=== PATIENT | female | born 1940 | race Caucasian/White ===

== ENCOUNTER 2018-05-14 06:15 | Day surgery (SDC) | payer OTHER, SELFPAY ==
[2018-04-21 14:48] VITALS: BMI 27.1
[2018-05-14] VITALS (15 sets, daily range): BP systolic 91–130; BP diastolic 52–74; PULSE 68–84; RESP 7–18; TEMP 35.6–36.8; O2SAT 92–98; BMI 26.9
[2018-05-14] MEDS: LACTATED RINGERS 1,000 ML 42 ML IV (07:54)
--- NOTE | 2018-05-14 07:55 | PM.PREOP ---
Pre-operative Note Interval Note Pre-op Check: Yes History & Physical Reviewed by Physician Changes: No
[2018-05-14] MEDS: CEFAZOLIN 2 GM/100 ML FROZ.PIGGY IV (08:03)
--- NOTE | 2018-05-14 08:39 | SUR.OPER ---
Lithotomy on padded OR bed, head on pillow, arms secured on padded arm boards at <90 degrees abduction. Legs secured in padded yellow fins stirrups.
[2018-05-14] MEDS: fentaNYL 100 MCG/2 ML INJ 50 MCG IV ×2 (09:50→09:55)
--- NOTE | 2018-05-14 10:03 | PM.GYNOP.1 ---
Operative Date/Time/Diagnoses Date of procedure: 05/14/18 Time of procedure: 10:03 Pre-op diagnosis: Cystocele Rectocele Vaginal vault prolapse Post-op diagnosis: same Procedure: Procedures Operation Date: 05/14/18 07:45 Actual Procedures Side Surgeon p Anterior/Posterior Repair, Sacrospinous Fixation Rosana Negro MD Indications: Symptomatic cystocele and rectocele Vaginal vault prolapse Surgeon: Rosana Negro Senior Program Planner: Sanjuanita Scott Anesthesia Type: General Operative Notes Findings: Third-degree cyst Third-degree rectocele Third-degree vaginal vault prolapse Closure Type: primary Specimen(s): none Applied: catheter Estimated blood loss (mL): 100 Blood products transfused: none Procedure in detail: 2 Allis clamps were placed at the apex of the cystocele. 6 mL of half percent Marcaine with epinephrine were injected and an incision was made with a #10 blade between the 2 Allis clamps. Wide Allis clamps were placed on the midline of the cystocele approximately 7. The mucosa was undermined using the Metzenbaum scissors and the mucosa incised in the midline moving the wide Allis clamps to the edges of the mucosa. The mucosa was dissected off the underlying fascia using an open moistened Ray-Alissa and a #10 blade. The fascia was reapproximated with 0 Vicryl with a series of horizontal mattress sutures. The excess vaginal mucosa was excised. The mucosa was closed using simple interrupted sutures with 2-0 Vicryl including the underlying fascia to close the space. The weighted speculum was removed from the vagina. Allis clamps were placed at the mucocutaneous junction at the introitus. 6 mL of half percent Marcaine with epinephrine were injected. An incision was made with a #10 blade between the 2 Allis clamps, and a triangular piece of skin and underlying subcutaneous tissue was removed. Allis clamps were placed in the midline of the rectocele. 10 mL of half percent Marcaine with epinephrine were injected submucosally. The mucosa was undermined using the Metzenbaum scissors and the mucosa incised in the midline, moving the wide Allis clamps to the mucosal edges. The underlying fascia was dissected off of the mucosa using an open moistened Ray-Alissa and a #10 blade. Using the Capio needle 2cm from the spine laterally along the sacral spinous ligament, the Prolene suture was placed into the ligament. Using the Capio needle the suture was attached to the vaginal mucosa without going through and through. The upper edge of the vaginal mucosa was closed with 2 0 Vicryl in a running interlocking suture for approximately 2 cm. The fascia was reapproximated using 0 Vicryl with a series of horizontal mattress sutures. The excess vaginal mucosa was excised. The remainder of the mucosa was closed using a series of simple interrupted sutures with 2-0 Vicryl including the underlying fascia to close the space. On the perineum 0 Vicryl was used to reapproximate the levator muscle. The subcutaneous layer was closed with 2-0 Vicryl. The skin was closed with 3-0 chromic in a subcuticular fashion. Hemostasis was achieved. A Betadine moistened vaginal pack was placed into the vagina. A rectal exam was done and there were no sutures palpable in the rectum. The urine was clear. Sponge, lap, and instrument counts were correct ?-2. The patient tolerated the procedure well, was taken to PACU in stable condition. Complications: none Post-operative Condition: stable Disposition: PACU Plan for aftercare: To Acute Care after recovery
[2018-05-14] MEDS: LACTATED RINGERS 1,000 ML 100 ML IV ×2 (11:41→20:42)
--- NOTE | 2018-05-14 11:44 | PC.NURSE ---
Pt arrived at floor at 10:30 am after ant/post repair. IVF initiated. Spencer cath present with clear yellow. No PV loss. Denies pain apart from pressure at surgical site. Not ready for percocet yet. Now eating lunch.
[2018-05-14] MEDS: OXYCODONE/ACETAMINOPHEN 5/325 TABLET 1 TAB PO (12:22)
[2018-05-14] MEDS: ACETAMINOPHEN 325 MG TABLET 650 MG PO (17:28)
[2018-05-14] MEDS: DOCUSATE 250 MG CAPSULE PO (20:43)
[2018-05-15 04:11] VITALS: BP 115/57; PULSE 86; RESP 16; TEMP 36.5; O2SAT 95
--- NOTE | 2018-05-15 04:34 | PC.NURSE ---
Addendum entered by Adriana Hardin R.N. 05/15/18 07:06: Contacted at 0645 to determine if she was planning on removing packing or if she wanted staff to remove. Order received for RN to remove packing and then DC Echols and IVF. Is to be allowed 3h max to void. If voids we are to measure urine and do a post void residual bladder scan and call results to Dr Negro. If does not void in 3h we are to bladder scan and call results to bladder scan. Packing removed and echols d'cd. Instructed in sx/prevention of UTI. IVF stopped and informed of new orders and plan for today. Original Note: Addendum entered by Adriana Hardin R.N. 05/15/18 05:56: States having only 2/10 pain; cramping type pain in right abdomen and pulling sensation pain in vaginal area. Requested only 1 tab of Tylenol at this time; medicated as requested. Given yogurt along with medication per request. Had 1500cc UOP. Original Note: 0400 Patient asleep most of shift so far. Is alert and oriented. Breath sounds CTA with RA sat of 95%. HRR. Denies nausea. BT present and is passing flatus. Indwelling catheter is patent with clear yellow urine. Independent with bed mobility. Denies any current pain. Madeline-pad changed and had moderate amount sanguinous drainage on pad. States she does not use assistive device to walk at home but was walking on evening shift with walker and SBA. Denies feeling weak but states she has had recent problems with dizziness but no falls. Fall risk score currently high so bed alarm is activated for this shift.
[2018-05-15] MEDS: ACETAMINOPHEN 325 MG TABLET 650 MG PO (05:49)
[2018-05-15 07:01] LABS: Add Manual Diff / Slide Review NO; Basophils Percent Auto 0.1 % (0-2); Hematocrit 33.8 % (36-46); Hemoglobin 11.4 g/dL (12.0-16.0); Lymphocytes Percent Auto 6.9 % (25-40); Mean Corpuscular HGB Conc 33.8 % (30-36); Mean Corpuscular Hemoglobin 29.6 PG (26-34); Mean Corpuscular Volume 87.8 fL (80-100); Monocytes Percent Auto 4.6 % (3-14); Neutrophils Absolute Auto 11600 /uL (3000-5900); Neutrophils Percent Auto 88.4 % (50-75); Platelet Count 181 X10^3/uL (150-400); Red Blood Cell Count 3.85 X10^6/uL (4.0-5.2); White Blood Cell Count 13.1 X10^3/uL (4.5-11.0)
[2018-05-15 07:20] VITALS: BP 121/56; PULSE 73; RESP 15; TEMP 36.4; O2SAT 98
--- NOTE | 2018-05-15 09:18 | CM.DANOTE ---
Addendum entered by STUART Goldberg 05/15/18 13:09: ADD: Per MD, pt is medically stable to d/c home today with supportive family and no identified barriers to discharge. Plan: Patient to discharge home today via family POV. No SW needs at this time. BF Original Note: Patient is a 77 year old female who was admitted OutPt with Bed on 05/14/18 for Surgical Procedure by Dr. Negro. Pt has [facility] for insurance and her PCP is Dr. Carrizales. EMR was reviewed. Per MD, pt tolerated procedure well and likely can d/c home when medically stable. SW met bedside with pt and explained role and updated white board and pt confirmed that she lives at home wiht her in [place] and has local Dtr and family that can assist at d/c. Pt states she completed Living Will years ago and cannot remember who is her assigned DPOA. Pt plans to review her legal documents to update with their research attorney in the near future. Pt denies any hx of HH or SNF and is Independent at baseline with ADL's. Pt does not anticipate any SW needs at d/c and preference is to d/c home with and local Dtr and states her other Dtr who lives out of state plans to come tomorrow to stay with the pt to assist. Plan: SW to follow for likely pt d/c home with supportive family and Dtr to stay to assist when medically stable. STUART Goldberg Discharge Planning/Care Management CM Discharge Assessment Start: 05/15/18 09:15 Freq: Status: Active Protocol: Document 05/15/18 09:15 (Rec: 05/15/18 09:18 [id number]) Discharge Planning Assessment Assigned Carver Hand STUART Vang DPOA/Assigned Designee Name yes but unsure who Advance Directives? Yes History Provided By Patient Medical Record Has Patient been admitted in last 30 No days? Prior Living Arrangements House Household Members spouse Type of transporation used prior to Drives own vehicle admit Independent with ADL's Yes Is patient alert and oriented? Yes Caregiver for Another No Comment Likely home with supportive family Barriers to Discharge No Discharge Plan Home Transportation Arrangement Family to provide transport at d/c. Referrals Initiated None needed Whiteboard Updated in Patient Room with Yes name and ext. # of Carver Hand Review Status In Process Please Provide Date Initial DC 05/15/18 Assessment Was Performed Next Review Type Continued Stay Review
--- NOTE | 2018-05-15 09:32 | PC.NURSE ---
Day shift: Called Dr Negro to report void and post void bladder scan. 650ml out w/ 41ml residual. Also large BM. Brown and loose. Call light in reach.
[2018-05-15] MEDS: SODIUM CHLORIDE 0.9% FLUSH 10 ML IV (09:38)
[2018-05-15] MEDS: DOCUSATE 250 MG CAPSULE PO (09:38)
[2018-05-15 12:15] VITALS: BP 140/67; PULSE 75; RESP 17; TEMP 36.6; O2SAT 97
--- NOTE | 2018-05-15 13:45 | PC.NURSE ---
Pt ready for discharge home with Spouse. Reviewed d/c instructions with Pt. Pt's Spouse just returned from a walk and climbing the stairs and states he is feeling a bit dizzy. VS checked with result of 141/89, 16, 60, and O2 sat of 97% RA. Pt states this has happened before. Pt now resting and visiting with Spouse and agrees to call when they feel ready to go. Encouraged Pt to consider going to the ER to be checked but Pt's Spouse refused. Pt and Spouse live in [place]. Questioned Spouse about feeling safe to drive and he stated that he was feeling better. Gave Pt's Spouse a cup of juice and water and they agree to call when they are ready.
--- NOTE | 2018-05-15 14:27 | PC.NURSE ---
Day shift: Left unit at approx 1420. stated he is feeling better. Paperwork signed and questions answered. Pt went home with some extra peripads and all personal belongings.
--- NOTE | 2018-05-19 20:08 | PM.PNPO.1 ---
Subjective Date Patient Seen: 05/15/18 Time Patient Seen: 12:30 Interval history: Patient is a 77-year-old 6 para 6 postop day # 1 Status post anterior posterior repair and sacrospinous ligament fixation Patient voided without the catheter this morning. She voided 450-600 cc. Her postvoid residuals were less than 50 cc. She had clear yellow urine. Pain is well controlled. No significant vaginal bleeding. Her vaginal packing was removed earlier this morning. Exam Vital Signs (past 8 hours): Oxygen Delivery Method Room Air Oxygen Flow Rate 0 Narrative Exam Narrative: Generally: Patient is sitting up in bed, no acute distress Cardiovascular: Regular rate and rhythm Abdomen: Soft and flat. Good bowel sounds. External genitalia: Dry Extremities: Negative Homans, no edema Objective Labs Result Diagrams: 05/15/18 05:06 Assessment & Plan Post-op (1) Postop check: Current Visit: No Status: Acute Assessment and plan: Assessment: Postop day # 1 status post anterior and posterior repair with sacrospinous ligament fixation No urinary retention Plan: Discharged home Voiding schedule every 2-1/2 to 3 hr Patient to call with fever, chills, or bleeding vaginally more than spotting to light Follow-up in 2 weeks for postoperative check Postoperative Procedures Operation Date: 05/14/18 07:45 Actual Procedures Side Surgeon p Anterior/Posterior Repair, Sacrospinous Fixation Rosana Negro MD Quality VTE Deep Vein Thrombosis/Pulmonary Embolism Present on Admission: No
--- NOTE | 2018-05-19 20:12 | PM.DS.1 ---
History of Present Illness Date Patient Seen: 05/15/18 Time Patient Seen: 12:30 Chief complaint: *OPB* [id number] Narrative: Patient is a 77-year-old 6 para 6 who presented on 05/14/2018 for a scheduled anterior and posterior repair as well as a sacral spinous ligament fixation. She underwent these procedures without complication. Her postoperative course was unremarkable. She was discharged home on postop day # 1 with no evidence of urinary retention, good pain control, minimal vaginal bleeding. Discharge Providers Primary care physician: Sheldon Carrizales MD Discharge provider: Rosana Negro MD Summary Discharge Diagnosis: Cystocele Rectocele Vaginal vault prolapse Hospital Course: Patient underwent an anterior and posterior repair as well as sacral spinous ligament fixation on 05/14/2018 without complication. She had an unremarkable postoperative course. She was discharged home on postop day # 1 with no evidence of urinary retention, good pain control, and minimal vaginal bleeding. Status at Discharge Functional status at discharge: independent ambulation Overall status at discharge: patient is progressing back to baseline Time Spent with Patient Less than 30 minutes Exam Vital Signs (past 8 hours): Oxygen Delivery Method Room Air Oxygen Flow Rate 0 Narrative Exam Narrative: Generally: Patient is sitting up in bed, no acute distress Lungs: Clear to auscultation bilaterally Cardiovascular: Regular rate and rhythm Abdomen: Soft and flat. Good bowel sounds Perineum: Dry Extremities: Negative Homans Objective Labs Result Diagrams: 05/15/18 05:06 Discharge Plan Discharge Plan Patient Disposition: Home Discharge comment: Call with fever, chills or bleeding vaginally more than spotty to light. Empty bladder every 2 1/2-3 hours Discharge Med Rec/Prescriptions Prescriptions: No Action No Known Home Medications RF: 0 Follow up/Referrals: Rosana Negro MD [Physician] - Sheldon Carrizales MD [Primary Care Provider] - 2 Weeks (My office will call pt on Thursday to schedule) Discharge Orders: Discharge (Order); Ordered 05/15/18 Ordered By: Rosana Negro Provider Discharge Instructions Diet: Diet as Tolerated Activity: No heavy lifting, lunging or squatting Skin/Wound/Dressing Care Report to your healthcare provider any signs of infection, such as:: chills, fever, increased pain and unusual drainage Visit Report/Discharge Packet Instructions: DI for Vaginal Hysterectomy Stand Alone Forms: Surgery Discharge Discharge Data Primary Care Provider: Sheldon Carrizales Attending Provider: Rosana Negro Discharges patient from system. Discharge Date/Time: 05/15/18 14:28 Quality VTE Deep Vein Thrombosis/Pulmonary Embolism Present on Admission: No
== END 2018-05-15 14:28 | disposition home or self-care (01) ==
LOC: OR 06:18 → AC 10:54
PROVIDERS: Family Provider Family Medicine; PCP Family Medicine; Visit Provider Obstetrics & Gynecology
PROC: (CPT 57282; principal; 2018-05-14 07:45)
DX: N81.10 Cystocele, unspecified (principal); N81.6 Rectocele; N81.9 Female genital prolapse, unspecified
CPT/HCPCS: 57282; 57260; 36415; 85025; J0690; J1100; J1885; J2405; J2704; J3010

== ENCOUNTER → 2020-01-02 12:29 | Outpatient (CLI) | payer OTHER, SELFPAY ==
[2018-05-14 11:15] VITALS: BMI 26.9
--- NOTE | 2020-01-02 12:30 | DI.RAD.S_ITS ---
PROCEDURE: XR FOOT RT MIN 3V INDICATIONS: 1st metatarsal pain TECHNIQUE: 3 views of the foot were acquired. COMPARISON: None. FINDINGS: Bones: No fractures or dislocations. No suspicious bony lesions. Severe osteoarthritic degenerative changes noted in the first MTP joint. Soft tissues: No tibiotalar joint effusion. Achilles tendon appears normal. IMPRESSION: 1. No fracture. No acute osseous lesion. If symptoms and/or clinical suspicion for pathology persists, further assessment with repeat radiographs (7-10 days) or advanced imaging (e.g. CT, MRI or bone scan) may be helpful. 2. Severe first MTP joint osteoarthritis with severe joint space narrowing, subchondral sclerosis, subchondral cyst formation and marginal osteophytosis. Dictated by: Kayla Smith MD, PhD on 01/02/2020 at 14:07 Approved by: Kayla Smith MD, PhD on 01/02/2020 at 14:21
== END ==
PROVIDERS: Family Provider Family Medicine; PCP Family Medicine; Referring Provider Family Medicine; Visit Provider Family Medicine
DX: M79.671 Pain in right foot (principal); M19.071 Primary osteoarthritis, right ankle and foot
CPT/HCPCS: 73630

== ENCOUNTER → 2020-07-10 14:28 | Outpatient (CLI) | payer OTHER, SELFPAY ==
[2018-05-14 11:15] VITALS: BMI 26.9
--- NOTE | 2020-07-10 14:31 | DI.RAD.S_ITS ---
PROCEDURE: XR HIP W PEL IF DONE RT 2V INDICATIONS: rt hip pain TECHNIQUE: AP pelvis with lateral view(s) of the right hip(s). COMPARISON: None. FINDINGS: Bones: No fractures or dislocations. Pelvic ring appears intact. No suspicious bony lesions. Soft tissues: The visualized bowel gas pattern is normal. No suspicious soft tissue calcifications. IMPRESSION: Hdcr-qd-dppaoyyl hip joint osteoarthritis present bilaterally, slightly greater on the left than the right. No trauma found. Dictated by: Wesley Muhammad M.D. on 07/10/2020 at 16:02 Approved by: Wesley Muhammad M.D. on 07/10/2020 at 16:02
== END ==
PROVIDERS: Family Provider Family Medicine; PCP Family Medicine; Referring Provider Family Medicine; Visit Provider Family Medicine
DX: M16.0 Bilateral primary osteoarthritis of hip (principal); E03.9 Hypothyroidism, unspecified
CPT/HCPCS: 73502

== ENCOUNTER → 2020-10-01 10:26 | Outpatient (CLI) | payer OTHER, SELFPAY ==
[2018-05-14 11:15] VITALS: BMI 26.9
[2020-10-01 11:45] LABS: Add Manual Diff / Slide Review NO; Basophils Absolute Auto 0 /uL (0-100); Basophils Percent Auto 0.8 % (0-2); Eosinophils Absolute Auto 300 /uL (0-450); Eosinophils Percent Auto 5.2 % (2-4); Hemoglobin 13.6 g/dL (12.0-16.0); Lymphocytes Absolute Auto 1000 /uL (1100-4500); Mean Corpuscular HGB Conc 32.4 % (30-36); Mean Corpuscular Hemoglobin 28.6 PG (26-34); Mean Corpuscular Volume 88.1 fL (80-100); Monocytes Absolute Auto 600 /uL (0-900); Monocytes Percent Auto 10.2 % (3-14); Neutrophils Absolute Auto 3500 /uL (1500-7000); Neutrophils Percent Auto 64.8 % (50-75); Platelet Count 208 X10^3/uL (150-400); Red Blood Cell Count 4.77 X10^6/uL (4.0-5.2); Red Cell Distribution Width 13.4 % (11.6-14.8); White Blood Cell Count 5.4 X10^3/uL (4.5-11.0)
[2020-10-01 11:51] LABS: Alanine Aminotransferase 18 IU/L (<35); Albumin 4.1 g/dL (3.5-5.0); Albumin Globulin Ratio 1.3 (1.0-2.8); Alkaline Phosphatase 89 U/L (38-126); Aspartate Aminotransferase 26 IU/L (14-36); BUN Creatinine Ratio 10.8 (6-22); Bilirubin Total 0.4 mg/dL (0.2-1.3); Blood Urea Nitrogen 9 mg/dL (7-17); Calcium 9.3 mg/dL (8.4-10.2); Carbon Dioxide 31 mmol/L (22-32); Chloride 99 mmol/L (98-107); Estimated Glomerular Filt Rate > 60.0 mL/min (>60); Globulin 3.1 g/dL (1.7-4.1); Glucose 82 mg/dL (80-110); HEMOLYSIS < 15 (0-50); Potassium 3.9 mmol/L (3.4-5.1); Sodium 135 mmol/L (137-145); Total Protein 7.2 g/dL (6.3-8.2)
[2020-10-01 12:21] LABS: TSH w/ Reflex to FT4 8.96 uIU/mL (0.47-4.68)
[2020-10-01 12:57] LABS: Free T4, Direct Thyroxine 1.27 ng/dL (0.78-2.19)
== END ==
PROVIDERS: Family Provider Family Medicine; PCP Family Medicine; Referring Provider Family Medicine; Visit Provider Family Medicine
DX: E03.9 Hypothyroidism, unspecified (principal); M25.559 Pain in unspecified hip
CPT/HCPCS: 36415; 80053; 84439; 84443; 85025

== ENCOUNTER → 2020-10-02 15:36 | Outpatient (CLI) | payer OTHER, SELFPAY ==
[2018-05-14 11:15] VITALS: BMI 26.9
--- NOTE | 2020-10-02 15:37 | DI.RAD.S_ITS ---
PROCEDURE: XR CHEST 2V INDICATIONS: cough short of breath TECHNIQUE: 2 views of the chest were acquired. COMPARISON: [facility], , CHEST 2 VIEW, 06/07/2009, 15:20. FINDINGS: Surgical changes and devices: None. Lungs and pleura: Biapical and left basilar scars and atelectasis. No pleural effusions or pneumothorax. Mediastinum: Mediastinal contours are normal. Heart size is normal. Bones and chest wall: No suspicious bony abnormalities. Soft tissues appear unremarkable. IMPRESSION: No acute cardiopulmonary disease. Biapical and left basilar scars and atelectasis. Dictated by: Jeffrey Joe M.D. on 10/02/2020 at 16:44 Approved by: Jeffrey Joe M.D. on 10/02/2020 at 16:45
== END ==
PROVIDERS: Family Provider Family Medicine; PCP Family Medicine; Referring Provider Family Medicine; Visit Provider Family Medicine
DX: R05 Cough (principal); R06.02 Shortness of breath; J98.4 Other disorders of lung; J98.11 Atelectasis
CPT/HCPCS: 71046

== ENCOUNTER → 2021-02-07 10:10 | Outpatient (CLI) | payer OTHER, SELFPAY ==
[2018-05-14 11:15] VITALS: BMI 26.9
[2021-02-07 10:37] LABS: COVID19 -Nasal RAPID Negative (Negative)
== END ==
PROVIDERS: Family Provider Family Medicine; PCP Family Medicine; Visit Provider Family Medicine
DX: Z20.822 Contact with and (suspected) exposure to COVID-19 (principal)
CPT/HCPCS: 87635

== ENCOUNTER → 2021-05-28 09:47 | Outpatient (CLI) | payer OTHER, SELFPAY ==
[2018-05-14 11:15] VITALS: BMI 26.9
--- NOTE | 2021-05-28 09:48 | DI.US.S_ITS ---
PROCEDURE: US ABDOMEN LIMITED INDICATIONS: RIGHT UPPER QUADRNAT PAIN. POSSIBLE SOFT TISSUE MASS. TECHNIQUE: Real-time focused scanning was performed of the abdomen, with image documentation. COMPARISON: None. FINDINGS: The liver is normal in size and demonstrates no focal lesions. No findings of gallstones or sludge are seen. The gallbladder wall is not thickened, measuring 3 mm or less. No specific pericholecystic fluid is seen. The sonographic Feliz sign is negative. There is no biliary dilatation, the common bile duct measures 4 mm. No significant pancreatic abnormality is seen on these images. Dedicated scanning is performed at the area of clinical concern involving the right upper quadrant soft tissue abnormality. No abnormalities are seen, including no hernia, cyst, or lipoma. IMPRESSION: No ultrasound abnormality can be seen involving the right upper quadrant. The gallbladder demonstrates a normal sonographic appearance. No biliary dilatation is seen. Dictated by: Arnie Navarrete M.D. on 05/28/2021 at 9:37 Approved by: Arnie Navarrete M.D. on 05/28/2021 at 9:38
== END ==
PROVIDERS: Family Provider Family Medicine; PCP Family Medicine; Referring Provider Physician Assistant; Visit Provider Physician Assistant
DX: R10.11 Right upper quadrant pain (principal)
CPT/HCPCS: 76705

== ENCOUNTER → 2021-12-17 09:51 | Outpatient (CLI) | payer OTHER, SELFPAY ==
[2018-05-14 11:15] VITALS: BMI 26.9
--- NOTE | 2021-12-17 | DI.US.S_ITS ---
ULTRASOUND OF RIGHT BREAST: 12/17/2021 CLINICAL: Patient returns today to evaluate 2 focal asymmetries in the right breast. Comparison is made to exam dated: 12/17/2021 mammogram - [facility]. Ultrasound of the right breast was performed on the area of interest. Ca scale images of the real-time examination were reviewed. There is a cluster of complicated cysts in the right breast at 3 o'clock posterior depth. This cluster of complicated cysts displays posterior acoustic enhancement and correlates with mammography findings. IMPRESSION: PROBABLY BENIGN The cluster of complicated cysts in the right breast is probably benign. A follow-up ultrasound in 6 months is recommended to demonstrate stability. This exam was interpreted at Station ID: [id number]. Electronically Signed By: Sepideh bates/:12/17/2021 16:56:42 letter sent: Followup Recommended Ultrasound BI-RADS: 3 Probably benign
--- NOTE | 2021-12-17 12:44 | DI.MG.S_ITS ---
BILATERAL DIGITAL DIAGNOSTIC MAMMOGRAM 3D/2D: 12/17/2021 CLINICAL: Breast lump. Baseline. No prior exams were available for comparison. There are scattered fibroglandular elements in both breasts. There is a cluster of two focal asymmetries in the right breast at 2 o'clock middle depth. There is a 2.4 cm mass with a spiculated margin and grouped coarse calcifications in the left breast at 12 o'clock middle depth. This correlates as palpated. There is architectural distortion and nipple retraction associated with the mass. No other significant masses or calcifications are seen in either breast. IMPRESSION: INCOMPLETE: NEEDS ADDITIONAL IMAGING EVALUATION The cluster of focal asymmetries in the right breast at 2 o'clock middle depth is indeterminate. The 2.4 cm mass in the left breast at 12 o'clock middle depth is indeterminate. A targeted ultrasound of the bilateral breasts is recommended and will be performed immediately following this exam. This exam was interpreted at Station ID: [id number]. NOTE: For mammograms, a report in lay terms will be sent to the patient. Approximately 15% of breast malignancies will not be visualized mammographically. In the management of a palpable breast mass, a negative mammogram must not discourage biopsy of a clinically suspicious lesion. Electronically Signed By: Sepideh Brink M.D. lk/:12/17/2021 13:42:15 ACR BI-RADS Category 0: Incomplete [id number]
--- NOTE | 2021-12-17 12:45 | DI.US.S_ITS ---
ULTRASOUND OF LEFT BREAST: 12/17/2021 CLINICAL: Palpable left breast lump. Comparison is made to exam dated: 12/17/2021 mammogram - [facility]. Color flow and real-time ultrasound of the left breast were performed on the areas of interest. Ca scale images of the real-time examination were reviewed. There is a 2.1 cm x 1.8 cm x 1.9 cm irregular mass with an angular margin in the left breast at 12 o'clock middle depth. This irregular mass is hypoechoic with posterior acoustic shadowing. This correlates as palpated and with mammography findings. There also is a 1.4 cm x 1 cm x 1.2 cm irregular mass with an angular margin in the left breast deep to the nipple. This irregular mass is hypoechoic with posterior acoustic shadowing. There is associated nipple retraction. Additionally, there is a 0.5 cm x 0.6 cm x 0.6 cm mass with an angular margin in the left axillary tail. This mass is hypoechoic with posterior acoustic shadowing. Color flow imaging demonstrates that there is increased vascularity. IMPRESSION: HIGHLY SUGGESTIVE OF MALIGNANCY The 2.1 cm x 1.8 cm x 1.9 cm irregular mass in the left breast at 12 o'clock middle depth is highly suggestive of malignancy. An ultrasound guided biopsy is recommended. The 1.4 cm x 1 cm x 1.2 cm irregular mass in the left breast at 12 o'clock anterior depth is highly suggestive of malignancy and likely represents a satelite lesion to the palpable mass. Biopsy of this lesion should be at the discretion of the radiologist at the time of biopsy of the palpable mass. The 0.5 cm x 0.6 cm x 0.6 cm mass in the left axillary tail is consistent with an enlarged lymph node and is highly suggestive of malignancy. An ultrasound guided biopsy is recommended. These findings were discussed with the patient by the radiologist Dr. Joe at the time of the exam. This exam was interpreted at Station ID: [id number]. Electronically Signed By: Sepideh bates/:12/17/2021 16:52:58 letter sent: Biopsy Required Ultrasound BI-RADS: 5 Highly suggestive of malignancy
== END ==
PROVIDERS: Family Provider Family Medicine; PCP Family Medicine; Referring Provider Family Medicine; Visit Provider Family Medicine
DX: N63.25 Unspecified lump in the left breast, overlapping quadrants (principal); R92.8 Other abnormal and inconclusive findings on diagnostic imaging of breast; N60.01 Solitary cyst of right breast; N63.32 Unspecified lump in axillary tail of the left breast
CPT/HCPCS: 76642; 77066; G0279

== ENCOUNTER → 2022-01-14 09:09 | Outpatient (CLI) | payer OTHER, SELFPAY ==
[2018-05-14 11:15] VITALS: BMI 26.9
--- NOTE | 2022-01-14 | DI.MG.S_ITS ---
UNILATERAL LEFT DIGITAL DIAGNOSTIC MAMMOGRAM 3D/2D POST-NEEDLE BIOPSY: 01/14/2022 CLINICAL: Left breast post clip. Comparison is made to exams dated: 12/17/2021 ultrasound and 12/17/2021 mammogram - [facility]. There are scattered fibroglandular elements in left breast. There is a marker clip in the appropriate position in the left breast at 12 o'clock middle depth. This marker clip placement is at the biopsy site. IMPRESSION: POST PROCEDURE MAMMOGRAM FOR MARKER PLACEMENT There was a successful marker clip placement in the left breast middle depth. Future imaging is recommended as follows: 06/18/2022 follow-up right ultrasound. This exam was interpreted at Station ID: [id number]. NOTE: For mammograms, a report in lay terms will be sent to the patient. Approximately 15% of breast malignancies will not be visualized mammographically. In the management of a palpable breast mass, a negative mammogram must not discourage biopsy of a clinically suspicious lesion. Electronically Signed By: Mark morley/marquis:01/24/2022 08:31:32 ACR BI-RADS Category Post-procedure mammogram for marker placement
--- NOTE | 2022-01-14 | DI.US.S_ITS ---
ULTRASOUND GUIDED BIOPSY LEFT BREAST: 01/14/2022 CLINICAL: Left axillary node biopsy. PATIENT CONSENT: Risks (minor bleeding, infection, vasovagal reaction and repeat procedure), benefits and alternatives were explained to the patient and written informed consent was obtained. Correlation is made to exams dated: 12/17/2021 ultrasound and 12/17/2021 mammogram [facility]. An ultrasound guided biopsy using real-time ultrasound was performed for the lymph node located in the left axillary tail. This was described on the previous ultrasound report. The skin was prepped in the usual manner. The abnormality was approached from the lateral aspect. A biopsy needle was placed adjacent to the abnormality under ultrasound guidance. Once the needle was documented to be in the correct location, three passes were made using an Achieve automated firing device. The specimens were sent to the laboratory for pathological analysis. IMPRESSION: ULTRASOUND GUIDED BIOPSY MALIGNANT Ultrasound guided biopsy of the lymph node in the left axillary tail was successful with no apparent post procedure complications. Pathology indicates malignant invasive ductal carcinoma (ID). Pathology results are concordant with imaging findings. A surgical/oncologic consultation is recommended. Future imaging is recommended as follows: 06/18/2022 follow-up right ultrasound. This exam was interpreted at Station ID: [id number]. Mark morley jr/:01/27/2022 11:36:31
--- NOTE | 2022-01-14 | PATH_ITS ---
[facility] Accession Number: [id number] No. of containers..01 Tissue . 01 Material submitted: . breast - LT BREAST MASS 12:00 9CMFN . 01 Diagnosis: Left Breast Mass at 12 o'clock, 9 cm from Nipple: Invasive carcinoma. Please see Cancer Case Summary. . . CANCER CASE SUMMARY . Specimen Procedure: Needle biopsy. Specimen laterality: Left. Tumor Tumor site: Between upper outer and upper inner quadrants at 12 o'clock, 9 cm from nipple. 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 Histologic grade: High grade. Glandular differentiation: 3/3. Nuclear pleomorphism: 3/3. Mitotic rate: Favor 2/3. Overall grade: Grade 3 (score 8/9). Tumor size: At least 7 mm. Carcinoma in situ: Not identified. Lymphovascular invasion: Not identified. Microcalcifications: Not identified. Special studies: Please see microscopic description. V 01/17/2022 1609 Local . 01 Comment: As part of routine quality control chemist, this case was also reviewed by Dr. Tovar, who agrees with the interpretation. . Results discussed with Dr. Carrizales's nurse, Malini, on 01-17-22 at approximately 3:46 p.m. . 01 Electronically signed: . Rosita Magallon MD, Pathologist NPI- [id number] . 01 Gross description: . Received one formalin-filled container, labeled with the patient's name and designated LT breast mass 12 o'clock 9 cm fn. Samples received with a plastic filter in container, sample loose in container and consists of multiple yellow-dunlap portions of tissue which range in size from 0.1 x 0.1 x 0.1 cm to 1.1 x 0.3 x 0.3 cm. All fragments are totally submitted in two cassettes. Possible collection date and time per requisition: 01/14/2022 at 10:27. Total fixation time: Approximately 18 hours. (DC:[id number]) /HUGH 01/15/2022 0346 Local . 01 Microscopic: . Immunohistochemical stains are performed to further evaluate the cells of interest. The control stain showed appropriate reactivity. . RESULTS: E-cadherin: Positive, consistent with ductal differentiation. GATA3: Positive, consistent with breast origin. . . . . CAP BREAST BIOMARKER REPORTING TEMPLATE: . Estrogen Receptor (ER) Status: Positive, 80-90% of tumor nuclei. Average intensity of staining: Moderate to strong intensity. Primary antibody: SP1 Progesterone Receptor (PgR) Status: Positive, 70% tumor nuclei. Average intensity of staining: Moderate to strong intensity. Primary antibody: 1E2 HER2 (by immunohistochemistry): Negative at 1+. Primary antibody: 4B5 . Cold Ischemia and Fixation Times: Meets requirements in the latest version of the ASCO/CAP guidelines. Testing performed on Block Number: . TECHNICAL NOTE: The scoring criteria for breast biomarkers by immunohistochemistry is based on the current ASCO/CAP guidelines (Elizabeth et al, Arch Pathol Lab Med 2010: 134(6): 907-922 / Wil SILVA et al, Arch Pathol Lab Med 2014: 138(2):241-256). Deparaffinized sections of formalin fixed tissue (along with appropriate positive controls) are incubated with the above antibody(s). Using the automated [employer] stainer, tissue is incubated with the designated antibody* which is then localized by a non-biotin, dual polymer detection system. The external controls are reviewed for appropriate reactivity and found to be adequate. Results on the target cell population are indicated above. These tests have not been validated on decalcified tissue. * This test was developed and its performance characteristics determined by [employer]. It has not been cleared or approved by the U.S. Food and Drug Administration. The FDA has determined that such clearance or approval is not necessary. This test is used for clinical purposes. It should not be regarded as investigational or for research. . 01 Pathologist provided ICD-10: C50.912 . 01 CPT . 325010, 924515, 867836, 102279, K32620, X22350 Specimen Comment: A courtesy copy of this report has been sent to [phone] Performed at: 01 [facility] [address] [facility], [place], [place] [id number] MD Oscar Chatman MD Phone: [phone]
--- NOTE | 2022-01-14 | DI.US.S_ITS ---
ULTRASOUND GUIDED BIOPSY LEFT BREAST USING VACUUM DEVICE WITH MARKING DEVICE INSERTED AND POST DIGITAL MAMMOGRAPHIC IMAGIN01/14/2022 CLINICAL: Left breast mass. PATIENT CONSENT: Risks (minor bleeding, infection, vasovagal reaction and repeat procedure), benefits and alternatives were explained to the patient and written informed consent was obtained. Correlation is made to exams dated: 12/17/2021 ultrasound and 12/17/2021 mammogram - [facility]. An ultrasound guided biopsy using real-time ultrasound was performed for the irregular shaped solid mass located in the left breast at 12 o'clock posterior depth. This was described on the previous ultrasound report. The skin was prepped in the usual manner. Local anesthetic was administered to the access site. A small incision was made in the breast. The abnormality was approached from the lateral aspect. A 10 gauge biopsy needle was placed adjacent to the abnormality under ultrasound guidance. Once the needle was documented to be in the correct location, three specimens were obtained using the Mammotome biopsy system. The patient received additional local anesthetic during the procedure. A clip was inserted into the biopsy cavity. A skin adhesive was applied to the access site. Post procedure digital mammographic imaging demonstrates the location device at the targeted area. The specimens were sent to the laboratory for pathological analysis. IMPRESSION: ULTRASOUND GUIDED BIOPSY MALIGNANT Ultrasound guided biopsy of the solid mass in the left breast at 12 o'clock posterior depth was successful with no apparent post procedure complications. Pathology indicates malignant invasive ductal carcinoma (ID). Pathology results are concordant with imaging findings. A surgical/oncologic consultation is recommended. Future imaging is recommended as follows: 06/18/2022 follow-up right ultrasound. This exam was interpreted at Station ID: [id number]. Mark morley jr/marquis:01/27/2022 11:35:19
--- NOTE | 2022-01-14 | PATH_ITS ---
[facility] Accession Number: [id number] No. of containers..01 Tissue . 01 Material submitted: . breast - LEFT AXILLARY MASS . 01 Diagnosis: Left Axillary Mass: Invasive carcinoma. Please see Cancer Case Summary. . . CANCER CASE SUMMARY . Specimen Procedure: Needle core biopsy. Specimen laterality: Left. Tumor Tumor site: Axillary, not otherwise specified. 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 Histologic grade: Intermediate grade. Glandular differentiation: 3/3. Nuclear pleomorphism: 2/3. Mitotic rate: Favor 2/3; limited hpf for review. Overall grade: Grade 2 (score 7/9). Tumor size: At least 4 mm. Carcinoma in situ: Not identified. Lymphovascular invasion: Suspicious focus present. Microcalcifications: Not identified. Other: No lymph node tissue identified. . Special studies: Please see microscopic description. MRV 01/17/2022 1615 Local . 01 Comment: As part of routine supplier quality engineer, this case was also reviewed by Dr. Tovar, who agrees with the interpretation. . Results discussed with Dr. Carrizales's nurse, Malini, on 01-17-22 at approximately 3:46 p.m. . 01 Electronically signed: . Rosita Magallon MD, Pathologist NPI- [id number] . 01 Gross description: . Received in one formalin-filled container, labeled with the patient's name and LT ax, are multiple yellow-dunlap, cylindrical-shaped portions of tissue which range in size from 0.2 x 0.2 x 0.2 cm to 0.7 x 0.2 x 0.2 cm. All fragments are totally submitted in one cassette. Possible collection date and time per requisition: 01/14/2022 at 10:27. Total fixation time: Approximately 18 hours. (DC:[id number]) /FRR 01/15/2022 0344 Local . 01 Microscopic: . Immunohistochemical studies were performed to further evaluate the cells of interest. The control stains showed appropriate reactivity. . RESULTS: Block A1 E-cadherin: Positive, consistent with ductal differentiation. GATA3: Positive, consistent with breast origin. . . . CAP BREAST BIOMARKER REPORTING TEMPLATE: . Estrogen Receptor (ER) Status: Positive, greater than 90% of tumor nuclei. Average intensity of staining: Moderate to strong intensity. Primary antibody: SP1 Progesterone Receptor (PgR) Status: Positive, greater than 90% tumor nuclei Average intensity of staining: Moderate to strong intensity. Primary antibody: 1E2 HER2 (by immunohistochemistry): Negative (0+). Primary antibody: 4B5 . . Cold Ischemia and Fixation Times: Meets requirements in the latest version of the ASCO/CAP guidelines. Testing performed on Block Number: A1. . TECHNICAL NOTE: The scoring criteria for breast biomarkers by immunohistochemistry is based on the current ASCO/CAP guidelines (Elizabeth et al, Arch Pathol Lab Med 2010: 134(6): 907-922 / Wil Forbes al, Arch Pathol Lab Med 2014: 138(2):241-256). Deparaffinized sections of formalin fixed tissue (along with appropriate positive controls) are incubated with the above antibody(s). Using the automated [employer] stainer, tissue is incubated with the designated antibody* which is then localized by a non-biotin, dual polymer detection system. The external controls are reviewed for appropriate reactivity and found to be adequate. Results on the target cell population are indicated above. These tests have not been validated on decalcified tissue. * This test was developed and its performance characteristics determined by [employer]. It has not been cleared or approved by the U.S. Food and Drug Administration. The FDA has determined that such clearance or approval is not necessary. This test is used for clinical purposes. It should not be regarded as investigational or for research. . 01 Pathologist provided ICD-10: C50.912 . 01 CPT . 118602, 794095, 312334, 469641, E69600, H29605 Specimen Comment: A courtesy copy of this report has been sent to [phone] Performed at: 01 [facility] [address], [place], [place] [id number] MD Oscar Chatman MD Phone: [phone]
== END ==
PROVIDERS: Family Provider Family Medicine; PCP Family Medicine; Referring Provider Family Medicine; Visit Provider Family Medicine
DX: C50.812 Malignant neoplasm of overlapping sites of left female breast (principal); C77.3 Secondary and unspecified malignant neoplasm of axilla and upper limb lymph nodes; Z17.0 Estrogen receptor positive status [ER+]
CPT/HCPCS: 19083; 38505; 76942; 77065

== ENCOUNTER → 2022-01-23 14:28 | Outpatient (CLI) | payer OTHER, SELFPAY ==
[2018-05-14 11:15] VITALS: BMI 26.9
--- NOTE | 2022-01-23 14:33 | DI.CT.S_ITS ---
PROCEDURE: CT CHEST W CON INDICATIONS: new dx of left breast cancer TECHNIQUE: After the administration of intravenous contrast, 5 mm thick sections acquired from the pulmonary apices to the posterior costophrenic angles. 1 mm axial lung, 5 mm thick coronal and sagittal reformats and 7 mm axial MIP were acquired. For radiation dose reduction, the following was used: automated exposure control, adjustment of mA and/or kV according to patient size. COMPARISON: [facility], , DIAGNOSTIC MAMMO UNILAT LT2D, 01/14/2022, 10:38. [facility], US BX BREAST PERC W VAC DEVICE, 01/14/2022, 9:25. [facility], US BIOPSY LT AXILLA, 01/14/2022, 9:25. [facility], BREAST RT LIMITED, 12/17/2021, 14:53. [facility], BREAST LT LIMITED, 12/17/2021, 14:38. [facility], MM DIAGNOSTIC MAMMO BI, 12/17/2021, 13:22. FINDINGS: Image quality: Excellent. Lungs and pleura: No acute air space opacities. No pleural effusions or pneumothorax. Central and peripheral airways are patent and normal in caliber. Mediastinum: Heart size is normal. Mild pericardial effusion. No mediastinal or hilar adenopathy by size criteria. Thoracic aorta and central pulmonary arteries are normal in size. Esophagus is normal in caliber. No hiatal hernia. Bones and chest wall: No suspicious bony lesions. No vertebral body compression fractures. No axillary or supraclavicular adenopathy by size criteria. Thyroid gland is unremarkable . 2.0 x 2.7 cm left breast mass is noted. Abdomen: Visualized upper abdominal solid organs appear normal. Upper abdominal bowel loops are normal in caliber. IMPRESSION: Left breast mass consistent with given history of malignancy. Mild pericardial effusion. Lungs are clear. No adenopathy. Dictated by: Pau Stewart M.D. on 01/23/2022 at 16:44 Approved by: Pau Setwart M.D. on 01/23/2022 at 16:48
[2022-01-23 15:54] LABS: BUN Creatinine Ratio 24.4 (6-22); Blood Urea Nitrogen 21 mg/dL (7-17); Calcium 8.7 mg/dL (8.4-10.2); Carbon Dioxide 27 mmol/L (22-32); Chloride 99 mmol/L (98-107); Estimated Glomerular Filt Rate > 60 mL/min (>60); Glucose 98 mg/dL (80-110); HEMOLYSIS < 15 (0-50); Potassium 4.3 mmol/L (3.4-5.1); Sodium 132 mmol/L (137-145)
== END ==
PROVIDERS: Family Provider Family Medicine; PCP Family Medicine; Referring Provider Family Medicine; Visit Provider Family Medicine
DX: C50.912 Malignant neoplasm of unspecified site of left female breast (principal); Z01.818 Encounter for other preprocedural examination; I31.3 Pericardial effusion (noninflammatory)
CPT/HCPCS: 36415; 71260; 80048; Q9967

== ENCOUNTER → 2022-02-04 06:56 | Outpatient (CLI) | payer OTHER, SELFPAY ==
[2018-05-14 11:15] VITALS: BMI 26.9
--- NOTE | 2022-02-04 | DI.CT.S_ITS ---
PROCEDURE: CT ABDOMEN PELVIS W CON INDICATIONS: BREAST CANCER STAGING TECHNIQUE: After the administration of oral and IV contrast, axial sections were acquired from the lung bases to the pubic symphysis. Coronal and sagittal reformats were performed. For radiation dose reduction, the following was used: automated exposure control, adjustment of mA and/or kV according to patient size. COMPARISON: [facility], MR, MR BREAST BI WO/W CON, 02/04/2022, 8:25. [facility], CT, CT CHEST W CON, 01/23/2022, 15:59. [facility], US, US ABDOMEN LIMITED, 05/28/2021, 9:59. FINDINGS: Image quality: Excellent. Lung bases: Unremarkable. Heart: No significant findings. ABDOMEN: Liver: Hepatic steatosis with somewhat coarsened appearance is noted. Gallbladder: Unremarkable. Biliary ducts: Unremarkable. Pancreas: Unremarkable. Spleen: Unremarkable. Adrenal Glands: Unremarkable. Kidneys and Ureters: Unremarkable. Stomach and Bowel: Stomach, small bowel loops, and colon are nonobstructive. Prominent colonic diverticula are present without associated inflammatory change. Peritoneum: No abnormal intraperitoneal fluid. No free air. Ventral Wall: No hernia. Abdominal Nodes: No retroperitoneal or mesenteric adenopathy by size criteria. Vessels: Aorta and inferior vena cava are normal in size. PELVIS: Pelvic Organs: Unremarkable. Bladder: Unremarkable. Pelvic Nodes: No enlarged lymph nodes. Miscellaneous: No inguinal hernias are seen. Bones: Unremarkable. IMPRESSION: No evidence of metastatic disease. Diverticulosis. Hepatic steatosis. Dictated by: Pau Stewart M.D. on 02/04/2022 at 14:28 Approved by: Pau Stewart M.D. on 02/04/2022 at 14:30
--- NOTE | 2022-02-04 | DI.MRI.S_ITS ---
BREAST MRI OF BOTH BREASTS: 02/04/2022 CLINICAL: Breast Cancer staging. TECHNIQUE: The patient was placed prone in a dedicated breast imaging coil. Precontrast axial STIR and 3D FLASH without fat saturation sequences were obtained. Both before and after bolus injection of contrast, sequential 1-minute axial 3D FLASH with fat saturation sequences for 3 time points, with subtraction images and maximum intensity projections (MIP's) generated. Delayed sagittal FLASH images with fat saturation were also obtained. Computer-aided detection, including computer algorithm analysis of MRI image data for lesion detection and characterization, pharmacokinetic analysis, with further physician review for interpretation, was performed. COMPARISON: [facility], US, US BREAST RT LIMITED, 12/17/2021, 14:53. [facility], MG, MM DIAGNOSTIC MAMMO BI, 12/17/2021, 13:22. [facility], MG, MM DIAGNOSTIC MAMMO UNILAT LT2D, 01/14/2022, 10:38. [facility], US, US BREAST LT LIMITED, 12/17/2021, 14:38. [facility], CT, CT CHEST W CON, 01/23/2022, 15:59. [facility], CT, CT ABDOMEN PELVIS W CON, 02/04/2022, 8:10. Image quality: Excellent. There is mild background parenchymal enhancement. There are scattered fibroglandular breast tissue in the bilateral breast. Right breast: Multiple scattered variably sized cysts are present in the central and medial aspect of the right breast compatible with cluster of microcysts seen on comparison ultrasound. There is a mildly irregular enhancing mass in the lower, outer quadrant of the right breast middle depth near the 7-8 o'clock position approximately 6.1 cm from the nipple. This measures 0.9 x 1.0 cm in axial cross-sectional dimension (image 46/series 11) and approximately 0.9 cm in craniocaudal dimension seen on image 39/series 14. This mass demonstrates mixed delayed phase enhancement kinetics to include washout kinetics. Otherwise, no other areas of suspicious mass, non-mass enhancement, or architectural distortion. No skin or nipple abnormalities. No axillary or internal mammary chain adenopathy. Left breast: At the 12 o'clock position middle depth, there is a large, irregular heterogeneously enhancing mass with associated architectural distortion and resultant mild nipple retraction correlating with mammographic findings. This mass correlates with biopsy-proven malignancy. This mass measures approximately 3.1 cm in AP dimension and 2.1 cm in transverse dimension (image 75/series 6) and approximately 2.8 cm in craniocaudal dimension (image 61/series 15). This large mass likely represents the conglomeration of the 2 adjacent irregular masses seen on comparison ultrasound which individually measured smaller (2.1 x 1.8 x 1.9 cm and 1.4 x 1.0 x 1.2 cm, respectively ). On ultrasound, the 2 components/masses are less than 1 cm apart from each other. This mass demonstrates delayed phase washout enhancement kinetics. No other suspicious mass lesions are seen in the left breast. No suspicious non mass enhancement. There is mild left axillary adenopathy compatible with biopsy-proven metastatic lymph node. A few smaller, prominent left axillary lymph nodes are also visualized. Miscellaneous: Visualized portions of the chest and upper abdomen appear unremarkable. IMPRESSION: INCOMPLETE: NEEDS ADDITIONAL IMAGING EVALUATION 1. Large, irregular heterogeneously enhancing mass at the 12 o'clock position middle depth of the left breast measuring 3.1 x 2.1 x 2.8 cm which correlates with biopsy-proven malignancy. This measures larger than sonographic measurements but likely represents conglomeration of 2 separate masses seen sonographically. There is associated nipple retraction. No evidence for chest wall involvement. Associated biopsy-proven left axillary metastatic adenopathy. 2. Suspicious 1.0 cm irregular mass in the lower, outer quadrant the right breast near the 7-8 o'clock position middle depth. Although this may represent a prominent focus of background parenchymal enhancement, it demonstrates similar enhancement kinetics as the biopsy-proven malignancy in the contralateral breast. Recommend second-look ultrasound further evaluation. If no correlate is seen, further evaluation with MRI guided biopsy is recommended. 3. No evidence for right-sided axillary or internal mammary chain adenopathy. COMMENT: The imaging literature indicates that a negative contrast breast MRI examination has a high sensitivity and a moderate specificity for detecting and excluding invasive carcinomas to a detection threshold of 3-5 mm; nonetheless, appropriate clinical and mammographic follow-up are recommended. MRI is not sensitive for detecting DCIS (ductal carcinoma in situ) and may not detect large invasive neoplasms that show only minimal enhancement such as mucinous carcinoma. If there are suspicious calcifications or clinically worrisome palpable masses, then biopsy should still be considered. Invasive neoplasms can be hidden by co-existent and benign enhancement caused by mastitis, hormone therapy effects, radiation therapy, , and recent biopsy or surgery. False positive examinations can occur in a number of circumstances, including breasts that have recently been subject to invasive procedures and those that contain atypical ductal hyperplasia, hormonally stimulated glandular tissue, fat necrosis, or radial scars. This exam was interpreted at Station ID: [id number]. Electronically Signed By: Dimitri Mckenzie M.D. aty/:02/04/2022 13:19:02 ACR BI-RADS Category 0: Incomplete [id number]
[2022-02-04 07:21] LABS: Add Manual Diff / Slide Review NO; Basophils Absolute Auto 0 /uL (0-100); Basophils Percent Auto 1.1 % (0-2); Eosinophils Absolute Auto 200 /uL (0-450); Eosinophils Percent Auto 3.7 % (2-4); Hematocrit 39.5 % (36-46); Hemoglobin 13.5 g/dL (12.0-16.0); Lymphocytes Absolute Auto 1000 /uL (1100-4500); Lymphocytes Percent Auto 22.1 % (25-40); Mean Corpuscular HGB Conc 34.3 % (30-36); Mean Corpuscular Hemoglobin 29.3 PG (26-34); Mean Corpuscular Volume 85.5 fL (80-100); Monocytes Absolute Auto 500 /uL (0-900); Neutrophils Absolute Auto 3000 /uL (1500-7000); Neutrophils Percent Auto 63.1 % (50-75); Platelet Count 194 X10^3/uL (150-400); Red Blood Cell Count 4.62 X10^6/uL (4.0-5.2); Red Cell Distribution Width 13.3 % (11.6-14.8); White Blood Cell Count 4.7 X10^3/uL (4.5-11.0)
[2022-02-04 07:32] LABS: Alanine Aminotransferase 17 IU/L (<35); Albumin 4.2 g/dL (3.5-5.0); Albumin Globulin Ratio 1.4 (1.0-2.8); Alkaline Phosphatase 73 U/L (38-126); Aspartate Aminotransferase 30 IU/L (14-36); BUN Creatinine Ratio 17.5 (6-22); Bilirubin Total 0.4 mg/dL (0.2-1.3); Blood Urea Nitrogen 14 mg/dL (7-17); Calcium 8.9 mg/dL (8.4-10.2); Carbon Dioxide 29 mmol/L (22-32); Chloride 99 mmol/L (98-107); Estimated Glomerular Filt Rate > 60 mL/min (>60); Globulin 3.1 g/dL (1.7-4.1); Glucose 98 mg/dL (80-110); HEMOLYSIS < 15 (0-50); Potassium 4.5 mmol/L (3.4-5.1); Sodium 132 mmol/L (137-145); Total Protein 7.3 g/dL (6.3-8.2)
[2022-02-04 23:29] LABS: CA 15-3 18.2 U/mL (0.0-25.0)
[2022-02-05 08:51] LABS: Cancer Antigen 27.29 20.9 U/mL (0.0-38.6)
== END ==
PROVIDERS: Family Provider Family Medicine; PCP Family Medicine; Referring Provider Internal Medicine Medical Oncology; Visit Provider Internal Medicine Medical Oncology
DX: C50.912 Malignant neoplasm of unspecified site of left female breast (principal); K76.0 Fatty (change of) liver, not elsewhere classified; K57.90 Diverticulosis of intestine, part unspecified, without perforation or abscess without bleeding
CPT/HCPCS: 36415; 74177; 77049; 80053; 85025; 86300; A9579; Q9967

== ENCOUNTER → 2022-02-06 10:40 | Outpatient (CLI) | payer OTHER, SELFPAY ==
[2018-05-14 11:15] VITALS: BMI 26.9
--- NOTE | 2022-02-06 10:41 | DI.NM.S_ITS ---
PROCEDURE: NM BONE SCAN WHOLE BODY RADIOPHARMACEUTICAL: 19.8 mCi Tc-99m MDP IV. INDICATIONS: staging breast cancer TECHNIQUE: Delayed whole-body scintigrams were obtained approximately 3-4 hours after intravenous injection of radiotracer. Anterior and posterior views were acquired from vertex to feet. Additional left and right oblique views of the thoracic cage and lumbar spine were obtained. COMPARISON: [facility], CT, CT to suggest osseous metastasis. CHEST W CON, 01/23/2022, 15:59. No definitive scintigraphic findings [facility], CT, CT ABDOMEN PELVIS W CON, 02/04/2022, 8:10. FINDINGS: No lesions are identified in skull, sternum, clavicles, scapulae, ribs, bony pelvis, and visualized shafts of the long bones. There is low level increased uptake in cervical, thoracic and lumbar spine with distribution indistinguishable from degenerative disc and facet disease; early metastasis to spine could be obscured by degenerative changes. There are foci of increased periarticular activity, compatible with degenerative/arthritic changes. IMPRESSION: No definitive scintigraphic findings to suggest osseous metastasis. Dictated by: Jeffrey Joe M.D. on 02/06/2022 at 16:39 Approved by: Jeffrey Joe M.D. on 02/06/2022 at 16:42
== END ==
PROVIDERS: Family Provider Family Medicine; PCP Family Medicine; Referring Provider Internal Medicine Medical Oncology; Visit Provider Internal Medicine Medical Oncology
DX: C50.912 Malignant neoplasm of unspecified site of left female breast (principal)
CPT/HCPCS: 78306; A9503

== ENCOUNTER → 2022-02-28 09:19 | Outpatient (CLI) | payer OTHER, SELFPAY ==
[2018-05-14 11:15] VITALS: BMI 26.9
--- NOTE | 2022-02-28 09:22 | DI.US.S_ITS ---
LIMITED ULTRASOUND OF RIGHT BREAST: 02/28/2022 Comparison is made to exams dated: 02/04/2022 breast MRI, 12/17/2021 ultrasound, and 12/17/2021 mammogram - [facility]. Color flow and real-time ultrasound of the right breast 7-8 o'clock region were performed on the areas of interest. Ca scale images of the real-time examination were reviewed. There is a 0.5 cm x 0.6 cm x 0.5 cm oval mass in the right breast at 8 o'clock posterior depth. Color flow imaging demonstrates that there is no increase in vascularity. This oval mass is isoechoic. This may or may not correlate with breast MRI findings. IMPRESSION: SUSPICIOUS OF MALIGNANCY The 0.5 cm x 0.6 cm x 0.5 cm oval mass in the right breast may not may not correlate with the abnormal MRI findings in the right breast. It is at a low suspicion for malignancy. Recommend MRI guided biopsy. The results were reviewed with the patient. The patient has biopsy proven invasive ductal carcinoma of the left breast. SHe stated that she has decided to have double mastectomy. Surgery is already scheduled. For the reason, she questions the usefulness of the right breast biopsy. I encourage the patient to discuss her concern with her doctor. This exam was interpreted at Station ID: [id number]. Electronically Signed By: Jeffrey Joe M.D. fx/:02/28/2022 11:30:03 letter sent: Biopsy Required Ultrasound BI-RADS: 4a Low suspicion for malignancy
== END ==
PROVIDERS: Family Provider Family Medicine; PCP Family Medicine; Referring Provider Internal Medicine Medical Oncology; Visit Provider Internal Medicine Medical Oncology
DX: C50.912 Malignant neoplasm of unspecified site of left female breast (principal); R92.8 Other abnormal and inconclusive findings on diagnostic imaging of breast; N63.10 Unspecified lump in the right breast, unspecified quadrant
CPT/HCPCS: 76642

== ENCOUNTER → 2022-03-11 07:11 | Outpatient (CLI) | payer OTHER, SELFPAY ==
[2018-05-14 11:15] VITALS: BMI 26.9
[2022-03-11 11:38] LABS: COVID19 -Nasal RAPID Negative (Negative)
== END ==
PROVIDERS: Family Provider Family Medicine; PCP Family Medicine; Visit Provider Surgery
DX: Z01.812 Encounter for preprocedural laboratory examination (principal); Z20.822 Contact with and (suspected) exposure to COVID-19
CPT/HCPCS: 87635; C9803

== ENCOUNTER → 2022-03-12 08:58 | Outpatient (CLI) | payer OTHER, SELFPAY ==
[2018-05-14 11:15] VITALS: BMI 26.9
--- NOTE | 2022-03-12 09:01 | DI.NM.S_ITS ---
PROCEDURE: UT SENTINEL NODE INJECT ONLY RADIOPHARMACEUTICAL: 0.5-1.0 mCi Millipore filtered Tc-99m sulfur colloid. INDICATIONS: Malignant neoplasm of bilateral breasts COMPARISON: [facility], US, US BREAST RT LIMITED, 02/28/2022, 9:33. [facility], [place], NM BONE SCAN WHOLE BODY, 02/06/2022, 13:56. [facility], MR, MR BREAST BI WO/W CON, 02/04/2022, 8:25. PROCEDURE: The area around the nipple was prepped and draped in a sterile fashion. Tc-99m sulfur colloid was injected intra-dermally around the outer edge of the areola in the left and right breast. No image was obtained. IMPRESSION: Administration of radiotracer into the left and right breast periareolar region for intra-operative sentinel lymph node localization. Dictated by: Jeffrey Joe M.D. on 03/12/2022 at 11:18 Approved by: Jeffrey Joe M.D. on 03/12/2022 at 11:19
== END ==
PROVIDERS: Family Provider Family Medicine; PCP Family Medicine; Referring Provider Surgery; Visit Provider Surgery
DX: C50.912 Malignant neoplasm of unspecified site of left female breast (principal); C50.919 Malignant neoplasm of unspecified site of unspecified female breast
CPT/HCPCS: 38792; A9541

== ENCOUNTER 2022-03-13 14:35 | Observation (INO) | payer OTHER, SELFPAY ==
[2018-05-14 11:15] VITALS: BMI 26.9
[2022-03-03 08:15] VITALS: BMI 26.2
[2022-03-12] VITALS (15 sets, daily range): BP systolic 104–134; BP diastolic 56–80; PULSE 76–85; RESP 12–18; TEMP 36.1–36.8; O2SAT 96–100; BMI 26.2
--- NOTE | 2022-03-12 | PATH_ITS ---
[facility] Accession Number: [id number] . 01 Material submitted: . PART A: breast - LEFT BREAST PART B: lymph node - LEFT AXILLARY NODES AND TISSUE PART C: breast - RIGHT BREAST PART D: lymph node - RIGHT SENTINEL LYMPH NODE . 01 Clinical history: . A/C: SHORT SUTURE SUPERIOR, LONG SUTURE LATERAL . 01 Diagnosis: A. Left Breast, Mastectomy: Invasive (ductal) carcinoma, grade 3 of 3 ([place] combined histologic grade, total score 8/9), with micropapillary features and the following characteristics: 1. Tumor size (invasive component): 3 cm, by gross measurement. 2. Nuclear pleomorphism: High (3/3). 3. Mitotic rate: Intermediate (2/3). 4. Tubular differentiation: Little or none (3/3). 5. Ductal carcinoma in situ: Present, with the following features: - Moderate nuclear grade. - Necrosis: Not identified. - Extent: Present on more than one slide (three slides with DCIS) corresponding to tissue slices 5, 6, and 7, spanning approximately 30 mm. 6. Calcifications: Present in association with invasive carcinoma, ductal carcinoma in situ, and media of vessels. 7. Lymphatic invasion: Suspicious (see part B). 8. Resection margins: - Invasive carcinoma is 2.0 mm from the deep margin (A4) , and more than 2 mm from the remaining margins. - DCIS is more than 2 mm from all margins. 9. Prognostic markers, performed on prior biopsy specimen ([facility] case #[id number], 01/14/2022), with the following reported findings: - Estrogen receptor: Positive. - Progesterone receptor: Positive. - HER2: Negative for protein overexpression by immunohistochemistry. 10. Regional lymph node status (see part B): - No lymph nodes identified within the mastectomy specimen. - Metastatic carcinoma is present in 4 out of 5 lymph nodes (4/5). - Size of largest metastatic deposition: 10 mm. - Extranodal extension: Extensively present. 11. Additional findings: - Nipple areolar complex with cystic change and evidence of rupture. - Biopsy clip identified. - Background breast with fibrocystic change, including microcysts, apocrine metaplasia, columnar cell change/columnar cell hyperplasia, and small incidental papilloma. - Focal atypical lobular hyperplasia is present. - Skeletal muscle and/or chest wall are not present. 12. Pathologic stage: pT2 pN2a . B. Left Axillary Lymph Nodes and Tissue, Dissection: - Metastatic carcinoma is present in 4 out of 5 lymph nodes (4/5). - Size of largest metastatic deposition: 10 mm. - Extranodal extension: Extensively present. . C. Right Breast, Mastectomy: Breast tissue with fibrocystic change including cystic duct dilatation, microcysts, adenosis, columnar cell change/columnar cell hyperplasia, usual ductal hyperplasia, apocrine metaplasia. A rare focus of atypical ductal hyperplasia. Skin within normal limits. Nipple areolar complex with features consistent with incidental neuroma (less than 1 cm). Microcalcifications are present within benign breast tissue. Negative for carcinoma in situ and malignancy. . D. Right [place] Lymph Node, Excision: One lymph node, negative for malignancy (0/1). MRV 03/20/2022 0748 Local . 01 Electronically signed: . Ginette Burgos MD, Pathologist NPI- [id number] . 01 Gross description: . Received in four parts. . A. Received in formalin in a specimen container, labeled with the patient's name and medical record number, left breast, short suture superior, long suture lateral, is a 246.0 gram, left breast specimen previously oriented with short suture in superior resection margin and long suture in lateral resection margin. The specimen measures 11.5 cm from lateral to medial, 10 cm from superior to inferior, and 4.3 cm from anterior to posterior. There is an attached pink wrinkled skin triangle within anterior aspect of the specimen that measures 9.0 x 6.0 cm. The nipple measures 1.0 cm in diameter and 0.5 cm in height. It is slightly retracted. The areola measures 2.0 cm in diameter. The superior resection margin is inked in blue and inferior resection margin is inked green. The deep resection margin is inked in black. The specimen is serially sectioned to reveal 3.0 cm from superior to inferior by 1.5 cm from anterior posterior (deep) by 3.0 cm from lateral to medial solid stellate shaped dunlap, slightly pink mass within the upper inner and upper outer quadrants. A metallic clip is identified in one of the cut surfaces within the mass. The mass is 2.0 cm away from the superior resection margin, 1.0 cm away from the inferior resection margin, and grossly focally abuts the posterior (deep) resection margin. The mass is 4.0 cm away from the medial resection margin and 4.0 cm away from the lateral resection margin. The mass is 3.5 cm away from the nipple. No other distinct lesions are grossly identified. The remainder of cut surface is grossly consistent with solid yellow-pink fibroadipose tissue. Dr. Burgos reviewed the specimen. There is one main mass, and no apparent second mass. The main mass is present in slices 4-7 (cut from medial side) with each slice measuring about 1 cm in thickness, corresponding to slides A3-A5; A10 represents medial aspect of mass and is sampled from slice 3. . Outside Sales Inspector sections are submitted as follows: . A1: Nipple. A2: Subareolar tissue, cross-section. A3: Section of nearest inked margin (deep). A4-A5: Mass, cross-section, biggest dimension. A6: Medial resection margin. A7: Lateral resection margin. A8: Closest superior resection margin. A9: Closest to mass inferior resection margin. A10: Upper inner quadrant. A11: Upper outer quadrant. A12: Lower inner quadrant. A13: Outer lower quadrant. . B. Received in formalin in a specimen container, labeled with the patient's name and medical record number, left axillary nodes and tissue, is an aggregate of multiple fibroadipose tissue fragments that measure 7.0 x 4.0 x 1.5 cm. The specimen is serially sectioned, and four possible lymph nodes are identified, ranging from 0.5 to 1.5 cm. The possible lymph nodes are entirely submitted as follows: . B1: Two possible lymph nodes (one possible lymph node inked blue and bisected and another lymph node is intact, entirely submitted). B2: One possible lymph node, bisected. B3: One possible lymph node, bisected. . C. Received in formalin in a specimen container, labeled with the patient's name and medical record number, right breast, short suture superior, long suture lateral, is a 213.0-gram right breast specimen previously oriented with short suture as superior resection margin and long suture as lateral resection margin. The specimen measures 18.0 cm from lateral to medial, 12.5 cm from superior to inferior, and 4.0 cm anterior to posterior (deep). On the anterior surface there is a pink wrinkled skin ellipse with nipple. The skin is previously partially inked with blue dye. The skin measures 8.5 x 4.3 cm. Retracted nipple measures 1.0 cm in diameter and 0.2 cm in height. Areola measures 3.0 cm in diameter. The superior resection margin is inked blue, inferior resection margin is inked green, and deep resection margin is inked in black. The specimen is serially sectioned to reveal poorly circumscribed multicystic, slightly fibrotic lesion within the lower outer and inner quadrants that measures 3.7 cm from medial to lateral, 3.0 cm from superior to inferior, and 2.0 cm from anterior to posterior. The lesion grossly focally abuts the posterior and inferior resection margin. The lesion is 9.0 cm away from superior resection margin, 2.0 cm away from anterior resection margin, 7.0 cm away from lateral resection margin, and 6.5 cm away from the medial resection margin. The remainder of cut surfaces are solid fibroadipose yellow pink. No other distinct lesions are grossly identified. The maintenance representative sections are submitted as follows: . C1: Nipple. C2: Subareolar tissue, cross-section. C3: Section with nearest inked margin (deep). C4-C8: Lesion, maintenance representative. C9: Medial resection margin. C10: Lateral resection margin. C11: Upper inner quadrant. C12: Upper outer quadrant. C13: Lower outer quadrant. C14: Lower inner quadrant. . D. Received in formalin in a specimen container, labeled with the patient's name and medical record number, right sentinel lymph node, is a dunlap-yellow fibroadipose tissue fragment with irregular shape that measures 4.0 x 2.5 x 1.0 cm. The specimen is serially sectioned and one possible lymph node is identified that measures 2.0 x 0.8 x 0.6 cm. The possible lymph node is bisected and entirely submitted in cassette D1. . The specimen processed on 03/13/2022 at 4:02 p.m. ([id number]) /MRV 03/20/2022 0711 Local . 01 Microscopic: . Block A3: E-cadherin and beta-catenin are obtained on the tumor in order to evaluate the lobular features. The tumor demonstrates the following profile: . E-cadherin: Strong membranous staining (arguing against lobular phenotype). Beta-catenin: Strong membranous staining (arguing against lobular phenotype). . Part B: Metastatic deposits are large in 3 out of 4 positive 'lymph nodes', with the largest measuring 10 mm, fully effacing the lymph node architecture. Although they may resemble soft tissue deposits/cancer nodules, a small rim of residual lymph node tissue may be seen, favoring an interpretation of fully effaced lymph nodes. . * This test was developed and its performance characteristics determined by [facility]. It has not been cleared or approved by the U.S. Food and Drug Administration. The FDA has determined that such clearance or approval is not necessary. This test is used for clinical purposes. It should not be regarded as investigational or for research. . 01 Pathologist provided ICD-10: C50.912 . 01 CPT . 217240, 797864, 960366, 670179, M24440, P62064 Specimen Comment: A courtesy copy of this report has been sent to [phone] Performed at: 01 [facility] [address] [place] [address], [place], [place] [id number] MD Oscar Chatman MD Phone: [phone]
--- NOTE | 2022-03-12 10:04 | SUR.PREOP ---
Addendum entered by Aylin Crews R.N. 03/12/22 10:32: 03/12/20-1008-off unit to xray dept. Returned at 1028am. given magazine and call light. Original Note: 03/12/2249-70308-fzezskl admission for surgery completed. Awaiting Xray Dept for steel pickler.
[2022-03-12] MEDS: LACTATED RINGERS 1,000 ML 100 ML IV ×2 (10:33→14:50)
--- NOTE | 2022-03-12 10:53 | SUR.PREOP ---
03/12/22-1050-Dr Vann at bedside talking w/patient.
--- NOTE | 2022-03-12 13:17 | PM.HP.1 ---
History of Present Illness History of Present Illness Date Patient Seen: 03/12/22 Time Patient Seen: 13:18 Chief complaint: OPB Narrative: Mellissa Xavier is a 81 year old woman with biopsy proven left breast cancer with a postivie lymph node and presumed right breast cancer. LEFT Breast: 2.1 cm mass, 12:00 o'clock position, middle depth 1.4 cm mass, deep to the nipple 0.6 cm mass in the axillary tail suggestive of an enlarged lymph node ? Pathology (core needle biopsy) Breast- Invasive carcinoma, ER Positive, IA Positive, HER2 Negative, Grade 3, DCIS? not present, Lymphovascular invasion not present Axilliary-Invasive carcinoma A follow up breast MRI demonstrates expected left breast findings and additionally a 1 cm mass 7 o clock position highly suspicious for malignancy no axilla involvement. A right breast biopsy was recommended but patient declined and instead wants bilateral mastectomy. Patient History Medical History (Updated 03/12/22 @ 13:22 by Enio Vann MD) Breast cancer Difficulty swallowing Fuchs' corneal dystrophy of both eyes Hypothyroid Pelvic relaxation Postmenopausal RLS (restless legs syndrome) Vaginal vault prolapse Surgical History History of gynecologic surgery (05/14/18) History of tonsillectomy Hx of eye surgery (~2011) S/P excision of lipoma Status post bunionectomy Status post hysterectomy Family & Social History Social History: household members spouse,children Prior Living Arrangements House Safety & Behavioral: Feels Safe in Current Yes Environment Been Physically Hurt or No Threatened By a Person Suicidal Ideation Description None Suicide Plan Description No Plan Tobacco & Substance use: Smoking Status Never smoker alcohol intake never Substance Use Type does not use Meds Home Medications and Allergies Home Medications Medication Instructions Recorded Confirmed Type Vitamin D (with calcium) 1 tab PO DAILY 01/29/22 03/12/22 History blue-green algae (bulk) (Spirulina 1 ea miscellaneous DAILY 01/29/22 03/12/22 History powder) multivitamin 1 tab DAILY 01/29/22 03/12/22 History nettle leaf (bulk) 2 % powder 1 ea miscellaneous DAILY PRN 01/29/22 03/12/22 History Allergies Oue[place] Supplement 1 tab PO DAILY 02/11/22 03/12/22 History Allergies Allergy/AdvReac Type Severity Reaction Status Date / Time cephalexin Allergy Intermediate Upset Verified 03/12/22 09:47 stomach Exam Vital Signs (past 8 hours): - 03/12/22 09:00 Temperature 98.3 F Pulse Rate 77 Respiratory Rate 12 Blood Pressure 132/62 Pulse Oximetry 98 Oxygen Delivery Method Room Air Oxygen Delivery Method Room Air Narrative Exam Narrative: Gen-Adult woman alert and oriented no distress Chest-non labored resp Abdomen-Soft non tender Assessment & Plan Assessment and plan (1) Bilateral breast cancer: Status: Acute Assessment & Plan narrative: 81-year-old woman with biopsy-proven left breast cancer with positive axillary node and radiographic evidence of invasive right sided breast cancer without abraham involvement. I recommended that we perform a right breast biopsy for confirmation of the radiographic findings however the patient declines and her preference is to proceed directly to surgery. Following a discussion of the options we will proceed with a bilateral mastectomy with left axillary dissection and right sentinel node biopsy. Operative risks including bleeding, infection, recurrence of cancer, axillary nerve injury, lymphedema, of were discussed. Her questions have been answered and she is in agreement with this plan Time Spent With Patient Critical Care time: I spent a total of [] minutes of critical care time on this patient's care today; this time is exclusive of procedural time.
[2022-03-12] MEDS: APREPITANT 40 MG CAPSULE PO (13:27)
[2022-03-12] MEDS: METHYLENE BLUE 50 MG/10 ML VIAL INJ (14:00)
[2022-03-12] MEDS: CEFAZOLIN 2 GM/20 ML SYRINGE IV (14:00)
--- NOTE | 2022-03-12 14:16 | SUR.OPER ---
Supine on padded OR bed, head on pillow, arms secured on padded arm boards at <90 degrees abduction, legs uncrossed, safety belt at thigh, tape over blanket over lower legs. Gel pad under bilateral heels.
[2022-03-12] MEDS: EPINEPHrine 1 MG/ML 0.3 MG INJ (14:31)
[2022-03-12] MEDS: BUPIVACAINE 0.5% (PF) VIAL 60 ML INJ (14:32)
--- NOTE | 2022-03-12 16:30 | P.OP_ITS ---
Operative Date/Time/Diagnoses Date of procedure: 03/12/22 Time of procedure: 16:30 Pre-op diagnosis: Bilateral breast cancer Post-op diagnosis: same Procedure & Clinicians Procedure: Bilateral mastectomy Left axillary lymph node dissection Right sentinel lymph node biopsy Same procedure as scheduled: Yes Indications: 81-year-old woman with biopsy-proven left breast cancer with a positive axillary node subsequent preoperative breast MRI demonstrates a suspicious right breast mass. Patient declines a breast biopsy of the right breast lesion and wishes to proceed with bilateral mastectomy. Surgeon: Enio Vann Click Yes if Unassisted: Yes Operative Notes Findings: Large palpable left breast mass. Multiple firm left axillary lymph nodes. Right sentinel lymph nodes 10 second count 2769 blue in appearance. Specimen(s): other (Left breast, right breast, left axillary tissue, right sentinel lymph nodes) Estimated Blood Loss (mL): 100 Procedure in detail: Patient was brought to the operating room placed supine on the table. Bilateral lower extremity compression devices were applied. She received 2 g of Ancef p rior to skin incision. She was intubated with an endotracheal tube. She was then prepped and draped in sterile fashion. Time-out was performed. I injected 1 mL of methylene blue diluted with 4 ml saline into the periareolar tissue and massaged it into the right breast for 5 minutes. Beginning with the right side, an elliptical incision around the nipple areola complex was made with the knife. The subcutaneous tissue was divided with electrocautery. Skin flaps were raised to separate the breast tissue from the skin along the subdermal plexus. The dissection was extended superior to the clavicle, medial to the sternum, inferior the the inframamary fold and lateral to the anterior border of the latisimus dorsi. Next the breast tissue was from the underlying pectoralis fascia. The breast was passed off the field marked short stitch superior long stitch lateral. The axillary tissue was carefully dissected towards the area of maximal radioactivity. Two sentinel lymph node were identified. The ten second count was 2769. The lymphatics were clipped with heomolips and transected sharply. I returned the gamma probe to the field there were no pathologically enlarged nod es or significant background activity. A 19 Norwegian Tarik drain was placed into the cavity and secured. The wound was copiously irrigated and homeostasis was ensured. The mastectomy was closed with 3 0 Vicryl for the subcutaneous tissue and the skin was closed with 4 0 Monocryl followed by the application of Dermabond. Attention was then turned to the left side. an elliptical incision around the nipple areola complex was made with the knife. The subcutaneous tissue was divided with electrocautery. Skin flaps were raised to separate the breast tissue from the skin along the subdermal plexus. The dissection was extended superior to the clavicle, medial to the sternum, inferior the the inframamary fold and lateral to the anterior border of the latisimus dorsi. Next the breast tissue was from the underlying pectoralis fascia. The breast was passed off the field marked short stitch superior long stitch lateral. The left axilla dissection was then begun. The axillary tissue was carefully skeletonized using blunt dissection. The lateral border of the pectoralis was identified, the latissimus dorsi and the sub scapularis as well as the axillary vein. The neurovascular structures running along the chest wall were preserved. The axillary fat was palpated and there were multiple firm nodes within it. The axillary fat pad was then skeletonized the lymphatics and vessels were ligated with clips and then the axillary lymph node tissue was excised. A 19 Norwegian Tarik drain was placed into the cavity and secured. The wound was copiously irrigated and homeostasis was ensured. The mastectomy was closed with 3 0 Vicryl for the subcutaneous tissue and the skin was closed with 4 0 Monocryl followed by the application of Dermabond. Patient tolerated procedure well she emerged from anesthesia was extubated and transferred to recovery room in stable condition. Complications: none Post-operative Condition: stable Disposition: observation
[2022-03-12] MEDS: KETOROLAC 30 MG/ML VIAL 15 MG IV ×2 (16:38→22:27)
[2022-03-12] MEDS: fentaNYL 100 MCG/2 ML INJ IV (16:40)
[2022-03-12] MEDS: HYDROMORPHONE 2 MG INJ IV (16:42)
[2022-03-12] MEDS: HYDROCODONE/ACET 5/325 TABLET 1 TAB PO (17:19)
--- NOTE | 2022-03-12 17:25 | SUR.PHASEI ---
report called to Gill Toth . Pt being transferred to room 216. Pt updated and is agreeable.
[2022-03-12] MEDS: LACTATED RINGERS 1,000 ML 50 ML IV (18:03)
[2022-03-12] MEDS: TRIMETH/SULFA 160/800 (DS) TABLET 1 TAB PO (21:27)
[2022-03-13] VITALS (12 sets, daily range): BP systolic 110–131; BP diastolic 61–77; PULSE 69–80; RESP 14–16; TEMP 36.1–36.7; O2SAT 95–98
[2022-03-13] MEDS: ACETAMINOPHEN 325 MG TABLET 650 MG PO ×2 (00:02→05:59)
[2022-03-13] MEDS: KETOROLAC 30 MG/ML VIAL 15 MG IV ×2 (04:23→21:28)
--- NOTE | 2022-03-13 09:30 | CM.DANOTE ---
Initial DCP Assessment Note Pt is an 81 yo female, resident of [place], now POD#1 status post Procedure: Bilateral mastectomy Left axillary lymph node dissection Right sentinel lymph node biopsy PCP: Sheldon Carrizales Payer: Hetal Hernandez Contacts: Arabella (daughter) [phone] Trino Mojica, spouse [phone] Reviewed chart, DC expected over the next 24 hrs depending on patient's recovery from procedure, home w/family expected and close outpatient f/u No needs expected from DC planning team although will remain available in case this changes today. Mishel Stout, Discharge Planning/Care Management CM Discharge Assessment Start: 03/13/22 09:23 Freq: Status: Active Protocol: Document 03/13/22 09:23 MANDO (Rec: 03/13/22 09:30 MANDO [id number]) Discharge Planning Assessment Assigned Manager Chemistry STUART Rangel DPOA/Assigned Designee Name Trino Mojica, spouse Contact Information [phone] Advance Directives? Yes Advance Directives on File No History Provided By Patient,Medical Record Prior Living Arrangements House Household Members spouse,children Type of transporation used prior to Drives own vehicle admit Independent with ADL's Yes Is patient alert and oriented? Yes Barriers to Discharge No Comment Home w/family expected, close outpatient follow up Discharge Plan Home Transportation Arrangement Family to provide transport at d/c. Referrals Initiated None needed
[2022-03-13] MEDS: ENOXAPARIN 40 MG/0.4 ML SYRINGE SUBCUT (09:51)
[2022-03-13] MEDS: TRIMETH/SULFA 160/800 (DS) TABLET 1 TAB PO ×2 (09:52→21:28)
--- NOTE | 2022-03-13 14:40 | P.PN_ITS ---
Subjective Subjective Date Patient Seen: 03/13/22 Time Patient Seen: 14:40 Interval history: No acute overnight events Legs feel weak having difficulty ambulating She is concerned about going home today given the lack of support at home and requests to stay 1 more night. Exam Vital Signs (past 8 hours): - 03/13/22 08:05 03/13/22 09:00 03/13/22 12:00 Temperature 97.3 F L Pulse Rate 71 Respiratory Rate 16 Blood Pressure 115/61 Pulse Oximetry 96 97 97 Oxygen Delivery Method Room Air Oxygen Flow Rate 0 1 03/13/22 13:00 Temperature Pulse Rate Respiratory Rate Blood Pressure Pulse Oximetry 98 Oxygen Delivery Method Room Air Oxygen Flow Rate Oxygen Delivery Method Room Air Oxygen Flow Rate 1 Narrative Exam Narrative: General adult woman alert oriented without distress Drains serosanguineous. Dressings to mastectomies bilaterally clean dry intact. [facility] Medical History (Updated 03/12/22 @ 13:22 by Enio Vann MD) Breast cancer Difficulty swallowing Fuchs' corneal dystrophy of both eyes Hypothyroid Pelvic relaxation Postmenopausal RLS (restless legs syndrome) Vaginal vault prolapse Surgical History History of gynecologic surgery (05/14/18) History of tonsillectomy Hx of eye surgery (~2011) S/P excision of lipoma Status post bunionectomy Status post hysterectomy Social History marital status: household members: spouse and children Smoking Status: Never smoker alcohol intake: never substance use type: does not use Assessment & Plan Post-op Postoperative Procedures: Procedures Operation Date: 03/12/22 13:00 Actual Procedure Side Surgeon p Bilateral Mastectomy and Lymph Node removal from Left Axilla & Right sentinal node Biopsy Bilateral Enio Vann MD Postoperative plan narrative: 81-year-old woman postop day 1 status post bilateral mastectomy with left axillary dissection and a right sentinel node biopsy. She is recovering appropriately so far. Given her perceived leg weakness and concerns about being discharged home without adequate support, requesting physical therapy evaluation and recommendations. Continue drain teaching and prophylactic antibiotics. Prophylactic Lovenox. SCDs. Ambulate as tolerated. No activity restriction
--- NOTE | 2022-03-13 16:06 | PC.NURSE ---
Pt resting at intervals T/O day. Binder in place, FINN drains intact/patent. Ambulated hallway w/staff. Med w/tramadol x 1 Stable post op course. Call light w/in reach, bed alarm on for pt safety. Continue w/plan of care.
[2022-03-13] MEDS: TRAMADOL 50 MG TABLET PO (17:21)
[2022-03-14] MEDS: KETOROLAC 30 MG/ML VIAL 15 MG IV ×2 (05:48→10:23)
[2022-03-14 05:49] VITALS: BP 134/70; PULSE 71; RESP 16; O2SAT 96
[2022-03-14 06:34] VITALS: O2SAT 97
[2022-03-14 07:45] VITALS: BP 126/75; PULSE 72; RESP 16; TEMP 36.1; O2SAT 97
[2022-03-14] MEDS: TRIMETH/SULFA 160/800 (DS) TABLET 1 TAB PO (10:23)
[2022-03-14] MEDS: ENOXAPARIN 40 MG/0.4 ML SYRINGE SUBCUT (10:23)
--- NOTE | 2022-03-14 11:35 | PT.IIE ---
Current Diagnoses Malignant neoplasm of unspecified site of right female breast (03/13/22) Malignant neoplasm of unspecified site of left female breast (03/13/22) Unspecified lump in the right breast, unspecified quadrant (03/13/22) Surgery Performed Operation Date: 03/12/22 13:00 Actual Procedures p Bilateral Mastectomy and Lymph Node removal from Left Axilla & Right sentinal node Biopsy(Bilateral) - Enio Vann MD Surgical History (Last Reviewed 03/12/22 @ 10:06 by Aylin Crews RN) History of gynecologic surgery (05/14/18) History of tonsillectomy Hx of eye surgery (~2011) S/P excision of lipoma Status post bunionectomy Status post hysterectomy Medical History (Last Reviewed 03/12/22 @ 10:06 by Aylin Crews, MARIMAR) Breast cancer Difficulty swallowing Fuchs' corneal dystrophy of both eyes Hypothyroid Pelvic relaxation Postmenopausal RLS (restless legs syndrome) Vaginal vault prolapse Physical Therapy Inpatient Evaluation/Re-Eval M1 PT/OT-IP Prior Functional Status Start: 03/14/22 13:30 Freq: NEEDED Status: Active Protocol: Document 03/14/22 11:35 AB (Rec: 03/14/22 13:43 AB [id number]) Medical Review Prior Functional Status Medical History Reviewed Yes Communication able to make needs known Mobility and Gait pt stated that she is independent with all mobilities and ambulation without AD Social History Household Members spouse Living Arrangements House Number of Floors (Floors) Two Floors Number of Stairs To Enter/Railing? pt stays on main level of the house no steps to enter the house but has 3 steps with R rail ascending to get to main level of the house Home Environment High Toilet,Tub/Shower,Bidet Home Equipment Front Wheel Walker,Shower Seat without Backrest,Hand Held Shower,Grab Bars In Shower Additional Social History Comment son with recent heart surgery and limited with assisting pt but has her children that will rotate to stay with them to assist pt plans to sleep on her couch M2 PT-IP Current Condition Start: 03/14/22 13:30 Freq: NEEDED Status: Active Protocol: Document 03/14/22 11:35 AB (Rec: 03/14/22 13:43 AB [email or web address]) Physical Therapy Current Condition Current Condition Evaluation Date 03/14/22 Treatment Diagnosis s/p bilateral mastectomy; difficulty in walking Onset Date 03/13/22 M3 PT-IP Subjective Start: 03/14/22 13:30 Freq: NEEDED Status: Active Protocol: Document 03/14/22 11:35 AB (Rec: 03/14/22 13:43 AB [id number]) Subjective Physical Therapy Visit Type Type Initial Evaluation Visit Start Time 11:35 Visit Stop Time 12:08 Total Visit Minutes 33 Number of WATER TREATMENT OPERATOR Visits 0 Physical Therapy Visit Comments Patient Comments agreeable to do PT Therapy Pain Assessment Pain When Pain Assessed At Rest Pain Present Pain Present Pain Reported Location Anterior Chest Intensity 2 Scale Used Numeric (0 - 10) Pain Management Techniques Distraction,Modification of Treatment,Re-positioning, Timing of Activity with Medications M4 PT-IP Mobility and Gait Start: 03/14/22 13:30 Freq: NEEDED Status: Active Protocol: Document 03/14/22 11:35 AB (Rec: 03/14/22 13:43 AB [id number]) PT-Bed Mobility Assessment Supine to Sit Supine to Sit Standby Assistance,Bedrails Sit to Supine Sit to Supine Standby Assistance,Bedrails PT-Transfer Assessment Sit to and From Stand Sit to and from Stand Contact Guard Assistance,1 Person Assistance,Use of Upper Extremities Equipment Transfer Assistive Device None,Gait Belt,Front Wheeled Walker Orthotic/Prosthetic Devices or Brace: No Comments Mobility Comments saw pt in the hallway holding on to her daughter and walking in the hallway. agreed to do PT and ambulated back to her room. informed pt regarding surgery precautions and understood. completed sit<>supine SBA using bed rail. pt stated that she will sleep on her couch for now. daughter stated that they will assist pt. completed sit to stand CGA with initial LOB posteriorly CGA. ambulated in room without AD CGA ~ 20 ft. presents with very guarded gait with decrease step length and LE elevation. pt stated that she will hold on to her daughter to assist. educated pt regarding safety and use of FWW instead of a person for support and pt understood. ambulated using FWW SBA ~ 125 ft towards the stairs. completed up/down 3 steps holding on to R rail with B hands SBA. ambulated back to her room using FWW SBA. pt went back to bed. sit to supine SBA. call light and table placed wtihin reach. Left pt with daughter in room. Gait Assessment Gait Gait Assistance Required: Standby Assistance,Contact Guard Assist Distance (Feet) 125 Able to Maintain Weight Bearing Status Yes During Gait Assistive Devices Assistive Device None,Gait Belt,Front Wheeled Walker Orthotic/Prosthetic Devices or Brace: No Factors Limiting Gait Function Factors Limiting Gait Function Decreased Activity Tolerance, Decreased Strength,Limited Range of Motion,Poor Balance Stair Climbing Assessment Evaluation Level of Assist On Stairs Standby Assistance Devices Stair Climbing Assistive Devices Right Railing Technique/Endurance Stair Climbing Direction Ascend and Descend Stair Climbing Technique Step to Step Number of Steps Climbed 3 Query Text: Stair Climbing Set # Repetitions (reps) 1 PT-Balance Assessment Sitting Balance and Reactions Static Sitting Balance Ability Normal Dynamic Sitting Balance Ability Normal Standing Balance and Reactions Static Standing Balance Ability Fair Dynamic Standing Balance Ability Fair Device Used without AD M5 PT-IP Objective Assessments Start: 03/14/22 13:30 Freq: NEEDED Status: Active Protocol: Document 03/14/22 11:35 AB (Rec: 03/14/22 13:43 AB [id number]) Orientation Orientation/Cognition Level of Alertness Alert Orientation Name,Place,Situation Language Function Ability Hard of Hearing Safety Awareness Decreased Safety Awareness Memory Description No Deficits Noted Gross Range of Motion Lower Extremity ROM Assessment Within Functional Limits Strength Lower Extremity Strength Assessment Within Functional Limits Coordination Assessment Gross Coordination Gross Coordination WNL Sensation Assessment Sensation Gross Sensation WNL Muscle Tone Muscle Tone WNL Yes M6 PT-IP Treatment Start: 03/14/22 13:30 Freq: NEEDED Status: Active Protocol: Document 03/14/22 11:35 AB (Rec: 03/14/22 13:43 AB [id number]) Physical Therapy Treatment Education Education Provided Precautions,Post-Op Packet, Safety M7 PT-IP Assessment and Plan Start: 03/14/22 13:30 Freq: NEEDED Status: Active Protocol: Document 03/14/22 11:35 AB (Rec: 03/14/22 13:43 AB [id number]) PT Summary Assessment and Plan Potential Rehabilitation Potential Good Status of Condition at Evaluation Evolving Summary Impairments Pain,ROM,Strength,Balance, Coordination,Sensation,Tone, Cognition,Bed Mobility, Transfers,Gait,Activity Tolerance Assessment Summary pt requiring SBA to CGA with mobility using FWW and will have her family to assist her at home. pt may go home when medically stable. will benefit from outpt PT. Goals Bed Mobility Goal Independent Transfer Goal Independent,Front Wheeled Walker Gait Goal Independent,Front Wheel Walker Gait Distance 200 Other Goals improve ambulation without AD mod I ~ 250 ft up/down 3 steps R rail ascending mod I Days to Meet Goals 10 Frequency of Treatment Frequency Of Treatment Once a Day Treatment Plan Physical Therapy Treatment Plan Bed Mobility Training,Transfer Training,Gait Training, Therapeutic Exercise,Balance Retraining,Post Op Education, Discharge Planning,Hot or Cold Pack,Neuromuscular Re-ed, Coordination Retraining,Manual Therapy Recommendations To Nursing Amount of Assist Needed 1 Person Assist Discharge Recommendations PT Discharge Recommendations Home with Assistance, Outpatient PT Transportation Needs at Discharge Private Vehicle
--- NOTE | 2022-03-14 12:16 | PC.NURSE ---
Patient given toradol for some discomfort and helpful. Her incisions to bilateral breast removal are wnl, halter top in place for support. Patient has 2 guerrero/mathew drains that are putting out bloody drainage. Patient worked with physical therapy and she will be discharged home after she eats lunch, discharge paperwork will be gone over with patient and her daughter. She is sitting at the side of the bed now.
--- NOTE | 2022-03-14 12:56 | PM.DS.1 ---
History of Present Illness History of Present Illness Date Patient Seen: 03/14/22 Time Patient Seen: 12:56 Chief complaint: OPB Narrative: Mellissa Xavier is a 81 year old woman with biopsy proven left breast cancer with a postivie lymph node and presumed right breast cancer. LEFT Breast: 2.1 cm mass, 12:00 o'clock position, middle depth 1.4 cm mass, deep to the nipple 0.6 cm mass in the axillary tail suggestive of an enlarged lymph node ? Pathology (core needle biopsy) Breast- Invasive carcinoma, ER Positive, SC Positive, HER2 Negative, Grade 3, DCIS? not present, Lymphovascular invasion not present Axilliary-Invasive carcinoma A follow up breast MRI demonstrates expected left breast findings and additionally a 1 cm mass 7 o clock position highly suspicious for malignancy no axilla involvement. A right breast biopsy was recommended but patient declined and instead wants bilateral mastectomy. Discharge Providers Provider Date of admission: 03/13/22 14:35 Discharge Date: 03/14/22 Primary care physician: Sheldon Carrizales MD Consults: 03/13/22 14:40 Consult to Physical Therapy Evaluate & Treat Comment: Physician Instructions: Evaluate and Treat 03/14/22 12:36 Consult to Home Health Routine Comment: Reason For Exam: Home health upon DC Discharge provider: Enio Vann MD Summary Hospital Course Discharge Diagnosis: Bilateral breast cancer Hospital Course: Patient underwent a bilateral mastectomy with left axillary node dissection and a right sentinel node biopsy March 12, 2022. Operation was unremarkable. She remained hospitalized for pain control and drain teaching. At discharge she is doing well. Pain is well controlled with oral medication. She has received drain care instruction and is appropriate for discharge home Exam Vital Signs (past 8 hours): - 03/14/22 06:34 03/14/22 05:49 03/14/22 07:45 Temperature 97.0 F L Pulse Rate 71 72 Respiratory Rate 16 16 Blood Pressure 134/70 126/75 Pulse Oximetry 97 96 97 Oxygen Delivery Method Room Air Oxygen Flow Rate 0 03/14/22 11:50 Temperature Pulse Rate Respiratory Rate Blood Pressure Pulse Oximetry Oxygen Delivery Method Room Air Oxygen Flow Rate Oxygen Delivery Method Room Air Oxygen Flow Rate 0 Narrative Exam Narrative: General adult woman alert oriented no acute distress Chest nonlabored respiration Mastectomy drains serosanguineous in output. [facility] Medical History (Updated 03/12/22 @ 13:22 by Enio Vann MD) Breast cancer Difficulty swallowing Fuchs' corneal dystrophy of both eyes Hypothyroid Pelvic relaxation Postmenopausal RLS (restless legs syndrome) Vaginal vault prolapse Surgical History History of gynecologic surgery (05/14/18) History of tonsillectomy Hx of eye surgery (~2011) S/P excision of lipoma Status post bunionectomy Status post hysterectomy Social History marital status: household members: spouse and children Smoking Status: Never smoker alcohol intake: never substance use type: does not use Discharge Plan Discharge Plan Patient Disposition: Home Provider Discharge Comment: No driving while taking narcotics Continue to empty drains as instructed Drains are ready for removal in surgical clinic when output is 50 mL or less in 24 hours Please call surgical clinic to arrange for follow-up Okay to sponge bath with drains in place but do not submerge the wounds in water Activity as tolerated Discharge orders & Medications Prescriptions: New ibuprofen 200 mg tablet 400 mg PO Q6H Qty: 60 0RF docusate sodium [Colace] 100 mg capsule 100 mg PO BID Qty: 30 0RF acetaminophen [Tylenol] 325 mg capsule 650 mg PO QID PRN (Reason: pain) Qty: 60 0RF tramadol 50 mg tablet 50 mg PO Q8H PRN (Reason: pain) Qty: 30 0RF sulfamethoxazole-trimethoprim [Bactrim DS] 800-160 mg tablet 1 tab PO BID Qty: 10 0RF Continued multivitamin Tablet 1 tab DAILY nettle leaf (bulk) 2 % Powder 1 ea MISCELLANEOUS DAILY PRN (Reason: Allergies) Spirulina Powder 1 ea MISCELLANEOUS DAILY Vitamin D (with calcium) 1 tab PO DAILY [place] Supplement 1 tab PO DAILY Follow up/Referrals: Enio Vann MD [Physician] - Diet/Activity/Treatments Diet: Diet as Tolerated Skin/Wound/Dressing Care Report to your healthcare provider any signs of infection, such as:: chills, fever, increased pain, unusual drainage and unusual redness Visit Report/Discharge Packet Instructions: DI for Mastectomy, DI for Dhaval-Romero Drains Stand Alone Forms: Surgery Discharge Discharge Data Primary Care Provider: Sheldon Carrizales Attending Provider: nEio Vann
--- NOTE | 2022-03-14 13:34 | CM.DPNOTE ---
Faxed referral to [facility] per Monica Florentino, [facility].
--- NOTE | 2022-03-14 16:07 | CM.DPNOTE ---
DC Note According to Dr Vann, patient discharging home this afternoon w/dtr to assist. PT eval today; patient cleared for home w/outpatient PT Spoke w/patient at bedside, reviewed DCP; one adult dtr will be caring for patient this weekend, she will head home Thursday and other dtr (who lives in [place] will take over patient's care for the week. Patient will discharge with drains in place and is scheduled to f/u w/ surgery, outpatient, next week for removal. Discussed HH, provided MCR choice list. Patient requests referral to [facility] for RN only ( PT [facility] wants outpatient PT for patient) Plan: Home w/family and [facility] for RN oversight JW
== END 2022-03-14 13:30 | disposition home or self-care (01) ==
LOC: OR 15:09 → AC 15:09
PROVIDERS: Admitting Provider Surgery; Family Provider Family Medicine; PCP Family Medicine; Referring Provider Surgery; Visit Provider Surgery
PROC: 0HTV0ZZ Resection of Bilateral Breast, Open Approach (ICD-10-PCS; CPT 19307; principal; 2022-03-12 13:00)
DX: C50.912 Malignant neoplasm of unspecified site of left female breast (principal); Z17.0 Estrogen receptor positive status [ER+]; C77.3 Secondary and unspecified malignant neoplasm of axilla and upper limb lymph nodes
CPT/HCPCS: 19307; 19303; 38500; 38792; 82962; 97162; A9541; G0378; J0171; J0690; J1170; J1650; J1885; J3010; J8501; Q9968

== ENCOUNTER 2022-04-12 15:17 | Emergency (ER) | payer OTHER, SELFPAY ==
[2022-04-04 12:10] VITALS: BMI 26.2
[2022-04-12] VITALS (12 sets, daily range): BP systolic 127–144; BP diastolic 59–72; PULSE 75–82; RESP 13–24; TEMP 36.6; O2SAT 94–99; BMI 22.4
--- NOTE | 2022-04-12 15:46 | ED_ITS ---
HPI - Nausea/Vomiting/Diarrhea General Chief complaint: Nausea/Vomiting/Diarrhea Stated complaint: 30 day post mastectomy. Nausea Vomiting Time Seen by Provider: 04/12/22 15:46 Source: patient Mode of arrival: Ambulatory History of Present Illness HPI Narrative: 81-year-old female nonsmoker with history of breast cancer and recent mastectomy presents with a chief complaint of upwards of 30 days of nausea, generalized abdominal discomfort and occasional vomiting. She states that a few hours after eating or drinking she becomes profoundly nauseated and states that she has vomited at least twice. She is feeling weak and generally very poor. She denies any chest pain or trouble breathing. She is not dizzy nor lightheaded. She is had no fever or chills. She is passing gas and having bowel movements without difficulty. Related Data Home Medications Medication Instructions Recorded Confirmed Vitamin D (with calcium) 1 tab PO DAILY 01/29/22 04/25/22 blue-green algae (bulk) (Spirulina 1 ea miscellaneous DAILY 01/29/22 04/25/22 powder) multivitamin 1 tab DAILY 01/29/22 04/25/22 nettle leaf (bulk) 2 % powder 1 ea miscellaneous DAILY PRN 01/29/22 04/25/22 Allergies Previous Rx's Medication Instructions Recorded pantoprazole 40 mg tablet,delayed 40 mg PO DAILY #30 tabs 04/24/22 release (Protonix) pregabalin 25 mg capsule (Lyrica) 25 mg PO DAILY #90 caps 04/25/22 Allergies Allergy/AdvReac Type Severity Reaction Status Date / Time cephalexin AdvReac Intermediate Upset Verified 04/25/22 10:34 stomach Review of Systems Review of Systems Narrative: GENERAL: Denies chills, fatigue, malaise, fever, sweats. HEENT: Denies sinus pain, ear pain, sore throat, difficulty swallowing, dizziness. RESPIRATORY: Denies dyspnea, cough, wheezing, hemoptysis, sputum. CARDIOVASCULAR: Denies chest pain, palpitations, orthopnea, edema, GASTROINTESTINAL: See HPI : Denies dysuria, frequency, incontinence, hematuria, urinary retention. MUSCULOSKELETAL: denies weakness, joint pain, or bony pain SKIN: Denies rash, skin lesions, or other NEUROLOGIC: Denies weakness, headache, numbness, change in speech, confusion, seizures, incoordination. PSYCHIATRIC: No concerning psychosocial issues. 12 point review of systems is negative except for those stated above Patient History Medical History Breast cancer Difficulty swallowing Fuchs' corneal dystrophy of both eyes Hypothyroid Pelvic relaxation Postmenopausal RLS (restless legs syndrome) Vaginal vault prolapse Surgical History History of gynecologic surgery (05/14/18) History of tonsillectomy Hx of eye surgery (~2011) S/P excision of lipoma Status post bunionectomy Status post hysterectomy Social History marital status: household members: spouse Smoking Status: Never smoker alcohol intake: never substance use type: does not use Smoking Status: Never smoker Substance Use Type: does not use Exam Narrative Exam Narrative: GENERAL: [81] year old patient appears stated age. Well-developed patient, in mild distress. HEAD: Atraumatic. Normocephalic. EYES: Pupils equal round and reactive. Extraocular motions intact. No scleral icterus. No injection or drainage. ENT: Dry mucous membranes Nose without bleeding, purulent drainage. Throat without erythema, tonsillar hypertrophy or exudate. Airway patent. NECK: Trachea midline. Non tender CARDIOVASCULAR: Regular rate and rhythm without murmurs, gallops, or rubs. RESPIRATORY: Clear to auscultation. Breath sounds equal bilaterally. No wheezes, rales, or rhonchi. GASTROINTESTINAL: Abdomen soft, generalized tenderness, bowel sounds present in all 4 quadrants, nondistended. EXTREMITIES: No edema or joint tenderness. BACK: Nontender without deformity or crepitance. No flank tenderness. NEURO: AOx3. SKIN: No rash or erythema of visible areas Initial Vital Signs Initial Vital Signs: Vital Signs Temperature 97.9 F 04/12/22 15:35 Pulse Rate 79 04/12/22 15:35 Respiratory Rate 20 04/12/22 15:35 Blood Pressure 136/72 04/12/22 15:35 Pulse Oximetry 98 04/12/22 15:35 Oxygen Delivery Method 04/12/22 15:35 Course Orders Ordered: Discontinued Medications Sodium Chloride (Normal Saline 0.9%) 1,000 mls @ 1,000 mls/hr IV BOLUS ONE Stop: 04/12/22 16:48 Last Infusion: 04/12/22 17:37 Dose: 0 mls/hr Documented By: Admin: 04/12/22 16:26 Dose: 1,000 mls/hr Documented By: NGA Ondansetron HCl (Ondansetron 4 Mg/2 Ml Inj) 4 mg IV NOW ONE Stop: 04/12/22 15:50 Last Admin: 04/12/22 16:24 Dose: 4 mg Documented By: NGA Ondansetron HCl (Ondansetron 4 Mg Odt Prepack) 1 bottle MISC SEEINSTR ONE Stop: 04/12/22 20:15 Last Admin: 04/12/22 20:17 Dose: 1 bottle Documented By: NGA Pantoprazole Sodium (Pantoprazole 40 Mg Vial) 40 mg IV NOW ONE Stop: 04/12/22 18:05 Last Admin: 04/12/22 18:16 Dose: 40 mg Documented By: NR Vital Signs Vital signs: Vital Signs - 8 hr 04/12/22 15:35 04/12/22 16:25 04/12/22 16:25 Temperature 97.9 F Pulse Rate 79 76 Respiratory Rate 20 Blood Pressure 136/72 144/65 H Pulse Oximetry 98 97 Oxygen Delivery Method Room Air 04/12/22 16:30 04/12/22 16:30 04/12/22 17:08 Temperature Pulse Rate 75 81 Respiratory Rate Blood Pressure 127/59 L Pulse Oximetry 96 98 Oxygen Delivery Method 04/12/22 17:09 04/12/22 17:09 04/12/22 17:30 Temperature Pulse Rate 79 Respiratory Rate Blood Pressure 143/64 H 140/65 Pulse Oximetry 98 Oxygen Delivery Method 04/12/22 17:30 04/12/22 18:00 04/12/22 18:00 Temperature Pulse Rate 82 79 Respiratory Rate 15 Blood Pressure 135/64 Pulse Oximetry 98 94 Oxygen Delivery Method 04/12/22 18:30 04/12/22 18:53 04/12/22 18:53 Temperature Pulse Rate 77 79 Respiratory Rate 15 24 Blood Pressure 139/65 Pulse Oximetry 99 98 Oxygen Delivery Method 04/12/22 19:00 04/12/22 19:30 04/12/22 19:46 Temperature Pulse Rate 78 79 77 Respiratory Rate 15 13 15 Blood Pressure Pulse Oximetry 94 97 98 Oxygen Delivery Method 04/12/22 19:46 Temperature Pulse Rate Respiratory Rate Blood Pressure 142/64 H Pulse Oximetry Oxygen Delivery Method MDM - Nausea/Vomiting/Diarrhea Lab Data Result diagrams: 04/12/22 15:52 04/12/22 15:52 Labs: Lab Results 04/12/22 04/12/22 04/12/22 Range/Units 15:52 15:52 16:07 WBC 7.8 (4.5-11.0) X10^3/uL RBC 3.39 L (4.0-5.2) X10^6/uL Hgb 9.8 L (12.0-16.0) g/dL Hct 28.8 L (36-46) % MCV 84.7 (80-100) fL MCH 28.7 (26-34) PG MCHC 33.9 (30-36) % RDW 14.8 (11.6-14.8) % Plt Count 344 (150-400) X10^3/uL Neut % (Auto) 77.7 H (50-75) % Lymph % (Auto) 11.2 L (25-40) % [place] % (Auto) 8.8 (3-14) % Eos % (Auto) 1.7 L (2-4) % Baso % (Auto) 0.6 (0-2) % Neut # (Auto) 6100 (6416-3430) /uL Lymph # (Auto) 900 L (4084-2147) /uL [place] # (Auto) 700 (0-900) /uL Eos # (Auto) 100 (0-450) /uL Baso # (Auto) 0 (0-100) /uL Sodium 133 L (137-145) mmol/L Potassium 4.0 (3.4-5.1) mmol/L Chloride 100 (98-107) mmol/L Carbon Dioxide 26 (22-32) mmol/L BUN 15 (7-17) mg/dL Creatinine 0.70 (0.52-1.04) mg/dL Estimated GFR > 60 (>60) mL/min BUN/Creatinine Ratio 21.4 (6-22) Glucose 103 (80-110) mg/dL Calcium 9.0 (8.4-10.2) mg/dL Total Bilirubin 0.3 (0.2-1.3) mg/dL AST 22 (14-36) IU/L ALT 22 (<35) IU/L Alkaline Phosphatase 89 (38-126) U/L Total Protein 6.6 (6.3-8.2) g/dL Albumin 3.6 (3.5-5.0) g/dL Globulin 3.0 (1.7-4.1) g/dL Albumin/Globulin Ratio 1.2 (1.0-2.8) Urine RBC None seen (0-5/HPF) Urine WBC 5-10/hpf H (0-5/HPF) Ur Squamous Epith Cells 1-5 /hpf (0-5/HPF) Urine Bacteria Few (2-10) H (None) Urine Mucus 1+ H (Negative) Ur Culture Indicated? Specimen cultured Urine Dip Bedside Urine Glucose Negative Bedside Urine Bilirubin - Negative Bedside Urine Ketone - Negative Urine Specific [place] 1.025 Bedside Urine Occult Blood - Negative Bedside Urine pH 6 Bedside Urine Protein +/- 15 Bedside Urine Urobilinogen - Negative Bedside Urine Nitrite - Negative Bedside Urine Leukocytes +/- 15 Esterase Imaging Data Abdominal x-ray: Radiologist's Impression: Mellissa Mojica??81??F??1940 ? Allergy/Adv: cephalexin Close Chest/Abdomen X-ray (Signed) Carlos Solis - 04/12/22 [place] Node (Signed) Jeffrey Joe - 03/12/22 Breast Ultrasound (Signed) Woo Joe - 02/28/22 Bone Scan Nuclear Medicine (Signed) Woo Joe - 02/06/22 Breast MRI (Signed) Dimitri Mckenzie - 02/04/22 Abdomen/Pelvis CT (Signed) Pau Stewart - 02/04/[address] (Signed) Pau Stewart - 01/23/22 Mammogram Diagnostic (Signed) Mark Meyers - 01/14/22 Breast Biopsy Ultrasound (Addendum) Mark Meyers - 01/14/22 Breast Axilla Core Biopsy US (Addendum) Mark Meyers - 01/14/22 Breast Ultrasound (Signed) Sepideh Brink - 12/17/21 Mammogram Diagnostic (Signed) Sepideh Brink - 12/17/21 Breast Ultrasound (Signed) Sepideh Brink - 12/17/21 Abdomen Ultrasound (Signed) Arnie Navarrete - 05/28/21 Chest X-Ray (Signed) Woo Joe - 10/02/20 Hip X-Ray (Signed) Wesley Muhammad - 07/10/20 Foot X-Ray (Signed) Kayla Smith - 01/02/20 Bladder Scan 05/14/18 Launch?[facility] [address] [address] XRay Report Signed Patient: Mellissa Mojica MR#: [id number] : 1940 Acct:[id number] Age/Sex: 81 / F Date of Service: 04/12/22 Loc: ED Accession Number: [id number] ?? Procedure: XR acute abdomen series Ordering Provider: Nadeem Coyle D.O. PROCEDURE:? XR ACUTE ABDOMEN SERIES ? INDICATIONS:? N/V/D ? TECHNIQUE:? One view chest and two views of the abdomen were acquired.? ? COMPARISON:? None. ? FINDINGS:? ? Surgical changes and devices:? Surgical clips noted in the left axilla ? Chest:? Lungs are clear.? Heart size is normal.? No pleural effusions.? No pneumoperitoneum.? ? Abdomen:? Bowel gas pattern is normal.? No suspicious calcifications.? Visualized solid organ contours appear normal.? ? Bones:? No suspicious bony lesions.? ? IMPRESSION:? ? No acute cardiopulmonary findings ? ? ? Approved by: Carlos Solis M.D. on 04/12/2022 at 17:26? US - abdomen: Radiologist's Impression: [address] [address] Ultrasound Report Signed Patient: Mellissa Mojica MR#: [id number] : 1940 Acct:[id number] Age/Sex: 81 / F Date of Service: 04/12/22 Loc: ED Accession Number: [id number] ?? Procedure: US abdomen limited Ordering Provider: Nadeem Coyle D.O. PROCEDURE: US ABDOMEN LIMITED ? INDICATIONS:? EPIGASTRIC PAIN WITH NAUSEA/VOMITING ? TECHNIQUE:? Real-time focused scanning was performed of the abdomen, with image documentation.? ? COMPARISON:? None. ? FINDINGS:? The liver measures 14 centimeters.? Normal echotexture. ? Gallbladder is within normal limits. ? Biliary tree measures up to 6 millimeters.? Pancreas is not well seen. ? No pathologic free fluid. ? IMPRESSION:? Normal gallbladder.? Prominent biliary duct, likely within normal limits for age.? Correlate with LFTs.? ? ? Dictated by: Chadd Guidry M.D. on 04/12/2022 at 19:07 ? ? Approved by: Chadd Guidry M.D. on 04/12/2022 at 19:08? MDM Narrative Medical decision making narrative: Multiple etiologies for patient's symptoms considered include, but not limited to: [Bowel obstruction versus kidney stone versus diverticulitis versus other Patient's symptoms improved over duration of stay with above-stated therapies. History, physical exam, labs, imaging, and response to therapies have been reassuring. Findings and discharge diagnosis discussed with patient/family followed by verbalization of understanding Return precautions discussed with patient/family whom verbalize understanding. Pain has been well controlled and patient is tolerating oral hydration. Discharge Plan Departure Patient Disposition: Home Clinical Impression: Nausea, Abdominal discomfort Instructions: DI for Nausea -- Adult Activity Restrictions/Additional Instructions: *You have been diagnosed with [nausea and mild abdominal pain] * As we discussed your history and physical exam as well as labs and imaging are very reassuring. There is no evidence of any severe diagnoses that would require a specific or immediate intervention. *What to do: *Please continue to take your regular medications as directed. [x ] New medication prescriptions sent to your pharmacy: [[facility] ] *Please follow up with your primary care provider in 2-3 days, call for an appointment. Let them know you were seen in the Emergency Department and that we ask that you be seen in follow up. We will electronically transmit a record of today's note if your PCP is in our system *Please consider a clear liquid diet for the next 24-48 hours and then slowly advance to regular as tolerated. Also, try to avoid alcohol, nicotine, caffeine, spicy, acidic or fatty foods as this may worsen your symptoms * as we discussed it would seem reasonable to follow up with Dr. Dobbins's office as well, please call on Thursday, let them know that you are in the e mergency department and we would like you to be seen in follow-up *Return to Emergency Department if you should have any new, worsening or concerning symptoms, such as [fever greater than 101 F, shaking chills, worsening pain, persistent vomiting or other bothersome symptoms] Prescriptions: No Action pantoprazole [Protonix] 40 mg tablet,delayed release (DR/EC) 40 mg PO DAILY Qty: 30 0RF pregabalin [Lyrica] 25 mg capsule 25 mg PO DAILY Qty: 90 0RF multivitamin Tablet 1 tab DAILY nettle leaf (bulk) 2 % Powder 1 ea MISCELLANEOUS DAILY PRN (Reason: Allergies) Spirulina Powder 1 ea MISCELLANEOUS DAILY Vitamin D (with calcium) 1 tab PO DAILY Referrals: Sheldon Carrizales MD [Primary Care Provider] - Enio Vann MD [Physician] - Visit Report Forms: Patient Portal/API
--- NOTE | 2022-04-12 15:49 | DI.RAD.S_ITS ---
PROCEDURE: XR ACUTE ABDOMEN SERIES INDICATIONS: N/V/D TECHNIQUE: One view chest and two views of the abdomen were acquired. COMPARISON: None. FINDINGS: Surgical changes and devices: Surgical clips noted in the left axilla Chest: Lungs are clear. Heart size is normal. No pleural effusions. No pneumoperitoneum. Abdomen: Bowel gas pattern is normal. No suspicious calcifications. Visualized solid organ contours appear normal. Bones: No suspicious bony lesions. IMPRESSION: No acute cardiopulmonary findings Approved by: Carlos Soils M.D. on 04/12/2022 at 17:26
[2022-04-12 16:00] LABS: Add Manual Diff / Slide Review NO; Basophils Absolute Auto 0 /uL (0-100); Basophils Percent Auto 0.6 % (0-2); Eosinophils Absolute Auto 100 /uL (0-450); Eosinophils Percent Auto 1.7 % (2-4); Hematocrit 28.8 % (36-46); Hemoglobin 9.8 g/dL (12.0-16.0); Lymphocytes Absolute Auto 900 /uL (1100-4500); Lymphocytes Percent Auto 11.2 % (25-40); Mean Corpuscular HGB Conc 33.9 % (30-36); Mean Corpuscular Hemoglobin 28.7 PG (26-34); Mean Corpuscular Volume 84.7 fL (80-100); Monocytes Absolute Auto 700 /uL (0-900); Monocytes Percent Auto 8.8 % (3-14); Neutrophils Absolute Auto 6100 /uL (1500-7000); Neutrophils Percent Auto 77.7 % (50-75); Platelet Count 344 X10^3/uL (150-400); Red Blood Cell Count 3.39 X10^6/uL (4.0-5.2); Red Cell Distribution Width 14.8 % (11.6-14.8); White Blood Cell Count 7.8 X10^3/uL (4.5-11.0)
[2022-04-12 16:11] LABS: Alanine Aminotransferase 22 IU/L (<35); Albumin 3.6 g/dL (3.5-5.0); Albumin Globulin Ratio 1.2 (1.0-2.8); Alkaline Phosphatase 89 U/L (38-126); Aspartate Aminotransferase 22 IU/L (14-36); BUN Creatinine Ratio 21.4 (6-22); Bilirubin Total 0.3 mg/dL (0.2-1.3); Blood Urea Nitrogen 15 mg/dL (7-17); Carbon Dioxide 26 mmol/L (22-32); Chloride 100 mmol/L (98-107); Estimated Glomerular Filt Rate > 60 mL/min (>60); Glucose 103 mg/dL (80-110); HEMOLYSIS < 15 (0-50); Sodium 133 mmol/L (137-145); Total Protein 6.6 g/dL (6.3-8.2)
[2022-04-12] MEDS: ONDANSETRON 4 MG/2 ML INJ IV (16:24)
[2022-04-12] MEDS: SODIUM CHLORIDE 0.9% 1,000 ML 1000 ML IV (16:26)
[2022-04-12 16:28] LABS: RBC Urine None Seen (0-5/HPF); Squamous Epithelial Cell Urine 1-5 /HPF (0-5/HPF); WBC Urine 5-10/HPF (0-5/HPF)
[2022-04-12 16:29] LABS: Bacteria Urine Few (2-10); Culture Indicated Urine Specimen Cultured; Mucus Urine 1+ (Negative)
--- NOTE | 2022-04-12 18:03 | DI.US.S_ITS ---
PROCEDURE: US ABDOMEN LIMITED INDICATIONS: EPIGASTRIC PAIN WITH NAUSEA/VOMITING TECHNIQUE: Real-time focused scanning was performed of the abdomen, with image documentation. COMPARISON: None. FINDINGS: The liver measures 14 centimeters. Normal echotexture. Gallbladder is within normal limits. Biliary tree measures up to 6 millimeters. Pancreas is not well seen. No pathologic free fluid. IMPRESSION: Normal gallbladder. Prominent biliary duct, likely within normal limits for age. Correlate with LFTs. Dictated by: Chadd Guidry M.D. on 04/12/2022 at 19:07 Approved by: Chadd Guidry M.D. on 04/12/2022 at 19:08
[2022-04-12] MEDS: PANTOPRAZOLE 40 MG VIAL IV (18:16)
[2022-04-12] MEDS: ONDANSETRON 4 MG ODT PREPACK 1 BOTTLE MISC (20:17)
== END 2022-04-12 19:53 | disposition home or self-care (01) ==
PROVIDERS: Emergency Provider Emergency Medicine; Family Provider Family Medicine; PCP Family Medicine
DX: R10.84 Generalized abdominal pain (principal); R11.0 Nausea; Z90.12 Acquired absence of left breast and nipple
CPT/HCPCS: 36415; 74022; 76705; 80053; 81003; 81015; 85025; 87086; 96361; 96374; 96375; 99284; C9113; J2405

== ENCOUNTER → 2022-09-24 14:32 | Outpatient (CLI) | payer OTHER, SELFPAY ==
[2022-04-04 12:10] VITALS: BMI 26.2
--- NOTE | 2022-09-24 14:33 | DI.RAD.S_ITS ---
PROCEDURE: XR DEXA AXIAL SKELETON INDICATIONS: postmenopausal osteoporosis COMPARISON: None. FINDINGS: This blank DEXA report has been sent in error by the PACS system. The correct and complete report will be forthcoming in 1-2 days. Thank you for your patience and understanding. Dictated by: Sheldon Bose M.D. on 09/25/2022 at 8:39 Approved by: Sheldon Bose M.D. on 09/25/2022 at 8:39
== END ==
PROVIDERS: Family Provider Family Medicine; PCP Family Medicine; Referring Provider Internal Medicine Hematology & Oncology; Visit Provider Internal Medicine Hematology & Oncology
DX: Z13.820 Encounter for screening for osteoporosis; M85.88 Other specified disorders of bone density and structure, other site; Z78.0 Asymptomatic menopausal state; Z90.710 Acquired absence of both cervix and uterus
CPT/HCPCS: 77080

== ENCOUNTER → 2022-11-14 17:24 | Outpatient (CLI) | payer OTHER, SELFPAY ==
[2022-04-04 12:10] VITALS: BMI 26.2
[2022-11-14 18:18] LABS: Influenza A - CEPHEID Flu A NEGATIVE (NEGATIVE); Influenza B - CEPHEID Flu B NEGATIVE (NEGATIVE); Respiratory Syncytial Virus Negative (Negative)
[2022-11-14 18:24] LABS: COVID-19 CEPHEID 4-PLEX PCR Negative (Negative)
== END ==
PROVIDERS: Family Provider Family Medicine; PCP Family Medicine; Visit Provider Registered Nurse
DX: J06.9 Acute upper respiratory infection, unspecified (principal); Z20.822 Contact with and (suspected) exposure to COVID-19
CPT/HCPCS: 0241U

== ENCOUNTER → 2022-11-20 11:28 | Outpatient (CLI) | payer OTHER, SELFPAY ==
[2022-04-04 12:10] VITALS: BMI 26.2
[2022-11-20 14:27] LABS: TSH w/ Reflex to FT4 5.33 uIU/mL (0.47-4.68)
[2022-11-20 14:55] LABS: Free T4, Direct Thyroxine 1.13 ng/dL (0.78-2.19)
== END ==
PROVIDERS: Family Provider Family Medicine; PCP Family Medicine; Referring Provider Physician Assistant; Visit Provider Physician Assistant
DX: E03.9 Hypothyroidism, unspecified (principal); Z13.220 Encounter for screening for lipoid disorders; Z13.6 Encounter for screening for cardiovascular disorders
CPT/HCPCS: 36415; 84439; 84443

== ENCOUNTER → 2022-12-02 15:44 | Outpatient (CLI) | payer OTHER, SELFPAY ==
[2022-04-04 12:10] VITALS: BMI 26.2
[2022-12-03 10:32] LABS: Fecal Immunochemical Test Negative (Negative)
== END ==
PROVIDERS: Family Provider Family Medicine; PCP Family Medicine; Referring Provider Physician Assistant; Visit Provider Physician Assistant
DX: C50.912 Malignant neoplasm of unspecified site of left female breast (principal); Z12.11 Encounter for screening for malignant neoplasm of colon
CPT/HCPCS: 82274

== ENCOUNTER → 2022-12-10 12:09 | Outpatient (CLI) | payer OTHER, SELFPAY ==
[2022-04-04 12:10] VITALS: BMI 26.2
--- NOTE | 2022-12-10 12:10 | DI.RAD.S_ITS ---
PROCEDURE: XR CHEST 2V INDICATIONS: cough X2 months TECHNIQUE: 2 views of the chest were acquired. COMPARISON: [facility], [place], XR CHEST 2V, 10/02/2020, 15:39. [facility], , CHEST 2 VIEW, 06/07/2009, 15:20. FINDINGS: Surgical changes and devices: None. Lungs and pleura: Lungs are clear. No pleural effusions or pneumothorax. Biapical scarring. Mediastinum: Mediastinal contours are normal. Heart size is normal. Bones and chest wall: No suspicious bony abnormalities. Soft tissues appear unremarkable. IMPRESSION: No acute cardiopulmonary process. Dictated by: Delon Crane M.D. on 12/10/2022 at 13:08 Approved by: Delon Crane M.D. on 12/10/2022 at 13:09
== END ==
PROVIDERS: Family Provider Family Medicine; PCP Family Medicine; Referring Provider Family Medicine; Visit Provider Family Medicine
DX: R05.9 Cough, unspecified (principal)
CPT/HCPCS: 71046

== ENCOUNTER → 2023-01-26 11:08 | Outpatient (CLI) | payer OTHER, SELFPAY ==
[2022-04-04 12:10] VITALS: BMI 26.2
--- NOTE | 2023-01-26 11:09 | DI.US.S_ITS ---
PROCEDURE: US SOFT TISSUE HEAD AND NECK INDICATIONS: LEFT CERVICAL LYMPHADENOPATHY, HX OF BREAST CANCER TECHNIQUE: Real-time scanning was performed of the neck region of interest, with image documentation. COMPARISON: None. FINDINGS AND IMPRESSION: No sonographic mass is identified correlating with palpable abnormality. Location of palpable finding corresponds to the ICA. Clinical followup is recommended. If there is new or worsening clinical concern, reimaging could be obtained. Dictated by: Chadd Guidry M.D. on 01/26/2023 at 13:52 Approved by: Chadd Guidry M.D. on 01/26/2023 at 13:53
== END ==
PROVIDERS: Family Provider Family Medicine; PCP Family Medicine; Referring Provider Internal Medicine Hematology & Oncology; Visit Provider Internal Medicine Hematology & Oncology
DX: C50.912 Malignant neoplasm of unspecified site of left female breast (principal); R59.0 Localized enlarged lymph nodes
CPT/HCPCS: 76536

== ENCOUNTER 2023-03-03 10:30 | Outpatient (RCR) | payer OTHER, SELFPAY ==
[2022-03-12 17:50] VITALS: BMI 26.2
[2022-04-04 12:10] VITALS: BMI 26.2
--- NOTE | 2022-05-20 16:33 | PT.OIE ---
Current Diagnoses Malignant neoplasm of unspecified site of left female breast (05/20/22) Past Medical History (Last Reviewed 04/28/22 @ 07:56 by Enio Vann MD) Breast cancer Difficulty swallowing Fuchs' corneal dystrophy of both eyes Hypothyroid Pelvic relaxation Postmenopausal RLS (restless legs syndrome) Vaginal vault prolapse Past Surgical History (Last Reviewed 04/28/22 @ 07:56 by Enio Vann MD) History of gynecologic surgery (05/14/18) History of tonsillectomy Hx of eye surgery (~2011) S/P excision of lipoma Status post bunionectomy Status post hysterectomy Visit Care Team Role Provider Type Sheldon Carrizales MD Family Provider Physician Primary Care Provider Specialty: Family Practice Address: [address] [place] [address], [id number] Email: [email or web address] Broderick Lopez MD Attending Provider Physician Referring Provider Specialty: Oncology Address: [address] [place] [address], [id number] Email: Physical Therapy Initial Evaluation PT-OP-A Visit Information Start: 05/15/22 16:36 Freq: Status: Active Protocol: Document 05/20/22 09:49 [facility] (Rec: 05/20/22 11:15 [facility] [id number]) Out-Patient Physical Therapy Visit Information Visit Information Visit Type Initial Evaluation Visit Start Time 09:50 Visit Stop Time 11:15 Total Visit Minutes 85 Visit Number 1 Evaluation Information Evaluation Date 05/20/22 Precautions Precautions bilateral mastectomy, having further testing left side for potential metastasis PT-OP-B Current Condition Start: 05/15/22 16:36 Freq: Status: Active Protocol: Document 05/20/22 09:49 [facility] (Rec: 05/20/22 11:15 [facility] [id number]) Current Condition History of Current Condition Onset Date 03/12/22 Current Complaints funny bone pain, numb forearm, limited motion History of Current Condition bilateral mastectomy with left axillary node dissection left (4/5 positive), sentinal node biopsy right negative. Going to have more tests 06/05/22 to check for any other spread of cancer prior to starting radiation. No chemo planned. Reports since surgery her funny bone has been painfull with movement and if bump elbow. Didn't know precautions for lymphedema, went on plane trip last week, but didn't notice a change Hasn't obtained compression sleeve; ordered one from [email or web address] that was a one size fits all, and it did not fit. States healing of mastectomy has gone well but the burning pain in her left UE is most limiting. Prior Treatments and Tests as above bilateral mastectomy, further testing to come Treatment Goals Patient/Caregiver Goals Decrease pain, improve flexibility and strength. Prior Functional Status Baseline Function- ADL's Independent Baseline Function- Mobility Independent Baseline Function- Recreation/Hobbies no pain Current Functional Impairments (Reported) Functional Limitations- Recreation/ painful when moving elbow, Hobbies reaching overhead PT-OP-C Subjective Start: 05/15/22 16:36 Freq: Status: Active Protocol: Document 05/20/22 09:49 [facility] (Rec: 05/21/22 16:33 [facility] [id number]) OP-PT Pain Assessment Pain Assessment Grid Paper Pain Assessment Grid Completed Yes Location Anterior Chest Pain Location Details anterior chest, left elbow Scale Used Numeric (0 - 10) Description Aching,Sharp,Stabbing,Tender Frequency Frequent Pain Aggravating Factors Activity Other Pain Aggravating Factors bumping or touching Pain Alleviating Factors None Home Pain Medication Use Pain Medications Used No Pain Behaviors Pain Behaviors Facial Grimacing,Guarding, Wincing PT-OP-H Neuro Start: 05/15/22 16:36 Freq: Status: Active Protocol: Document 05/20/22 09:49 [facility] (Rec: 05/21/22 16:33 [facility] [id number]) Sensation Evaluation Gross Sensation Gross Sensation Left UE Impaired Sensation Description Numbness,Tingling,Pain PT-OP-J Posture/Palpation/Skin Start: 05/15/22 16:36 Freq: Status: Active Protocol: Document 05/20/22 09:49 [facility] (Rec: 05/21/22 16:33 [facility] [id number]) Palpation Assessment Location axilla Palpation Findings Soft Tissue Tightness Palpation Details no palpable axillary cording incisions Palpation Location decreased soft tissue mobility Skin Assessment Edema Assessment left elbow Edema Type Non-Pitting Edema Appearance Puffy Subjective Edema Description Pain Incisional Assessment Incision Appearance/Comments well healed bilateral mastectomy scars Other Assessments Skin Assessment Comments see lymphedema section for circumferential measurements PT-OP-K Range of Motion Start: 05/15/22 16:36 Freq: Status: Active Protocol: Document 05/20/22 09:49 [facility] (Rec: 05/21/22 16:33 [facility] [id number]) Cervical Spine Range of Motion Cervical Spine Active Testing Position Sitting Comments WNL Shoulder Goniometric Range of Motion Shoulder Left Shoulder ROM WFL No Flexion 155 Extension 15 Abduction 147 Horizontal Abduction 75 Horizontal Adduction 30 External Rotation at 45 degrees 55 Abduction Internal Rotation Behind Back (text) T10 Right Shoulder ROM WFL Yes Shoulder ROM Limitations Shoulder ROM Limitations Soft Tissue Tightness,Pain PT-OP-N Lymphedema Start: 05/15/22 16:36 Freq: Status: Active Protocol: Document 05/20/22 09:49 [facility] (Rec: 05/21/22 16:33 [facility] [id number]) Lymphedema Measurements Upper Extremity Circumference Measurements Left Affected MCP 18.3 cm Dorsum of Hand 18.7 cm Wrist 16 cm 5 cm From Wrist Crease 15.5 cm 10 cm From Wrist Crease 18.4 cm 15 cm From Wrist Crease 22.2 cm 20 cm From Wrist Crease 23 cm 25 cm From Wrist Crease 24.8 cm 30 cm From Wrist Crease 27.7 cm 35 cm From Wrist Crease 29.9 cm 40 cm From Wrist Crease 30.3 cm Elbow Joint 23.7 cm Axilla 30.1 cm Right MCP 18.3 cm Dorsum of Hand 18.9 cm Wrist 15.7 cm 5 cm From Wrist Crease 15.5 cm 10 cm From Wrist Crease 19 cm 15 cm From Wrist Crease 22.1 cm 20 cm From Wrist Crease 22.9 cm 25 cm From Wrist Crease 24.1 cm 30 cm From Wrist Crease 27 cm 35 cm From Wrist Crease 29.5 cm 40 cm From Wrist Crease 31.3 cm Elbow Joint 23 cm Axilla 31.7 cm Comments Lymphedema Comments Not greater than 1 cm difference but symptoms of lymphedema; possibly subclinical phase, needs close monitoring. PT-OP-Q Treatments Start: 05/15/22 16:36 Freq: Status: Active Protocol: Document 05/20/22 09:49 [facility] (Rec: 05/21/22 16:33 [facility] [id number]) Self-Care/Home Management Treatment Education Patient Education Home Exercise Program Lymphedema Treatment Patient Education Lymphedema Pathology discussed using baggage porter head Lymphedema Prevention issued written handout and discussed Lymphedema Precautions issued written handout and discussed Compression Garments issued loaner Juzo size II soft 20-30mm off the shelf; good fit Self Manual Lymphatic Drainage initial instruction Sequential Lymphedema Exercises instructed and issued handout PT-OP-T Assessment and Plan Start: 05/15/22 16:36 Freq: Status: Active Protocol: Document 05/20/22 09:49 [facility] (Rec: 05/21/22 16:33 [facility] [id number]) Physical Therapy Assessment Rehab Potential Rehabilitation Potential Good Evaluation Complexity Number of Personal Factors/Comorbidities 1-2 Number of Body Systems Impaired 3 Clinical Presentation at Evaluation Evolving Impairments Impairments Edema,Pain,ROM,Soft Tissue Mobility Goals Three Impairment impaired range of motion left UE, decreased scar mobility Impairment difficulty reaching overhead, behind her back and out to side for purposes of ADL's Short Term Goal (STG) Patient to be independent with HEP as instructed for purposes of ROM and flexibility STG Duration 06/19/22 Detention Goal (LTG) Patient to demonstrate ROM WNL left UE and normal scar mobility to allow her to reach overhead, behind her back, and out to side without difficulty for daily activities. LTG Duration 07/20/22 Two Impairment swelling left UE Short Term Goal (STG) decrease swelling left UE to no greater than 0.5 cm different than right as compared via cirfumferential measurement STG Duration 06/19/22 Psych Social Worker Goal (LTG) Patient to demonstrate good understanding of edema management including wearing compression garment, self- massage, gentle ex LTG Duration 07/20/22 One Impairment pain left UE worst at elbow Impairment pain as high as 8/10 Short Term Goal (STG) decrease pain to no greater than 4/10 with all usual activities STG Duration 06/19/22 Psych Social Worker Goal (LTG) Patient to report ability to do all usual activities with pain no greater than 2/10 LTG Duration 07/20/22 Assessment Summary Assessment Patient presents to PT with function-limiting pain in her left elbow and visible swelling confirmed by circumferential measurements. Additionally has limited shoulder ROM. All signs and symptoms have occurred s/p bilateral mastectomy 03/12/22. Circumferential measurements don't confirm diagnosis of lymphedema but symptoms could be subclinical and will need careful monitoring. No axillary cording. Patient will benefit from PT to decrease her pain and swelling , improve her shoulder range of motion and scar tissue mobility to allow her to return to full active use of her left UE. Additionally patient education regarding lymphedema will be a part of her treatment since she is at high risk and evaluation not conclusive regarding that diagnosis today. We discussed POC and she is in agreement. Physical Therapy Plan Frequency and Duration Frequency of Treatment 2x/Week Duration of treatment (weeks) 8 Plan of Care Start Date 05/20/22 Plan of Care End Date 07/20/22 Therapeutic Interventions Therapeutic Interventions Home Exercise Program, Lymphedema Management,Manual Therapy,Patient/Caregiver Education,Self-Care/Home Management,Soft Tissue Mobilization,Taping, Therapeutic Activities, Therapeutic Exercises Next Visit Focus/Plan Next Note Type Treatment Note Next Visit Plan Review HEP, assess response to wearing compression sleeve and problem solve further issues, complete lymphedema education, perform MLD to address pain and swelling. Consider kinesiotape.
--- NOTE | 2022-05-20 16:34 | PT.OPPOC ---
Physical, Occupational & Speech Therapy At [facility] Current Diagnoses Malignant neoplasm of unspecified site of left female breast (05/20/22) Visit Care Team Role Provider Type Sheldon Carrizales MD Family Provider Physician Primary Care Provider Specialty: Family Practice Address: [address] [place] [address], [id number] Email: [email or web address] Broderick Lopez MD Attending Provider Physician Referring Provider Specialty: Oncology Address: [address] [place] [address], [id number] Email: Plan Of Care PT-OP-T Assessment and Plan Start: 05/15/22 16:36 Freq: Status: Active Protocol: Document 05/20/22 09:49 [facility] (Rec: 05/21/22 16:33 [facility] [id number]) Physical Therapy Assessment Rehab Potential Rehabilitation Potential Good Evaluation Complexity Number of Personal Factors/Comorbidities 1-2 Number of Body Systems Impaired 3 Clinical Presentation at Evaluation Evolving Impairments Impairments Edema,Pain,ROM,Soft Tissue Mobility Goals Three Impairment impaired range of motion left UE, decreased scar mobility Impairment difficulty reaching overhead, behind her back and out to side for purposes of ADL's Short Term Goal (STG) Patient to be independent with HEP as instructed for purposes of ROM and flexibility STG Duration 06/19/22 Ticket Taker [place]erry[place] Goal (LTG) Patient to demonstrate ROM WNL left UE and normal scar mobility to allow her to reach overhead, behind her back, and out to side without difficulty for daily activities. LTG Duration 07/20/22 Two Impairment swelling left UE Short Term Goal (STG) decrease swelling left UE to no greater than 0.5 cm different than right as compared via cirfumferential measurement STG Duration 06/19/22 Residential Goal (LTG) Patient to demonstrate good understanding of edema management including wearing compression garment, self- massage, gentle ex LTG Duration 07/20/22 One Impairment pain left UE worst at elbow Impairment pain as high as 8/10 Short Term Goal (STG) decrease pain to no greater than 4/10 with all usual activities STG Duration 06/19/22 Ticket Taker [place] Goal (LTG) Patient to report ability to do all usual activities with pain no greater than 2/10 LTG Duration 07/20/22 Assessment Summary Assessment Patient presents to PT with function-limiting pain in her left elbow and visible swelling confirmed by circumferential measurements. Additionally has limited shoulder ROM. All signs and symptoms have occurred s/p bilateral mastectomy 03/12/22. Circumferential measurements don't confirm diagnosis of lymphedema but symptoms could be subclinical and will need careful monitoring. No axillary cording. Patient will benefit from PT to decrease her pain and swelling , improve her shoulder range of motion and scar tissue mobility to allow her to return to full active use of her left UE. Additionally patient education regarding lymphedema will be a part of her treatment since she is at high risk and evaluation not conclusive regarding that diagnosis today. We discussed POC and she is in agreement. Physical Therapy Plan Frequency and Duration Frequency of Treatment 2x/Week Duration of treatment (weeks) 8 Plan of Care Start Date 05/20/22 Plan of Care End Date 07/20/22 Therapeutic Interventions Therapeutic Interventions Home Exercise Program, Lymphedema Management,Manual Therapy,Patient/Caregiver Education,Self-Care/Home Management,Soft Tissue Mobilization,Taping, Therapeutic Activities, Therapeutic Exercises Next Visit Focus/Plan Next Note Type Treatment Note Next Visit Plan Review HEP, assess response to wearing compression sleeve and problem solve further issues, complete lymphedema education, perform MLD to address pain and swelling. Consider kinesiotape. Plan of Care Dates Plan of Care Start Date 05/20/22 Plan of Care End Date 07/20/22 Electronically Signed by: Roula Bullard, PT 05/21/22 3208 If you are in agreement with this Plan of Care, please return a signed and dated copy. I have reviewed this Plan of Care and certify that the skilled therapy services above are required to meet the patient?s needs. Physician Signature Date Printed Name and Credentials Clinical Instructor Signature Printed Name and Credentials
--- NOTE | 2022-05-22 16:38 | PT.OTN ---
Current Diagnoses Malignant neoplasm of unspecified site of left female breast (05/22/22) Physical Therapy Treatment Note PT-OP-A Visit Information Start: 05/15/22 16:36 Freq: Status: Active Protocol: Document 05/22/22 09:48 [facility] (Rec: 05/22/22 11:16 [facility] [id number]) Out-Patient Physical Therapy Visit Information Visit Information Visit Type Initial Evaluation Visit Start Time 09:45 Visit Stop Time 11:15 Total Visit Minutes 85 Visit Number 2 Evaluation Information Evaluation Date 05/20/22 Precautions Precautions bilateral mastectomy, having further testing left side for potential metastasis PT-OP-B Current Condition Start: 05/15/22 16:36 Freq: Status: Active Protocol: Document 05/20/22 09:49 [facility] (Rec: 05/20/22 11:15 [facility] [id number]) Current Condition History of Current Condition Onset Date 03/12/22 Current Complaints funny bone pain, numb forearm, limited motion History of Current Condition bilateral mastectomy with left axillary node dissection left (4/5 positive), sentinal node biopsy right negative. Going to have more tests 06/05/22 to check for any other spread of cancer prior to starting radiation. No chemo planned. Reports since surgery her funny bone has been painfull with movement and if bump elbow. Didn't know precautions for lymphedema, went on plane trip last week, but didn't notice a change Hasn't obtained compression sleeve; ordered one from [employer] that was a one size fits all, and it did not fit. States healing of mastectomy has gone well but the burning pain in her left UE is most limiting. Prior Treatments and Tests as above bilateral mastectomy, further testing to come Treatment Goals Patient/Caregiver Goals Decrease pain, improve flexibility and strength. Prior Functional Status Baseline Function- ADL's Independent Baseline Function- Mobility Independent Baseline Function- Recreation/Hobbies no pain Current Functional Impairments (Reported) Functional Limitations- Recreation/ painful when moving elbow, Hobbies reaching overhead PT-OP-C Subjective Start: 05/15/22 16:36 Freq: Status: Active Protocol: Document 05/22/22 09:48 [facility] (Rec: 05/22/22 11:16 [facility] [id number]) OP-PT Subjective Patient Comments Patient Comments Wore sleeve all day yesterday and donned today. Feels like it helped in terms of pain and swelling. Confused when searched online so needs further guidance. Watched a couple educational videos on [employer] YouTube channel as advised. PT-OP-H Neuro Start: 05/15/22 16:36 Freq: Status: Active Protocol: Document 05/20/22 09:49 [facility] (Rec: 05/21/22 16:33 [facility] [id number]) Sensation Evaluation Gross Sensation Gross Sensation Left UE Impaired Sensation Description Numbness,Tingling,Pain PT-OP-J Posture/Palpation/Skin Start: 05/15/22 16:36 Freq: Status: Active Protocol: Document 05/20/22 09:49 [facility] (Rec: 05/21/22 16:33 [facility] [id number]) Palpation Assessment Location axilla Palpation Findings Soft Tissue Tightness Palpation Details no palpable axillary cording incisions Palpation Location decreased soft tissue mobility Skin Assessment Edema Assessment left elbow Edema Type Non-Pitting Edema Appearance Puffy Subjective Edema Description Pain Incisional Assessment Incision Appearance/Comments well healed bilateral mastectomy scars Other Assessments Skin Assessment Comments see lymphedema section for circumferential measurements PT-OP-K Range of Motion Start: 05/15/22 16:36 Freq: Status: Active Protocol: Document 05/20/22 09:49 [facility] (Rec: 05/21/22 16:33 [facility] [id number]) Cervical Spine Range of Motion Cervical Spine Active Testing Position Sitting Comments WNL Shoulder Goniometric Range of Motion Shoulder Left Shoulder ROM WFL No Flexion 155 Extension 15 Abduction 147 Horizontal Abduction 75 Horizontal Adduction 30 External Rotation at 45 degrees 55 Abduction Internal Rotation Behind Back (text) T10 Right Shoulder ROM WFL Yes Shoulder ROM Limitations Shoulder ROM Limitations Soft Tissue Tightness,Pain PT-OP-N Lymphedema Start: 05/15/22 16:36 Freq: Status: Active Protocol: Document 05/22/22 09:48 [facility] (Rec: 05/22/22 11:16 [facility] [id number]) Lymphedema Measurements Upper Extremity Circumference Measurements Left Affected MCP 18.1 cm Dorsum of Hand 18.7 cm Wrist 15.5 cm 5 cm From Wrist Crease 15.2 cm 10 cm From Wrist Crease 18.2 cm 15 cm From Wrist Crease 21.8 cm 20 cm From Wrist Crease 23 cm 25 cm From Wrist Crease 23.7 cm 30 cm From Wrist Crease 27 cm 35 cm From Wrist Crease 28 cm 40 cm From Wrist Crease 30.3 cm Elbow Joint 22.9 cm Axilla 30.2 cm PT-OP-Q Treatments Start: 05/15/22 16:36 Freq: Status: Active Protocol: Document 05/22/22 09:48 [facility] (Rec: 05/22/22 11:16 [facility] [id number]) Therapeutic Exercises Sitting Exercises pulleys Sitting Exercise Name flexion Reps/Minutes 10x Manual Therapy Treatment Soft Tissue Mobilization scar massage Body Location mastectomy scars Mobilization Type Instrument Assisted Intensity/Depth gentle Body Position Hooklying Comments small suction tool, gentle kristen scars Lymphedema Treatment Manual Lymphatic Drainage Location left UE Duration 20 Comments focus on AAA and AAI pathways Lymphedema Wrapping Body Location left UE Materials assisted pt apply loaner compression sleeve Juzo soft size II; good fit and benefit achieved; patient to order own . Sequential Lymphedema Exercises Location Left UE Comments shoulder rolls, scapular squeeze, shoulder flex wand supine, pec T stretch, relax on the beach stretch, upper trunk rotation; verbal and tactile cues Compression Garment Assessment Compression Garment Assessment Details pt to order . Patient Education Compression Garments patient will continue to use loaner until obtains own Self Manual Lymphatic Drainage reviewd; patient has watched [employer] channel Sequential Lymphedema Exercises patient compliant with HEP PT-OP-T Assessment and Plan Start: 05/15/22 16:36 Freq: Status: Active Protocol: Document 05/22/22 09:48 [facility] (Rec: 05/22/22 11:16 [facility] [id number]) Physical Therapy Assessment Evaluation Complexity Number of Personal Factors/Comorbidities 1-2 Number of Body Systems Impaired 3 Clinical Presentation at Evaluation Evolving Impairments Impairments Edema,Pain,ROM,Soft Tissue Mobility Goals Three Impairment impaired range of motion left UE, decreased scar mobility Impairment difficulty reaching overhead, behind her back and out to side for purposes of ADL's Short Term Goal (STG) Patient to be independent with HEP as instructed for purposes of ROM and flexibility STG Duration 06/19/22 Section Chief Goal (LTG) Patient to demonstrate ROM WNL left UE and normal scar mobility to allow her to reach overhead, behind her back, and out to side without difficulty for daily activities. LTG Duration 07/20/22 Two Impairment swelling left UE Short Term Goal (STG) decrease swelling left UE to no greater than 0.5 cm different than right as compared via cirfumferential measurement STG Duration 06/19/22 Section Chief Goal (LTG) Patient to demonstrate good understanding of edema management including wearing compression garment, self- massage, gentle ex LTG Duration 07/20/22 One Impairment pain left UE worst at elbow Impairment pain as high as 8/10 Short Term Goal (STG) decrease pain to no greater than 4/10 with all usual activities STG Duration 06/19/22 Section Chief Goal (LTG) Patient to report ability to do all usual activities with pain no greater than 2/10 LTG Duration 07/20/22 Assessment Summary Assessment good progress with decreased circumferential measurements, good compliance to HEP with some corrections and modifications made today with patient demonstrating good understanding. We discussed and look online together today to assist with patient obtaining compression sleeve. MLD performed for left UE with good tolerance. Left elbow remains painful. Will consider kinesiotape next session Physical Therapy Plan Frequency and Duration Frequency of Treatment 2x/Week Duration of treatment (weeks) 8 Plan of Care Start Date 05/20/22 Plan of Care End Date 07/20/22 Therapeutic Interventions Therapeutic Interventions Home Exercise Program, Lymphedema Management,Manual Therapy,Patient/Caregiver Education,Self-Care/Home Management,Soft Tissue Mobilization,Taping, Therapeutic Activities, Therapeutic Exercises Next Visit Focus/Plan Next Note Type Treatment Note Next Visit Plan Continue flexibility ex, lymphedema management techniques, scar mobilization.
--- NOTE | 2022-05-27 12:21 | PT.OTN ---
Current Diagnoses Malignant neoplasm of unspecified site of left female breast (05/27/22) Physical Therapy Treatment Note PT-OP-A Visit Information Start: 05/15/22 16:36 Freq: Status: Active Protocol: Document 05/27/22 09:45 SAK (Rec: 05/27/22 10:20 [facility] [id number]) Out-Patient Physical Therapy Visit Information Visit Information Visit Type Treatment Note Visit Start Time 09:45 Visit Stop Time 11:15 Total Visit Minutes 85 Visit Number 3 Evaluation Information Evaluation Date 05/20/22 Precautions Precautions bilateral mastectomy, having further testing left side for potential metastasis PT-OP-B Current Condition Start: 05/15/22 16:36 Freq: Status: Active Protocol: Document 05/20/22 09:49 SAK (Rec: 05/20/22 11:15 SAK [id number]) Current Condition History of Current Condition Onset Date 03/12/22 Current Complaints funny bone pain, numb forearm, limited motion History of Current Condition bilateral mastectomy with left axillary node dissection left (4/5 positive), sentinal node biopsy right negative. Going to have more tests 06/05/22 to check for any other spread of cancer prior to starting radiation. No chemo planned. Reports since surgery her funny bone has been painfull with movement and if bump elbow. Didn't know precautions for lymphedema, went on plane trip last week, but didn't notice a change Hasn't obtained compression sleeve; ordered one from [employer] that was a one size fits all, and it did not fit. States healing of mastectomy has gone well but the burning pain in her left UE is most limiting. Prior Treatments and Tests as above bilateral mastectomy, further testing to come Treatment Goals Patient/Caregiver Goals Decrease pain, improve flexibility and strength. Prior Functional Status Baseline Function- ADL's Independent Baseline Function- Mobility Independent Baseline Function- Recreation/Hobbies no pain Current Functional Impairments (Reported) Functional Limitations- Recreation/ painful when moving elbow, Hobbies reaching overhead PT-OP-C Subjective Start: 05/15/22 16:36 Freq: Status: Active Protocol: Document 05/27/22 09:45 SAK (Rec: 05/27/22 10:20 [facility] [id number]) OP-PT Subjective Patient Comments Patient Comments Radiation not scheduled yet. Hasn't yet gotten a compression sleeve. Continues to wear loaner compression sleeve, though not this am because bringing back to PT. Compliant to self-massage though has a few questions, compliant to HEP. PT-OP-H Neuro Start: 05/15/22 16:36 Freq: Status: Active Protocol: Document 05/20/22 09:49 SAK (Rec: 05/21/22 16:33 SAK [id number]) Sensation Evaluation Gross Sensation Gross Sensation Left UE Impaired Sensation Description Numbness,Tingling,Pain PT-OP-J Posture/Palpation/Skin Start: 05/15/22 16:36 Freq: Status: Active Protocol: Document 05/20/22 09:49 SAK (Rec: 05/21/22 16:33 SAK [id number]) Palpation Assessment Location axilla Palpation Findings Soft Tissue Tightness Palpation Details no palpable axillary cording incisions Palpation Location decreased soft tissue mobility Skin Assessment Edema Assessment left elbow Edema Type Non-Pitting Edema Appearance Puffy Subjective Edema Description Pain Incisional Assessment Incision Appearance/Comments well healed bilateral mastectomy scars Other Assessments Skin Assessment Comments see lymphedema section for circumferential measurements PT-OP-K Range of Motion Start: 05/15/22 16:36 Freq: Status: Active Protocol: Document 05/20/22 09:49 [facility] (Rec: 05/21/22 16:33 [facility] [id number]) Cervical Spine Range of Motion Cervical Spine Active Testing Position Sitting Comments WNL Shoulder Goniometric Range of Motion Shoulder Left Shoulder ROM WFL No Flexion 155 Extension 15 Abduction 147 Horizontal Abduction 75 Horizontal Adduction 30 External Rotation at 45 degrees 55 Abduction Internal Rotation Behind Back (text) T10 Right Shoulder ROM WFL Yes Shoulder ROM Limitations Shoulder ROM Limitations Soft Tissue Tightness,Pain PT-OP-N Lymphedema Start: 05/15/22 16:36 Freq: Status: Active Protocol: Document 05/27/22 09:45 SAK (Rec: 05/27/22 10:20 [facility]AK [id number]) Lymphedema Measurements Upper Extremity Circumference Measurements Left Affected MCP 18 cm Dorsum of Hand 18.2 cm Wrist 15.9 cm 5 cm From Wrist Crease 15.8 cm 10 cm From Wrist Crease 18.8 cm 15 cm From Wrist Crease 22.6 cm 20 cm From Wrist Crease 23 cm 25 cm From Wrist Crease 24.8 cm 30 cm From Wrist Crease 27 cm 35 cm From Wrist Crease 28.8 cm 40 cm From Wrist Crease 30.5 cm Elbow Joint 23.2 cm Axilla 30.2 cm Comments Lymphedema Comments increase likely due to not wearing compression sleeve this am PT-OP-Q Treatments Start: 05/15/22 16:36 Freq: Status: Active Protocol: Document 05/27/22 09:45 [facility] (Rec: 05/27/22 10:20 [facility] [id number]) Therapeutic Exercises Supine Exercises PROM left shoulder Supine Exercise Name all planes Reps/Minutes 5 min Sitting Exercises shld hor abduction Equipment Used ball at mid thoracic Reps/Minutes 5x Comments with spinal ext back over ball pulleys Sitting Exercise Name flexion, scaption Reps/Minutes 10x Comments long stretches last couple reps each direction Standing Exercises wall slide Reps/Minutes 5x5 Manual Therapy Treatment Soft Tissue Mobilization scar massage Body Location mastectomy scars Mobilization Type Instrument Assisted,Rolling Intensity/Depth gentle Body Position Hooklying Comments small suction tool, gentle kristen scars Lymphedema Treatment Manual Lymphatic Drainage Location left UE Duration 20 Comments focus on AAA and AAI pathways Lymphedema Wrapping Body Location left UE Materials assisted pt apply loaner compression sleeve Juzo soft size II; good fit and benefit achieved; patient to order own . Sequential Lymphedema Exercises Location Left UE Comments shoulder rolls, scapular squeeze, shoulder flex wand supine, pec T stretch, relax on the beach stretch, upper trunk rotation; verbal and tactile cues Compression Garment Assessment Compression Garment Assessment Details pt to order . Patient Education Compression Garments patient will continue to use loaner until obtains own Self Manual Lymphatic Drainage reviewd; patient has watched [employer] channel Sequential Lymphedema Exercises patient compliant with HEP PT-OP-T Assessment and Plan Start: 05/15/22 16:36 Freq: Status: Active Protocol: Document 05/27/22 09:45 [facility] (Rec: 05/27/22 10:20 [facility] [id number]) Physical Therapy Assessment Goals Three Impairment impaired range of motion left UE, decreased scar mobility Impairment difficulty reaching overhead, behind her back and out to side for purposes of ADL's Short Term Goal (STG) Patient to be independent with HEP as instructed for purposes of ROM and flexibility STG Duration 06/19/22 Custodial Goal (LTG) Patient to demonstrate ROM WNL left UE and normal scar mobility to allow her to reach overhead, behind her back, and out to side without difficulty for daily activities. LTG Duration 07/20/22 Two Impairment swelling left UE Short Term Goal (STG) decrease swelling left UE to no greater than 0.5 cm different than right as compared via cirfumferential measurement STG Duration 06/19/22 Road Manager Goal (LTG) Patient to demonstrate good understanding of edema management including wearing compression garment, self- massage, gentle ex LTG Duration 07/20/22 One Impairment pain left UE worst at elbow Impairment pain as high as 8/10 Short Term Goal (STG) decrease pain to no greater than 4/10 with all usual activities STG Duration 06/19/22 Custodial Goal (LTG) Patient to report ability to do all usual activities with pain no greater than 2/10 LTG Duration 07/20/22 Assessment Summary Assessment Radiation not scheduled yet. Hasn't yet gotten a compression sleeve. Continues to wear loaner compression sleeve. Compliant to self- massage and demonstrated improved understanding after discussion with PT, clarifiying instructions and pictures on handout. Some increased circumferential measurements today due likely to patient not wearing compression sleeve today due to plan to return to PT; she was advised to continue wearing until obtains own compression sleeve. Physical Therapy Plan Frequency and Duration Frequency of Treatment 2x/Week Duration of treatment (weeks) 8 Plan of Care Start Date 05/20/22 Plan of Care End Date 07/20/22 Therapeutic Interventions Therapeutic Interventions Home Exercise Program, Lymphedema Management,Manual Therapy,Patient/Caregiver Education,Self-Care/Home Management,Soft Tissue Mobilization,Taping, Therapeutic Activities, Therapeutic Exercises Next Visit Focus/Plan Next Note Type Treatment Note Next Visit Plan Continue flexibility ex, lymphedema management techniques, scar mobilization.
--- NOTE | 2022-05-29 11:09 | PT.OTN ---
Current Diagnoses Malignant neoplasm of unspecified site of left female breast (05/29/22) Physical Therapy Treatment Note PT-OP-A Visit Information Start: 05/15/22 16:36 Freq: Status: Active Protocol: Document 05/29/22 09:48 SAK (Rec: 05/29/22 11:09 [facility] [id number]) Out-Patient Physical Therapy Visit Information Visit Information Visit Type Treatment Note Visit Start Time 09:45 Visit Stop Time 11:03 Total Visit Minutes 78 Visit Number 4 Evaluation Information Evaluation Date 05/20/22 Precautions Precautions bilateral mastectomy, having further testing left side for potential metastasis PT-OP-B Current Condition Start: 05/15/22 16:36 Freq: Status: Active Protocol: Document 05/20/22 09:49 SAK (Rec: 05/20/22 11:15 [facility] [id number]) Current Condition History of Current Condition Onset Date 03/12/22 Current Complaints funny bone pain, numb forearm, limited motion History of Current Condition bilateral mastectomy with left axillary node dissection left (4/5 positive), sentinal node biopsy right negative. Going to have more tests 06/05/22 to check for any other spread of cancer prior to starting radiation. No chemo planned. Reports since surgery her funny bone has been painfull with movement and if bump elbow. Didn't know precautions for lymphedema, went on plane trip last week, but didn't notice a change Hasn't obtained compression sleeve; ordered one from [employer] that was a one size fits all, and it did not fit. States healing of mastectomy has gone well but the burning pain in her left UE is most limiting. Prior Treatments and Tests as above bilateral mastectomy, further testing to come Treatment Goals Patient/Caregiver Goals Decrease pain, improve flexibility and strength. Prior Functional Status Baseline Function- ADL's Independent Baseline Function- Mobility Independent Baseline Function- Recreation/Hobbies no pain Current Functional Impairments (Reported) Functional Limitations- Recreation/ painful when moving elbow, Hobbies reaching overhead PT-OP-C Subjective Start: 05/15/22 16:36 Freq: Status: Active Protocol: Document 05/29/22 09:48 SAK (Rec: 05/29/22 11:09 [facility] [id number]) OP-PT Subjective Patient Comments Patient Comments Busy yesterday and didn't get sleeve on until mid afternoon, put on right away this am, states feels it is helpful. Reports elbow pain decreased as well with more tingling than pain, though rough rice tender to touch. PT-OP-H Neuro Start: 05/15/22 16:36 Freq: Status: Active Protocol: Document 05/20/22 09:49 [facility] (Rec: 05/21/22 16:33 [facility] [id number]) Sensation Evaluation Gross Sensation Gross Sensation Left UE Impaired Sensation Description Numbness,Tingling,Pain PT-OP-J Posture/Palpation/Skin Start: 05/15/22 16:36 Freq: Status: Active Protocol: Document 05/20/22 09:49 [facility] (Rec: 05/21/22 16:33 [facility] [id number]) Palpation Assessment Location axilla Palpation Findings Soft Tissue Tightness Palpation Details no palpable axillary cording incisions Palpation Location decreased soft tissue mobility Skin Assessment Edema Assessment left elbow Edema Type Non-Pitting Edema Appearance Puffy Subjective Edema Description Pain Incisional Assessment Incision Appearance/Comments well healed bilateral mastectomy scars Other Assessments Skin Assessment Comments see lymphedema section for circumferential measurements PT-OP-K Range of Motion Start: 05/15/22 16:36 Freq: Status: Active Protocol: Document 05/20/22 09:49 [facility] (Rec: 05/21/22 16:33 [facility] [id number]) Cervical Spine Range of Motion Cervical Spine Active Testing Position Sitting Comments WNL Shoulder Goniometric Range of Motion Shoulder Left Shoulder ROM WFL No Flexion 155 Extension 15 Abduction 147 Horizontal Abduction 75 Horizontal Adduction 30 External Rotation at 45 degrees 55 Abduction Internal Rotation Behind Back (text) T10 Right Shoulder ROM WFL Yes Shoulder ROM Limitations Shoulder ROM Limitations Soft Tissue Tightness,Pain PT-OP-N Lymphedema Start: 05/15/22 16:36 Freq: Status: Active Protocol: Document 05/29/22 09:48 [facility] (Rec: 05/29/22 11:09 [facility] [id number]) Lymphedema Measurements Upper Extremity Circumference Measurements Left Affected MCP 18.1 cm Dorsum of Hand 18.2 cm Wrist 16 cm 5 cm From Wrist Crease 15 cm 10 cm From Wrist Crease 17.9 cm 15 cm From Wrist Crease 21.6 cm 20 cm From Wrist Crease 23.1 cm 25 cm From Wrist Crease 24.4 cm 30 cm From Wrist Crease 26.7 cm 35 cm From Wrist Crease 29.1 cm 40 cm From Wrist Crease 29.7 cm Elbow Joint 23.6 cm Axilla 29.6 cm Comments Lymphedema Comments Patient wearing compression sleeve PT-OP-Q Treatments Start: 05/15/22 16:36 Freq: Status: Active Protocol: Document 05/29/22 09:48 [facility] (Rec: 05/29/22 11:09 [facility] [id number]) Therapeutic Exercises Supine Exercises PROM left shoulder Supine Exercise Name all planes Reps/Minutes 5 min Sidelying Exercises shoulder abduction Comments next session open book Sidelying Exercise Name review HEP Reps/Minutes 5x Comments cues for turning head, rotation of upper trunk Sitting Exercises trunk rotation Reps/Minutes 2x30 Comments hand at opposite knee shld hor abduction Sitting Exercise Name pec stretch Equipment Used ball at mid thoracic Reps/Minutes 5x10 Comments with spinal ext back over ball pulleys Sitting Exercise Name flexion, scaption Reps/Minutes 10x10 Comments slow, allowing time for tissues to elongate Standing Exercises wall slide Reps/Minutes 5x5 Manual Therapy Treatment Soft Tissue Mobilization scar massage Body Location mastectomy scars Mobilization Type Instrument Assisted,Rolling Intensity/Depth gentle Body Position Hooklying Comments small suction tool, gentle kristen scars Lymphedema Treatment Manual Lymphatic Drainage Location left UE Duration 20 Comments focus on AAA and AAI pathways Lymphedema Wrapping Body Location left UE Materials assisted pt apply loaner compression sleeve Juzo soft size II; good fit and benefit achieved; patient has ordered own Sequential Lymphedema Exercises Location Left UE Comments HEP Compression Garment Assessment Compression Garment Assessment Details pt has ordered same sleeve as loaner Patient Education Compression Garments patient will continue to use loaner until obtains own Self Manual Lymphatic Drainage reviewd; patient has watched [employer] channel Sequential Lymphedema Exercises patient compliant with HEP PT-OP-T Assessment and Plan Start: 05/15/22 16:36 Freq: Status: Active Protocol: Document 05/29/22 09:48 [facility] (Rec: 05/29/22 11:09 [facility] [id number]) Physical Therapy Assessment Impairments Impairments Edema,Pain,ROM,Soft Tissue Mobility Goals Three Impairment impaired range of motion left UE, decreased scar mobility Impairment difficulty reaching overhead, behind her back and out to side for purposes of ADL's Short Term Goal (STG) Patient to be independent with HEP as instructed for purposes of ROM and flexibility STG Duration 06/19/22 Shelter Goal (LTG) Patient to demonstrate ROM WNL left UE and normal scar mobility to allow her to reach overhead, behind her back, and out to side without difficulty for daily activities. LTG Duration 07/20/22 Two Impairment swelling left UE Short Term Goal (STG) decrease swelling left UE to no greater than 0.5 cm different than right as compared via cirfumferential measurement STG Duration 06/19/22 Airplane Electrician Goal (LTG) Patient to demonstrate good understanding of edema management including wearing compression garment, self- massage, gentle ex LTG Duration 07/20/22 One Impairment pain left UE worst at elbow Impairment pain as high as 8/10 Short Term Goal (STG) decrease pain to no greater than 4/10 with all usual activities STG Duration 06/19/22 Airplane Electrician Goal (LTG) Patient to report ability to do all usual activities with pain no greater than 2/10 LTG Duration 07/20/22 Progress Towards Goals Progress Towards Goals Progressing Toward Goals Assessment Summary Assessment Improved shoulder ROM with passive shoulder flex after pulleys 170, abduction 165. Improved compliance to wearing compression sleeve with notable decrease in circumferential measurements. Physical Therapy Plan Frequency and Duration Frequency of Treatment 2x/Week Duration of treatment (weeks) 8 Plan of Care Start Date 05/20/22 Plan of Care End Date 07/20/22 Therapeutic Interventions Therapeutic Interventions Home Exercise Program, Lymphedema Management,Manual Therapy,Patient/Caregiver Education,Self-Care/Home Management,Soft Tissue Mobilization,Taping, Therapeutic Activities, Therapeutic Exercises Next Visit Focus/Plan Next Note Type Treatment Note Next Visit Plan Continue flexibility ex, lymphedema management techniques, scar mobilization.
--- NOTE | 2022-06-03 12:23 | PT.OTN ---
Current Diagnoses Malignant neoplasm of unspecified site of left female breast (06/03/22) Physical Therapy Treatment Note PT-OP-A Visit Information Start: 05/15/22 16:36 Freq: Status: Active Protocol: Document 06/03/22 09:50 SAK (Rec: 06/03/22 11:11 [facility] [id number]) Out-Patient Physical Therapy Visit Information Visit Information Visit Type Treatment Note Visit Start Time 09:50 Visit Stop Time 11:05 Total Visit Minutes 75 Visit Number 5 Evaluation Information Evaluation Date 05/20/22 Precautions Precautions bilateral mastectomy, having further testing left side for potential metastasis PT-OP-B Current Condition Start: 05/15/22 16:36 Freq: Status: Active Protocol: Document 05/20/22 09:49 SAK (Rec: 05/20/22 11:15 [facility] [id number]) Current Condition History of Current Condition Onset Date 03/12/22 Current Complaints funny bone pain, numb forearm, limited motion History of Current Condition bilateral mastectomy with left axillary node dissection left (4/5 positive), sentinal node biopsy right negative. Going to have more tests 06/05/22 to check for any other spread of cancer prior to starting radiation. No chemo planned. Reports since surgery her funny bone has been painfull with movement and if bump elbow. Didn't know precautions for lymphedema, went on plane trip last week, but didn't notice a change Hasn't obtained compression sleeve; ordered one from [employer] that was a one size fits all, and it did not fit. States healing of mastectomy has gone well but the burning pain in her left UE is most limiting. Prior Treatments and Tests as above bilateral mastectomy, further testing to come Treatment Goals Patient/Caregiver Goals Decrease pain, improve flexibility and strength. Prior Functional Status Baseline Function- ADL's Independent Baseline Function- Mobility Independent Baseline Function- Recreation/Hobbies no pain Current Functional Impairments (Reported) Functional Limitations- Recreation/ painful when moving elbow, Hobbies reaching overhead PT-OP-C Subjective Start: 05/15/22 16:36 Freq: Status: Active Protocol: Document 06/03/22 09:50 SAK (Rec: 06/03/22 11:11 [facility] [id number]) OP-PT Subjective Patient Comments Patient Comments Elbow pain persists, compression sleeve helps some. Ordered sleeve, ordered standard but was sent long, doesn't fit well. Asking about precautions regarding drinking hot liquids, taking fish oil and flax seed oil. Has changed oncologist, now going to see Dr. Lopez. Is going to talk with surgeon about continued elbow pain. PT-OP-H Neuro Start: 05/15/22 16:36 Freq: Status: Active Protocol: Document 05/20/22 09:49 SAK (Rec: 05/21/22 16:33 SAK [id number]) Sensation Evaluation Gross Sensation Gross Sensation Left UE Impaired Sensation Description Numbness,Tingling,Pain PT-OP-J Posture/Palpation/Skin Start: 05/15/22 16:36 Freq: Status: Active Protocol: Document 05/20/22 09:49 SAK (Rec: 05/21/22 16:33 SAK [id number]) Palpation Assessment Location axilla Palpation Findings Soft Tissue Tightness Palpation Details no palpable axillary cording incisions Palpation Location decreased soft tissue mobility Skin Assessment Edema Assessment left elbow Edema Type Non-Pitting Edema Appearance Puffy Subjective Edema Description Pain Incisional Assessment Incision Appearance/Comments well healed bilateral mastectomy scars Other Assessments Skin Assessment Comments see lymphedema section for circumferential measurements PT-OP-K Range of Motion Start: 05/15/22 16:36 Freq: Status: Active Protocol: Document 05/20/22 09:49 SAK (Rec: 05/21/22 16:33 SAK [id number]) Cervical Spine Range of Motion Cervical Spine Active Testing Position Sitting Comments WNL Shoulder Goniometric Range of Motion Shoulder Left Shoulder ROM WFL No Flexion 155 Extension 15 Abduction 147 Horizontal Abduction 75 Horizontal Adduction 30 External Rotation at 45 degrees 55 Abduction Internal Rotation Behind Back (text) T10 Right Shoulder ROM WFL Yes Shoulder ROM Limitations Shoulder ROM Limitations Soft Tissue Tightness,Pain PT-OP-N Lymphedema Start: 05/15/22 16:36 Freq: Status: Active Protocol: Document 06/03/22 09:50 SAK (Rec: 06/03/22 11:11 SAK [id number]) Lymphedema Measurements Upper Extremity Circumference Measurements Left Affected MCP 17.9 cm Dorsum of Hand 18.4 cm Wrist 15.7 cm 5 cm From Wrist Crease 15 cm 10 cm From Wrist Crease 17.8 cm 15 cm From Wrist Crease 21.4 cm 20 cm From Wrist Crease 23.1 cm 25 cm From Wrist Crease 24.5 cm 30 cm From Wrist Crease 27 cm 35 cm From Wrist Crease 28.8 cm 40 cm From Wrist Crease 29.5 cm Elbow Joint 22.9 cm Axilla 29.3 cm PT-OP-Q Treatments Start: 05/15/22 16:36 Freq: Status: Active Protocol: Document 06/03/22 09:50 [facility] (Rec: 06/03/22 12:23 [facility] [id number]) Therapeutic Exercises Supine Exercises PROM left shoulder Supine Exercise Name all planes Reps/Minutes 5 min Sidelying Exercises open book Sidelying Exercise Name review HEP Reps/Minutes 5x Comments cues for turning head, rotation of upper trunk Sitting Exercises trunk rotation Reps/Minutes 2x30 Comments hand at opposite knee shld hor abduction Sitting Exercise Name pec stretch Equipment Used ball at mid thoracic Reps/Minutes 5x10 Comments with spinal ext back over ball pulleys Comments not done due to elbow pain Standing Exercises wall slide Reps/Minutes 5x5 Manual Therapy Treatment Soft Tissue Mobilization scar massage Body Location mastectomy scars Mobilization Type Instrument Assisted,Rolling Intensity/Depth gentle Body Position Hooklying Comments small suction tool, gentle kristen scars Taping left elbow Treatment Focus edema and pain reduction Type of Tape kinesiotape Comments 2 fan strips Self-Care/Home Management Treatment Education Patient Education Home Exercise Program Other Education order standard length sleeve self scar massage. Contact surgeon regarding continued elbow pain modify exercises as needed for pain. Lymphedema Treatment Manual Lymphatic Drainage Location left UE Duration 25 Comments focus on AAA and AAI pathways Lymphedema Wrapping Body Location left UE Materials assisted pt apply loaner compression sleeve Juzo soft size II; good fit and benefit achieved; patient has ordered own Sequential Lymphedema Exercises Location Left UE Comments HEP Compression Garment Assessment Compression Garment Assessment Details pt has ordered same sleeve as loaner Patient Education Lymphedema Precautions patient asking about drinking hot liquids, taking fish oil and flax oil Compression Garments patient will continue to use loaner until obtains own Sequential Lymphedema Exercises patient compliant with HEP, revfiewed PT-OP-T Assessment and Plan Start: 05/15/22 16:36 Freq: Status: Active Protocol: Document 06/03/22 09:50 [facility] (Rec: 06/03/22 11:11 [facility] [id number]) Physical Therapy Assessment Impairments Impairments Edema,Pain,ROM,Soft Tissue Mobility Goals Three Impairment impaired range of motion left UE, decreased scar mobility Impairment difficulty reaching overhead, behind her back and out to side for purposes of ADL's Short Term Goal (STG) Patient to be independent with HEP as instructed for purposes of ROM and flexibility STG Duration 06/19/22 Detention Goal (LTG) Patient to demonstrate ROM WNL left UE and normal scar mobility to allow her to reach overhead, behind her back, and out to side without difficulty for daily activities. LTG Duration 07/20/22 Two Impairment swelling left UE Short Term Goal (STG) decrease swelling left UE to no greater than 0.5 cm different than right as compared via cirfumferential measurement STG Duration 06/19/22 Detention Goal (LTG) Patient to demonstrate good understanding of edema management including wearing compression garment, self- massage, gentle ex LTG Duration 07/20/22 One Impairment pain left UE worst at elbow Impairment pain as high as 8/10 Short Term Goal (STG) decrease pain to no greater than 4/10 with all usual activities STG Duration 06/19/22 Detention Goal (LTG) Patient to report ability to do all usual activities with pain no greater than 2/10 LTG Duration 07/20/22 Assessment Summary Assessment Patient to contact Dr. Vann regarding persistent elbow pain, PT to contact to request order for iontophoresis. Physical Therapy Plan Frequency and Duration Frequency of Treatment 2x/Week Duration of treatment (weeks) 8 Plan of Care Start Date 05/20/22 Plan of Care End Date 07/20/22 Therapeutic Interventions Therapeutic Interventions Home Exercise Program, Lymphedema Management,Manual Therapy,Patient/Caregiver Education,Self-Care/Home Management,Soft Tissue Mobilization,Taping, Therapeutic Activities, Therapeutic Exercises Next Visit Focus/Plan Next Note Type Treatment Note Next Visit Plan Continue flexibility ex, lymphedema management techniques, scar mobilization. Contact Dr. Vann regarding request for iontophoresis.
--- NOTE | 2022-06-05 12:17 | PT.OTN ---
Current Diagnoses Malignant neoplasm of unspecified site of left female breast (06/05/22) Physical Therapy Treatment Note PT-OP-A Visit Information Start: 05/15/22 16:36 Freq: Status: Active Protocol: Document 06/05/22 11:12 SAK (Rec: 06/05/22 11:17 [facility] [id number]) Out-Patient Physical Therapy Visit Information Visit Information Visit Type Treatment Note Visit Start Time 09:50 Visit Stop Time 11:05 Total Visit Minutes 75 Visit Number 5 Evaluation Information Evaluation Date 05/20/22 Precautions Precautions bilateral mastectomy, having further testing left side for potential metastasis PT-OP-B Current Condition Start: 05/15/22 16:36 Freq: Status: Active Protocol: Document 05/20/22 09:49 SAK (Rec: 05/20/22 11:15 [facility] [id number]) Current Condition History of Current Condition Onset Date 03/12/22 Current Complaints funny bone pain, numb forearm, limited motion History of Current Condition bilateral mastectomy with left axillary node dissection left (4/5 positive), sentinal node biopsy right negative. Going to have more tests 06/05/22 to check for any other spread of cancer prior to starting radiation. No chemo planned. Reports since surgery her funny bone has been painfull with movement and if bump elbow. Didn't know precautions for lymphedema, went on plane trip last week, but didn't notice a change Hasn't obtained compression sleeve; ordered one from [employer] that was a one size fits all, and it did not fit. States healing of mastectomy has gone well but the burning pain in her left UE is most limiting. Prior Treatments and Tests as above bilateral mastectomy, further testing to come Treatment Goals Patient/Caregiver Goals Decrease pain, improve flexibility and strength. Prior Functional Status Baseline Function- ADL's Independent Baseline Function- Mobility Independent Baseline Function- Recreation/Hobbies no pain Current Functional Impairments (Reported) Functional Limitations- Recreation/ painful when moving elbow, Hobbies reaching overhead PT-OP-C Subjective Start: 05/15/22 16:36 Freq: Status: Active Protocol: Document 06/05/22 11:12 SAK (Rec: 06/05/22 11:17 [facility] [id number]) OP-PT Subjective Patient Comments Patient Comments Elbow pain persists, kinesiotape not helpful. Asking about resuming use of ice despite precaution for lymphedema. Having bloodwork and CT scan today after PT. Feels manual work helpful on scars. Hasn't ordered new compression sleeve yet though sent ill fitting one back. Wanted to confirm size with PT today. PT-OP-H Neuro Start: 05/15/22 16:36 Freq: Status: Active Protocol: Document 05/20/22 09:49 SAK (Rec: 05/21/22 16:33 [facility] [id number]) Sensation Evaluation Gross Sensation Gross Sensation Left UE Impaired Sensation Description Numbness,Tingling,Pain PT-OP-J Posture/Palpation/Skin Start: 05/15/22 16:36 Freq: Status: Active Protocol: Document 05/20/22 09:49 SAK (Rec: 05/21/22 16:33 [facility] [id number]) Palpation Assessment Location axilla Palpation Findings Soft Tissue Tightness Palpation Details no palpable axillary cording incisions Palpation Location decreased soft tissue mobility Skin Assessment Edema Assessment left elbow Edema Type Non-Pitting Edema Appearance Puffy Subjective Edema Description Pain Incisional Assessment Incision Appearance/Comments well healed bilateral mastectomy scars Other Assessments Skin Assessment Comments see lymphedema section for circumferential measurements PT-OP-K Range of Motion Start: 05/15/22 16:36 Freq: Status: Active Protocol: Document 05/20/22 09:49 SAK (Rec: 05/21/22 16:33 [facility] [id number]) Cervical Spine Range of Motion Cervical Spine Active Testing Position Sitting Comments WNL Shoulder Goniometric Range of Motion Shoulder Left Shoulder ROM WFL No Flexion 155 Extension 15 Abduction 147 Horizontal Abduction 75 Horizontal Adduction 30 External Rotation at 45 degrees 55 Abduction Internal Rotation Behind Back (text) T10 Right Shoulder ROM WFL Yes Shoulder ROM Limitations Shoulder ROM Limitations Soft Tissue Tightness,Pain PT-OP-N Lymphedema Start: 05/15/22 16:36 Freq: Status: Active Protocol: Document 06/05/22 11:12 [facility] (Rec: 06/05/22 11:17 [facility] [id number]) Lymphedema Measurements Upper Extremity Circumference Measurements Left Affected - not measured today due to no significant change apparent, will measure next visit. PT-OP-Q Treatments Start: 05/15/22 16:36 Freq: Status: Active Protocol: Document 06/05/22 11:12 SAK (Rec: 06/05/22 11:17 [facility] [id number]) Therapeutic Exercises Supine Exercises PROM left shoulder Supine Exercise Name all planes Reps/Minutes 5 min Sidelying Exercises shoulder abduction Reps/Minutes 10x5 Sitting Exercises median nerve glide Reps/Minutes 3x5 Manual Therapy Treatment Soft Tissue Mobilization scar massage Body Location mastectomy scars Mobilization Type Instrument Assisted,Rolling Intensity/Depth gentle Body Position Hooklying Comments small suction tool, gentle kristen scars Self-Care/Home Management Treatment Education Patient Education Home Exercise Program Other Education order standard length sleeve self scar massage. Contact surgeon regarding continued elbow pain modify exercises as needed for pain. Lymphedema Treatment Manual Lymphatic Drainage Location left UE Duration 25 Comments focus on AAA and AAI pathways Lymphedema Wrapping Body Location left UE Materials assisted pt apply loaner compression sleeve Juzo soft size II; good fit and benefit achieved; patient to order standard length Sequential Lymphedema Exercises Comments HEP Compression Garment Assessment Compression Garment Assessment Details pt to order same sleeve as loaner PT-OP-T Assessment and Plan Start: 05/15/22 16:36 Freq: Status: Active Protocol: Document 06/05/22 11:12 [facility] (Rec: 06/05/22 11:17 [facility] [id number]) Physical Therapy Assessment Impairments Impairments Edema,Pain,ROM,Soft Tissue Mobility Goals Three Impairment impaired range of motion left UE, decreased scar mobility Impairment difficulty reaching overhead, behind her back and out to side for purposes of ADL's Short Term Goal (STG) Patient to be independent with HEP as instructed for purposes of ROM and flexibility STG Duration 06/19/22 Document Preparation Specialist Goal (LTG) Patient to demonstrate ROM WNL left UE and normal scar mobility to allow her to reach overhead, behind her back, and out to side without difficulty for daily activities. LTG Duration 07/20/22 Two Impairment swelling left UE Short Term Goal (STG) decrease swelling left UE to no greater than 0.5 cm different than right as compared via cirfumferential measurement STG Duration 06/19/22 [facility] Goal (LTG) Patient to demonstrate good understanding of edema management including wearing compression garment, self- massage, gentle ex LTG Duration 07/20/22 One Impairment pain left UE worst at elbow Impairment pain as high as 8/10 Short Term Goal (STG) decrease pain to no greater than 4/10 with all usual activities STG Duration 06/19/22 [facility] Goal (LTG) Patient to report ability to do all usual activities with pain no greater than 2/10 LTG Duration 07/20/22 Assessment Summary Assessment Reported decrease in pain after IFES with ice. Trial iontophoresis with dexamethasone. Patient to order new standard length compression sleeve after discussion today. Instructed nerve glide for left LE with patient feeling stretch,urged stretch but not pain with patient demonstrating good understanding, issued written HO. She is having CT and bloodwork today and plans to contact Dr. Vann regarding continued left elbow pain. Physical Therapy Plan Frequency and Duration Frequency of Treatment 2x/Week Duration of treatment (weeks) 8 Plan of Care Start Date 05/20/22 Plan of Care End Date 07/20/22 Therapeutic Interventions Therapeutic Interventions Home Exercise Program, Lymphedema Management,Manual Therapy,Patient/Caregiver Education,Self-Care/Home Management,Soft Tissue Mobilization,Taping, Therapeutic Activities, Therapeutic Exercises Next Visit Focus/Plan Next Note Type Treatment Note Next Visit Plan Continue flexibility ex, lymphedema management techniques, scar mobilization. assess response to iontophoresis, IFES and ice
--- NOTE | 2022-06-10 11:08 | PT.OTN ---
Current Diagnoses Malignant neoplasm of unspecified site of left female breast (06/10/22) Physical Therapy Treatment Note PT-OP-A Visit Information Start: 05/15/22 16:36 Freq: Status: Active Protocol: Document 06/10/22 09:47 [facility] (Rec: 06/10/22 11:08 [facility] [id number]) Out-Patient Physical Therapy Visit Information Visit Information Visit Type Treatment Note Visit Start Time 09:50 Visit Stop Time 10:55 Total Visit Minutes 65 Visit Number 6 Precautions Precautions bilateral mastectomy, having further testing left side for potential metastasis PT-OP-B Current Condition Start: 05/15/22 16:36 Freq: Status: Active Protocol: Document 05/20/22 09:49 [facility]AK (Rec: 05/20/22 11:15 [facility] [id number]) Current Condition History of Current Condition Onset Date 03/12/22 Current Complaints funny bone pain, numb forearm, limited motion History of Current Condition bilateral mastectomy with left axillary node dissection left (4/5 positive), sentinal node biopsy right negative. Going to have more tests 06/05/22 to check for any other spread of cancer prior to starting radiation. No chemo planned. Reports since surgery her funny bone has been painfull with movement and if bump elbow. Didn't know precautions for lymphedema, went on plane trip last week, but didn't notice a change Hasn't obtained compression sleeve; ordered one from [employer] that was a one size fits all, and it did not fit. States healing of mastectomy has gone well but the burning pain in her left UE is most limiting. Prior Treatments and Tests as above bilateral mastectomy, further testing to come Treatment Goals Patient/Caregiver Goals Decrease pain, improve flexibility and strength. Prior Functional Status Baseline Function- ADL's Independent Baseline Function- Mobility Independent Baseline Function- Recreation/Hobbies no pain Current Functional Impairments (Reported) Functional Limitations- Recreation/ painful when moving elbow, Hobbies reaching overhead PT-OP-C Subjective Start: 05/15/22 16:36 Freq: Status: Active Protocol: Document 06/10/22 09:47 [facility] (Rec: 06/10/22 11:08 [facility] [id number]) OP-PT Subjective Patient Comments Patient Comments Sleeve is supposed to get here today. CT was negative, patient asking about reason for radiation, referred back to her doctor to discuss; 5 days per week for 5 weeks recommended. Powell iontophoresis helpful but not able to leave on very long due to CTl. PT-OP-H Neuro Start: 05/15/22 16:36 Freq: Status: Active Protocol: Document 05/20/22 09:49 [facility] (Rec: 05/21/22 16:33 [facility] [id number]) Sensation Evaluation Gross Sensation Gross Sensation Left UE Impaired Sensation Description Numbness,Tingling,Pain PT-OP-J Posture/Palpation/Skin Start: 05/15/22 16:36 Freq: Status: Active Protocol: Document 05/20/22 09:49 [facility] (Rec: 05/21/22 16:33 [facility] [id number]) Palpation Assessment Location axilla Palpation Findings Soft Tissue Tightness Palpation Details no palpable axillary cording incisions Palpation Location decreased soft tissue mobility Skin Assessment Edema Assessment left elbow Edema Type Non-Pitting Edema Appearance Puffy Subjective Edema Description Pain Incisional Assessment Incision Appearance/Comments well healed bilateral mastectomy scars Other Assessments Skin Assessment Comments see lymphedema section for circumferential measurements PT-OP-K Range of Motion Start: 05/15/22 16:36 Freq: Status: Active Protocol: Document 05/20/22 09:49 [facility] (Rec: 05/21/22 16:33 [facility] [id number]) Cervical Spine Range of Motion Cervical Spine Active Testing Position Sitting Comments WNL Shoulder Goniometric Range of Motion Shoulder Left Shoulder ROM WFL No Flexion 155 Extension 15 Abduction 147 Horizontal Abduction 75 Horizontal Adduction 30 External Rotation at 45 degrees 55 Abduction Internal Rotation Behind Back (text) T10 Right Shoulder ROM WFL Yes Shoulder ROM Limitations Shoulder ROM Limitations Soft Tissue Tightness,Pain PT-OP-N Lymphedema Start: 05/15/22 16:36 Freq: Status: Active Protocol: Document 06/10/22 09:47 [facility] (Rec: 06/10/22 11:08 [facility] [id number]) Lymphedema Measurements Upper Extremity Circumference Measurements Left Affected MCP 17.6 cm Dorsum of Hand 18.4 cm Wrist 15.8 cm 5 cm From Wrist Crease 15.2 cm 10 cm From Wrist Crease 18 cm 15 cm From Wrist Crease 21.8 cm 20 cm From Wrist Crease 22.7 cm 25 cm From Wrist Crease 23.1 cm 30 cm From Wrist Crease 26.1 cm 35 cm From Wrist Crease 27.9 cm 40 cm From Wrist Crease 28.9 cm Elbow Joint 23 cm Axilla 29.2 cm PT-OP-Q Treatments Start: 05/15/22 16:36 Freq: Status: Active Protocol: Document 06/10/22 09:47 [facility] (Rec: 06/10/22 11:08 [facility] [id number]) Therapeutic Exercises Supine Exercises PROM left shoulder Supine Exercise Name HEP Sidelying Exercises shoulder abduction Sidelying Exercise Name HEP open book Sidelying Exercise Name HEP Sitting Exercises median nerve glide Comments review next session trunk rotation Sitting Exercise Name HEP shld hor abduction Sitting Exercise Name pec stretch Equipment Used ball at mid thoracic Reps/Minutes 5x10 Comments with spinal ext back over ball pulleys Comments not done due to elbow pain Manual Therapy Treatment Soft Tissue Mobilization scar massage Body Location mastectomy scars Mobilization Type Instrument Assisted,Rolling Intensity/Depth gentle Body Position Hooklying Comments small suction tool, gentle kristen scars Self-Care/Home Management Treatment Education Other Education self-MLD; inc emphasis on trunk and subaxillary region, consider compression shirt Lymphedema Treatment Manual Lymphatic Drainage Location left UE Duration 12 Comments focus on AAA and AAI pathways, trunk only today with patient ed Lymphedema Wrapping Body Location left UE Materials assisted pt apply loaner compression sleeve Juzo soft size II; good fit and benefit achieved; patient has re- ordered standard length Sequential Lymphedema Exercises Comments HEP Compression Garment Assessment Compression Garment Assessment Details supposed to be receiving new sleeve today PT-OP-T Assessment and Plan Start: 05/15/22 16:36 Freq: Status: Active Protocol: Document 06/10/22 09:47 [facility] (Rec: 06/10/22 11:08 [facility] [id number]) Physical Therapy Assessment Impairments Impairments Edema,Pain,ROM,Soft Tissue Mobility Goals Three Impairment impaired range of motion left UE, decreased scar mobility Impairment difficulty reaching overhead, behind her back and out to side for purposes of ADL's Short Term Goal (STG) Patient to be independent with HEP as instructed for purposes of ROM and flexibility STG Duration 06/19/22 Developmental Services Worker Goal (LTG) Patient to demonstrate ROM WNL left UE and normal scar mobility to allow her to reach overhead, behind her back, and out to side without difficulty for daily activities. LTG Duration 07/20/22 Two Impairment swelling left UE Short Term Goal (STG) decrease swelling left UE to no greater than 0.5 cm different than right as compared via cirfumferential measurement STG Duration 06/19/22 Half-Way Goal (LTG) Patient to demonstrate good understanding of edema management including wearing compression garment, self- massage, gentle ex LTG Duration 07/20/22 One Impairment pain left UE worst at elbow Impairment pain as high as 8/10 Short Term Goal (STG) decrease pain to no greater than 4/10 with all usual activities STG Duration 06/19/22 Half-Way Goal (LTG) Patient to report ability to do all usual activities with pain no greater than 2/10 LTG Duration 07/20/22 Assessment Summary Assessment Noting upper chest and subaxilla lymphedema, left UE stable. Patient educated on benefits of compression shirt, increased emphasis on subaxillary and trunk region with self-MLD. She demonstrated good understanding. Physical Therapy Plan Frequency and Duration Frequency of Treatment 2x/Week Duration of treatment (weeks) 8 Plan of Care Start Date 05/20/22 Plan of Care End Date 07/20/22 Therapeutic Interventions Therapeutic Interventions Home Exercise Program, Lymphedema Management,Manual Therapy,Patient/Caregiver Education,Self-Care/Home Management,Soft Tissue Mobilization,Taping, Therapeutic Activities, Therapeutic Exercises Next Visit Focus/Plan Next Note Type Treatment Note Next Visit Plan Continue flexibility ex, lymphedema management techniques, scar mobilization. assess response to iontophoresis, IFES and ice
--- NOTE | 2022-06-12 12:20 | PT.OTN ---
Current Diagnoses Malignant neoplasm of unspecified site of left female breast (06/12/22) Physical Therapy Treatment Note PT-OP-A Visit Information Start: 05/15/22 16:36 Freq: Status: Active Protocol: Document 06/12/22 09:46 [facility] (Rec: 06/12/22 10:07 [facility] [id number]) Out-Patient Physical Therapy Visit Information Visit Information Visit Type Treatment Note Visit Start Time 09:45 Visit Stop Time 10:55 Total Visit Minutes 70 Visit Number 7 Precautions Precautions bilateral mastectomy, having further testing left side for potential metastasis PT-OP-B Current Condition Start: 05/15/22 16:36 Freq: Status: Active Protocol: Document 05/20/22 09:49 [facility] (Rec: 05/20/22 11:15 [facility] [id number]) Current Condition History of Current Condition Onset Date 03/12/22 Current Complaints funny bone pain, numb forearm, limited motion History of Current Condition bilateral mastectomy with left axillary node dissection left (4/5 positive), sentinal node biopsy right negative. Going to have more tests 06/05/22 to check for any other spread of cancer prior to starting radiation. No chemo planned. Reports since surgery her funny bone has been painfull with movement and if bump elbow. Didn't know precautions for lymphedema, went on plane trip last week, but didn't notice a change Hasn't obtained compression sleeve; ordered one from [employer] that was a one size fits all, and it did not fit. States healing of mastectomy has gone well but the burning pain in her left UE is most limiting. Prior Treatments and Tests as above bilateral mastectomy, further testing to come Treatment Goals Patient/Caregiver Goals Decrease pain, improve flexibility and strength. Prior Functional Status Baseline Function- ADL's Independent Baseline Function- Mobility Independent Baseline Function- Recreation/Hobbies no pain Current Functional Impairments (Reported) Functional Limitations- Recreation/ painful when moving elbow, Hobbies reaching overhead PT-OP-C Subjective Start: 05/15/22 16:36 Freq: Status: Active Protocol: Document 06/12/22 09:46 [facility] (Rec: 06/12/22 10:07 [facility] [id number]) OP-PT Subjective Patient Comments Patient Comments Not sure if iontophoresis helpful for elbow pain. Going to see the surgeon tomorrow. PT-OP-H Neuro Start: 05/15/22 16:36 Freq: Status: Active Protocol: Document 05/20/22 09:49 [facility] (Rec: 05/21/22 16:33 [facility] [id number]) Sensation Evaluation Gross Sensation Gross Sensation Left UE Impaired Sensation Description Numbness,Tingling,Pain PT-OP-J Posture/Palpation/Skin Start: 05/15/22 16:36 Freq: Status: Active Protocol: Document 05/20/22 09:49 [facility] (Rec: 05/21/22 16:33 [facility] [id number]) Palpation Assessment Location axilla Palpation Findings Soft Tissue Tightness Palpation Details no palpable axillary cording incisions Palpation Location decreased soft tissue mobility Skin Assessment Edema Assessment left elbow Edema Type Non-Pitting Edema Appearance Puffy Subjective Edema Description Pain Incisional Assessment Incision Appearance/Comments well healed bilateral mastectomy scars Other Assessments Skin Assessment Comments see lymphedema section for circumferential measurements PT-OP-K Range of Motion Start: 05/15/22 16:36 Freq: Status: Active Protocol: Document 05/20/22 09:49 [facility] (Rec: 05/21/22 16:33 [facility] [id number]) Cervical Spine Range of Motion Cervical Spine Active Testing Position Sitting Comments WNL Shoulder Goniometric Range of Motion Shoulder Left Shoulder ROM WFL No Flexion 155 Extension 15 Abduction 147 Horizontal Abduction 75 Horizontal Adduction 30 External Rotation at 45 degrees 55 Abduction Internal Rotation Behind Back (text) T10 Right Shoulder ROM WFL Yes Shoulder ROM Limitations Shoulder ROM Limitations Soft Tissue Tightness,Pain PT-OP-N Lymphedema Start: 05/15/22 16:36 Freq: Status: Active Protocol: Document 06/10/22 09:47 [facility] (Rec: 06/10/22 11:08 [facility] [id number]) Lymphedema Measurements Upper Extremity Circumference Measurements Left Affected MCP 17.6 cm Dorsum of Hand 18.4 cm Wrist 15.8 cm 5 cm From Wrist Crease 15.2 cm 10 cm From Wrist Crease 18 cm 15 cm From Wrist Crease 21.8 cm 20 cm From Wrist Crease 22.7 cm 25 cm From Wrist Crease 23.1 cm 30 cm From Wrist Crease 26.1 cm 35 cm From Wrist Crease 27.9 cm 40 cm From Wrist Crease 28.9 cm Elbow Joint 23 cm Axilla 29.2 cm PT-OP-Q Treatments Start: 05/15/22 16:36 Freq: Status: Active Protocol: Document 06/12/22 09:46 [facility] (Rec: 06/12/22 10:07 [facility] [id number]) Therapeutic Exercises Supine Exercises PROM left shoulder Reps/Minutes 5 min Comments pin and stretch for elevation Sidelying Exercises shoulder abduction Sidelying Exercise Name review HEP Reps/Minutes 2x30 Comments verbal and tactile cues open book Sidelying Exercise Name review HEP Comments verbal and tactile cues Sitting Exercises ulnar nerve glide Reps/Minutes 2x Comments issued written HO shld hor abduction Sitting Exercise Name pec stretch Equipment Used ball at mid thoracic Reps/Minutes 5x10 Comments with spinal ext back over ball pulleys Comments not done due to elbow pain Standing Exercises wall slide Standing Exercise Name HEP Manual Therapy Treatment Soft Tissue Mobilization scar massage Body Location mastectomy scars Mobilization Type Instrument Assisted,Rolling Intensity/Depth gentle Body Position Hooklying Comments small suction tool, gentle kristen scars Nerve Glides ulnar nerve glide Reps/Duration 2x Manual Techniques pin and stretch Type left UE Body Position Hooklying Reps/Duration 5 min Comments subaxillary tissue palpably tight Lymphedema Treatment Manual Lymphatic Drainage Location left UE Duration 12 Comments focus on AAA and AAI pathways, trunk only today with patient ed Lymphedema Wrapping Body Location left UE Materials assisted pt apply loaner compression sleeve Juzo soft size II; good fit and benefit achieved; patient has re- ordered standard length Compression Garment Assessment Compression Garment Assessment Details again received long but better fit achieved today, patient to try, will send back if feels too long, stretching too much PT-OP-T Assessment and Plan Start: 05/15/22 16:36 Freq: Status: Active Protocol: Document 06/12/22 09:46 [facility] (Rec: 06/12/22 10:07 [facility] [id number]) Physical Therapy Assessment Impairments Impairments Edema,Pain,ROM,Soft Tissue Mobility Goals Three Impairment impaired range of motion left UE, decreased scar mobility Impairment difficulty reaching overhead, behind her back and out to side for purposes of ADL's Short Term Goal (STG) Patient to be independent with HEP as instructed for purposes of ROM and flexibility STG Duration 06/19/22 Mcc Goal (LTG) Patient to demonstrate ROM WNL left UE and normal scar mobility to allow her to reach overhead, behind her back, and out to side without difficulty for daily activities. LTG Duration 07/20/22 Two Impairment swelling left UE Short Term Goal (STG) decrease swelling left UE to no greater than 0.5 cm different than right as compared via cirfumferential measurement STG Duration 06/19/22 Associate Quality Engineer Goal (LTG) Patient to demonstrate good understanding of edema management including wearing compression garment, self- massage, gentle ex LTG Duration 07/20/22 One Impairment pain left UE worst at elbow Impairment pain as high as 8/10 Short Term Goal (STG) decrease pain to no greater than 4/10 with all usual activities STG Duration 06/19/22 Associate Quality Engineer Goal (LTG) Patient to report ability to do all usual activities with pain no greater than 2/10 LTG Duration 07/20/22 Physical Therapy Plan Frequency and Duration Frequency of Treatment 2x/Week Duration of treatment (weeks) 8 Plan of Care Start Date 05/20/22 Plan of Care End Date 07/15/22 Therapeutic Interventions Therapeutic Interventions Home Exercise Program, Lymphedema Management,Manual Therapy,Patient/Caregiver Education,Self-Care/Home Management,Soft Tissue Mobilization,Taping, Therapeutic Activities, Therapeutic Exercises
--- NOTE | 2022-06-17 11:06 | PT.OTN ---
Current Diagnoses Malignant neoplasm of unspecified site of left female breast (06/17/22) Physical Therapy Treatment Note PT-OP-A Visit Information Start: 05/15/22 16:36 Freq: Status: Active Protocol: Document 06/17/22 09:46 SAK (Rec: 06/17/22 10:14 [facility] [id number]) Out-Patient Physical Therapy Visit Information Visit Information Visit Type Treatment Note Visit Start Time 09:45 Visit Stop Time 10:48 Total Visit Minutes 63 Visit Number 8 Precautions Precautions bilateral mastectomy, having further testing left side for potential metastasis PT-OP-B Current Condition Start: 05/15/22 16:36 Freq: Status: Active Protocol: Document 05/20/22 09:49 SAK (Rec: 05/20/22 11:15 [facility] [id number]) Current Condition History of Current Condition Onset Date 03/12/22 Current Complaints funny bone pain, numb forearm, limited motion History of Current Condition bilateral mastectomy with left axillary node dissection left (4/5 positive), sentinal node biopsy right negative. Going to have more tests 06/05/22 to check for any other spread of cancer prior to starting radiation. No chemo planned. Reports since surgery her funny bone has been painfull with movement and if bump elbow. Didn't know precautions for lymphedema, went on plane trip last week, but didn't notice a change Hasn't obtained compression sleeve; ordered one from [employer] that was a one size fits all, and it did not fit. States healing of mastectomy has gone well but the burning pain in her left UE is most limiting. Prior Treatments and Tests as above bilateral mastectomy, further testing to come Treatment Goals Patient/Caregiver Goals Decrease pain, improve flexibility and strength. Prior Functional Status Baseline Function- ADL's Independent Baseline Function- Mobility Independent Baseline Function- Recreation/Hobbies no pain Current Functional Impairments (Reported) Functional Limitations- Recreation/ painful when moving elbow, Hobbies reaching overhead PT-OP-C Subjective Start: 05/15/22 16:36 Freq: Status: Active Protocol: Document 06/17/22 09:46 SAK (Rec: 06/17/22 10:14 [facility] [id number]) OP-PT Subjective Patient Comments Patient Comments Reports still feeling compression sleeve too long; hand was swollen mostly below her thumb. Saw Dr. Vann who stated he felt her elbow would just take awhile. States iontophoresis helpful. Starts radiation 06/23/22 PT-OP-H Neuro Start: 05/15/22 16:36 Freq: Status: Active Protocol: Document 05/20/22 09:49 [facility] (Rec: 05/21/22 16:33 [facility] [id number]) Sensation Evaluation Gross Sensation Gross Sensation Left UE Impaired Sensation Description Numbness,Tingling,Pain PT-OP-J Posture/Palpation/Skin Start: 05/15/22 16:36 Freq: Status: Active Protocol: Document 05/20/22 09:49 [facility] (Rec: 05/21/22 16:33 [facility] [id number]) Palpation Assessment Location axilla Palpation Findings Soft Tissue Tightness Palpation Details no palpable axillary cording incisions Palpation Location decreased soft tissue mobility Skin Assessment Edema Assessment left elbow Edema Type Non-Pitting Edema Appearance Puffy Subjective Edema Description Pain Incisional Assessment Incision Appearance/Comments well healed bilateral mastectomy scars Other Assessments Skin Assessment Comments see lymphedema section for circumferential measurements PT-OP-K Range of Motion Start: 05/15/22 16:36 Freq: Status: Active Protocol: Document 05/20/22 09:49 [facility] (Rec: 05/21/22 16:33 [facility] [id number]) Cervical Spine Range of Motion Cervical Spine Active Testing Position Sitting Comments WNL Shoulder Goniometric Range of Motion Shoulder Left Shoulder ROM WFL No Flexion 155 Extension 15 Abduction 147 Horizontal Abduction 75 Horizontal Adduction 30 External Rotation at 45 degrees 55 Abduction Internal Rotation Behind Back (text) T10 Right Shoulder ROM WFL Yes Shoulder ROM Limitations Shoulder ROM Limitations Soft Tissue Tightness,Pain PT-OP-N Lymphedema Start: 05/15/22 16:36 Freq: Status: Active Protocol: Document 06/17/22 09:46 [facility] (Rec: 06/17/22 10:14 [facility] [id number]) Lymphedema Measurements Upper Extremity Circumference Measurements Left Affected MCP 18 cm Dorsum of Hand 18.3 cm Wrist 15.7 cm 5 cm From Wrist Crease 15.5 cm 10 cm From Wrist Crease 18 cm 15 cm From Wrist Crease 22 cm 20 cm From Wrist Crease 22.7 cm 25 cm From Wrist Crease 23.8 cm 30 cm From Wrist Crease 26.5 cm 35 cm From Wrist Crease 28.5 cm 40 cm From Wrist Crease 29 cm Elbow Joint 23.2 cm Axilla 29.2 cm PT-OP-Q Treatments Start: 05/15/22 16:36 Freq: Status: Active Protocol: Document 06/17/22 09:46 [facility] (Rec: 06/17/22 10:14 [facility] [id number]) Therapeutic Exercises Supine Exercises PROM left shoulder Reps/Minutes 5 min Comments pin and stretch for elevation Sidelying Exercises shoulder abduction Sidelying Exercise Name review HEP Reps/Minutes 2x30 Comments verbal and tactile cues open book Sidelying Exercise Name review HEP Comments verbal and tactile cues Sitting Exercises ulnar nerve glide Reps/Minutes 2x Comments reviewed shld hor abduction Sitting Exercise Name pec stretch Equipment Used ball at mid thoracic Reps/Minutes 5x10 Comments with spinal ext back over ball Manual Therapy Treatment Soft Tissue Mobilization scar massage Body Location mastectomy scars Mobilization Type Instrument Assisted,Rolling Intensity/Depth gentle Body Position Hooklying Comments small suction tool, gentle kristen scars Manual Techniques pin and stretch Type left UE Body Position Hooklying Reps/Duration 5 min Comments subaxillary tissue palpably tight Lymphedema Treatment Manual Lymphatic Drainage Location left UE Duration 15 Comments focus on AAA and AAI pathways with extra time at medial elbow Lymphedema Wrapping Body Location left UE Materials assisted pt apply loaner compression sleeve Juzo soft size II; good fit and benefit achieved; patient has re- ordered standard length Compression Garment Assessment Compression Garment Assessment Details referred patient to [facility] to assist with obtaining correct fitting compression sleeve PT-OP-T Assessment and Plan Start: 05/15/22 16:36 Freq: Status: Active Protocol: Document 06/17/22 09:46 [facility] (Rec: 06/17/22 10:14 [facility] [id number]) Physical Therapy Assessment Impairments Impairments Edema,Pain,ROM,Soft Tissue Mobility Goals Three Impairment impaired range of motion left UE, decreased scar mobility Impairment difficulty reaching overhead, behind her back and out to side for purposes of ADL's Short Term Goal (STG) Patient to be independent with HEP as instructed for purposes of ROM and flexibility STG Duration 06/19/22 [facility] Goal (LTG) Patient to demonstrate ROM WNL left UE and normal scar mobility to allow her to reach overhead, behind her back, and out to side without difficulty for daily activities. LTG Duration 07/20/22 Two Impairment swelling left UE Short Term Goal (STG) decrease swelling left UE to no greater than 0.5 cm different than right as compared via cirfumferential measurement STG Duration 06/19/22 [facility] Goal (LTG) Patient to demonstrate good understanding of edema management including wearing compression garment, self- massage, gentle ex LTG Duration 07/20/22 One Impairment pain left UE worst at elbow Impairment pain as high as 8/10 Short Term Goal (STG) decrease pain to no greater than 4/10 with all usual activities STG Duration 06/19/22 [employer] Goal (LTG) Patient to report ability to do all usual activities with pain no greater than 2/10 LTG Duration 07/20/22 Assessment Summary Assessment ROM and scar mobility continues to improve, reviewed correct self-MLD route with encouragement to watch more [facility] videos. Physical Therapy Plan Frequency and Duration Frequency of Treatment 2x/Week Duration of treatment (weeks) 8 Plan of Care Start Date 05/20/22 Plan of Care End Date 07/15/22 Therapeutic Interventions Therapeutic Interventions Home Exercise Program, Lymphedema Management,Manual Therapy,Patient/Caregiver Education,Self-Care/Home Management,Soft Tissue Mobilization,Taping, Therapeutic Activities, Therapeutic Exercises Next Visit Focus/Plan Next Note Type Treatment Note Next Visit Plan Continue flexibility ex, lymphedema management techniques, scar mobilization. assess response to iontophoresis, IFES and ice
--- NOTE | 2022-06-19 11:11 | PT.OTN ---
Current Diagnoses Malignant neoplasm of unspecified site of left female breast (06/19/22) Physical Therapy Treatment Note PT-OP-A Visit Information Start: 05/15/22 16:36 Freq: Status: Active Protocol: Document 06/19/22 09:47 SAK (Rec: 06/19/22 11:11 [facility] [id number]) Out-Patient Physical Therapy Visit Information Visit Information Visit Type Treatment Note Visit Start Time 09:50 Visit Stop Time 10:59 Total Visit Minutes 69 Visit Number 9 Precautions Precautions bilateral mastectomy, having further testing left side for potential metastasis PT-OP-B Current Condition Start: 05/15/22 16:36 Freq: Status: Active Protocol: Document 05/20/22 09:49 SAK (Rec: 05/20/22 11:15 [facility] [id number]) Current Condition History of Current Condition Onset Date 03/12/22 Current Complaints funny bone pain, numb forearm, limited motion History of Current Condition bilateral mastectomy with left axillary node dissection left (4/5 positive), sentinal node biopsy right negative. Going to have more tests 06/05/22 to check for any other spread of cancer prior to starting radiation. No chemo planned. Reports since surgery her funny bone has been painfull with movement and if bump elbow. Didn't know precautions for lymphedema, went on plane trip last week, but didn't notice a change Hasn't obtained compression sleeve; ordered one from [employer] that was a one size fits all, and it did not fit. States healing of mastectomy has gone well but the burning pain in her left UE is most limiting. Prior Treatments and Tests as above bilateral mastectomy, further testing to come Treatment Goals Patient/Caregiver Goals Decrease pain, improve flexibility and strength. Prior Functional Status Baseline Function- ADL's Independent Baseline Function- Mobility Independent Baseline Function- Recreation/Hobbies no pain Current Functional Impairments (Reported) Functional Limitations- Recreation/ painful when moving elbow, Hobbies reaching overhead PT-OP-C Subjective Start: 05/15/22 16:36 Freq: Status: Active Protocol: Document 06/19/22 09:47 SAK (Rec: 06/19/22 11:11 [facility] [id number]) OP-PT Subjective Patient Comments Patient Comments Iontophoresis helpful through day and overnight, then pain returns. Has to modify pulleys to prevent elbow pain PT-OP-H Neuro Start: 05/15/22 16:36 Freq: Status: Active Protocol: Document 05/20/22 09:49 [facility] (Rec: 05/21/22 16:33 [facility] [id number]) Sensation Evaluation Gross Sensation Gross Sensation Left UE Impaired Sensation Description Numbness,Tingling,Pain PT-OP-J Posture/Palpation/Skin Start: 05/15/22 16:36 Freq: Status: Active Protocol: Document 05/20/22 09:49 [facility] (Rec: 05/21/22 16:33 [facility] [id number]) Palpation Assessment Location axilla Palpation Findings Soft Tissue Tightness Palpation Details no palpable axillary cording incisions Palpation Location decreased soft tissue mobility Skin Assessment Edema Assessment left elbow Edema Type Non-Pitting Edema Appearance Puffy Subjective Edema Description Pain Incisional Assessment Incision Appearance/Comments well healed bilateral mastectomy scars Other Assessments Skin Assessment Comments see lymphedema section for circumferential measurements PT-OP-K Range of Motion Start: 05/15/22 16:36 Freq: Status: Active Protocol: Document 05/20/22 09:49 [facility] (Rec: 05/21/22 16:33 [facility] [id number]) Cervical Spine Range of Motion Cervical Spine Active Testing Position Sitting Comments WNL Shoulder Goniometric Range of Motion Shoulder Left Shoulder ROM WFL No Flexion 155 Extension 15 Abduction 147 Horizontal Abduction 75 Horizontal Adduction 30 External Rotation at 45 degrees 55 Abduction Internal Rotation Behind Back (text) T10 Right Shoulder ROM WFL Yes Shoulder ROM Limitations Shoulder ROM Limitations Soft Tissue Tightness,Pain PT-OP-N Lymphedema Start: 05/15/22 16:36 Freq: Status: Active Protocol: Document 06/19/22 09:47 [facility] (Rec: 06/19/22 11:11 [facility] [id number]) Lymphedema Measurements Upper Extremity Circumference Measurements Left Affected - not measured today, stable, patient wearing compression sleeve PT-OP-Q Treatments Start: 05/15/22 16:36 Freq: Status: Active Protocol: Document 06/19/22 09:47 [facility] (Rec: 06/19/22 11:11 [facility] [id number]) Therapeutic Exercises Supine Exercises PROM left shoulder Reps/Minutes 7 min Comments pin and stretch subaxillary for elevation Sidelying Exercises shoulder abduction Sidelying Exercise Name HEP open book Sidelying Exercise Name HEP Sitting Exercises ulnar nerve glide Reps/Minutes 2x Comments reviewed shld hor abduction Sitting Exercise Name pec stretch Equipment Used ball at mid thoracic Reps/Minutes 5x10 Comments with spinal ext back over ball pulleys Sitting Exercise Name flexion and scaption Reps/Minutes 2 min Standing Exercises wall slide Standing Exercise Name HEP Manual Therapy Treatment Soft Tissue Mobilization scar massage Body Location mastectomy scars Mobilization Type Instrument Assisted,Rolling Intensity/Depth Moderate Body Position Hooklying Comments small suction tool, gentle kristen scars Lymphedema Treatment Manual Lymphatic Drainage Location left UE Duration 15 Comments focus on AAA and AAI pathways with extra time at medial elbow Lymphedema Wrapping Body Location left UE Materials assisted pt apply loaner compression sleeve Juzo soft size II; good fit and benefit achieved; patient has re- ordered standard length Compression Garment Assessment Compression Garment Assessment Details Patient to try ordering through different company PT-OP-T Assessment and Plan Start: 05/15/22 16:36 Freq: Status: Active Protocol: Document 06/19/22 09:47 [facility] (Rec: 06/19/22 11:11 [facility] [id number]) Physical Therapy Assessment Impairments Impairments Edema,Pain,ROM,Soft Tissue Mobility Goals Three Impairment impaired range of motion left UE, decreased scar mobility Impairment difficulty reaching overhead, behind her back and out to side for purposes of ADL's Short Term Goal (STG) Patient to be independent with HEP as instructed for purposes of ROM and flexibility 06/19/22: goal met STG Duration goal met Detention Goal (LTG) Patient to demonstrate ROM WNL left UE and normal scar mobility to allow her to reach overhead, behind her back, and out to side without difficulty for daily activities. 06/19/22: goal progress LTG Duration 07/20/22 Two Impairment swelling left UE Short Term Goal (STG) decrease swelling left UE to no greater than 0.5 cm different than right as compared via cirfumferential measurement 06/19/22: goal met STG Duration goal met Detention Goal (LTG) Patient to demonstrate good understanding of edema management including wearing compression garment, self- massage, gentle ex LTG Duration 07/20/22 One Impairment pain left UE worst at elbow Impairment pain as high as 8/10 Short Term Goal (STG) decrease pain to no greater than 4/10 with all usual activities 06/19/22: temporary pain relief with left elbow STG Duration 06/19/22 [place] Goal (LTG) Patient to report ability to do all usual activities with pain no greater than 2/10 LTG Duration 07/20/22 Assessment Summary Assessment Patient has made good progress except only temporary relief of elbow pain with iontophoresis. Patient to start radiation treatments next week, will hold PT until she completes this in July . Patient encouraged to call PT with any questions during this time She is going to order new sleeve to see if she can get standard length Physical Therapy Plan Frequency and Duration Frequency of Treatment 2x/Week Duration of treatment (weeks) 8 Plan of Care Start Date 05/20/22 Plan of Care End Date 07/15/22 Therapeutic Interventions Therapeutic Interventions Home Exercise Program, Lymphedema Management,Manual Therapy,Patient/Caregiver Education,Self-Care/Home Management,Soft Tissue Mobilization,Taping, Therapeutic Activities, Therapeutic Exercises Next Visit Focus/Plan Next Note Type Treatment Note Next Visit Plan Circumferential measurements and shoulder ROM measurements, lymphedema management as indicated, soft tissue mobilization and ther ex after radiation as indicated.
--- NOTE | 2022-08-21 15:56 | PT.OTRE ---
Current Diagnoses Malignant neoplasm of unspecified site of left female breast (08/21/22) Past Medical History (Last Reviewed 07/19/22 @ 11:23 by Enio Vann MD) Breast cancer Difficulty swallowing Fuchs' corneal dystrophy of both eyes Hypothyroid Pelvic relaxation Postmenopausal RLS (restless legs syndrome) Vaginal vault prolapse Surgical History (Last Reviewed 07/19/22 @ 11:23 by Enio Vann MD) History of gynecologic surgery (05/14/18) History of tonsillectomy Hx of eye surgery (~2011) S/P excision of lipoma Status post bunionectomy Status post hysterectomy Visit Care Team Role Provider Type Sheldon Carrizales MD Family Provider Physician Primary Care Provider Specialty: Family Practice Address: [facility] [place], [address] Email: [email or web address] Ella Sung MD Attending Provider Physician Referring Provider Specialty: Oncology Address: [address] [place] [address], [id number] Email: [email or web address] Physical Therapy Re-Evaluation PT-OP-A Visit Information Start: 05/15/22 16:36 Freq: Status: Active Protocol: Document 08/21/22 13:04 [facility] (Rec: 08/21/22 13:27 [facility] [id number]) Out-Patient Physical Therapy Visit Information Visit Information Visit Type Treatment Note Visit Start Time 13:04 Visit Stop Time 14:20 Total Visit Minutes 74 Visit Number 10 Precautions Precautions bilateral mastectomy, having further testing left side for potential metastasis PT-OP-B Current Condition Start: 05/15/22 16:36 Freq: Status: Active Protocol: Document 05/20/22 09:49 [facility] (Rec: 05/20/22 11:15 [facility] [id number]) Current Condition History of Current Condition Onset Date 03/12/22 Current Complaints funny bone pain, numb forearm, limited motion History of Current Condition bilateral mastectomy with left axillary node dissection left (4/5 positive), sentinal node biopsy right negative. Going to have more tests 06/05/22 to check for any other spread of cancer prior to starting radiation. No chemo planned. Reports since surgery her funny bone has been painfull with movement and if bump elbow. Didn't know precautions for lymphedema, went on plane trip last week, but didn't notice a change Hasn't obtained compression sleeve; ordered one from [employer] that was a one size fits all, and it did not fit. States healing of mastectomy has gone well but the burning pain in her left UE is most limiting. Prior Treatments and Tests as above bilateral mastectomy, further testing to come Treatment Goals Patient/Caregiver Goals Decrease pain, improve flexibility and strength. Prior Functional Status Baseline Function- ADL's Independent Baseline Function- Mobility Independent Baseline Function- Recreation/Hobbies no pain Current Functional Impairments (Reported) Functional Limitations- Recreation/ painful when moving elbow, Hobbies reaching overhead PT-OP-C Subjective Start: 05/15/22 16:36 Freq: Status: Active Protocol: Document 08/21/22 13:04 [facility] (Rec: 08/21/22 13:27 [facility] [id number]) OP-PT Subjective Patient Comments Patient Comments bad skin response to the radiation, had to cancel PT because of, doctor stated sometimes the nerves get damaged referring to elbow pain. C/o stiffness and pain left trunk.Has been doing exercises, using inversion table, and walking/using treadmill. Got a new compression sleeve with fair fit PT-OP-H Neuro Start: 05/15/22 16:36 Freq: Status: Active Protocol: Document 05/20/22 09:49 [facility] (Rec: 05/21/22 16:33 [facility] [id number]) Sensation Evaluation Gross Sensation Gross Sensation Left UE Impaired Sensation Description Numbness,Tingling,Pain PT-OP-J Posture/Palpation/Skin Start: 05/15/22 16:36 Freq: Status: Active Protocol: Document 05/20/22 09:49 [facility] (Rec: 05/21/22 16:33 [facility] [id number]) Palpation Assessment Location axilla Palpation Findings Soft Tissue Tightness Palpation Details no palpable axillary cording incisions Palpation Location decreased soft tissue mobility Skin Assessment Edema Assessment left elbow Edema Type Non-Pitting Edema Appearance Puffy Subjective Edema Description Pain Incisional Assessment Incision Appearance/Comments well healed bilateral mastectomy scars Other Assessments Skin Assessment Comments see lymphedema section for circumferential measurements PT-OP-K Range of Motion Start: 05/15/22 16:36 Freq: Status: Active Protocol: Document 05/20/22 09:49 [facility] (Rec: 05/21/22 16:33 [facility] [id number]) Cervical Spine Range of Motion Cervical Spine Active Testing Position Sitting Comments WNL Shoulder Goniometric Range of Motion Shoulder Measured in Degrees Left Shoulder ROM WFL No Flexion 155 Extension 15 Abduction 147 Horizontal Abduction 75 Horizontal Adduction 30 External Rotation at 45 degrees 55 Abduction Internal Rotation Behind Back (text) T10 Right Shoulder ROM WFL Yes Shoulder ROM Limitations Shoulder ROM Limitations Soft Tissue Tightness,Pain PT-OP-N Lymphedema Start: 05/15/22 16:36 Freq: Status: Active Protocol: Document 08/21/22 13:04 [facility] (Rec: 08/21/22 13:27 [facility] [id number]) Lymphedema Measurements Upper Extremity Circumference Measurements Left Affected MCP 18.2 cm Dorsum of Hand 18.7 cm Wrist 15.3 cm 5 cm From Wrist Crease 15.6 cm 10 cm From Wrist Crease 18.8 cm 15 cm From Wrist Crease 22.4 cm 20 cm From Wrist Crease 23.3 cm 25 cm From Wrist Crease 25.6 cm 30 cm From Wrist Crease 27.3 cm 35 cm From Wrist Crease 28.8 cm 40 cm From Wrist Crease 30.5 cm Elbow Joint 23.8 cm Axilla 30 cm PT-OP-Q Treatments Start: 05/15/22 16:36 Freq: Status: Active Protocol: Document 08/21/22 13:04 [facility] (Rec: 08/21/22 13:27 [facility] [id number]) Therapeutic Exercises Supine Exercises PROM left shoulder Reps/Minutes 7 min Comments pin and stretch subaxillary for elevation Sidelying Exercises shoulder abduction Sidelying Exercise Name HEP open book Sidelying Exercise Name HEP Manual Therapy Treatment Soft Tissue Mobilization scar massage Body Location mastectomy scars, lumpectomy scar left Mobilization Type Instrument Assisted,Myofascial Release,Rolling Intensity/Depth Moderate Body Position Hooklying Comments small suction tool Manual Techniques pin and stretch Type left UE Body Position Hooklying Reps/Duration 5 min Comments subaxillary tissue palpably tight Other Other Manual Treatments UE circumferential measurements Lymphedema Treatment Manual Lymphatic Drainage Location left UE Duration 20 Comments focus on AAA and AAI pathways with extra time at medial elbow Lymphedema Wrapping Body Location left UE Compression Garment Assessment Compression Garment Assessment Details ordered new garment [employer] , good fit, a little loose on forearm, fits well upper arm. Instructed patient in getting pulled up to axilla, assist from as able. PT-OP-T Assessment and Plan Start: 05/15/22 16:36 Freq: Status: Active Protocol: Document 08/21/22 13:04 [facility] (Rec: 08/21/22 13:27 [facility] [id number]) Physical Therapy Assessment Impairments Impairments Edema,Pain,ROM,Soft Tissue Mobility Goals Three Impairment impaired range of motion left UE, decreased scar mobility Impairment difficulty reaching overhead, behind her back and out to side for purposes of ADL's Short Term Goal (STG) Patient to be independent with HEP as instructed for purposes of ROM and flexibility 06/19/22: goal met STG Duration goal met Cooker Cleaner Goal (LTG) Patient to demonstrate ROM WNL left UE and normal scar mobility to allow her to reach overhead, behind her back, and out to side without difficulty for daily activities. 06/19/22: goal progress 08/20/23: decrease in ROM and scar mobility left s/p radiation LTG Duration 10/21/22 Two Impairment swelling left UE Short Term Goal (STG) decrease swelling left UE to no greater than 0.5 cm different than right as compared via cirfumferential measurement 06/19/22: goal met STG Duration goal met Intermediate Goal (LTG) Patient to demonstrate good understanding of edema management including wearing compression garment, self- massage, gentle ex 08/21/23: worsening of lymphedema following radiation treatment, needs further treatment. LTG Duration 10/21/22 One Impairment pain left UE worst at elbow Impairment pain as high as 8/10 Short Term Goal (STG) decrease pain to no greater than 4/10 with all usual activities 06/19/22: temporary pain relief with left elbow 08/21/22:Pain 5-6/10 STG Duration 09/20/22 Cooker Cleaner Goal (LTG) Patient to report ability to do all usual activities with pain no greater than 2/10 LTG Duration 10/21/22 Assessment Summary Assessment Patient presents to PT after not being seen for 2 months after radiation therapy. She has had some increased tightening of her soft tissue left axilla and chest, and small increased lymphedema measurements despite obtaining new compression sleeve; likely due to inflammatory response from radiation. Left elbow pain persists; improves for 1 day with use of iontophoresis. Provided manual lymphatic drainage, soft tissue mobilization to scars and subaxillary area, PROM left shoulder, iontophoresis to left elbow. Would benefit from further PT to address above goals; discussed POC and patient was in agreement. Physical Therapy Plan Frequency and Duration Frequency of Treatment 2x/Week Duration of treatment (weeks) 8 Plan of Care Start Date 08/21/22 Plan of Care End Date 10/21/22 Therapeutic Interventions Therapeutic Interventions Home Exercise Program, Lymphedema Management,Manual Therapy,Patient/Caregiver Education,Self-Care/Home Management,Soft Tissue Mobilization,Taping, Therapeutic Activities, Therapeutic Exercises Next Visit Focus/Plan Next Note Type Treatment Note Next Visit Plan Continue PT per POC to address lymphedema, soft tissue and ROM restrictions, and left elbow pain.
--- NOTE | 2022-08-21 15:56 | PT.OPPOC ---
Physical, Occupational & Speech Therapy At [facility] Current Diagnoses Malignant neoplasm of unspecified site of left female breast (08/21/22) Visit Care Team Role Provider Type Sheldon Carrizales MD Family Provider Physician Primary Care Provider Specialty: Family Practice Address: [facility] [place], [address] Email: [email or web address] Ella Sung MD Attending Provider Physician Referring Provider Specialty: Oncology Address: [address] [place] [address], [address] Email: [email or web address] Plan Of Care PT-OP-T Assessment and Plan Start: 05/15/22 16:36 Freq: Status: Active Protocol: Document 08/21/22 13:04 [facility] (Rec: 08/21/22 13:27 [facility] [id number]) Physical Therapy Assessment Impairments Impairments Edema,Pain,ROM,Soft Tissue Mobility Goals Three Impairment impaired range of motion left UE, decreased scar mobility Impairment difficulty reaching overhead, behind her back and out to side for purposes of ADL's Short Term Goal (STG) Patient to be independent with HEP as instructed for purposes of ROM and flexibility 06/19/22: goal met STG Duration goal met Nursing Home Goal (LTG) Patient to demonstrate ROM WNL left UE and normal scar mobility to allow her to reach overhead, behind her back, and out to side without difficulty for daily activities. 06/19/22: goal progress 08/20/23: decrease in ROM and scar mobility left s/p radiation LTG Duration 10/21/22 Two Impairment swelling left UE Short Term Goal (STG) decrease swelling left UE to no greater than 0.5 cm different than right as compared via cirfumferential measurement 06/19/22: goal met STG Duration goal met Backer Up Goal (LTG) Patient to demonstrate good understanding of edema management including wearing compression garment, self- massage, gentle ex 08/21/23: worsening of lymphedema following radiation treatment, needs further treatment. LTG Duration 10/21/22 One Impairment pain left UE worst at elbow Impairment pain as high as 8/10 Short Term Goal (STG) decrease pain to no greater than 4/10 with all usual activities 06/19/22: temporary pain relief with left elbow 08/21/22:Pain 5-6/10 STG Duration 09/20/22 Backer Up Goal (LTG) Patient to report ability to do all usual activities with pain no greater than 2/10 LTG Duration 10/21/22 Assessment Summary Assessment Patient presents to PT after not being seen for 2 months after radiation therapy. She has had some increased tightening of her soft tissue left axilla and chest, and small increased lymphedema measurements despite obtaining new compression sleeve; likely due to inflammatory response from radiation. Left elbow pain persists; improves for 1 day with use of iontophoresis. Provided manual lymphatic drainage, soft tissue mobilization to scars and subaxillary area, PROM left shoulder, iontophoresis to left elbow. Would benefit from further PT to address above goals; discussed POC and patient was in agreement. Physical Therapy Plan Frequency and Duration Frequency of Treatment 2x/Week Duration of treatment (weeks) 8 Plan of Care Start Date 08/21/22 Plan of Care End Date 10/21/22 Therapeutic Interventions Therapeutic Interventions Home Exercise Program, Lymphedema Management,Manual Therapy,Patient/Caregiver Education,Self-Care/Home Management,Soft Tissue Mobilization,Taping, Therapeutic Activities, Therapeutic Exercises Next Visit Focus/Plan Next Note Type Treatment Note Next Visit Plan Continue PT per POC to address lymphedema, soft tissue and ROM restrictions, and left elbow pain. Plan of Care Dates Plan of Care Start Date 08/21/22 Plan of Care End Date 10/21/22 Electronically Signed by: Roula Bullard, PT 08/21/22 2495 If you are in agreement with this Plan of Care, please return a signed and dated copy. I have reviewed this Plan of Care and certify that the skilled therapy services above are required to meet the patient?s needs. Physician Signature Date Printed Name and Credentials Clinical Instructor Signature Printed Name and Credentials
--- NOTE | 2022-09-01 14:29 | PT.OTN ---
Current Diagnoses Malignant neoplasm of unspecified site of left female breast (09/01/22) Physical Therapy Treatment Note PT-OP-A Visit Information Start: 05/15/22 16:36 Freq: Status: Active Protocol: Document 09/01/22 13:06 [facility] (Rec: 09/01/22 13:43 [facility] [id number]) Out-Patient Physical Therapy Visit Information Visit Information Visit Type Treatment Note Visit Start Time 13:00 Visit Stop Time 14:20 Total Visit Minutes 80 Visit Number 11 Precautions Precautions bilateral mastectomy, having further testing left side for potential metastasis PT-OP-B Current Condition Start: 05/15/22 16:36 Freq: Status: Active Protocol: Document 05/20/22 09:49 [facility] (Rec: 05/20/22 11:15 [facility] [id number]) Current Condition History of Current Condition Onset Date 03/12/22 Current Complaints funny bone pain, numb forearm, limited motion History of Current Condition bilateral mastectomy with left axillary node dissection left (4/5 positive), sentinal node biopsy right negative. Going to have more tests 06/05/22 to check for any other spread of cancer prior to starting radiation. No chemo planned. Reports since surgery her funny bone has been painfull with movement and if bump elbow. Didn't know precautions for lymphedema, went on plane trip last week, but didn't notice a change Hasn't obtained compression sleeve; ordered one from [employer] that was a one size fits all, and it did not fit. States healing of mastectomy has gone well but the burning pain in her left UE is most limiting. Prior Treatments and Tests as above bilateral mastectomy, further testing to come Treatment Goals Patient/Caregiver Goals Decrease pain, improve flexibility and strength. Prior Functional Status Baseline Function- ADL's Independent Baseline Function- Mobility Independent Baseline Function- Recreation/Hobbies no pain Current Functional Impairments (Reported) Functional Limitations- Recreation/ painful when moving elbow, Hobbies reaching overhead PT-OP-C Subjective Start: 05/15/22 16:36 Freq: Status: Active Protocol: Document 09/01/22 13:06 [facility] (Rec: 09/01/22 13:43 [facility] [id number]) OP-PT Subjective Patient Comments Patient Comments Reports left iontophoresis patch on too long (overnight), skin irritated. Compliant to HEP, thinks working in armpit helped the nerve pain in her arm a little, though still really there. PT-OP-H Neuro Start: 05/15/22 16:36 Freq: Status: Active Protocol: Document 05/20/22 09:49 [facility] (Rec: 05/21/22 16:33 [facility] [id number]) Sensation Evaluation Gross Sensation Gross Sensation Left UE Impaired Sensation Description Numbness,Tingling,Pain PT-OP-J Posture/Palpation/Skin Start: 05/15/22 16:36 Freq: Status: Active Protocol: Document 05/20/22 09:49 [facility] (Rec: 05/21/22 16:33 [facility] [id number]) Palpation Assessment Location axilla Palpation Findings Soft Tissue Tightness Palpation Details no palpable axillary cording incisions Palpation Location decreased soft tissue mobility Skin Assessment Edema Assessment left elbow Edema Type Non-Pitting Edema Appearance Puffy Subjective Edema Description Pain Incisional Assessment Incision Appearance/Comments well healed bilateral mastectomy scars Other Assessments Skin Assessment Comments see lymphedema section for circumferential measurements PT-OP-K Range of Motion Start: 05/15/22 16:36 Freq: Status: Active Protocol: Document 05/20/22 09:49 [facility] (Rec: 05/21/22 16:33 [facility] [id number]) Cervical Spine Range of Motion Cervical Spine Active Testing Position Sitting Comments WNL Shoulder Goniometric Range of Motion Shoulder Left Shoulder ROM WFL No Flexion 155 Extension 15 Abduction 147 Horizontal Abduction 75 Horizontal Adduction 30 External Rotation at 45 degrees 55 Abduction Internal Rotation Behind Back (text) T10 Right Shoulder ROM WFL Yes Shoulder ROM Limitations Shoulder ROM Limitations Soft Tissue Tightness,Pain PT-OP-N Lymphedema Start: 05/15/22 16:36 Freq: Status: Active Protocol: Document 09/01/22 13:06 [facility] (Rec: 09/01/22 13:43 [facility] [id number]) Lymphedema Measurements Upper Extremity Circumference Measurements Left Affected MCP 18.2 cm Dorsum of Hand 18.7 cm Wrist 15.3 cm 5 cm From Wrist Crease 15.2 cm 10 cm From Wrist Crease 18.1 cm 15 cm From Wrist Crease 22.4 cm 20 cm From Wrist Crease 23.3 cm 25 cm From Wrist Crease 22.9 cm 30 cm From Wrist Crease 26.8 cm 35 cm From Wrist Crease 28.3 cm 40 cm From Wrist Crease 30.4 cm Elbow Joint 22.8 cm Axilla 29.8 cm PT-OP-Q Treatments Start: 05/15/22 16:36 Freq: Status: Active Protocol: Document 09/01/22 13:06 [facility] (Rec: 09/01/22 13:43 [facility] [id number]) Therapeutic Exercises Supine Exercises I, T, Y Equipment Used wand for I Reps/Minutes 10x AROM followed by end-range stretch PROM left shoulder Reps/Minutes 7 min Comments pin and stretch subaxillary for elevation Sidelying Exercises [place]ton Sidelying Exercise Name AROM Reps/Minutes 5x shoulder abduction Sidelying Exercise Name with manual pin and stretch Manual Therapy Treatment Soft Tissue Mobilization scar massage Body Location mastectomy scars, lumpectomy scar left Mobilization Type Instrument Assisted,Myofascial Release,Rolling Intensity/Depth Moderate Body Position Hooklying Comments small suction tool Taping right mastectomy scar Treatment Focus scar mobility Manual Techniques pin and stretch Type left UE Body Position Hooklying Reps/Duration 5 min Comments subaxillary tissue palpably tight Other Other Manual Treatments UE circumferential measurements Self-Care/Home Management Treatment Education Other Education possible benefits of silicon patches for scar Lymphedema Treatment Manual Lymphatic Drainage Location left UE Duration 20 Comments focus on AAA and AAI pathways with extra time at medial elbow Lymphedema Wrapping Body Location left UE PT-OP-T Assessment and Plan Start: 05/15/22 16:36 Freq: Status: Active Protocol: Document 09/01/22 13:06 [facility] (Rec: 09/01/22 13:43 [facility] [id number]) Physical Therapy Assessment Impairments Impairments Edema,Pain,ROM,Soft Tissue Mobility Goals Three Impairment impaired range of motion left UE, decreased scar mobility Impairment difficulty reaching overhead, behind her back and out to side for purposes of ADL's Short Term Goal (STG) Patient to be independent with HEP as instructed for purposes of ROM and flexibility 06/19/22: goal met STG Duration goal met Half-Way Goal (LTG) Patient to demonstrate ROM WNL left UE and normal scar mobility to allow her to reach overhead, behind her back, and out to side without difficulty for daily activities. 06/19/22: goal progress 08/20/23: decrease in ROM and scar mobility left s/p radiation LTG Duration 10/21/22 Two Impairment swelling left UE Short Term Goal (STG) decrease swelling left UE to no greater than 0.5 cm different than right as compared via cirfumferential measurement 06/19/22: goal met STG Duration goal met Child Support Agent Goal (LTG) Patient to demonstrate good understanding of edema management including wearing compression garment, self- massage, gentle ex 08/21/23: worsening of lymphedema following radiation treatment, needs further treatment. LTG Duration 10/21/22 One Impairment pain left UE worst at elbow Impairment pain as high as 8/10 Short Term Goal (STG) decrease pain to no greater than 4/10 with all usual activities 06/19/22: temporary pain relief with left elbow 08/21/22:Pain 5-6/10 STG Duration 09/20/22 Child Support Agent Goal (LTG) Patient to report ability to do all usual activities with pain no greater than 2/10 LTG Duration 10/21/22 Assessment Summary Assessment Improved nerve pain elbow with subaxillary work and significant decrease in lymphedema left UE. Patient reported she has had some persistent sharp pains in head recently, agreeable to contact physician; no loss of vision or nausea. Trial kinesiotape for scar mobility Physical Therapy Plan Frequency and Duration Frequency of Treatment 2x/Week Duration of treatment (weeks) 8 Plan of Care Start Date 08/21/22 Plan of Care End Date 10/21/22 Therapeutic Interventions Therapeutic Interventions Home Exercise Program, Lymphedema Management,Manual Therapy,Patient/Caregiver Education,Self-Care/Home Management,Soft Tissue Mobilization,Taping, Therapeutic Activities, Therapeutic Exercises Next Visit Focus/Plan Next Note Type Treatment Note Next Visit Plan Continue PT per POC to address lymphedema, soft tissue and ROM restrictions, and left elbow pain.
--- NOTE | 2022-09-11 16:35 | PT.OTN ---
Current Diagnoses Malignant neoplasm of unspecified site of left female breast (09/11/22) Physical Therapy Treatment Note PT-OP-A Visit Information Start: 05/15/22 16:36 Freq: Status: Active Protocol: Document 09/11/22 14:31 SAK (Rec: 09/11/22 15:04 [facility] [id number]) Out-Patient Physical Therapy Visit Information Visit Information Visit Type Treatment Note Visit Start Time 14:32 Visit Stop Time 15:16 Total Visit Minutes 44 Visit Number 12 Precautions Precautions bilateral mastectomy, having further testing left side for potential metastasis PT-OP-B Current Condition Start: 05/15/22 16:36 Freq: Status: Active Protocol: Document 05/20/22 09:49 SAK (Rec: 05/20/22 11:15 [facility] [id number]) Current Condition History of Current Condition Onset Date 03/12/22 Current Complaints funny bone pain, numb forearm, limited motion History of Current Condition bilateral mastectomy with left axillary node dissection left (4/5 positive), sentinal node biopsy right negative. Going to have more tests 06/05/22 to check for any other spread of cancer prior to starting radiation. No chemo planned. Reports since surgery her funny bone has been painfull with movement and if bump elbow. Didn't know precautions for lymphedema, went on plane trip last week, but didn't notice a change Hasn't obtained compression sleeve; ordered one from [employer] that was a one size fits all, and it did not fit. States healing of mastectomy has gone well but the burning pain in her left UE is most limiting. Prior Treatments and Tests as above bilateral mastectomy, further testing to come Treatment Goals Patient/Caregiver Goals Decrease pain, improve flexibility and strength. Prior Functional Status Baseline Function- ADL's Independent Baseline Function- Mobility Independent Baseline Function- Recreation/Hobbies no pain Current Functional Impairments (Reported) Functional Limitations- Recreation/ painful when moving elbow, Hobbies reaching overhead PT-OP-C Subjective Start: 05/15/22 16:36 Freq: Status: Active Protocol: Document 09/11/22 14:31 SAK (Rec: 09/11/22 16:34 [facility] [id number]) OP-PT Subjective Patient Comments Patient Comments Reports had bad skin reaction after ionto patch last time. Overall feeling left elbow has improved some but pain still persists, better after manual techniques in PT. PT-OP-H Neuro Start: 05/15/22 16:36 Freq: Status: Active Protocol: Document 05/20/22 09:49 SAK (Rec: 05/21/22 16:33 [facility] [id number]) Sensation Evaluation Gross Sensation Gross Sensation Left UE Impaired Sensation Description Numbness,Tingling,Pain PT-OP-J Posture/Palpation/Skin Start: 05/15/22 16:36 Freq: Status: Active Protocol: Document 05/20/22 09:49 [facility] (Rec: 05/21/22 16:33 [facility] [id number]) Palpation Assessment Location axilla Palpation Findings Soft Tissue Tightness Palpation Details no palpable axillary cording incisions Palpation Location decreased soft tissue mobility Skin Assessment Edema Assessment left elbow Edema Type Non-Pitting Edema Appearance Puffy Subjective Edema Description Pain Incisional Assessment Incision Appearance/Comments well healed bilateral mastectomy scars Other Assessments Skin Assessment Comments see lymphedema section for circumferential measurements PT-OP-K Range of Motion Start: 05/15/22 16:36 Freq: Status: Active Protocol: Document 05/20/22 09:49 [facility] (Rec: 05/21/22 16:33 [facility] [id number]) Cervical Spine Range of Motion Cervical Spine Active Testing Position Sitting Comments WNL Shoulder Goniometric Range of Motion Shoulder Left Shoulder ROM WFL No Flexion 155 Extension 15 Abduction 147 Horizontal Abduction 75 Horizontal Adduction 30 External Rotation at 45 degrees 55 Abduction Internal Rotation Behind Back (text) T10 Right Shoulder ROM WFL Yes Shoulder ROM Limitations Shoulder ROM Limitations Soft Tissue Tightness,Pain PT-OP-N Lymphedema Start: 05/15/22 16:36 Freq: Status: Active Protocol: Document 09/11/22 14:31 [facility] (Rec: 09/11/22 15:04 [facility] [id number]) Lymphedema Measurements Upper Extremity Circumference Measurements Left Affected MCP 18 cm Dorsum of Hand 17.8 cm Wrist 16 cm 5 cm From Wrist Crease 15.3 cm 10 cm From Wrist Crease 18.7 cm 15 cm From Wrist Crease 21.9 cm 20 cm From Wrist Crease 23.5 cm 25 cm From Wrist Crease 24.3 cm 30 cm From Wrist Crease 27.1 cm 35 cm From Wrist Crease 28.1 cm 40 cm From Wrist Crease 29.7 cm Elbow Joint 23.1 cm Axilla 29.9 cm PT-OP-Q Treatments Start: 05/15/22 16:36 Freq: Status: Active Protocol: Document 09/11/22 14:31 [facility] (Rec: 09/11/22 16:34 [facility] [id number]) Therapeutic Exercises Supine Exercises PROM left shoulder Reps/Minutes 7 min Comments pin and stretch subaxillary for elevation, pt taught technique for self Sitting Exercises ulnar nerve glide Reps/Minutes 10x median nerve glide Reps/Minutes 10x Standing Exercises hor ab stretch Reps/Minutes 2x10 counter stretch Reps/Minutes 2x30 Comments some inc in elbow pain Manual Therapy Treatment Soft Tissue Mobilization scar massage Body Location mastectomy scars, lumpectomy scar left Mobilization Type Instrument Assisted,Myofascial Release,Rolling Intensity/Depth Moderate Body Position Hooklying Comments small suction tool Manual Techniques pin and stretch Type left UE Body Position Hooklying Reps/Duration 5 min Comments subaxillary tissue palpably tight PT-OP-T Assessment and Plan Start: 05/15/22 16:36 Freq: Status: Active Protocol: Document 09/11/22 14:31 [facility] (Rec: 09/11/22 16:34 [facility] [id number]) Physical Therapy Assessment Impairments Impairments Edema,Pain,ROM,Soft Tissue Mobility Goals Three Impairment impaired range of motion left UE, decreased scar mobility Impairment difficulty reaching overhead, behind her back and out to side for purposes of ADL's Short Term Goal (STG) Patient to be independent with HEP as instructed for purposes of ROM and flexibility 06/19/22: goal met STG Duration goal met Skilled Nursing Goal (LTG) Patient to demonstrate ROM WNL left UE and normal scar mobility to allow her to reach overhead, behind her back, and out to side without difficulty for daily activities. 06/19/22: goal progress 08/20/23: decrease in ROM and scar mobility left s/p radiation LTG Duration 10/21/22 Two Impairment swelling left UE Short Term Goal (STG) decrease swelling left UE to no greater than 0.5 cm different than right as compared via cirfumferential measurement 06/19/22: goal met STG Duration goal met Skilled Nursing Goal (LTG) Patient to demonstrate good understanding of edema management including wearing compression garment, self- massage, gentle ex 08/21/23: worsening of lymphedema following radiation treatment, needs further treatment. LTG Duration 10/21/22 One Impairment pain left UE worst at elbow Impairment pain as high as 8/10 Short Term Goal (STG) decrease pain to no greater than 4/10 with all usual activities 06/19/22: temporary pain relief with left elbow 08/21/22:Pain 5-6/10 STG Duration 09/20/22 Skilled Nursing Goal (LTG) Patient to report ability to do all usual activities with pain no greater than 2/10 LTG Duration 10/21/22 Assessment Summary Assessment circumferential measurements variable but overall stable. Patient compliant with HEP and wearing compression. Scar and subaxillary soft tissue mobility improving with manual technques Physical Therapy Plan Frequency and Duration Frequency of Treatment 2x/Week Duration of treatment (weeks) 8 Plan of Care Start Date 08/21/22 Plan of Care End Date 10/21/22 Therapeutic Interventions Therapeutic Interventions Home Exercise Program, Lymphedema Management,Manual Therapy,Patient/Caregiver Education,Self-Care/Home Management,Soft Tissue Mobilization,Taping, Therapeutic Activities, Therapeutic Exercises Next Visit Focus/Plan Next Note Type Treatment Note Next Visit Plan Continue PT per POC to address lymphedema, soft tissue and ROM restrictions, and left elbow pain.
--- NOTE | 2022-09-17 16:39 | PT.OTN ---
Current Diagnoses Malignant neoplasm of unspecified site of left female breast (09/17/22) Physical Therapy Treatment Note PT-OP-A Visit Information Start: 05/15/22 16:36 Freq: Status: Active Protocol: Document 09/17/22 09:42 [facility]AK (Rec: 09/17/22 10:34 [facility] [id number]) Out-Patient Physical Therapy Visit Information Visit Information Visit Type Treatment Note Visit Start Time 09:45 Visit Stop Time 10:29 Total Visit Minutes 44 Visit Number 13 Precautions Precautions bilateral mastectomy, having further testing left side for potential metastasis PT-OP-B Current Condition Start: 05/15/22 16:36 Freq: Status: Active Protocol: Document 05/20/22 09:49 SAK (Rec: 05/20/22 11:15 [facility] [id number]) Current Condition History of Current Condition Onset Date 03/12/22 Current Complaints funny bone pain, numb forearm, limited motion History of Current Condition bilateral mastectomy with left axillary node dissection left (4/5 positive), sentinal node biopsy right negative. Going to have more tests 06/05/22 to check for any other spread of cancer prior to starting radiation. No chemo planned. Reports since surgery her funny bone has been painfull with movement and if bump elbow. Didn't know precautions for lymphedema, went on plane trip last week, but didn't notice a change Hasn't obtained compression sleeve; ordered one from [employer] that was a one size fits all, and it did not fit. States healing of mastectomy has gone well but the burning pain in her left UE is most limiting. Prior Treatments and Tests as above bilateral mastectomy, further testing to come Treatment Goals Patient/Caregiver Goals Decrease pain, improve flexibility and strength. Prior Functional Status Baseline Function- ADL's Independent Baseline Function- Mobility Independent Baseline Function- Recreation/Hobbies no pain Current Functional Impairments (Reported) Functional Limitations- Recreation/ painful when moving elbow, Hobbies reaching overhead PT-OP-C Subjective Start: 05/15/22 16:36 Freq: Status: Active Protocol: Document 09/17/22 09:42 SAK (Rec: 09/17/22 10:34 [facility] [id number]) OP-PT Subjective Patient Comments Patient Comments Decreasing nerve pain left axilla with manual PT techniques. After stretching new compression sleeve at top is able to wear with much more comfort. PT-OP-H Neuro Start: 05/15/22 16:36 Freq: Status: Active Protocol: Document 05/20/22 09:49 SAK (Rec: 05/21/22 16:33 [facility] [id number]) Sensation Evaluation Gross Sensation Gross Sensation Left UE Impaired Sensation Description Numbness,Tingling,Pain PT-OP-J Posture/Palpation/Skin Start: 05/15/22 16:36 Freq: Status: Active Protocol: Document 05/20/22 09:49 SAK (Rec: 05/21/22 16:33 [facility] [id number]) Palpation Assessment Location axilla Palpation Findings Soft Tissue Tightness Palpation Details no palpable axillary cording incisions Palpation Location decreased soft tissue mobility Skin Assessment Edema Assessment left elbow Edema Type Non-Pitting Edema Appearance Puffy Subjective Edema Description Pain Incisional Assessment Incision Appearance/Comments well healed bilateral mastectomy scars Other Assessments Skin Assessment Comments see lymphedema section for circumferential measurements PT-OP-K Range of Motion Start: 05/15/22 16:36 Freq: Status: Active Protocol: Document 05/20/22 09:49 [facility] (Rec: 05/21/22 16:33 [facility] [id number]) Cervical Spine Range of Motion Cervical Spine Active Testing Position Sitting Comments WNL Shoulder Goniometric Range of Motion Shoulder Left Shoulder ROM WFL No Flexion 155 Extension 15 Abduction 147 Horizontal Abduction 75 Horizontal Adduction 30 External Rotation at 45 degrees 55 Abduction Internal Rotation Behind Back (text) T10 Right Shoulder ROM WFL Yes Shoulder ROM Limitations Shoulder ROM Limitations Soft Tissue Tightness,Pain PT-OP-N Lymphedema Start: 05/15/22 16:36 Freq: Status: Active Protocol: Document 09/17/22 09:42 [facility] (Rec: 09/17/22 10:34 [facility] [id number]) Lymphedema Measurements Upper Extremity Circumference Measurements Left Affected MCP 18.1 cm Dorsum of Hand 18.6 cm Wrist 15.9 cm 5 cm From Wrist Crease 15.8 cm 10 cm From Wrist Crease 19.4 cm 15 cm From Wrist Crease 22.5 cm 20 cm From Wrist Crease 23.4 cm 25 cm From Wrist Crease 24.5 cm 30 cm From Wrist Crease 26.9 cm 35 cm From Wrist Crease 28.9 cm 40 cm From Wrist Crease 29.5 cm Axilla 30.8 cm PT-OP-Q Treatments Start: 05/15/22 16:36 Freq: Status: Active Protocol: Document 09/17/22 09:42 [facility] (Rec: 09/17/22 16:39 [facility] [id number]) Therapeutic Exercises Supine Exercises PROM left shoulder Reps/Minutes 7 min Comments pin and stretch subaxillary for elevation, pt taught technique for self Sidelying Exercises kashia Sidelying Exercise Name AROM Reps/Minutes 5x shoulder abduction Sidelying Exercise Name with manual pin and stretch Standing Exercises doorway stretch Reps/Minutes 3x30 counter stretch Reps/Minutes 2x30 Manual Therapy Treatment Soft Tissue Mobilization scar massage Body Location mastectomy scars, lumpectomy scar left Mobilization Type Instrument Assisted,Myofascial Release,Rolling Intensity/Depth Moderate Body Position Hooklying Comments small suction tool Manual Techniques pin and stretch Type left UE Body Position Hooklying Reps/Duration 8 min Comments subaxillary tissue palpably tight PT-OP-T Assessment and Plan Start: 05/15/22 16:36 Freq: Status: Active Protocol: Document 09/17/22 09:42 [facility] (Rec: 09/17/22 10:34 [facility] [id number]) Physical Therapy Assessment Impairments Impairments Edema,Pain,ROM,Soft Tissue Mobility Goals Three Impairment impaired range of motion left UE, decreased scar mobility Impairment difficulty reaching overhead, behind her back and out to side for purposes of ADL's Short Term Goal (STG) Patient to be independent with HEP as instructed for purposes of ROM and flexibility 06/19/22: goal met STG Duration goal met Neck Band Setter Goal (LTG) Patient to demonstrate ROM WNL left UE and normal scar mobility to allow her to reach overhead, behind her back, and out to side without difficulty for daily activities. 06/19/22: goal progress 08/20/23: decrease in ROM and scar mobility left s/p radiation 09/17/22: shoulder ROM close to full, scar and subaxillary soft tissue mobility improving , mild restrictions now LTG Duration 10/21/22 Two Impairment swelling left UE Short Term Goal (STG) decrease swelling left UE to no greater than 0.5 cm different than right as compared via cirfumferential measurement 06/19/22: goal met STG Duration goal met Neck Band Setter Goal (LTG) Patient to demonstrate good understanding of edema management including wearing compression garment, self- massage, gentle ex 08/21/23: worsening of lymphedema following radiation treatment, needs further treatment. 09/17/22: compliant to HEP, tightens easily s/p radiation requiring ex performance several times per day, pt highly compliant. LTG Duration 10/21/22 One Impairment pain left UE worst at elbow Impairment pain as high as 8/10 Short Term Goal (STG) decrease pain to no greater than 4/10 with all usual activities 06/19/22: temporary pain relief with left elbow 08/21/22:Pain 5-6/10 09/17/22: Pain dec to 4-5/10 STG Duration 09/20/22 Neck Band Setter Goal (LTG) Patient to report ability to do all usual activities with pain no greater than 2/10 LTG Duration 10/21/22 Assessment Summary Assessment Good fit of new compression sleeve, measurements stable, pain decreasing and scar and subaxillary soft tissue mobility improving with manual techniques, shoulder ROM close to full. Physical Therapy Plan Frequency and Duration Frequency of Treatment 2x/Week Duration of treatment (weeks) 8 Plan of Care Start Date 08/21/22 Plan of Care End Date 10/21/22 Therapeutic Interventions Therapeutic Interventions Home Exercise Program, Lymphedema Management,Manual Therapy,Patient/Caregiver Education,Self-Care/Home Management,Soft Tissue Mobilization,Taping, Therapeutic Activities, Therapeutic Exercises Next Visit Focus/Plan Next Note Type Treatment Note Next Visit Plan Continue PT per POC to address lymphedema, soft tissue and ROM restrictions, and left elbow pain.
--- NOTE | 2022-09-22 15:09 | PT.OTN ---
Current Diagnoses Malignant neoplasm of unspecified site of left female breast (09/22/22) Physical Therapy Treatment Note PT-OP-A Visit Information Start: 05/15/22 16:36 Freq: Status: Active Protocol: Document 09/22/22 11:16 [facility] (Rec: 09/22/22 12:08 [facility] [id number]) Out-Patient Physical Therapy Visit Information Visit Information Visit Type Treatment Note Visit Start Time 11:16 Visit Stop Time 12:01 Total Visit Minutes 45 Visit Number 14 Precautions Precautions bilateral mastectomy, having further testing left side for potential metastasis PT-OP-B Current Condition Start: 05/15/22 16:36 Freq: Status: Active Protocol: Document 05/20/22 09:49 [facility] (Rec: 05/20/22 11:15 [facility] [id number]) Current Condition History of Current Condition Onset Date 03/12/22 Current Complaints funny bone pain, numb forearm, limited motion History of Current Condition bilateral mastectomy with left axillary node dissection left (4/5 positive), sentinal node biopsy right negative. Going to have more tests 06/05/22 to check for any other spread of cancer prior to starting radiation. No chemo planned. Reports since surgery her funny bone has been painfull with movement and if bump elbow. Didn't know precautions for lymphedema, went on plane trip last week, but didn't notice a change Hasn't obtained compression sleeve; ordered one from [employer] that was a one size fits all, and it did not fit. States healing of mastectomy has gone well but the burning pain in her left UE is most limiting. Prior Treatments and Tests as above bilateral mastectomy, further testing to come Treatment Goals Patient/Caregiver Goals Decrease pain, improve flexibility and strength. Prior Functional Status Baseline Function- ADL's Independent Baseline Function- Mobility Independent Baseline Function- Recreation/Hobbies no pain Current Functional Impairments (Reported) Functional Limitations- Recreation/ painful when moving elbow, Hobbies reaching overhead PT-OP-C Subjective Start: 05/15/22 16:36 Freq: Status: Active Protocol: Document 09/22/22 11:16 [facility] (Rec: 09/22/22 12:08 [facility] [id number]) OP-PT Subjective Patient Comments Patient Comments Feels some of her feeling under her arm and in chest is coming back. Manual PT techniques helping mobility of shoulder though things tighten up quickly as day progresses. AGreed she needs to do doorway stretch several times throughout the day PT-OP-H Neuro Start: 05/15/22 16:36 Freq: Status: Active Protocol: Document 05/20/22 09:49 [facility] (Rec: 05/21/22 16:33 [facility] [id number]) Sensation Evaluation Gross Sensation Gross Sensation Left UE Impaired Sensation Description Numbness,Tingling,Pain PT-OP-J Posture/Palpation/Skin Start: 05/15/22 16:36 Freq: Status: Active Protocol: Document 05/20/22 09:49 [facility] (Rec: 05/21/22 16:33 [facility] [id number]) Palpation Assessment Location axilla Palpation Findings Soft Tissue Tightness Palpation Details no palpable axillary cording incisions Palpation Location decreased soft tissue mobility Skin Assessment Edema Assessment left elbow Edema Type Non-Pitting Edema Appearance Puffy Subjective Edema Description Pain Incisional Assessment Incision Appearance/Comments well healed bilateral mastectomy scars Other Assessments Skin Assessment Comments see lymphedema section for circumferential measurements PT-OP-K Range of Motion Start: 05/15/22 16:36 Freq: Status: Active Protocol: Document 05/20/22 09:49 [facility] (Rec: 05/21/22 16:33 [facility] [id number]) Cervical Spine Range of Motion Cervical Spine Active Testing Position Sitting Comments WNL Shoulder Goniometric Range of Motion Shoulder Left Shoulder ROM WFL No Flexion 155 Extension 15 Abduction 147 Horizontal Abduction 75 Horizontal Adduction 30 External Rotation at 45 degrees 55 Abduction Internal Rotation Behind Back (text) T10 Right Shoulder ROM WFL Yes Shoulder ROM Limitations Shoulder ROM Limitations Soft Tissue Tightness,Pain PT-OP-N Lymphedema Start: 05/15/22 16:36 Freq: Status: Active Protocol: Document 09/17/22 09:42 [facility] (Rec: 09/17/22 10:34 [facility] [id number]) Lymphedema Measurements Upper Extremity Circumference Measurements Left Affected MCP 18.1 cm Dorsum of Hand 18.6 cm Wrist 15.9 cm 5 cm From Wrist Crease 15.8 cm 10 cm From Wrist Crease 19.4 cm 15 cm From Wrist Crease 22.5 cm 20 cm From Wrist Crease 23.4 cm 25 cm From Wrist Crease 24.5 cm 30 cm From Wrist Crease 26.9 cm 35 cm From Wrist Crease 28.9 cm 40 cm From Wrist Crease 29.5 cm Axilla 30.8 cm PT-OP-Q Treatments Start: 05/15/22 16:36 Freq: Status: Active Protocol: Document 09/22/22 11:16 [facility] (Rec: 09/22/22 12:08 [facility] [id number]) Therapeutic Exercises Supine Exercises I, T, Y Equipment Used wand for I Reps/Minutes 10x AROM followed by end-range stretch PROM left shoulder Reps/Minutes 12 min Comments pin and stretch Manual Therapy Treatment Soft Tissue Mobilization scar massage Body Location mastectomy scars, lumpectomy scar left, subaxillary region Mobilization Type Instrument Assisted,Myofascial Release,Rolling Intensity/Depth Moderate Body Position Hooklying Comments small suction tool Manual Techniques pin and stretch Type left UE Body Position Hooklying Reps/Duration 8 min Comments subaxillary tissue palpably tight PT-OP-T Assessment and Plan Start: 05/15/22 16:36 Freq: Status: Active Protocol: Document 09/22/22 11:16 [facility] (Rec: 09/22/22 12:08 [facility] [id number]) Physical Therapy Assessment Impairments Impairments Edema,Pain,ROM,Soft Tissue Mobility Goals Three Impairment impaired range of motion left UE, decreased scar mobility Impairment difficulty reaching overhead, behind her back and out to side for purposes of ADL's Short Term Goal (STG) Patient to be independent with HEP as instructed for purposes of ROM and flexibility 06/19/22: goal met STG Duration goal met Skilled Nursing Goal (LTG) Patient to demonstrate ROM WNL left UE and normal scar mobility to allow her to reach overhead, behind her back, and out to side without difficulty for daily activities. 06/19/22: goal progress 08/20/23: decrease in ROM and scar mobility left s/p radiation 09/17/22: shoulder ROM close to full, scar and subaxillary soft tissue mobility improving , mild restrictions now LTG Duration 10/21/22 Two Impairment swelling left UE Short Term Goal (STG) decrease swelling left UE to no greater than 0.5 cm different than right as compared via cirfumferential measurement 06/19/22: goal met STG Duration goal met Skilled Nursing Goal (LTG) Patient to demonstrate good understanding of edema management including wearing compression garment, self- massage, gentle ex 08/21/23: worsening of lymphedema following radiation treatment, needs further treatment. 09/17/22: compliant to HEP, tightens easily s/p radiation requiring ex performance several times per day, pt highly compliant. LTG Duration 10/21/22 One Impairment pain left UE worst at elbow Impairment pain as high as 8/10 Short Term Goal (STG) decrease pain to no greater than 4/10 with all usual activities 06/19/22: temporary pain relief with left elbow 08/21/22:Pain 5-6/10 09/17/22: Pain dec to 4-5/10 STG Duration 09/20/22 Inside Account Executive Goal (LTG) Patient to report ability to do all usual activities with pain no greater than 2/10 LTG Duration 10/21/22 Progress Towards Goals Progress Towards Goals Progressing Toward Goals Assessment Summary Assessment Decreased subaxillary tissue adhesions after manual techniques noted, ROM of shoulder continues to improve. Patient highly compliant to HEP and self-management. Physical Therapy Plan Frequency and Duration Frequency of Treatment 2x/Week Duration of treatment (weeks) 8 Plan of Care Start Date 08/21/22 Plan of Care End Date 10/21/22 Therapeutic Interventions Therapeutic Interventions Home Exercise Program, Lymphedema Management,Manual Therapy,Patient/Caregiver Education,Self-Care/Home Management,Soft Tissue Mobilization,Taping, Therapeutic Activities, Therapeutic Exercises Next Visit Focus/Plan Next Note Type Treatment Note Next Visit Plan Continue PT per POC to address lymphedema, soft tissue and ROM restrictions, and left elbow pain.
--- NOTE | 2022-09-24 14:10 | PT.OTN ---
Current Diagnoses Malignant neoplasm of unspecified site of left female breast (09/24/22) Physical Therapy Treatment Note PT-OP-A Visit Information Start: 05/15/22 16:36 Freq: Status: Active Protocol: Document 09/24/22 13:03 [facility] (Rec: 09/24/22 13:38 [facility] [id number]) Out-Patient Physical Therapy Visit Information Visit Information Visit Type Treatment Note Visit Start Time 13:04 Visit Stop Time 14:07 Total Visit Minutes 63 Visit Number 15 Precautions Precautions bilateral mastectomy, having further testing left side for potential metastasis PT-OP-B Current Condition Start: 05/15/22 16:36 Freq: Status: Active Protocol: Document 05/20/22 09:49 [facility] (Rec: 05/20/22 11:15 [facility] [id number]) Current Condition History of Current Condition Onset Date 03/12/22 Current Complaints funny bone pain, numb forearm, limited motion History of Current Condition bilateral mastectomy with left axillary node dissection left (4/5 positive), sentinal node biopsy right negative. Going to have more tests 06/05/22 to check for any other spread of cancer prior to starting radiation. No chemo planned. Reports since surgery her funny bone has been painfull with movement and if bump elbow. Didn't know precautions for lymphedema, went on plane trip last week, but didn't notice a change Hasn't obtained compression sleeve; ordered one from [email or web address] that was a one size fits all, and it did not fit. States healing of mastectomy has gone well but the burning pain in her left UE is most limiting. Prior Treatments and Tests as above bilateral mastectomy, further testing to come Treatment Goals Patient/Caregiver Goals Decrease pain, improve flexibility and strength. Prior Functional Status Baseline Function- ADL's Independent Baseline Function- Mobility Independent Baseline Function- Recreation/Hobbies no pain Current Functional Impairments (Reported) Functional Limitations- Recreation/ painful when moving elbow, Hobbies reaching overhead PT-OP-C Subjective Start: 05/15/22 16:36 Freq: Status: Active Protocol: Document 09/24/22 13:03 [facility] (Rec: 09/24/22 13:38 [facility] [id number]) OP-PT Subjective Patient Comments Patient Comments Pain decreasing in elbow and under arm, feels manual treatment helping. Compliant to HEP. PT-OP-H Neuro Start: 05/15/22 16:36 Freq: Status: Active Protocol: Document 05/20/22 09:49 [facility] (Rec: 05/21/22 16:33 [facility] [id number]) Sensation Evaluation Gross Sensation Gross Sensation Left UE Impaired Sensation Description Numbness,Tingling,Pain PT-OP-J Posture/Palpation/Skin Start: 05/15/22 16:36 Freq: Status: Active Protocol: Document 05/20/22 09:49 [facility] (Rec: 05/21/22 16:33 [facility] [id number]) Palpation Assessment Location axilla Palpation Findings Soft Tissue Tightness Palpation Details no palpable axillary cording incisions Palpation Location decreased soft tissue mobility Skin Assessment Edema Assessment left elbow Edema Type Non-Pitting Edema Appearance Puffy Subjective Edema Description Pain Incisional Assessment Incision Appearance/Comments well healed bilateral mastectomy scars Other Assessments Skin Assessment Comments see lymphedema section for circumferential measurements PT-OP-K Range of Motion Start: 05/15/22 16:36 Freq: Status: Active Protocol: Document 05/20/22 09:49 [facility] (Rec: 05/21/22 16:33 [facility] [id number]) Cervical Spine Range of Motion Cervical Spine Active Testing Position Sitting Comments WNL Shoulder Goniometric Range of Motion Shoulder Left Shoulder ROM WFL No Flexion 155 Extension 15 Abduction 147 Horizontal Abduction 75 Horizontal Adduction 30 External Rotation at 45 degrees 55 Abduction Internal Rotation Behind Back (text) T10 Right Shoulder ROM WFL Yes Shoulder ROM Limitations Shoulder ROM Limitations Soft Tissue Tightness,Pain PT-OP-N Lymphedema Start: 05/15/22 16:36 Freq: Status: Active Protocol: Document 09/24/22 13:03 [facility] (Rec: 09/24/22 13:38 [facility] [id number]) Lymphedema Measurements Upper Extremity Circumference Measurements Left Affected MCP 18.2 cm Dorsum of Hand 18.1 cm Wrist 15.7 cm 5 cm From Wrist Crease 15.5 cm 10 cm From Wrist Crease 18.4 cm 15 cm From Wrist Crease 22.3 cm 20 cm From Wrist Crease 23 cm 25 cm From Wrist Crease 24.3 cm 30 cm From Wrist Crease 27 cm 35 cm From Wrist Crease 28.2 cm 40 cm From Wrist Crease 29.7 cm Axilla 30.6 cm PT-OP-Q Treatments Start: 05/15/22 16:36 Freq: Status: Active Protocol: Document 09/24/22 13:03 [facility] (Rec: 09/24/22 13:38 [facility] [id number]) Therapeutic Exercises Supine Exercises I, T, Y Equipment Used wand for I Reps/Minutes 10x AROM followed by end-range stretch PROM left shoulder Reps/Minutes 12 min Comments pin and stretch Sidelying Exercises upper sioux Sidelying Exercise Name AROM Reps/Minutes 5x shoulder abduction Sidelying Exercise Name with manual pin and stretch open book Sidelying Exercise Name HEP Manual Therapy Treatment Soft Tissue Mobilization scar massage Body Location mastectomy scars, lumpectomy scar left, subaxillary region Mobilization Type Instrument Assisted,Myofascial Release,Rolling Intensity/Depth Moderate Body Position Hooklying Comments small suction tool Manual Techniques pin and stretch Type left UE Body Position Hooklying Reps/Duration 14 min Comments subaxillary tissue palpably tight PT-OP-T Assessment and Plan Start: 05/15/22 16:36 Freq: Status: Active Protocol: Document 09/24/22 13:03 [facility] (Rec: 09/24/22 13:38 [facility] [id number]) Physical Therapy Assessment Impairments Impairments Edema,Pain,ROM,Soft Tissue Mobility Goals Three Impairment impaired range of motion left UE, decreased scar mobility Impairment difficulty reaching overhead, behind her back and out to side for purposes of ADL's Short Term Goal (STG) Patient to be independent with HEP as instructed for purposes of ROM and flexibility 06/19/22: goal met STG Duration goal met Real Estate Processor Goal (LTG) Patient to demonstrate ROM WNL left UE and normal scar mobility to allow her to reach overhead, behind her back, and out to side without difficulty for daily activities. 06/19/22: goal progress 08/20/23: decrease in ROM and scar mobility left s/p radiation 09/17/22: shoulder ROM close to full, scar and subaxillary soft tissue mobility improving , mild restrictions now LTG Duration 10/21/22 Two Impairment swelling left UE Short Term Goal (STG) decrease swelling left UE to no greater than 0.5 cm different than right as compared via cirfumferential measurement 06/19/22: goal met STG Duration goal met Senior Care Goal (LTG) Patient to demonstrate good understanding of edema management including wearing compression garment, self- massage, gentle ex 08/21/23: worsening of lymphedema following radiation treatment, needs further treatment. 09/17/22: compliant to HEP, tightens easily s/p radiation requiring ex performance several times per day, pt highly compliant. LTG Duration 10/21/22 One Impairment pain left UE worst at elbow Impairment pain as high as 8/10 Short Term Goal (STG) decrease pain to no greater than 4/10 with all usual activities 06/19/22: temporary pain relief with left elbow 08/21/22:Pain 5-6/10 09/17/22: Pain dec to 4-5/10 STG Duration 09/20/22 Real Estate Processor Goal (LTG) Patient to report ability to do all usual activities with pain no greater than 2/10 LTG Duration 10/21/22 Progress Towards Goals Progress Towards Goals Progressing Toward Goals Assessment Summary Assessment Decreased circumferential measurements, patient progressing well with decreased limb volume, improve soft tissue mobility and ROM. Physical Therapy Plan Frequency and Duration Frequency of Treatment 2x/Week Duration of treatment (weeks) 8 Plan of Care Start Date 08/21/22 Plan of Care End Date 10/21/22 Therapeutic Interventions Therapeutic Interventions Home Exercise Program, Lymphedema Management,Manual Therapy,Patient/Caregiver Education,Self-Care/Home Management,Soft Tissue Mobilization,Taping, Therapeutic Activities, Therapeutic Exercises Next Visit Focus/Plan Next Note Type Treatment Note Next Visit Plan Continue lymphedema management , soft tissue mobilization and ROM
--- NOTE | 2022-09-30 11:07 | PT.OTN ---
Current Diagnoses Malignant neoplasm of unspecified site of left female breast (09/30/22) Physical Therapy Treatment Note PT-OP-A Visit Information Start: 05/15/22 16:36 Freq: Status: Active Protocol: Document 09/30/22 09:48 [facility] (Rec: 09/30/22 11:07 [facility] [id number]) Out-Patient Physical Therapy Visit Information Visit Information Visit Type Treatment Note Visit Start Time 09:50 Visit Stop Time 11:05 Total Visit Minutes 75 Visit Number 16 Precautions Precautions bilateral mastectomy, having further testing left side for potential metastasis PT-OP-B Current Condition Start: 05/15/22 16:36 Freq: Status: Active Protocol: Document 05/20/22 09:49 [facility] (Rec: 05/20/22 11:15 [facility] [id number]) Current Condition History of Current Condition Onset Date 03/12/22 Current Complaints funny bone pain, numb forearm, limited motion History of Current Condition bilateral mastectomy with left axillary node dissection left (4/5 positive), sentinal node biopsy right negative. Going to have more tests 06/05/22 to check for any other spread of cancer prior to starting radiation. No chemo planned. Reports since surgery her funny bone has been painfull with movement and if bump elbow. Didn't know precautions for lymphedema, went on plane trip last week, but didn't notice a change Hasn't obtained compression sleeve; ordered one from [employer] that was a one size fits all, and it did not fit. States healing of mastectomy has gone well but the burning pain in her left UE is most limiting. Prior Treatments and Tests as above bilateral mastectomy, further testing to come Treatment Goals Patient/Caregiver Goals Decrease pain, improve flexibility and strength. Prior Functional Status Baseline Function- ADL's Independent Baseline Function- Mobility Independent Baseline Function- Recreation/Hobbies no pain Current Functional Impairments (Reported) Functional Limitations- Recreation/ painful when moving elbow, Hobbies reaching overhead PT-OP-C Subjective Start: 05/15/22 16:36 Freq: Status: Active Protocol: Document 09/30/22 09:48 [facility]AK (Rec: 09/30/22 11:07 [facility] [id number]) OP-PT Subjective Patient Comments Patient Comments States arm feels heavy like lead at the top when wakes up in the am. Stretches out but things tighten back up. PT-OP-H Neuro Start: 05/15/22 16:36 Freq: Status: Active Protocol: Document 05/20/22 09:49 [facility] (Rec: 05/21/22 16:33 [facility] [id number]) Sensation Evaluation Gross Sensation Gross Sensation Left UE Impaired Sensation Description Numbness,Tingling,Pain PT-OP-J Posture/Palpation/Skin Start: 05/15/22 16:36 Freq: Status: Active Protocol: Document 05/20/22 09:49 [facility] (Rec: 05/21/22 16:33 [facility] [id number]) Palpation Assessment Location axilla Palpation Findings Soft Tissue Tightness Palpation Details no palpable axillary cording incisions Palpation Location decreased soft tissue mobility Skin Assessment Edema Assessment left elbow Edema Type Non-Pitting Edema Appearance Puffy Subjective Edema Description Pain Incisional Assessment Incision Appearance/Comments well healed bilateral mastectomy scars Other Assessments Skin Assessment Comments see lymphedema section for circumferential measurements PT-OP-K Range of Motion Start: 05/15/22 16:36 Freq: Status: Active Protocol: Document 05/20/22 09:49 [facility] (Rec: 05/21/22 16:33 [facility] [id number]) Cervical Spine Range of Motion Cervical Spine Active Testing Position Sitting Comments WNL Shoulder Goniometric Range of Motion Shoulder Left Shoulder ROM WFL No Flexion 155 Extension 15 Abduction 147 Horizontal Abduction 75 Horizontal Adduction 30 External Rotation at 45 degrees 55 Abduction Internal Rotation Behind Back (text) T10 Right Shoulder ROM WFL Yes Shoulder ROM Limitations Shoulder ROM Limitations Soft Tissue Tightness,Pain PT-OP-N Lymphedema Start: 05/15/22 16:36 Freq: Status: Active Protocol: Document 09/24/22 13:03 [facility] (Rec: 09/24/22 13:38 [facility] [id number]) Lymphedema Measurements Upper Extremity Circumference Measurements Left Affected MCP 18.2 cm Dorsum of Hand 18.1 cm Wrist 15.7 cm 5 cm From Wrist Crease 15.5 cm 10 cm From Wrist Crease 18.4 cm 15 cm From Wrist Crease 22.3 cm 20 cm From Wrist Crease 23 cm 25 cm From Wrist Crease 24.3 cm 30 cm From Wrist Crease 27 cm 35 cm From Wrist Crease 28.2 cm 40 cm From Wrist Crease 29.7 cm Axilla 30.6 cm PT-OP-Q Treatments Start: 05/15/22 16:36 Freq: Status: Active Protocol: Document 09/30/22 09:48 [facility] (Rec: 09/30/22 11:07 [facility] [id number]) Therapeutic Exercises Supine Exercises I, T, Y Equipment Used wand for I Reps/Minutes 10x AROM followed by end-range stretch PROM left shoulder Reps/Minutes 12 min Comments pin and stretch Sidelying Exercises [place] Sidelying Exercise Name AROM Reps/Minutes 5x shoulder abduction Sidelying Exercise Name with manual pin and stretch open book Sidelying Exercise Name HEP Manual Therapy Treatment Soft Tissue Mobilization scar massage Body Location mastectomy scars, lumpectomy scar left, subaxillary region Mobilization Type Instrument Assisted,Myofascial Release,Rolling Intensity/Depth Moderate Body Position Hooklying Comments small suction tool Manual Techniques pin and stretch Type left UE Body Position Hooklying Reps/Duration 14 min Comments subaxillary tissue palpably tight PT-OP-T Assessment and Plan Start: 05/15/22 16:36 Freq: Status: Active Protocol: Document 09/30/22 09:48 [facility] (Rec: 09/30/22 11:07 [facility] [id number]) Physical Therapy Assessment Impairments Impairments Edema,Pain,ROM,Soft Tissue Mobility Goals Three Impairment impaired range of motion left UE, decreased scar mobility Impairment difficulty reaching overhead, behind her back and out to side for purposes of ADL's Short Term Goal (STG) Patient to be independent with HEP as instructed for purposes of ROM and flexibility 06/19/22: goal met STG Duration goal met Fdc Goal (LTG) Patient to demonstrate ROM WNL left UE and normal scar mobility to allow her to reach overhead, behind her back, and out to side without difficulty for daily activities. 06/19/22: goal progress 08/20/23: decrease in ROM and scar mobility left s/p radiation 09/17/22: shoulder ROM close to full, scar and subaxillary soft tissue mobility improving , mild restrictions now LTG Duration 10/21/22 Two Impairment swelling left UE Short Term Goal (STG) decrease swelling left UE to no greater than 0.5 cm different than right as compared via cirfumferential measurement 06/19/22: goal met STG Duration goal met Routing Machine Operator Goal (LTG) Patient to demonstrate good understanding of edema management including wearing compression garment, self- massage, gentle ex 08/21/23: worsening of lymphedema following radiation treatment, needs further treatment. 09/17/22: compliant to HEP, tightens easily s/p radiation requiring ex performance several times per day, pt highly compliant. LTG Duration 10/21/22 One Impairment pain left UE worst at elbow Impairment pain as high as 8/10 Short Term Goal (STG) decrease pain to no greater than 4/10 with all usual activities 06/19/22: temporary pain relief with left elbow 08/21/22:Pain 5-6/10 09/17/22: Pain dec to 4-5/10 STG Duration 09/20/22 Fdc Goal (LTG) Patient to report ability to do all usual activities with pain no greater than 2/10 LTG Duration 10/21/22 Progress Towards Goals Progress Towards Goals Progressing Toward Goals Assessment Summary Assessment Stressed longer holds in stretches and with MFR for improved tissue lengthening; patient demonstrated good understanding. Improved ROM. Good mobility right mastectomy scar, fair right. Some adherent tissue still present subaxillary region but improving. Physical Therapy Plan Frequency and Duration Frequency of Treatment 2x/Week Duration of treatment (weeks) 8 Plan of Care Start Date 08/21/22 Plan of Care End Date 10/21/22 Therapeutic Interventions Therapeutic Interventions Home Exercise Program, Lymphedema Management,Manual Therapy,Patient/Caregiver Education,Self-Care/Home Management,Soft Tissue Mobilization,Taping, Therapeutic Activities, Therapeutic Exercises Next Visit Focus/Plan Next Note Type Treatment Note Next Visit Plan Continue lymphedema management , soft tissue mobilization and ROM
--- NOTE | 2022-10-02 16:10 | PT.OTN ---
Current Diagnoses Malignant neoplasm of unspecified site of left female breast (10/02/22) Physical Therapy Treatment Note PT-OP-A Visit Information Start: 05/15/22 16:36 Freq: Status: Active Protocol: Document 10/02/22 09:05 [facility] (Rec: 10/02/22 09:13 [facility] [id number]) Out-Patient Physical Therapy Visit Information Visit Information Visit Type Treatment Note Visit Start Time 09:05 Visit Stop Time 10:15 Total Visit Minutes 70 Visit Number 17 Evaluation Information Evaluation Date 05/20/22 Precautions Precautions bilateral mastectomy, having further testing left side for potential metastasis PT-OP-B Current Condition Start: 05/15/22 16:36 Freq: Status: Active Protocol: Document 05/20/22 09:49 [facility] (Rec: 05/20/22 11:15 [facility] [id number]) Current Condition History of Current Condition Onset Date 03/12/22 Current Complaints funny bone pain, numb forearm, limited motion History of Current Condition bilateral mastectomy with left axillary node dissection left (4/5 positive), sentinal node biopsy right negative. Going to have more tests 06/05/22 to check for any other spread of cancer prior to starting radiation. No chemo planned. Reports since surgery her funny bone has been painfull with movement and if bump elbow. Didn't know precautions for lymphedema, went on plane trip last week, but didn't notice a change Hasn't obtained compression sleeve; ordered one from [employer] that was a one size fits all, and it did not fit. States healing of mastectomy has gone well but the burning pain in her left UE is most limiting. Prior Treatments and Tests as above bilateral mastectomy, further testing to come Treatment Goals Patient/Caregiver Goals Decrease pain, improve flexibility and strength. Prior Functional Status Baseline Function- ADL's Independent Baseline Function- Mobility Independent Baseline Function- Recreation/Hobbies no pain Current Functional Impairments (Reported) Functional Limitations- Recreation/ painful when moving elbow, Hobbies reaching overhead PT-OP-C Subjective Start: 05/15/22 16:36 Freq: Status: Active Protocol: Document 10/02/22 09:05 [facility] (Rec: 10/02/22 09:13 [facility] [id number]) OP-PT Subjective Patient Comments Patient Comments Has been doing longer holds for stretches as instructed, finds helpful. Concerned about gap in treatment due to lack of PT session availability PT-OP-H Neuro Start: 05/15/22 16:36 Freq: Status: Active Protocol: Document 05/20/22 09:49 [facility] (Rec: 05/21/22 16:33 [facility] [id number]) Sensation Evaluation Gross Sensation Gross Sensation Left UE Impaired Sensation Description Numbness,Tingling,Pain PT-OP-J Posture/Palpation/Skin Start: 05/15/22 16:36 Freq: Status: Active Protocol: Document 05/20/22 09:49 [facility] (Rec: 05/21/22 16:33 [facility] [id number]) Palpation Assessment Location axilla Palpation Findings Soft Tissue Tightness Palpation Details no palpable axillary cording incisions Palpation Location decreased soft tissue mobility Skin Assessment Edema Assessment left elbow Edema Type Non-Pitting Edema Appearance Puffy Subjective Edema Description Pain Incisional Assessment Incision Appearance/Comments well healed bilateral mastectomy scars Other Assessments Skin Assessment Comments see lymphedema section for circumferential measurements PT-OP-K Range of Motion Start: 05/15/22 16:36 Freq: Status: Active Protocol: Document 05/20/22 09:49 [facility] (Rec: 05/21/22 16:33 [facility] [id number]) Cervical Spine Range of Motion Cervical Spine Active Testing Position Sitting Comments WNL Shoulder Goniometric Range of Motion Shoulder Left Shoulder ROM WFL No Flexion 155 Extension 15 Abduction 147 Horizontal Abduction 75 Horizontal Adduction 30 External Rotation at 45 degrees 55 Abduction Internal Rotation Behind Back (text) T10 Right Shoulder ROM WFL Yes Shoulder ROM Limitations Shoulder ROM Limitations Soft Tissue Tightness,Pain PT-OP-N Lymphedema Start: 05/15/22 16:36 Freq: Status: Active Protocol: Document 09/24/22 13:03 [facility] (Rec: 09/24/22 13:38 [facility] [id number]) Lymphedema Measurements Upper Extremity Circumference Measurements Left Affected MCP 18.2 cm Dorsum of Hand 18.1 cm Wrist 15.7 cm 5 cm From Wrist Crease 15.5 cm 10 cm From Wrist Crease 18.4 cm 15 cm From Wrist Crease 22.3 cm 20 cm From Wrist Crease 23 cm 25 cm From Wrist Crease 24.3 cm 30 cm From Wrist Crease 27 cm 35 cm From Wrist Crease 28.2 cm 40 cm From Wrist Crease 29.7 cm Axilla 30.6 cm PT-OP-Q Treatments Start: 05/15/22 16:36 Freq: Status: Active Protocol: Document 10/02/22 09:05 [facility] (Rec: 10/02/22 09:13 [facility] [id number]) Therapeutic Exercises Supine Exercises I, T, Y Reps/Minutes 10x AROM followed by end-range stretch PROM left shoulder Reps/Minutes 12 min Comments pin and stretch Sidelying Exercises [place] Sidelying Exercise Name AROM Reps/Minutes 5x shoulder abduction Sidelying Exercise Name with manual pin and stretch open book Sidelying Exercise Name HEP Manual Therapy Treatment Soft Tissue Mobilization scar massage Body Location mastectomy scars, lumpectomy scar left, subaxillary region Mobilization Type Instrument Assisted,Myofascial Release,Rolling Intensity/Depth Moderate Body Position Hooklying Comments small, medium suction tool Manual Techniques pin and stretch Type left UE Body Position Hooklying Reps/Duration 14 min Comments subaxillary tissue palpably tight PT-OP-T Assessment and Plan Start: 05/15/22 16:36 Freq: Status: Active Protocol: Document 10/02/22 09:05 [facility] (Rec: 10/02/22 09:13 [facility] [id number]) Physical Therapy Assessment Impairments Impairments Edema,Pain,ROM,Soft Tissue Mobility Goals Three Impairment impaired range of motion left UE, decreased scar mobility Impairment difficulty reaching overhead, behind her back and out to side for purposes of ADL's Short Term Goal (STG) Patient to be independent with HEP as instructed for purposes of ROM and flexibility 06/19/22: goal met STG Duration goal met Guest Room Attendant Goal (LTG) Patient to demonstrate ROM WNL left UE and normal scar mobility to allow her to reach overhead, behind her back, and out to side without difficulty for daily activities. 06/19/22: goal progress 08/20/23: decrease in ROM and scar mobility left s/p radiation 09/17/22: shoulder ROM close to full, scar and subaxillary soft tissue mobility improving , mild restrictions now LTG Duration 10/21/22 Two Impairment swelling left UE Short Term Goal (STG) decrease swelling left UE to no greater than 0.5 cm different than right as compared via cirfumferential measurement 06/19/22: goal met STG Duration goal met Guest Room Attendant Goal (LTG) Patient to demonstrate good understanding of edema management including wearing compression garment, self- massage, gentle ex 08/21/23: worsening of lymphedema following radiation treatment, needs further treatment. 09/17/22: compliant to HEP, tightens easily s/p radiation requiring ex performance several times per day, pt highly compliant. LTG Duration 10/21/22 One Impairment pain left UE worst at elbow Impairment pain as high as 8/10 Short Term Goal (STG) decrease pain to no greater than 4/10 with all usual activities 06/19/22: temporary pain relief with left elbow 08/21/22:Pain 5-6/10 09/17/22: Pain dec to 4-5/10 STG Duration 09/20/22 Guest Room Attendant Goal (LTG) Patient to report ability to do all usual activities with pain no greater than 2/10 LTG Duration 10/21/22 Progress Towards Goals Progress Towards Goals Progressing Toward Goals Assessment Summary Assessment Good tolerance for longer soft tissue holds with stretching. Good compliance to HEP and wearing compression sleeve with good stabilization of circumferential measurementsat this time. Patient with good compliance to wearing compression sleeve generally though did not don this am so no measurements taken today. Will take at next session Physical Therapy Plan Frequency and Duration Frequency of Treatment 2x/Week Duration of treatment (weeks) 8 Plan of Care Start Date 08/21/22 Plan of Care End Date 10/21/22 Therapeutic Interventions Therapeutic Interventions Home Exercise Program, Lymphedema Management,Manual Therapy,Patient/Caregiver Education,Self-Care/Home Management,Soft Tissue Mobilization,Taping, Therapeutic Activities, Therapeutic Exercises Next Visit Focus/Plan Next Note Type Treatment Note Next Visit Plan Continue lymphedema management , soft tissue mobilization and ROM. Circumferential measurements to start next session. Measure ROM.
--- NOTE | 2022-10-14 09:46 | PT.OTN ---
Current Diagnoses Malignant neoplasm of unspecified site of left female breast (10/14/22) Physical Therapy Treatment Note PT-OP-A Visit Information Start: 05/15/22 16:36 Freq: Status: Active Protocol: Document 10/14/22 09:02 SAK (Rec: 10/14/22 09:45 [facility] [id number]) Out-Patient Physical Therapy Visit Information Visit Information Visit Type Treatment Note Visit Start Time 09:03 Visit Stop Time 09:45 Total Visit Minutes 42 Visit Number 18 Evaluation Information Evaluation Date 05/20/22 Precautions Precautions bilateral mastectomy, having further testing left side for potential metastasis PT-OP-B Current Condition Start: 05/15/22 16:36 Freq: Status: Active Protocol: Document 05/20/22 09:49 SAK (Rec: 05/20/22 11:15 [facility] [id number]) Current Condition History of Current Condition Onset Date 03/12/22 Current Complaints funny bone pain, numb forearm, limited motion History of Current Condition bilateral mastectomy with left axillary node dissection left (4/5 positive), sentinal node biopsy right negative. Going to have more tests 06/05/22 to check for any other spread of cancer prior to starting radiation. No chemo planned. Reports since surgery her funny bone has been painfull with movement and if bump elbow. Didn't know precautions for lymphedema, went on plane trip last week, but didn't notice a change Hasn't obtained compression sleeve; ordered one from [employer] that was a one size fits all, and it did not fit. States healing of mastectomy has gone well but the burning pain in her left UE is most limiting. Prior Treatments and Tests as above bilateral mastectomy, further testing to come Treatment Goals Patient/Caregiver Goals Decrease pain, improve flexibility and strength. Prior Functional Status Baseline Function- ADL's Independent Baseline Function- Mobility Independent Baseline Function- Recreation/Hobbies no pain Current Functional Impairments (Reported) Functional Limitations- Recreation/ painful when moving elbow, Hobbies reaching overhead PT-OP-C Subjective Start: 05/15/22 16:36 Freq: Status: Active Protocol: Document 10/14/22 09:02 SAK (Rec: 10/14/22 09:45 [facility] [id number]) OP-PT Subjective Patient Comments Patient Comments Feel like I'm getting there, still very tight across chest and in armpit. PT-OP-H Neuro Start: 05/15/22 16:36 Freq: Status: Active Protocol: Document 05/20/22 09:49 [facility] (Rec: 05/21/22 16:33 [facility] [id number]) Sensation Evaluation Gross Sensation Gross Sensation Left UE Impaired Sensation Description Numbness,Tingling,Pain PT-OP-J Posture/Palpation/Skin Start: 05/15/22 16:36 Freq: Status: Active Protocol: Document 05/20/22 09:49 [facility] (Rec: 05/21/22 16:33 [facility] [id number]) Palpation Assessment Location axilla Palpation Findings Soft Tissue Tightness Palpation Details no palpable axillary cording incisions Palpation Location decreased soft tissue mobility Skin Assessment Edema Assessment left elbow Edema Type Non-Pitting Edema Appearance Puffy Subjective Edema Description Pain Incisional Assessment Incision Appearance/Comments well healed bilateral mastectomy scars Other Assessments Skin Assessment Comments see lymphedema section for circumferential measurements PT-OP-K Range of Motion Start: 05/15/22 16:36 Freq: Status: Active Protocol: Document 05/20/22 09:49 [facility] (Rec: 05/21/22 16:33 [facility] [id number]) Cervical Spine Range of Motion Cervical Spine Active Testing Position Sitting Comments WNL Shoulder Goniometric Range of Motion Shoulder Left Shoulder ROM WFL No Flexion 155 Extension 15 Abduction 147 Horizontal Abduction 75 Horizontal Adduction 30 External Rotation at 45 degrees 55 Abduction Internal Rotation Behind Back (text) T10 Right Shoulder ROM WFL Yes Shoulder ROM Limitations Shoulder ROM Limitations Soft Tissue Tightness,Pain PT-OP-N Lymphedema Start: 05/15/22 16:36 Freq: Status: Active Protocol: Document 09/24/22 13:03 [facility] (Rec: 09/24/22 13:38 [facility] [id number]) Lymphedema Measurements Upper Extremity Circumference Measurements Left Affected MCP 18.2 cm Dorsum of Hand 18.1 cm Wrist 15.7 cm 5 cm From Wrist Crease 15.5 cm 10 cm From Wrist Crease 18.4 cm 15 cm From Wrist Crease 22.3 cm 20 cm From Wrist Crease 23 cm 25 cm From Wrist Crease 24.3 cm 30 cm From Wrist Crease 27 cm 35 cm From Wrist Crease 28.2 cm 40 cm From Wrist Crease 29.7 cm Axilla 30.6 cm PT-OP-Q Treatments Start: 05/15/22 16:36 Freq: Status: Active Protocol: Document 10/14/22 09:02 [facility] (Rec: 10/14/22 09:45 [facility] [id number]) Therapeutic Exercises Supine Exercises I, T, Y Reps/Minutes 10x AROM followed by end-range stretch PROM left shoulder Reps/Minutes 12 min Comments pin and stretch Sidelying Exercises [place] Sidelying Exercise Name AROM Reps/Minutes 5x shoulder abduction Sidelying Exercise Name with manual pin and stretch open book Sidelying Exercise Name HEP Manual Therapy Treatment Soft Tissue Mobilization scar massage Body Location mastectomy scars, lumpectomy scar left, subaxillary region Mobilization Type Instrument Assisted,Myofascial Release,Rolling Intensity/Depth Moderate Body Position Hooklying Comments small, medium suction tool Manual Techniques pin and stretch Type left UE Body Position Hooklying Reps/Duration 14 min Comments subaxillary tissue palpably tight PT-OP-T Assessment and Plan Start: 05/15/22 16:36 Freq: Status: Active Protocol: Document 10/14/22 09:02 [facility] (Rec: 10/14/22 09:45 [facility] [id number]) Physical Therapy Assessment Impairments Impairments Edema,Pain,ROM,Soft Tissue Mobility Goals Three Impairment impaired range of motion left UE, decreased scar mobility Impairment difficulty reaching overhead, behind her back and out to side for purposes of ADL's Short Term Goal (STG) Patient to be independent with HEP as instructed for purposes of ROM and flexibility 06/19/22: goal met STG Duration goal met Childbirth Educator Goal (LTG) Patient to demonstrate ROM WNL left UE and normal scar mobility to allow her to reach overhead, behind her back, and out to side without difficulty for daily activities. 06/19/22: goal progress 08/20/23: decrease in ROM and scar mobility left s/p radiation 09/17/22: shoulder ROM close to full, scar and subaxillary soft tissue mobility improving , mild restrictions now LTG Duration 10/21/22 Two Impairment swelling left UE Short Term Goal (STG) decrease swelling left UE to no greater than 0.5 cm different than right as compared via cirfumferential measurement 06/19/22: goal met STG Duration goal met Childbirth Educator Goal (LTG) Patient to demonstrate good understanding of edema management including wearing compression garment, self- massage, gentle ex 08/21/23: worsening of lymphedema following radiation treatment, needs further treatment. 09/17/22: compliant to HEP, tightens easily s/p radiation requiring ex performance several times per day, pt highly compliant. LTG Duration 10/21/22 One Impairment pain left UE worst at elbow Impairment pain as high as 8/10 Short Term Goal (STG) decrease pain to no greater than 4/10 with all usual activities 06/19/22: temporary pain relief with left elbow 08/21/22:Pain 5-6/10 09/17/22: Pain dec to 4-5/10 STG Duration 09/20/22 Fpc Goal (LTG) Patient to report ability to do all usual activities with pain no greater than 2/10 LTG Duration 10/21/22 Progress Towards Goals Progress Towards Goals Progressing Toward Goals Assessment Summary Assessment Patient given cues to decrease intensitiy of door stretch, increase deep breathing with ex. Circumferential measurements stable, patient wearing compression sleeve. Physical Therapy Plan Frequency and Duration Frequency of Treatment 2x/Week Duration of treatment (weeks) 8 Plan of Care Start Date 08/21/22 Plan of Care End Date 10/21/22 Therapeutic Interventions Therapeutic Interventions Home Exercise Program, Lymphedema Management,Manual Therapy,Patient/Caregiver Education,Self-Care/Home Management,Soft Tissue Mobilization,Taping, Therapeutic Activities, Therapeutic Exercises Next Visit Focus/Plan Next Note Type Treatment Note Next Visit Plan Continue lymphedema management , soft tissue mobilization and ROM. Circumferential measurements to start next session. Measure ROM.
--- NOTE | 2022-10-14 16:00 | PT.OPPOC ---
Physical, Occupational & Speech Therapy At [facility] Current Diagnoses Malignant neoplasm of unspecified site of left female breast (10/14/22) Visit Care Team Role Provider Type Sheldon Carrizales MD Family Provider Physician Primary Care Provider Specialty: Family Practice Address: [facility] [place], [address] Email: [email or web address] Ella Sung MD Attending Provider Physician Referring Provider Specialty: Oncology Address: [address] [place] [address], [address] Email: [email or web address] Plan Of Care PT-OP-T Assessment and Plan Start: 05/15/22 16:36 Freq: Status: Active Protocol: Document 10/14/22 09:02 [facility] (Rec: 10/14/22 09:45 [facility] [id number]) Physical Therapy Assessment Impairments Impairments Edema,Pain,ROM,Soft Tissue Mobility Goals Three Impairment impaired range of motion left UE, decreased scar mobility Impairment difficulty reaching overhead, behind her back and out to side for purposes of ADL's Short Term Goal (STG) Patient to be independent with HEP as instructed for purposes of ROM and flexibility 06/19/22: goal met STG Duration goal met Skilled Nursing Goal (LTG) Patient to demonstrate ROM WNL left UE and normal scar mobility to allow her to reach overhead, behind her back, and out to side without difficulty for daily activities. 06/19/22: goal progress 08/20/23: decrease in ROM and scar mobility left s/p radiation 10/14/22: goal progress 09/17/22: shoulder ROM close to full, scar and subaxillary soft tissue mobility improving , mild restrictions now LTG Duration 12/15/22 Two Impairment swelling left UE Short Term Goal (STG) decrease swelling left UE to no greater than 0.5 cm different than right as compared via cirfumferential measurement 06/19/22: goal met STG Duration goal met Skilled Nursing Goal (LTG) Patient to demonstrate good understanding of edema management including wearing compression garment, self- massage, gentle ex 08/21/23: worsening of lymphedema following radiation treatment, needs further treatment. 09/17/22: compliant to HEP, tightens easily s/p radiation requiring ex performance several times per day, pt highly compliant. 10/14/22: good goal progress LTG Duration 12/15/22 One Impairment pain left UE worst at elbow Impairment pain as high as 8/10 Short Term Goal (STG) decrease pain to no greater than 4/10 with all usual activities 06/19/22: temporary pain relief with left elbow 08/21/22:Pain 5-6/10 09/17/22: Pain dec to 4-5/10 10/14/22: goal met STG Duration goal met Director Goal (LTG) Patient to report ability to do all usual activities with pain no greater than 2/10 LTG Duration 12/15/22 Progress Towards Goals Progress Towards Goals Progressing Toward Goals Assessment Summary Assessment Patient given cues to decrease intensitiy of door stretch, increase deep breathing with ex. Circumferential measurements stable, patient wearing compression sleeve. Physical Therapy Plan Frequency and Duration Frequency of Treatment 2x/Week Duration of treatment (weeks) 8 Plan of Care Start Date 10/14/22 Plan of Care End Date 12/15/22 Therapeutic Interventions Therapeutic Interventions Home Exercise Program, Lymphedema Management,Manual Therapy,Patient/Caregiver Education,Self-Care/Home Management,Soft Tissue Mobilization,Taping, Therapeutic Activities, Therapeutic Exercises Next Visit Focus/Plan Next Note Type Treatment Note Next Visit Plan Continue lymphedema management , soft tissue mobilization and ROM. Circumferential measurements to start next session. Measure ROM. Plan of Care Dates Plan of Care Start Date 10/14/22 Plan of Care End Date 12/15/22 Electronically Signed by: Roula Bullard, PT 11/10/22 0805 If you are in agreement with this Plan of Care, please return a signed and dated copy. I have reviewed this Plan of Care and certify that the skilled therapy services above are required to meet the patient?s needs. Physician Signature Date Printed Name and Credentials Clinical Instructor Signature Printed Name and Credentials
--- NOTE | 2022-10-14 16:00 | PT.OTRE ---
Current Diagnoses Malignant neoplasm of unspecified site of left female breast (10/14/22) Past Medical History (Last Reviewed 07/19/22 @ 11:23 by Enio Vann MD) Breast cancer Difficulty swallowing Fuchs' corneal dystrophy of both eyes Hypothyroid Pelvic relaxation Postmenopausal RLS (restless legs syndrome) Vaginal vault prolapse Surgical History (Last Reviewed 07/19/22 @ 11:23 by Enio Vann MD) History of gynecologic surgery (05/14/18) History of tonsillectomy Hx of eye surgery (~2011) S/P excision of lipoma Status post bunionectomy Status post hysterectomy Visit Care Team Role Provider Type Sheldon Carrizales MD Family Provider Physician Primary Care Provider Specialty: Family Practice Address: [facility] [place], [address] Email: [email or web address] Ella Sung MD Attending Provider Physician Referring Provider Specialty: Oncology Address: [address] [place] [address], [address] Email: [email or web address] Physical Therapy Re-Evaluation PT-OP-A Visit Information Start: 05/15/22 16:36 Freq: Status: Active Protocol: Document 10/14/22 09:02 SAK (Rec: 10/14/22 09:45 [facility] [id number]) Out-Patient Physical Therapy Visit Information Visit Information Visit Type Treatment Note Visit Start Time 09:03 Visit Stop Time 09:45 Total Visit Minutes 42 Visit Number 18 Evaluation Information Evaluation Date 05/20/22 Precautions Precautions bilateral mastectomy, having further testing left side for potential metastasis PT-OP-B Current Condition Start: 05/15/22 16:36 Freq: Status: Active Protocol: Document 05/20/22 09:49 SAK (Rec: 05/20/22 11:15 [facility] [id number]) Current Condition History of Current Condition Onset Date 03/12/22 Current Complaints funny bone pain, numb forearm, limited motion History of Current Condition bilateral mastectomy with left axillary node dissection left (4/5 positive), sentinal node biopsy right negative. Going to have more tests 06/05/22 to check for any other spread of cancer prior to starting radiation. No chemo planned. Reports since surgery her funny bone has been painfull with movement and if bump elbow. Didn't know precautions for lymphedema, went on plane trip last week, but didn't notice a change Hasn't obtained compression sleeve; ordered one from [employer] that was a one size fits all, and it did not fit. States healing of mastectomy has gone well but the burning pain in her left UE is most limiting. Prior Treatments and Tests as above bilateral mastectomy, further testing to come Treatment Goals Patient/Caregiver Goals Decrease pain, improve flexibility and strength. Prior Functional Status Baseline Function- ADL's Independent Baseline Function- Mobility Independent Baseline Function- Recreation/Hobbies no pain Current Functional Impairments (Reported) Functional Limitations- Recreation/ painful when moving elbow, Hobbies reaching overhead PT-OP-C Subjective Start: 05/15/22 16:36 Freq: Status: Active Protocol: Document 10/14/22 09:02 [facility]AK (Rec: 10/14/22 09:45 [facility] [id number]) OP-PT Subjective Patient Comments Patient Comments Feel like I'm getting there, still very tight across chest and in armpit. PT-OP-H Neuro Start: 05/15/22 16:36 Freq: Status: Active Protocol: Document 05/20/22 09:49 [facility]AK (Rec: 05/21/22 16:33 [facility] [id number]) Sensation Evaluation Gross Sensation Gross Sensation Left UE Impaired Sensation Description Numbness,Tingling,Pain PT-OP-J Posture/Palpation/Skin Start: 05/15/22 16:36 Freq: Status: Active Protocol: Document 05/20/22 09:49 [facility] (Rec: 05/21/22 16:33 [facility] [id number]) Palpation Assessment Location axilla Palpation Findings Soft Tissue Tightness Palpation Details no palpable axillary cording incisions Palpation Location decreased soft tissue mobility Skin Assessment Edema Assessment left elbow Edema Type Non-Pitting Edema Appearance Puffy Subjective Edema Description Pain Incisional Assessment Incision Appearance/Comments well healed bilateral mastectomy scars Other Assessments Skin Assessment Comments see lymphedema section for circumferential measurements PT-OP-K Range of Motion Start: 05/15/22 16:36 Freq: Status: Active Protocol: Document 05/20/22 09:49 [facility] (Rec: 05/21/22 16:33 [facility] [id number]) Cervical Spine Range of Motion Cervical Spine Active Testing Position Sitting Comments WNL Shoulder Goniometric Range of Motion Shoulder Measured in Degrees Left Shoulder ROM WFL No Flexion 155 Extension 15 Abduction 147 Horizontal Abduction 75 Horizontal Adduction 30 External Rotation at 45 degrees 55 Abduction Internal Rotation Behind Back (text) T10 Right Shoulder ROM WFL Yes Shoulder ROM Limitations Shoulder ROM Limitations Soft Tissue Tightness,Pain PT-OP-N Lymphedema Start: 05/15/22 16:36 Freq: Status: Active Protocol: Document 09/24/22 13:03 [facility] (Rec: 09/24/22 13:38 [facility] [id number]) Lymphedema Measurements Upper Extremity Circumference Measurements Left Affected MCP 18.2 cm Dorsum of Hand 18.1 cm Wrist 15.7 cm 5 cm From Wrist Crease 15.5 cm 10 cm From Wrist Crease 18.4 cm 15 cm From Wrist Crease 22.3 cm 20 cm From Wrist Crease 23 cm 25 cm From Wrist Crease 24.3 cm 30 cm From Wrist Crease 27 cm 35 cm From Wrist Crease 28.2 cm 40 cm From Wrist Crease 29.7 cm Axilla 30.6 cm PT-OP-Q Treatments Start: 05/15/22 16:36 Freq: Status: Active Protocol: Document 10/14/22 09:02 [facility] (Rec: 10/14/22 09:45 [facility] [id number]) Therapeutic Exercises Supine Exercises I, T, Y Reps/Minutes 10x AROM followed by end-range stretch PROM left shoulder Reps/Minutes 12 min Comments pin and stretch Sidelying Exercises [place] Sidelying Exercise Name AROM Reps/Minutes 5x shoulder abduction Sidelying Exercise Name with manual pin and stretch open book Sidelying Exercise Name HEP Manual Therapy Treatment Soft Tissue Mobilization scar massage Body Location mastectomy scars, lumpectomy scar left, subaxillary region Mobilization Type Instrument Assisted,Myofascial Release,Rolling Intensity/Depth Moderate Body Position Hooklying Comments small, medium suction tool Manual Techniques pin and stretch Type left UE Body Position Hooklying Reps/Duration 14 min Comments subaxillary tissue palpably tight PT-OP-T Assessment and Plan Start: 05/15/22 16:36 Freq: Status: Active Protocol: Document 10/14/22 09:02 [facility] (Rec: 10/14/22 09:45 [facility] [id number]) Physical Therapy Assessment Impairments Impairments Edema,Pain,ROM,Soft Tissue Mobility Goals Three Impairment impaired range of motion left UE, decreased scar mobility Impairment difficulty reaching overhead, behind her back and out to side for purposes of ADL's Short Term Goal (STG) Patient to be independent with HEP as instructed for purposes of ROM and flexibility 06/19/22: goal met STG Duration goal met Assisted Goal (LTG) Patient to demonstrate ROM WNL left UE and normal scar mobility to allow her to reach overhead, behind her back, and out to side without difficulty for daily activities. 06/19/22: goal progress 08/20/23: decrease in ROM and scar mobility left s/p radiation 10/14/22: goal progress 09/17/22: shoulder ROM close to full, scar and subaxillary soft tissue mobility improving , mild restrictions now LTG Duration 12/15/22 Two Impairment swelling left UE Short Term Goal (STG) decrease swelling left UE to no greater than 0.5 cm different than right as compared via cirfumferential measurement 06/19/22: goal met STG Duration goal met Information Writer Goal (LTG) Patient to demonstrate good understanding of edema management including wearing compression garment, self- massage, gentle ex 08/21/23: worsening of lymphedema following radiation treatment, needs further treatment. 09/17/22: compliant to HEP, tightens easily s/p radiation requiring ex performance several times per day, pt highly compliant. 10/14/22: good goal progress LTG Duration 12/15/22 One Impairment pain left UE worst at elbow Impairment pain as high as 8/10 Short Term Goal (STG) decrease pain to no greater than 4/10 with all usual activities 06/19/22: temporary pain relief with left elbow 08/21/22:Pain 5-6/10 09/17/22: Pain dec to 4-5/10 10/14/22: goal met STG Duration goal met Assisted Goal (LTG) Patient to report ability to do all usual activities with pain no greater than 2/10 LTG Duration 12/15/22 Progress Towards Goals Progress Towards Goals Progressing Toward Goals Assessment Summary Assessment Patient given cues to decrease intensitiy of door stretch, increase deep breathing with ex. Circumferential measurements stable, patient wearing compression sleeve. Physical Therapy Plan Frequency and Duration Frequency of Treatment 2x/Week Duration of treatment (weeks) 8 Plan of Care Start Date 10/14/22 Plan of Care End Date 12/15/22 Therapeutic Interventions Therapeutic Interventions Home Exercise Program, Lymphedema Management,Manual Therapy,Patient/Caregiver Education,Self-Care/Home Management,Soft Tissue Mobilization,Taping, Therapeutic Activities, Therapeutic Exercises Next Visit Focus/Plan Next Note Type Treatment Note Next Visit Plan Continue lymphedema management , soft tissue mobilization and ROM. Circumferential measurements to start next session. Measure ROM.
--- NOTE | 2022-11-10 09:38 | PT.OTN ---
Current Diagnoses Malignant neoplasm of unspecified site of left female breast (11/10/22) Physical Therapy Treatment Note PT-OP-A Visit Information Start: 05/15/22 16:36 Freq: Status: Active Protocol: Document 11/10/22 08:20 SAK (Rec: 11/10/22 09:37 [facility] [id number]) Out-Patient Physical Therapy Visit Information Visit Information Visit Type Treatment Note Visit Start Time 08:15 Visit Number [id number] Evaluation Information Evaluation Date 05/20/22 Precautions Precautions bilateral mastectomy, having further testing left side for potential metastasis PT-OP-B Current Condition Start: 05/15/22 16:36 Freq: Status: Active Protocol: Document 05/20/22 09:49 SAK (Rec: 05/20/22 11:15 SAK [id number]) Current Condition History of Current Condition Onset Date 03/12/22 Current Complaints funny bone pain, numb forearm, limited motion History of Current Condition bilateral mastectomy with left axillary node dissection left (4/5 positive), sentinal node biopsy right negative. Going to have more tests 06/05/22 to check for any other spread of cancer prior to starting radiation. No chemo planned. Reports since surgery her funny bone has been painfull with movement and if bump elbow. Didn't know precautions for lymphedema, went on plane trip last week, but didn't notice a change Hasn't obtained compression sleeve; ordered one from [employer] that was a one size fits all, and it did not fit. States healing of mastectomy has gone well but the burning pain in her left UE is most limiting. Prior Treatments and Tests as above bilateral mastectomy, further testing to come Treatment Goals Patient/Caregiver Goals Decrease pain, improve flexibility and strength. Prior Functional Status Baseline Function- ADL's Independent Baseline Function- Mobility Independent Baseline Function- Recreation/Hobbies no pain Current Functional Impairments (Reported) Functional Limitations- Recreation/ painful when moving elbow, Hobbies reaching overhead PT-OP-C Subjective Start: 05/15/22 16:36 Freq: Status: Active Protocol: Document 11/10/22 08:20 SAK (Rec: 11/10/22 09:37 SAK [id number]) OP-PT Subjective Patient Comments Patient Comments Patient reports hasn't come due to having a cold. Gets stiff toward PM, but overall not too bad PT-OP-H Neuro Start: 05/15/22 16:36 Freq: Status: Active Protocol: Document 05/20/22 09:49 [facility] (Rec: 05/21/22 16:33 [facility] [id number]) Sensation Evaluation Gross Sensation Gross Sensation Left UE Impaired Sensation Description Numbness,Tingling,Pain PT-OP-J Posture/Palpation/Skin Start: 05/15/22 16:36 Freq: Status: Active Protocol: Document 05/20/22 09:49 SAK (Rec: 05/21/22 16:33 [facility] [id number]) Palpation Assessment Location axilla Palpation Findings Soft Tissue Tightness Palpation Details no palpable axillary cording incisions Palpation Location decreased soft tissue mobility Skin Assessment Edema Assessment left elbow Edema Type Non-Pitting Edema Appearance Puffy Subjective Edema Description Pain Incisional Assessment Incision Appearance/Comments well healed bilateral mastectomy scars Other Assessments Skin Assessment Comments see lymphedema section for circumferential measurements PT-OP-K Range of Motion Start: 05/15/22 16:36 Freq: Status: Active Protocol: Document 05/20/22 09:49 [facility] (Rec: 05/21/22 16:33 [facility] [id number]) Cervical Spine Range of Motion Cervical Spine Active Testing Position Sitting Comments WNL Shoulder Goniometric Range of Motion Shoulder Left Shoulder ROM WFL No Flexion 155 Extension 15 Abduction 147 Horizontal Abduction 75 Horizontal Adduction 30 External Rotation at 45 degrees 55 Abduction Internal Rotation Behind Back (text) T10 Right Shoulder ROM WFL Yes Shoulder ROM Limitations Shoulder ROM Limitations Soft Tissue Tightness,Pain PT-OP-N Lymphedema Start: 05/15/22 16:36 Freq: Status: Active Protocol: Document 11/10/22 08:20 [facility] (Rec: 11/10/22 09:37 [facility] [id number]) Lymphedema Measurements Upper Extremity Circumference Measurements Left Affected MCP 18 cm Dorsum of Hand 18.9 cm Wrist 15.9 cm 5 cm From Wrist Crease 15.3 cm 10 cm From Wrist Crease 18.5 cm 15 cm From Wrist Crease 22.7 cm 20 cm From Wrist Crease 23.4 cm 25 cm From Wrist Crease 23.7 cm 30 cm From Wrist Crease 24.7 cm 35 cm From Wrist Crease 27.7 cm 40 cm From Wrist Crease 28.8 cm 45 cm From Wrist Crease 29.8 cm Elbow Joint 23.7 cm PT-OP-Q Treatments Start: 05/15/22 16:36 Freq: Status: Active Protocol: Document 11/10/22 08:20 [facility] (Rec: 11/10/22 09:37 [facility] [id number]) Therapeutic Exercises Supine Exercises I, T, Y Reps/Minutes 10x AROM followed by end-range stretch PROM left shoulder Reps/Minutes 14 min Comments pin and stretch Sidelying Exercises [place] Sidelying Exercise Name AROM Reps/Minutes 5x Comments cues for pausing at tightest angle shoulder abduction Sidelying Exercise Name with manual pin and stretch open book Sidelying Exercise Name HEP review Comments cues for full upper quadrant involvement, deep breathing Manual Therapy Treatment Soft Tissue Mobilization scar massage Body Location mastectomy scars, lumpectomy scar left, subaxillary region Mobilization Type Instrument Assisted,Myofascial Release,Rolling Intensity/Depth Moderate Body Position Hooklying Comments small, medium suction tool Manual Techniques pin and stretch Type left UE Body Position Hooklying Reps/Duration 14 min Comments subaxillary tissue palpably tight Self-Care/Home Management Treatment Education Patient Education Home Exercise Program Lymphedema Treatment Manual Lymphatic Drainage Location left UE Duration 20 Comments focus on AAA and AAI pathways with extra time at medial elbow Lymphedema Wrapping Body Location left UE Materials patient self-donned compression sleeve. Is stretching top of new sleeve PT-OP-T Assessment and Plan Start: 05/15/22 16:36 Freq: Status: Active Protocol: Document 11/10/22 08:20 [facility] (Rec: 11/10/22 09:37 [facility] [id number]) Physical Therapy Assessment Impairments Impairments Edema,Pain,ROM,Soft Tissue Mobility Goals Three Impairment impaired range of motion left UE, decreased scar mobility Impairment difficulty reaching overhead, behind her back and out to side for purposes of ADL's Short Term Goal (STG) Patient to be independent with HEP as instructed for purposes of ROM and flexibility 06/19/22: goal met STG Duration goal met [employer] Operator Goal (LTG) Patient to demonstrate ROM WNL left UE and normal scar mobility to allow her to reach overhead, behind her back, and out to side without difficulty for daily activities. 06/19/22: goal progress 08/20/23: decrease in ROM and scar mobility left s/p radiation 10/14/22: goal progress 09/17/22: shoulder ROM close to full, scar and subaxillary soft tissue mobility improving , mild restrictions now LTG Duration 12/15/22 Two Impairment swelling left UE Short Term Goal (STG) decrease swelling left UE to no greater than 0.5 cm different than right as compared via cirfumferential measurement 06/19/22: goal met STG Duration goal met Intermediate Goal (LTG) Patient to demonstrate good understanding of edema management including wearing compression garment, self- massage, gentle ex 08/21/23: worsening of lymphedema following radiation treatment, needs further treatment. 09/17/22: compliant to HEP, tightens easily s/p radiation requiring ex performance several times per day, pt highly compliant. 10/14/22: good goal progress LTG Duration 12/15/22 One Impairment pain left UE worst at elbow Impairment pain as high as 8/10 Short Term Goal (STG) decrease pain to no greater than 4/10 with all usual activities 06/19/22: temporary pain relief with left elbow 08/21/22:Pain 5-6/10 09/17/22: Pain dec to 4-5/10 10/14/22: goal met STG Duration goal met Trolley Car Operator Goal (LTG) Patient to report ability to do all usual activities with pain no greater than 2/10 LTG Duration 12/15/22 Progress Towards Goals Progress Towards Goals Progressing Toward Goals Assessment Summary Assessment circumferential measurements mostly stable, some increase in soft tissue tightness initially noted but improved with manual techniques, continues to benefit from PT. Cues for improved performance of HEP especially open book and sidelying [place]. Physical Therapy Plan Frequency and Duration Frequency of Treatment 2x/Week Duration of treatment (weeks) 8 Plan of Care Start Date 10/14/22 Plan of Care End Date 12/15/22 Therapeutic Interventions Therapeutic Interventions Home Exercise Program, Lymphedema Management,Manual Therapy,Patient/Caregiver Education,Self-Care/Home Management,Soft Tissue Mobilization,Taping, Therapeutic Activities, Therapeutic Exercises Next Visit Focus/Plan Next Note Type Treatment Note Next Visit Plan Continue lymphedema management , soft tissue mobilization and ROM. Circumferential measurements to start next session. Measure ROM.
--- NOTE | 2022-11-20 14:24 | PT.OTN ---
Current Diagnoses Malignant neoplasm of unspecified site of left female breast (11/20/22) Physical Therapy Treatment Note PT-OP-A Visit Information Start: 05/15/22 16:36 Freq: Status: Active Protocol: Document 11/20/22 08:14 SAK (Rec: 11/20/22 09:17 [facility] [id number]) Out-Patient Physical Therapy Visit Information Visit Information Visit Type Treatment Note Visit Start Time 08:15 Visit Stop Time 09:33 Total Visit Minutes 85 Visit Number 20 Evaluation Information Evaluation Date 05/20/22 Precautions Precautions bilateral mastectomy, having further testing left side for potential metastasis PT-OP-B Current Condition Start: 05/15/22 16:36 Freq: Status: Active Protocol: Document 05/20/22 09:49 SAK (Rec: 05/20/22 11:15 [facility] [id number]) Current Condition History of Current Condition Onset Date 03/12/22 Current Complaints funny bone pain, numb forearm, limited motion History of Current Condition bilateral mastectomy with left axillary node dissection left (4/5 positive), sentinal node biopsy right negative. Going to have more tests 06/05/22 to check for any other spread of cancer prior to starting radiation. No chemo planned. Reports since surgery her funny bone has been painfull with movement and if bump elbow. Didn't know precautions for lymphedema, went on plane trip last week, but didn't notice a change Hasn't obtained compression sleeve; ordered one from [employer] that was a one size fits all, and it did not fit. States healing of mastectomy has gone well but the burning pain in her left UE is most limiting. Prior Treatments and Tests as above bilateral mastectomy, further testing to come Treatment Goals Patient/Caregiver Goals Decrease pain, improve flexibility and strength. Prior Functional Status Baseline Function- ADL's Independent Baseline Function- Mobility Independent Baseline Function- Recreation/Hobbies no pain Current Functional Impairments (Reported) Functional Limitations- Recreation/ painful when moving elbow, Hobbies reaching overhead PT-OP-C Subjective Start: 05/15/22 16:36 Freq: Status: Active Protocol: Document 11/20/22 08:14 SAK (Rec: 11/20/22 09:17 [facility]AK [id number]) OP-PT Subjective Patient Comments Patient Comments Biggest issue is tightness under left arm and along side. Had company so hasn't been to PT for 10 days. PT-OP-H Neuro Start: 05/15/22 16:36 Freq: Status: Active Protocol: Document 05/20/22 09:49 [facility]AK (Rec: 05/21/22 16:33 [facility] [id number]) Sensation Evaluation Gross Sensation Gross Sensation Left UE Impaired Sensation Description Numbness,Tingling,Pain PT-OP-J Posture/Palpation/Skin Start: 05/15/22 16:36 Freq: Status: Active Protocol: Document 05/20/22 09:49 [facility] (Rec: 05/21/22 16:33 [facility] [id number]) Palpation Assessment Location axilla Palpation Findings Soft Tissue Tightness Palpation Details no palpable axillary cording incisions Palpation Location decreased soft tissue mobility Skin Assessment Edema Assessment left elbow Edema Type Non-Pitting Edema Appearance Puffy Subjective Edema Description Pain Incisional Assessment Incision Appearance/Comments well healed bilateral mastectomy scars Other Assessments Skin Assessment Comments see lymphedema section for circumferential measurements PT-OP-K Range of Motion Start: 05/15/22 16:36 Freq: Status: Active Protocol: Document 05/20/22 09:49 [facility] (Rec: 05/21/22 16:33 [facility] [id number]) Cervical Spine Range of Motion Cervical Spine Active Testing Position Sitting Comments WNL Shoulder Goniometric Range of Motion Shoulder Left Shoulder ROM WFL No Flexion 155 Extension 15 Abduction 147 Horizontal Abduction 75 Horizontal Adduction 30 External Rotation at 45 degrees 55 Abduction Internal Rotation Behind Back (text) T10 Right Shoulder ROM WFL Yes Shoulder ROM Limitations Shoulder ROM Limitations Soft Tissue Tightness,Pain PT-OP-N Lymphedema Start: 05/15/22 16:36 Freq: Status: Active Protocol: Document 11/20/22 08:14 [facility] (Rec: 11/20/22 09:17 [facility] [id number]) Lymphedema Measurements Upper Extremity Circumference Measurements Left Affected MCP 18.4 cm Dorsum of Hand 18.4 cm Wrist 16.2 cm 5 cm From Wrist Crease 16.4 cm 10 cm From Wrist Crease 18.9 cm 15 cm From Wrist Crease 22.9 cm 20 cm From Wrist Crease 24.5 cm 25 cm From Wrist Crease 24.6 cm 30 cm From Wrist Crease 27.9 cm 35 cm From Wrist Crease 28.4 cm 40 cm From Wrist Crease 28.8 cm 45 cm From Wrist Crease 30 cm Elbow Joint 23.5 cm Right MCP 18.3 cm Dorsum of Hand 18.9 cm Wrist 15.3 cm 5 cm From Wrist Crease 15 cm 10 cm From Wrist Crease 18 cm 15 cm From Wrist Crease 21.5 cm 20 cm From Wrist Crease 22.6 cm 25 cm From Wrist Crease 23.7 cm 30 cm From Wrist Crease 26.8 cm 35 cm From Wrist Crease 30.5 cm 40 cm From Wrist Crease 32.5 cm Elbow Joint 22.5 cm Axilla 31.8 cm PT-OP-Q Treatments Start: 05/15/22 16:36 Freq: Status: Active Protocol: Document 11/20/22 08:14 [facility] (Rec: 11/20/22 09:17 [facility] [id number]) Therapeutic Exercises Supine Exercises I, T, Y Reps/Minutes 10x AROM followed by end-range stretch PROM left shoulder Reps/Minutes 14 min Comments pin and stretch Sidelying Exercises median n glide Reps/Minutes 10 [place] Sidelying Exercise Name HEP open book Sidelying Exercise Name HEP Standing Exercises lateral trunk stretch Equipment Used wall Reps/Minutes 2x30 doorway stretch Reps/Minutes 3x30 hor ab stretch Reps/Minutes 1x30 wall slide Comments 1x60 Manual Therapy Treatment Soft Tissue Mobilization scar massage Body Location kristen mastectomy scars, lumpectomy scar , subaxillary region, axillary cordin Mobilization Type Instrument Assisted,Myofascial Release,Rolling,Sustained Pressure Intensity/Depth Moderate Body Position Hooklying Comments small, medium suction tool Manual Techniques pin and stretch Type kristen subaxillary reg Body Position Hooklying Reps/Duration 14 min Comments subaxillary tissue palpably tight with axillary cording kristen noted Lymphedema Treatment Manual Lymphatic Drainage Location left UE Duration 30 Comments Sequential pneumatic pump x 30 min. Patient education and manual treatment during Lymphedema Wrapping Body Location left UE Materials patient self-donned compression sleeve. Recommended patient obtain sleeve for left as well Sequential Lymphedema Exercises Comments educated on ways to work exercises into her day as she tends to not take a break Other Other information given for Lacie Fabiano for free sequential pneumatic pumps for lymphedema PT-OP-R Modalities Start: 05/15/22 16:36 Freq: Status: Active Protocol: Document 11/20/22 08:14 [facility] (Rec: 11/20/22 14:24 [facility] [id number]) Compression Pump Treatment Treatment Location Left Arm Pressure Amount (mmHg) (mmHG) 30 Inflation Time (Seconds) 30 Deflation Time (Seconds) 10 Treatment Duration (minutes) 30 Treatment Tolerance Good PT-OP-T Assessment and Plan Start: 05/15/22 16:36 Freq: Status: Active Protocol: Document 11/20/22 08:14 [facility] (Rec: 11/20/22 09:17 [facility] [id number]) Physical Therapy Assessment Impairments Impairments Edema,Pain,ROM,Soft Tissue Mobility Goals Three Impairment impaired range of motion left UE, decreased scar mobility Impairment difficulty reaching overhead, behind her back and out to side for purposes of ADL's Short Term Goal (STG) Patient to be independent with HEP as instructed for purposes of ROM and flexibility 06/19/22: goal met STG Duration goal met [employer] Goal (LTG) Patient to demonstrate ROM WNL left UE and normal scar mobility to allow her to reach overhead, behind her back, and out to side without difficulty for daily activities. 06/19/22: goal progress 08/20/23: decrease in ROM and scar mobility left s/p radiation 10/14/22: goal progress 09/17/22: shoulder ROM close to full, scar and subaxillary soft tissue mobility improving , mild restrictions now 11/13/22: increased axillary cording noted with dec shld ROM/inc stiffness with overhead activities, due at least in part to missed appointments due to being ill then having company LTG Duration 12/15/22 Two Impairment swelling left UE Short Term Goal (STG) decrease swelling left UE to no greater than 0.5 cm different than right as compared via cirfumferential measurement 06/19/22: goal met STG Duration goal met [facility] Goal (LTG) Patient to demonstrate good understanding of edema management including wearing compression garment, self- massage, gentle ex 08/21/23: worsening of lymphedema following radiation treatment, needs further treatment. 09/17/22: compliant to HEP, tightens easily s/p radiation requiring ex performance several times per day, pt highly compliant. 10/14/22: good goal progress 11/18/22: circumference variable with patient noting some heaviness right UE as well, PT now noting axillary cording right axilla. Recommended patient obtain compression sleeve for right UE and obtain sequential pneumatic pump for home use; information given. LTG Duration 12/15/22 One Impairment pain left UE worst at elbow Impairment pain as high as 8/10 Short Term Goal (STG) decrease pain to no greater than 4/10 with all usual activities 06/19/22: temporary pain relief with left elbow 08/21/22:Pain 5-6/10 09/17/22: Pain dec to 4-5/10 10/14/22: goal met STG Duration goal met [employer] Clerk Goal (LTG) Patient to report ability to do all usual activities with pain no greater than 2/10 11/18/22: pain 3-4/10, improved . LTG Duration 12/15/22 Progress Towards Goals Progress Towards Goals Progressing Toward Goals Assessment Summary Assessment Decreased left UE cirfumference after sequential pneumatic pump trial, feel she would benefit from pump for home use due to persistent lymphedema. Patient compliant to HEP and demonstrated good understanding of recommended ideas for standing stretches to help her more easily work the exercises into her day. Physical Therapy Plan Frequency and Duration Frequency of Treatment 2x/Week Duration of treatment (weeks) 8 Plan of Care Start Date 10/14/22 Plan of Care End Date 12/15/22 Therapeutic Interventions Therapeutic Interventions Home Exercise Program, Lymphedema Management,Manual Therapy,Patient/Caregiver Education,Self-Care/Home Management,Soft Tissue Mobilization,Taping, Therapeutic Activities, Therapeutic Exercises Next Visit Focus/Plan Next Note Type Treatment Note Next Visit Plan Continue lymphedema management , soft tissue mobilization and ROM. Circumferential measurements to start next session.
--- NOTE | 2022-12-02 14:22 | PT.OTRE ---
Current Diagnoses Malignant neoplasm of unspecified site of left female breast (12/02/22) Lymphedema, not elsewhere classified (12/02/22) Soft tissue disorder, unspecified (12/02/22) Past Medical History (Last Reviewed 11/14/22 @ 17:45 by JACKIE Godfrey) Breast cancer Difficulty swallowing Fuchs' corneal dystrophy of both eyes Hypothyroid Pelvic relaxation Postmenopausal RLS (restless legs syndrome) Vaginal vault prolapse Surgical History (Last Reviewed 11/14/22 @ 17:45 by JACKIE Godfrey) History of gynecologic surgery (05/14/18) History of tonsillectomy Hx of eye surgery (~2011) S/P excision of lipoma Status post bunionectomy Status post hysterectomy Visit Care Team Role Provider Type Sheldon Carrizales MD Family Provider Physician Primary Care Provider Specialty: Family Practice Address: [address] [place] [address], [id number] Email: [email or web address] Ella Sung MD Attending Provider Physician Referring Provider Specialty: Oncology Address: [address] [place] [address], [address] Email: [email or web address] Physical Therapy Re-Evaluation PT-OP-A Visit Information Start: 05/15/22 16:36 Freq: Status: Active Protocol: Document 12/02/22 12:58 [facility] (Rec: 12/02/22 14:21 [facility]AK [id number]) Out-Patient Physical Therapy Visit Information Visit Information Visit Type Treatment Note Visit Note Patient need to cut appointment short to be able to make it to another appointment. Visit Start Time 13:00 Visit Stop Time 14:05 Total Visit Minutes 65 Visit Number 21 Evaluation Information Evaluation Date 05/20/22 Precautions Precautions bilateral mastectomy, having further testing left side for potential metastasis PT-OP-B Current Condition Start: 05/15/22 16:36 Freq: Status: Active Protocol: Document 05/20/22 09:49 SAK (Rec: 05/20/22 11:15 SAK [id number]) Current Condition History of Current Condition Onset Date 03/12/22 Current Complaints funny bone pain, numb forearm, limited motion History of Current Condition bilateral mastectomy with left axillary node dissection left (4/5 positive), sentinal node biopsy right negative. Going to have more tests 06/05/22 to check for any other spread of cancer prior to starting radiation. No chemo planned. Reports since surgery her funny bone has been painfull with movement and if bump elbow. Didn't know precautions for lymphedema, went on plane trip last week, but didn't notice a change Hasn't obtained compression sleeve; ordered one from [employer] that was a one size fits all, and it did not fit. States healing of mastectomy has gone well but the burning pain in her left UE is most limiting. Prior Treatments and Tests as above bilateral mastectomy, further testing to come Treatment Goals Patient/Caregiver Goals Decrease pain, improve flexibility and strength. Prior Functional Status Baseline Function- ADL's Independent Baseline Function- Mobility Independent Baseline Function- Recreation/Hobbies no pain Current Functional Impairments (Reported) Functional Limitations- Recreation/ painful when moving elbow, Hobbies reaching overhead PT-OP-C Subjective Start: 05/15/22 16:36 Freq: Status: Active Protocol: Document 12/02/22 12:58 [facility] (Rec: 12/02/22 14:21 [facility] [id number]) OP-PT Subjective Patient Comments Patient Comments Despite doing all her exercises states having a hard time getting rid of tightness back of upper arm, side of trunk, and under arm. PT-OP-H Neuro Start: 05/15/22 16:36 Freq: Status: Active Protocol: Document 05/20/22 09:49 [facility] (Rec: 05/21/22 16:33 [facility] [id number]) Sensation Evaluation Gross Sensation Gross Sensation Left UE Impaired Sensation Description Numbness,Tingling,Pain PT-OP-J Posture/Palpation/Skin Start: 05/15/22 16:36 Freq: Status: Active Protocol: Document 05/20/22 09:49 [facility] (Rec: 05/21/22 16:33 [facility] [id number]) Palpation Assessment Location axilla Palpation Findings Soft Tissue Tightness Palpation Details no palpable axillary cording incisions Palpation Location decreased soft tissue mobility Skin Assessment Edema Assessment left elbow Edema Type Non-Pitting Edema Appearance Puffy Subjective Edema Description Pain Incisional Assessment Incision Appearance/Comments well healed bilateral mastectomy scars Other Assessments Skin Assessment Comments see lymphedema section for circumferential measurements PT-OP-K Range of Motion Start: 05/15/22 16:36 Freq: Status: Active Protocol: Document 05/20/22 09:49 [facility] (Rec: 05/21/22 16:33 [facility] [id number]) Cervical Spine Range of Motion Cervical Spine Active Testing Position Sitting Comments WNL Shoulder Goniometric Range of Motion Shoulder Measured in Degrees Left Shoulder ROM WFL No Flexion 155 Extension 15 Abduction 147 Horizontal Abduction 75 Horizontal Adduction 30 External Rotation at 45 degrees 55 Abduction Internal Rotation Behind Back (text) T10 Right Shoulder ROM WFL Yes Shoulder ROM Limitations Shoulder ROM Limitations Soft Tissue Tightness,Pain PT-OP-N Lymphedema Start: 05/15/22 16:36 Freq: Status: Active Protocol: Document 12/02/22 12:58 [facility] (Rec: 12/02/22 14:21 [facility] [id number]) Lymphedema Measurements Upper Extremity Circumference Measurements Left Affected MCP 18.2 cm Dorsum of Hand 18 cm Wrist 15.9 cm 5 cm From Wrist Crease 15.3 cm 10 cm From Wrist Crease 18.7 cm 15 cm From Wrist Crease 22.2 cm 20 cm From Wrist Crease 23.6 cm 25 cm From Wrist Crease 24 cm 30 cm From Wrist Crease 27.7 cm 35 cm From Wrist Crease 28.2 cm 40 cm From Wrist Crease 28.8 cm 45 cm From Wrist Crease 29.3 cm Elbow Joint 23.2 cm PT-OP-Q Treatments Start: 05/15/22 16:36 Freq: Status: Active Protocol: Document 12/02/22 12:58 [facility] (Rec: 12/02/22 14:21 [facility] [id number]) Manual Therapy Treatment Soft Tissue Mobilization scar massage Body Location kristen mastectomy scars, lumpectomy scar , subaxillary region, axillary cordin Mobilization Type Instrument Assisted,Myofascial Release,Rolling,Sustained Pressure Intensity/Depth Moderate Body Position Hooklying Comments small, medium suction tool Manual Techniques pin and stretch Type kristen subaxillary reg Body Position Hooklying Reps/Duration 14 min Comments subaxillary tissue palpably tight with axillary cording rkisten noted Lymphedema Treatment Manual Lymphatic Drainage Location left UE Duration 30 Comments Sequential pneumatic pump x 30 min. Patient education and manual treatment during Lymphedema Wrapping Body Location left UE Materials patient self-donned compression sleeve. Recommended patient obtain sleeve for left as well Sequential Lymphedema Exercises Comments reviewed Other Other further info regarding Lacie Mario; patient given measurements last session PT-OP-R Modalities Start: 05/15/22 16:36 Freq: Status: Active Protocol: Document 12/02/22 12:58 [facility] (Rec: 12/02/22 14:21 [facility] [id number]) Compression Pump Treatment Treatment Location Left Arm Pressure Amount (mmHg) (mmHG) 30 Inflation Time (Seconds) 30 Deflation Time (Seconds) 10 Treatment Duration (minutes) 30 Treatment Tolerance Good PT-OP-T Assessment and Plan Start: 05/15/22 16:36 Freq: Status: Active Protocol: Document 12/02/22 12:58 [facility] (Rec: 12/02/22 14:21 [facility] [id number]) Physical Therapy Assessment Impairments Impairments Edema,Pain,ROM,Soft Tissue Mobility Goals Three Impairment impaired range of motion left UE, decreased scar mobility Impairment difficulty reaching overhead, behind her back and out to side for purposes of ADL's Short Term Goal (STG) Patient to be independent with HEP as instructed for purposes of ROM and flexibility 06/19/22: goal met STG Duration goal met Manager Etl Goal (LTG) Patient to demonstrate ROM WNL left UE and normal scar mobility to allow her to reach overhead, behind her back, and out to side without difficulty for daily activities. 06/19/22: goal progress 08/20/23: decrease in ROM and scar mobility left s/p radiation 10/14/22: goal progress 09/17/22: shoulder ROM close to full, scar and subaxillary soft tissue mobility improving , mild restrictions now 11/13/22: increased axillary cording noted with dec shld ROM/inc stiffness with overhead activities, due at least in part to missed appointments due to being ill then having company 12/02/22: 3 axillary cording persists left subaxillary area , lacking full end-range flexion left shoulder LTG Duration 02/21/23 Two Impairment swelling left UE Short Term Goal (STG) decrease swelling left UE to no greater than 0.5 cm different than right as compared via cirfumferential measurement 06/19/22: goal met STG Duration goal met Manager Etl Goal (LTG) Patient to demonstrate good understanding of edema management including wearing compression garment, self- massage, gentle ex 08/21/23: worsening of lymphedema following radiation treatment, needs further treatment. 09/17/22: compliant to HEP, tightens easily s/p radiation requiring ex performance several times per day, pt highly compliant. 10/14/22: good goal progress 11/18/22: circumference variable with patient noting some heaviness right UE as well, PT now noting axillary cording right axilla. Recommended patient obtain compression sleeve for right UE and obtain sequential pneumatic pump for home use; information given. 12/02/22: Circumferential measurements decreased from last session. Patient wearing compression sleeve left and has been encouraged for right as well. Patient pursuing home sequential pneumatic pump through [employer] via info provided by PT. LTG Duration 02/21/23 One Impairment pain left UE worst at elbow Impairment pain as high as 8/10 Short Term Goal (STG) decrease pain to no greater than 4/10 with all usual activities 06/19/22: temporary pain relief with left elbow 08/21/22:Pain 5-6/10 09/17/22: Pain dec to 4-5/10 10/14/22: goal met STG Duration goal met Nursing Home Goal (LTG) Patient to report ability to do all usual activities with pain no greater than 2/10 11/18/22: pain 3-4/10, improved . \ 12/02/22; pain generally 3-4/10 , occasional increase for unknown reason, overall decreased. LTG Duration 02/21/23 Progress Towards Goals Progress Towards Goals Progressing Toward Goals Assessment Summary Assessment Patient highly compliant to HEP, reviewed lymphedema exercises, self-massage. Improved but still limited left shoulder ROM with some residual axillary cording. Lymphedema decreased left compared to last session. Pt pursuing home lymphedema pump via [employer] as recommended by PT. Would benefit from further PT to help her fully achieve her above goals to help her return to prior level of function. Physical Therapy Plan Frequency and Duration Frequency of Treatment 5 visits Duration of treatment (weeks) 10 Plan of Care Start Date 12/02/22 Plan of Care End Date 02/21/23 Therapeutic Interventions Therapeutic Interventions Home Exercise Program, Lymphedema Management,Manual Therapy,Patient/Caregiver Education,Self-Care/Home Management,Soft Tissue Mobilization,Taping, Therapeutic Activities, Therapeutic Exercises Next Visit Focus/Plan Next Note Type Treatment Note Next Visit Plan Continue lymphedema management , soft tissue mobilization including mastectomy scars and axillary cording, ther ex and manual techniques for shoulder ROM.
--- NOTE | 2022-12-02 14:22 | PT.OPPOC ---
Physical, Occupational & Speech Therapy At [facility] Current Diagnoses Malignant neoplasm of unspecified site of left female breast (12/02/22) Lymphedema, not elsewhere classified (12/02/22) Soft tissue disorder, unspecified (12/02/22) Visit Care Team Role Provider Type Sheldon Carrizales MD Family Provider Physician Primary Care Provider Specialty: Family Practice Address: [facility] [place], [address] Email: [email or web address] Ella Sung MD Attending Provider Physician Referring Provider Specialty: Oncology Address: [address] [place] [address], [address] Email: [email or web address] Plan Of Care PT-OP-T Assessment and Plan Start: 05/15/22 16:36 Freq: Status: Active Protocol: Document 12/02/22 12:58 [facility] (Rec: 12/02/22 14:21 [facility] [id number]) Physical Therapy Assessment Impairments Impairments Edema,Pain,ROM,Soft Tissue Mobility Goals Three Impairment impaired range of motion left UE, decreased scar mobility Impairment difficulty reaching overhead, behind her back and out to side for purposes of ADL's Short Term Goal (STG) Patient to be independent with HEP as instructed for purposes of ROM and flexibility 06/19/22: goal met STG Duration goal met Re[employer] Furnace Operator Goal (LTG) Patient to demonstrate ROM WNL left UE and normal scar mobility to allow her to reach overhead, behind her back, and out to side without difficulty for daily activities. 06/19/22: goal progress 08/20/23: decrease in ROM and scar mobility left s/p radiation 10/14/22: goal progress 09/17/22: shoulder ROM close to full, scar and subaxillary soft tissue mobility improving , mild restrictions now 11/13/22: increased axillary cording noted with dec shld ROM/inc stiffness with overhead activities, due at least in part to missed appointments due to being ill then having company 12/02/22: 3 axillary cording persists left subaxillary area , lacking full end-range flexion left shoulder LTG Duration 02/21/23 Two Impairment swelling left UE Short Term Goal (STG) decrease swelling left UE to no greater than 0.5 cm different than right as compared via cirfumferential measurement 06/19/22: goal met STG Duration goal met Reheat Furnace Operator Goal (LTG) Patient to demonstrate good understanding of edema management including wearing compression garment, self- massage, gentle ex 08/21/23: worsening of lymphedema following radiation treatment, needs further treatment. 09/17/22: compliant to HEP, tightens easily s/p radiation requiring ex performance several times per day, pt highly compliant. 10/14/22: good goal progress 11/18/22: circumference variable with patient noting some heaviness right UE as well, PT now noting axillary cording right axilla. Recommended patient obtain compression sleeve for right UE and obtain sequential pneumatic pump for home use; information given. 12/02/22: Circumferential measurements decreased from last session. Patient wearing compression sleeve left and has been encouraged for right as well. Patient pursuing home sequential pneumatic pump through [employer] via info provided by PT. LTG Duration 02/21/23 One Impairment pain left UE worst at elbow Impairment pain as high as 8/10 Short Term Goal (STG) decrease pain to no greater than 4/10 with all usual activities 06/19/22: temporary pain relief with left elbow 08/21/22:Pain 5-6/10 09/17/22: Pain dec to 4-5/10 10/14/22: goal met STG Duration goal met Correction Goal (LTG) Patient to report ability to do all usual activities with pain no greater than 2/10 11/18/22: pain 3-4/10, improved . \ 12/02/22; pain generally 3-4/10 , occasional increase for unknown reason, overall decreased. LTG Duration 02/21/23 Progress Towards Goals Progress Towards Goals Progressing Toward Goals Assessment Summary Assessment Patient highly compliant to HEP, reviewed lymphedema exercises, self-massage. Improved but still limited left shoulder ROM with some residual axillary cording. Lymphedema decreased left compared to last session. Pt pursuing home lymphedema pump via [employer] as recommended by PT. Would benefit from further PT to help her fully achieve her above goals to help her return to prior level of function. Physical Therapy Plan Frequency and Duration Frequency of Treatment 5 visits Duration of treatment (weeks) 10 Plan of Care Start Date 12/02/22 Plan of Care End Date 02/21/23 Therapeutic Interventions Therapeutic Interventions Home Exercise Program, Lymphedema Management,Manual Therapy,Patient/Caregiver Education,Self-Care/Home Management,Soft Tissue Mobilization,Taping, Therapeutic Activities, Therapeutic Exercises Next Visit Focus/Plan Next Note Type Treatment Note Next Visit Plan Continue lymphedema management , soft tissue mobilization including mastectomy scars and axillary cording, ther ex and manual techniques for shoulder ROM. Plan of Care Dates Plan of Care Start Date 12/02/22 Plan of Care End Date 02/21/23 Electronically Signed by: Roula Bullard, PT 12/02/22 [id number] If you are in agreement with this Plan of Care, please return a signed and dated copy. I have reviewed this Plan of Care and certify that the skilled therapy services above are required to meet the patient?s needs. Physician Signature Date Printed Name and Credentials Clinical Instructor Signature Printed Name and Credentials
--- NOTE | 2022-12-15 12:09 | PT.OTN ---
Current Diagnoses Malignant neoplasm of unspecified site of left female breast (12/15/22) Lymphedema, not elsewhere classified (12/15/22) Soft tissue disorder, unspecified (12/15/22) Physical Therapy Treatment Note PT-OP-A Visit Information Start: 05/15/22 16:36 Freq: Status: Active Protocol: Document 12/15/22 10:34 SAK (Rec: 12/15/22 12:08 SAK [id number]) Out-Patient Physical Therapy Visit Information Visit Information Visit Type Treatment Note Visit Start Time 10:34 Visit Stop Time 10:51 Total Visit Minutes 87 Visit Number 22 Evaluation Information Evaluation Date 05/20/22 Precautions Precautions bilateral mastectomy, having further testing left side for potential metastasis PT-OP-B Current Condition Start: 05/15/22 16:36 Freq: Status: Active Protocol: Document 05/20/22 09:49 SAK (Rec: 05/20/22 11:15 SAK [id number]) Current Condition History of Current Condition Onset Date 03/12/22 Current Complaints funny bone pain, numb forearm, limited motion History of Current Condition bilateral mastectomy with left axillary node dissection left (4/5 positive), sentinal node biopsy right negative. Going to have more tests 06/05/22 to check for any other spread of cancer prior to starting radiation. No chemo planned. Reports since surgery her funny bone has been painfull with movement and if bump elbow. Didn't know precautions for lymphedema, went on plane trip last week, but didn't notice a change Hasn't obtained compression sleeve; ordered one from [employer] that was a one size fits all, and it did not fit. States healing of mastectomy has gone well but the burning pain in her left UE is most limiting. Prior Treatments and Tests as above bilateral mastectomy, further testing to come Treatment Goals Patient/Caregiver Goals Decrease pain, improve flexibility and strength. Prior Functional Status Baseline Function- ADL's Independent Baseline Function- Mobility Independent Baseline Function- Recreation/Hobbies no pain Current Functional Impairments (Reported) Functional Limitations- Recreation/ painful when moving elbow, Hobbies reaching overhead PT-OP-C Subjective Start: 05/15/22 16:36 Freq: Status: Active Protocol: Document 12/15/22 10:34 SAK (Rec: 12/15/22 12:08 SAK [id number]) OP-PT Subjective Patient Comments Patient Comments Tightness persists in chest and under arm. WAiting for pump from [employer]. Doing exercises and self massage, wearing compression sleeve. PT-OP-H Neuro Start: 05/15/22 16:36 Freq: Status: Active Protocol: Document 05/20/22 09:49 SAK (Rec: 05/21/22 16:33 SAK [id number]) Sensation Evaluation Gross Sensation Gross Sensation Left UE Impaired Sensation Description Numbness,Tingling,Pain PT-OP-J Posture/Palpation/Skin Start: 05/15/22 16:36 Freq: Status: Active Protocol: Document 05/20/22 09:49 SAK (Rec: 05/21/22 16:33 SAK [id number]) Palpation Assessment Location axilla Palpation Findings Soft Tissue Tightness Palpation Details no palpable axillary cording incisions Palpation Location decreased soft tissue mobility Skin Assessment Edema Assessment left elbow Edema Type Non-Pitting Edema Appearance Puffy Subjective Edema Description Pain Incisional Assessment Incision Appearance/Comments well healed bilateral mastectomy scars Other Assessments Skin Assessment Comments see lymphedema section for circumferential measurements PT-OP-K Range of Motion Start: 05/15/22 16:36 Freq: Status: Active Protocol: Document 05/20/22 09:49 SAK (Rec: 05/21/22 16:33 SAK [id number]) Cervical Spine Range of Motion Cervical Spine Active Testing Position Sitting Comments WNL Shoulder Goniometric Range of Motion Shoulder Left Shoulder ROM WFL No Flexion 155 Extension 15 Abduction 147 Horizontal Abduction 75 Horizontal Adduction 30 External Rotation at 45 degrees 55 Abduction Internal Rotation Behind Back (text) T10 Right Shoulder ROM WFL Yes Shoulder ROM Limitations Shoulder ROM Limitations Soft Tissue Tightness,Pain PT-OP-N Lymphedema Start: 05/15/22 16:36 Freq: Status: Active Protocol: Document 12/15/22 10:34 SAK (Rec: 12/15/22 12:08 SAK [id number]) Lymphedema Measurements Upper Extremity Circumference Measurements Left Affected MCP 18.2 cm Dorsum of Hand 18 cm Wrist 15.9 cm 5 cm From Wrist Crease 15.3 cm 10 cm From Wrist Crease 18.9 cm 15 cm From Wrist Crease 22.8 cm 20 cm From Wrist Crease 23.6 cm 25 cm From Wrist Crease 24.3 cm 30 cm From Wrist Crease 27.5 cm 35 cm From Wrist Crease 28.4 cm 40 cm From Wrist Crease 28.8 cm 45 cm From Wrist Crease 29.7 cm Elbow Joint 23.4 cm PT-OP-Q Treatments Start: 05/15/22 16:36 Freq: Status: Active Protocol: Document 12/15/22 10:34 [facility] (Rec: 12/15/22 12:08 [facility] [id number]) Therapeutic Exercises Supine Exercises I, T, Y Reps/Minutes 10x AROM followed by end-range stretch PROM left shoulder Reps/Minutes 14 min Comments pin and stretch Sidelying Exercises [place] Reps/Minutes 10x open book Reps/Minutes 5x Sitting Exercises shld hor abduction Sitting Exercise Name pec stretch Equipment Used ball at mid thoracic Reps/Minutes 5x10 Comments with spinal ext back over ball pulleys Sitting Exercise Name flexion and scaption Reps/Minutes 2 min Manual Therapy Treatment Soft Tissue Mobilization scar massage Body Location kristen mastectomy scars, lumpectomy scar , subaxillary region, axillary cordin Mobilization Type Instrument Assisted,Myofascial Release,Rolling,Sustained Pressure Intensity/Depth Moderate Body Position Hooklying Comments small, medium suction tool Manual Techniques pin and stretch Type kristen subaxillary reg Body Position Hooklying Reps/Duration 14 min Comments subaxillary tissue palpably tight with axillary cording kristen noted Self-Care/Home Management Treatment Education Patient Education Home Exercise Program Other Education T stretch at corner of bed for inc stretch Lymphedema Treatment Manual Lymphatic Drainage Location left UE Duration 30 Comments Sequential pneumatic pump x 30 min. Patient education and manual treatment during Lymphedema Wrapping Body Location left UE Materials patient self-donned compression sleeve. Recommended patient obtain sleeve for left as well Sequential Lymphedema Exercises Comments Patient compliant to HEP PT-OP-R Modalities Start: 05/15/22 16:36 Freq: Status: Active Protocol: Document 12/15/22 10:34 [facility] (Rec: 12/15/22 12:08 [facility] [id number]) Compression Pump Treatment Treatment Location Left Arm Pressure Amount (mmHg) (mmHG) 30 Inflation Time (Seconds) 30 Deflation Time (Seconds) 10 Treatment Duration (minutes) 30 Treatment Tolerance Good PT-OP-T Assessment and Plan Start: 05/15/22 16:36 Freq: Status: Active Protocol: Document 12/15/22 10:34 [facility] (Rec: 12/15/22 12:08 [facility] [id number]) Physical Therapy Assessment Impairments Impairments Edema,Pain,ROM,Soft Tissue Mobility Goals Three Impairment impaired range of motion left UE, decreased scar mobility Impairment difficulty reaching overhead, behind her back and out to side for purposes of ADL's Short Term Goal (STG) Patient to be independent with HEP as instructed for purposes of ROM and flexibility 06/19/22: goal met STG Duration goal met [employer] Goal (LTG) Patient to demonstrate ROM WNL left UE and normal scar mobility to allow her to reach overhead, behind her back, and out to side without difficulty for daily activities. 06/19/22: goal progress 08/20/23: decrease in ROM and scar mobility left s/p radiation 10/14/22: goal progress 09/17/22: shoulder ROM close to full, scar and subaxillary soft tissue mobility improving , mild restrictions now 11/13/22: increased axillary cording noted with dec shld ROM/inc stiffness with overhead activities, due at least in part to missed appointments due to being ill then having company 12/02/22: 3 axillary cording persists left subaxillary area , lacking full end-range flexion left shoulder LTG Duration 02/21/23 Two Impairment swelling left UE Short Term Goal (STG) decrease swelling left UE to no greater than 0.5 cm different than right as compared via cirfumferential measurement 06/19/22: goal met STG Duration goal met Nursing Home Goal (LTG) Patient to demonstrate good understanding of edema management including wearing compression garment, self- massage, gentle ex 08/21/23: worsening of lymphedema following radiation treatment, needs further treatment. 09/17/22: compliant to HEP, tightens easily s/p radiation requiring ex performance several times per day, pt highly compliant. 10/14/22: good goal progress 11/18/22: circumference variable with patient noting some heaviness right UE as well, PT now noting axillary cording right axilla. Recommended patient obtain compression sleeve for right UE and obtain sequential pneumatic pump for home use; information given. 12/02/22: Circumferential measurements decreased from last session. Patient wearing compression sleeve left and has been encouraged for right as well. Patient pursuing home sequential pneumatic pump through [employer] via info provided by PT. LTG Duration 02/21/23 One Impairment pain left UE worst at elbow Impairment pain as high as 8/10 Short Term Goal (STG) decrease pain to no greater than 4/10 with all usual activities 06/19/22: temporary pain relief with left elbow 08/21/22:Pain 5-6/10 09/17/22: Pain dec to 4-5/10 10/14/22: goal met STG Duration goal met Nursing Home Goal (LTG) Patient to report ability to do all usual activities with pain no greater than 2/10 11/18/22: pain 3-4/10, improved . \ 12/02/22; pain generally 3-4/10 , occasional increase for unknown reason, overall decreased. LTG Duration 02/21/23 Progress Towards Goals Progress Towards Goals Progressing Toward Goals Assessment Summary Assessment Patient circumferential measurements sl inc from last session, but did not put compressio sleeve on this am. Talked with someone from [employer] on phone but hasn 't gotten pump yet. Decreased measurements after use of pneumatic sequential pump left UE. Demonstrated good understanding of modification of ex for more stretch. Compliant to HEP. Physical Therapy Plan Frequency and Duration Frequency of Treatment 5 visits Duration of treatment (weeks) 10 Plan of Care Start Date 12/02/22 Plan of Care End Date 02/21/23 Therapeutic Interventions Therapeutic Interventions Home Exercise Program, Lymphedema Management,Manual Therapy,Patient/Caregiver Education,Self-Care/Home Management,Soft Tissue Mobilization,Taping, Therapeutic Activities, Therapeutic Exercises Next Visit Focus/Plan Next Note Type Treatment Note Next Visit Plan Continue lymphedema management , soft tissue mobilization including mastectomy scars and axillary cording, ther ex and manual techniques for shoulder ROM. Educate in use of lymphedema pump once receives
--- NOTE | 2022-12-15 17:12 | PT.OTN ---
Current Diagnoses Malignant neoplasm of unspecified site of left female breast (12/15/22) Lymphedema, not elsewhere classified (12/15/22) Soft tissue disorder, unspecified (12/15/22) Physical Therapy Treatment Note PT-OP-A Visit Information Start: 05/15/22 16:36 Freq: Status: Active Protocol: Document 12/15/22 10:34 SAK (Rec: 12/15/22 12:08 SAK [id number]) Out-Patient Physical Therapy Visit Information Visit Information Visit Type Treatment Note Visit Start Time 10:34 Visit Stop Time 10:51 Total Visit Minutes 87 Visit Number 22 Evaluation Information Evaluation Date 05/20/22 Precautions Precautions bilateral mastectomy, having further testing left side for potential metastasis PT-OP-B Current Condition Start: 05/15/22 16:36 Freq: Status: Active Protocol: Document 05/20/22 09:49 SAK (Rec: 05/20/22 11:15 SAK [id number]) Current Condition History of Current Condition Onset Date 03/12/22 Current Complaints funny bone pain, numb forearm, limited motion History of Current Condition bilateral mastectomy with left axillary node dissection left (4/5 positive), sentinal node biopsy right negative. Going to have more tests 06/05/22 to check for any other spread of cancer prior to starting radiation. No chemo planned. Reports since surgery her funny bone has been painfull with movement and if bump elbow. Didn't know precautions for lymphedema, went on plane trip last week, but didn't notice a change Hasn't obtained compression sleeve; ordered one from [employer] that was a one size fits all, and it did not fit. States healing of mastectomy has gone well but the burning pain in her left UE is most limiting. Prior Treatments and Tests as above bilateral mastectomy, further testing to come Treatment Goals Patient/Caregiver Goals Decrease pain, improve flexibility and strength. Prior Functional Status Baseline Function- ADL's Independent Baseline Function- Mobility Independent Baseline Function- Recreation/Hobbies no pain Current Functional Impairments (Reported) Functional Limitations- Recreation/ painful when moving elbow, Hobbies reaching overhead PT-OP-C Subjective Start: 05/15/22 16:36 Freq: Status: Active Protocol: Document 12/15/22 10:34 SAK (Rec: 12/15/22 12:08 SAK [id number]) OP-PT Subjective Patient Comments Patient Comments Tightness persists in chest and under arm. WAiting for pump from [employer]. Doing exercises and self massage, wearing compression sleeve. PT-OP-H Neuro Start: 05/15/22 16:36 Freq: Status: Active Protocol: Document 05/20/22 09:49 SAK (Rec: 05/21/22 16:33 SAK [id number]) Sensation Evaluation Gross Sensation Gross Sensation Left UE Impaired Sensation Description Numbness,Tingling,Pain PT-OP-J Posture/Palpation/Skin Start: 05/15/22 16:36 Freq: Status: Active Protocol: Document 05/20/22 09:49 SAK (Rec: 05/21/22 16:33 SAK [id number]) Palpation Assessment Location axilla Palpation Findings Soft Tissue Tightness Palpation Details no palpable axillary cording incisions Palpation Location decreased soft tissue mobility Skin Assessment Edema Assessment left elbow Edema Type Non-Pitting Edema Appearance Puffy Subjective Edema Description Pain Incisional Assessment Incision Appearance/Comments well healed bilateral mastectomy scars Other Assessments Skin Assessment Comments see lymphedema section for circumferential measurements PT-OP-K Range of Motion Start: 05/15/22 16:36 Freq: Status: Active Protocol: Document 05/20/22 09:49 SAK (Rec: 05/21/22 16:33 SAK [id number]) Cervical Spine Range of Motion Cervical Spine Active Testing Position Sitting Comments WNL Shoulder Goniometric Range of Motion Shoulder Left Shoulder ROM WFL No Flexion 155 Extension 15 Abduction 147 Horizontal Abduction 75 Horizontal Adduction 30 External Rotation at 45 degrees 55 Abduction Internal Rotation Behind Back (text) T10 Right Shoulder ROM WFL Yes Shoulder ROM Limitations Shoulder ROM Limitations Soft Tissue Tightness,Pain PT-OP-N Lymphedema Start: 05/15/22 16:36 Freq: Status: Active Protocol: Document 12/15/22 10:34 SAK (Rec: 12/15/22 12:08 SAK [id number]) Lymphedema Measurements Upper Extremity Circumference Measurements Left Affected MCP 18.2 cm Dorsum of Hand 18 cm Wrist 15.9 cm 5 cm From Wrist Crease 15.3 cm 10 cm From Wrist Crease 18.9 cm 15 cm From Wrist Crease 22.8 cm 20 cm From Wrist Crease 23.6 cm 25 cm From Wrist Crease 24.3 cm 30 cm From Wrist Crease 27.5 cm 35 cm From Wrist Crease 28.4 cm 40 cm From Wrist Crease 28.8 cm 45 cm From Wrist Crease 29.7 cm Elbow Joint 23.4 cm PT-OP-Q Treatments Start: 05/15/22 16:36 Freq: Status: Active Protocol: Document 12/15/22 10:34 [facility] (Rec: 12/15/22 12:08 [facility] [id number]) Therapeutic Exercises Supine Exercises I, T, Y Reps/Minutes 10x AROM followed by end-range stretch PROM left shoulder Reps/Minutes 14 min Comments pin and stretch Sidelying Exercises [place] Reps/Minutes 10x open book Reps/Minutes 5x Sitting Exercises shld hor abduction Sitting Exercise Name pec stretch Equipment Used ball at mid thoracic Reps/Minutes 5x10 Comments with spinal ext back over ball pulleys Sitting Exercise Name flexion and scaption Reps/Minutes 2 min Manual Therapy Treatment Soft Tissue Mobilization scar massage Body Location kristen mastectomy scars, lumpectomy scar , subaxillary region, axillary cordin Mobilization Type Instrument Assisted,Myofascial Release,Rolling,Sustained Pressure Intensity/Depth Moderate Body Position Hooklying Comments small, medium suction tool Manual Techniques pin and stretch Type kristen subaxillary reg Body Position Hooklying Reps/Duration 14 min Comments subaxillary tissue palpably tight with axillary cording kristen noted Self-Care/Home Management Treatment Education Patient Education Home Exercise Program Other Education T stretch at corner of bed for inc stretch Lymphedema Treatment Manual Lymphatic Drainage Location left UE Duration 30 Comments Sequential pneumatic pump x 30 min. Patient education and manual treatment during Lymphedema Wrapping Body Location left UE Materials patient self-donned compression sleeve. Recommended patient obtain sleeve for left as well Sequential Lymphedema Exercises Comments Patient compliant to HEP PT-OP-R Modalities Start: 05/15/22 16:36 Freq: Status: Active Protocol: Document 12/15/22 10:34 [facility] (Rec: 12/15/22 12:08 [facility] [id number]) Compression Pump Treatment Treatment Location Left Arm Pressure Amount (mmHg) (mmHG) 30 Inflation Time (Seconds) 30 Deflation Time (Seconds) 10 Treatment Duration (minutes) 30 Treatment Tolerance Good PT-OP-T Assessment and Plan Start: 05/15/22 16:36 Freq: Status: Active Protocol: Document 12/15/22 10:34 [facility] (Rec: 12/15/22 12:08 [facility] [id number]) Physical Therapy Assessment Impairments Impairments Edema,Pain,ROM,Soft Tissue Mobility Goals Three Impairment impaired range of motion left UE, decreased scar mobility Impairment difficulty reaching overhead, behind her back and out to side for purposes of ADL's Short Term Goal (STG) Patient to be independent with HEP as instructed for purposes of ROM and flexibility 06/19/22: goal met STG Duration goal met Interior Specialist Goal (LTG) Patient to demonstrate ROM WNL left UE and normal scar mobility to allow her to reach overhead, behind her back, and out to side without difficulty for daily activities. 06/19/22: goal progress 08/20/23: decrease in ROM and scar mobility left s/p radiation 10/14/22: goal progress 09/17/22: shoulder ROM close to full, scar and subaxillary soft tissue mobility improving , mild restrictions now 11/13/22: increased axillary cording noted with dec shld ROM/inc stiffness with overhead activities, due at least in part to missed appointments due to being ill then having company 12/02/22: 3 axillary cording persists left subaxillary area , lacking full end-range flexion left shoulder LTG Duration 02/21/23 Two Impairment swelling left UE Short Term Goal (STG) decrease swelling left UE to no greater than 0.5 cm different than right as compared via cirfumferential measurement 06/19/22: goal met STG Duration goal met Halfway Goal (LTG) Patient to demonstrate good understanding of edema management including wearing compression garment, self- massage, gentle ex 08/21/23: worsening of lymphedema following radiation treatment, needs further treatment. 09/17/22: compliant to HEP, tightens easily s/p radiation requiring ex performance several times per day, pt highly compliant. 10/14/22: good goal progress 11/18/22: circumference variable with patient noting some heaviness right UE as well, PT now noting axillary cording right axilla. Recommended patient obtain compression sleeve for right UE and obtain sequential pneumatic pump for home use; information given. 12/02/22: Circumferential measurements decreased from last session. Patient wearing compression sleeve left and has been encouraged for right as well. Patient pursuing home sequential pneumatic pump through [employer] via info provided by PT. LTG Duration 02/21/23 One Impairment pain left UE worst at elbow Impairment pain as high as 8/10 Short Term Goal (STG) decrease pain to no greater than 4/10 with all usual activities 06/19/22: temporary pain relief with left elbow 08/21/22:Pain 5-6/10 09/17/22: Pain dec to 4-5/10 10/14/22: goal met STG Duration goal met Halfway Goal (LTG) Patient to report ability to do all usual activities with pain no greater than 2/10 11/18/22: pain 3-4/10, improved . \ 12/02/22; pain generally 3-4/10 , occasional increase for unknown reason, overall decreased. LTG Duration 02/21/23 Progress Towards Goals Progress Towards Goals Progressing Toward Goals Assessment Summary Assessment Patient circumferential measurements sl inc from last session, but did not put compression sleeve on this am. Patient seen in PT since for treatment of elbow pain and lymphedema; more than 30 days of conservative treatment but still difficulty managing lymphedema. . Demonstrated good understanding of modification of ex for more stretch. Compliant to HEP. Physical Therapy Plan Frequency and Duration Frequency of Treatment 5 visits Duration of treatment (weeks) 10 Plan of Care Start Date 12/02/22 Plan of Care End Date 02/21/23 Therapeutic Interventions Therapeutic Interventions Home Exercise Program, Lymphedema Management,Manual Therapy,Patient/Caregiver Education,Self-Care/Home Management,Soft Tissue Mobilization,Taping, Therapeutic Activities, Therapeutic Exercises Next Visit Focus/Plan Next Note Type Treatment Note Next Visit Plan Continue lymphedema management , soft tissue mobilization including mastectomy scars and axillary cording, ther ex and manual techniques for shoulder ROM. Educate in use of lymphedema pump once receives
--- NOTE | 2022-12-30 14:02 | PT.OTN ---
Current Diagnoses Malignant neoplasm of unspecified site of left female breast (12/30/22) Lymphedema, not elsewhere classified (12/30/22) Soft tissue disorder, unspecified (12/30/22) Physical Therapy Treatment Note PT-OP-A Visit Information Start: 05/15/22 16:36 Freq: Status: Active Protocol: Document 12/30/22 12:32 SAK (Rec: 12/30/22 14:02 [facility] [id number]) Out-Patient Physical Therapy Visit Information Visit Information Visit Type Treatment Note Visit Start Time 12:30 Visit Stop Time 13:55 Total Visit Minutes 85 Visit Number 23 Evaluation Information Evaluation Date 05/20/22 Precautions Precautions bilateral mastectomy, having further testing left side for potential metastasis PT-OP-B Current Condition Start: 05/15/22 16:36 Freq: Status: Active Protocol: Document 05/20/22 09:49 SAK (Rec: 05/20/22 11:15 SAK [id number]) Current Condition History of Current Condition Onset Date 03/12/22 Current Complaints funny bone pain, numb forearm, limited motion History of Current Condition bilateral mastectomy with left axillary node dissection left (4/5 positive), sentinal node biopsy right negative. Going to have more tests 06/05/22 to check for any other spread of cancer prior to starting radiation. No chemo planned. Reports since surgery her funny bone has been painfull with movement and if bump elbow. Didn't know precautions for lymphedema, went on plane trip last week, but didn't notice a change Hasn't obtained compression sleeve; ordered one from [employer] that was a one size fits all, and it did not fit. States healing of mastectomy has gone well but the burning pain in her left UE is most limiting. Prior Treatments and Tests as above bilateral mastectomy, further testing to come Treatment Goals Patient/Caregiver Goals Decrease pain, improve flexibility and strength. Prior Functional Status Baseline Function- ADL's Independent Baseline Function- Mobility Independent Baseline Function- Recreation/Hobbies no pain Current Functional Impairments (Reported) Functional Limitations- Recreation/ painful when moving elbow, Hobbies reaching overhead PT-OP-C Subjective Start: 05/15/22 16:36 Freq: Status: Active Protocol: Document 12/30/22 12:32 SAK (Rec: 12/30/22 14:02 [facility] [id number]) OP-PT Subjective Patient Comments Patient Comments Tightness left anterior chest with some improvement though reports still feels very tight . Hasn't heard back from Lacie Mario yet, no pump; states she always feels better after the pump and is hopeful to get soon. PT-OP-H Neuro Start: 05/15/22 16:36 Freq: Status: Active Protocol: Document 05/20/22 09:49 SAK (Rec: 05/21/22 16:33 SAK [id number]) Sensation Evaluation Gross Sensation Gross Sensation Left UE Impaired Sensation Description Numbness,Tingling,Pain PT-OP-J Posture/Palpation/Skin Start: 05/15/22 16:36 Freq: Status: Active Protocol: Document 05/20/22 09:49 SAK (Rec: 05/21/22 16:33 [facility] [id number]) Palpation Assessment Location axilla Palpation Findings Soft Tissue Tightness Palpation Details no palpable axillary cording incisions Palpation Location decreased soft tissue mobility Skin Assessment Edema Assessment left elbow Edema Type Non-Pitting Edema Appearance Puffy Subjective Edema Description Pain Incisional Assessment Incision Appearance/Comments well healed bilateral mastectomy scars Other Assessments Skin Assessment Comments see lymphedema section for circumferential measurements PT-OP-K Range of Motion Start: 05/15/22 16:36 Freq: Status: Active Protocol: Document 05/20/22 09:49 SAK (Rec: 05/21/22 16:33 [facility] [id number]) Cervical Spine Range of Motion Cervical Spine Active Testing Position Sitting Comments WNL Shoulder Goniometric Range of Motion Shoulder Left Shoulder ROM WFL No Flexion 155 Extension 15 Abduction 147 Horizontal Abduction 75 Horizontal Adduction 30 External Rotation at 45 degrees 55 Abduction Internal Rotation Behind Back (text) T10 Right Shoulder ROM WFL Yes Shoulder ROM Limitations Shoulder ROM Limitations Soft Tissue Tightness,Pain PT-OP-N Lymphedema Start: 05/15/22 16:36 Freq: Status: Active Protocol: Document 12/30/22 12:32 SAK (Rec: 12/30/22 14:02 SAK [id number]) Lymphedema Measurements Upper Extremity Circumference Measurements Left Affected MCP 18.2 cm Dorsum of Hand 18.4 cm Wrist 15.9 cm 5 cm From Wrist Crease 15.9 cm 10 cm From Wrist Crease 18.8 cm 15 cm From Wrist Crease 22.8 cm 20 cm From Wrist Crease 23.3 cm 25 cm From Wrist Crease 24.3 cm 30 cm From Wrist Crease 27.6 cm 35 cm From Wrist Crease 28.8 cm 40 cm From Wrist Crease 28.6 cm 45 cm From Wrist Crease 29.6 cm Elbow Joint 23.4 cm PT-OP-Q Treatments Start: 05/15/22 16:36 Freq: Status: Active Protocol: Document 12/30/22 12:32 [facility] (Rec: 12/30/22 14:02 [facility] [id number]) Therapeutic Exercises Supine Exercises I, T, Y Reps/Minutes 10x AROM followed by end-range stretch PROM left shoulder Reps/Minutes 14 min Comments pin and stretch Sidelying Exercises [place] Reps/Minutes 10x open book Reps/Minutes 5x Sitting Exercises shld hor abduction Sitting Exercise Name pec stretch Equipment Used ball at mid thoracic Reps/Minutes 5x10 Comments with spinal ext back over ball pulleys Sitting Exercise Name flexion and scaption Reps/Minutes 2 min Standing Exercises lateral trunk stretch Equipment Used wall Reps/Minutes 2x30 Manual Therapy Treatment Soft Tissue Mobilization scar massage Body Location kristen mastectomy scars, lumpectomy scar , subaxillary region, axillary cordin Mobilization Type Instrument Assisted,Myofascial Release,Rolling,Sustained Pressure Intensity/Depth Moderate Body Position Hooklying Comments small, medium suction tool Manual Techniques pin and stretch Type kristen subaxillary reg Body Position Hooklying Reps/Duration 14 min Comments subaxillary tissue palpably tight with axillary cording kristen noted Self-Care/Home Management Treatment Education Other Education PT email to Lacie Mario returned during session; they are awaiting insurance approval. Lymphedema Treatment Manual Lymphatic Drainage Location left UE Duration 30 Comments Sequential pneumatic pump x 30 min. Patient education and manual treatment during Lymphedema Wrapping Body Location left UE Materials patient self-donned compression sleeve. Recommended patient obtain sleeve for left as well Sequential Lymphedema Exercises Comments Patient compliant to HEP PT-OP-R Modalities Start: 05/15/22 16:36 Freq: Status: Active Protocol: Document 12/30/22 12:32 [facility] (Rec: 12/30/22 14:02 [facility] [id number]) Compression Pump Treatment Treatment Location Left Arm Pressure Amount (mmHg) (mmHG) 30 Inflation Time (Seconds) 30 Deflation Time (Seconds) 10 Treatment Duration (minutes) 30 Treatment Tolerance Good PT-OP-T Assessment and Plan Start: 05/15/22 16:36 Freq: Status: Active Protocol: Document 12/30/22 12:32 [facility] (Rec: 12/30/22 14:02 [facility] [id number]) Physical Therapy Assessment Impairments Impairments Edema,Pain,ROM,Soft Tissue Mobility Goals Three Impairment impaired range of motion left UE, decreased scar mobility Impairment difficulty reaching overhead, behind her back and out to side for purposes of ADL's Short Term Goal (STG) Patient to be independent with HEP as instructed for purposes of ROM and flexibility 06/19/22: goal met STG Duration goal met Chief Of Service Goal (LTG) Patient to demonstrate ROM WNL left UE and normal scar mobility to allow her to reach overhead, behind her back, and out to side without difficulty for daily activities. 06/19/22: goal progress 08/20/23: decrease in ROM and scar mobility left s/p radiation 10/14/22: goal progress 09/17/22: shoulder ROM close to full, scar and subaxillary soft tissue mobility improving , mild restrictions now 11/13/22: increased axillary cording noted with dec shld ROM/inc stiffness with overhead activities, due at least in part to missed appointments due to being ill then having company 12/02/22: 3 axillary cording persists left subaxillary area , lacking full end-range flexion left shoulder LTG Duration 02/21/23 Two Impairment swelling left UE Short Term Goal (STG) decrease swelling left UE to no greater than 0.5 cm different than right as compared via cirfumferential measurement 06/19/22: goal met STG Duration goal met Chief Of Service Goal (LTG) Patient to demonstrate good understanding of edema management including wearing compression garment, self- massage, gentle ex 08/21/23: worsening of lymphedema following radiation treatment, needs further treatment. 09/17/22: compliant to HEP, tightens easily s/p radiation requiring ex performance several times per day, pt highly compliant. 10/14/22: good goal progress 11/18/22: circumference variable with patient noting some heaviness right UE as well, PT now noting axillary cording right axilla. Recommended patient obtain compression sleeve for right UE and obtain sequential pneumatic pump for home use; information given. 12/02/22: Circumferential measurements decreased from last session. Patient wearing compression sleeve left and has been encouraged for right as well. Patient pursuing home sequential pneumatic pump through [employer] via info provided by PT. LTG Duration 02/21/23 One Impairment pain left UE worst at elbow Impairment pain as high as 8/10 Short Term Goal (STG) decrease pain to no greater than 4/10 with all usual activities 06/19/22: temporary pain relief with left elbow 08/21/22:Pain 5-6/10 09/17/22: Pain dec to 4-5/10 10/14/22: goal met STG Duration goal met Chief Of Service Goal (LTG) Patient to report ability to do all usual activities with pain no greater than 2/10 11/18/22: pain 3-4/10, improved . \ 12/02/22; pain generally 3-4/10 , occasional increase for unknown reason, overall decreased. LTG Duration 02/21/23 Progress Towards Goals Progress Towards Goals Progressing Toward Goals Assessment Summary Assessment Measurements stable from last session, no significant increase or decrease. Palpable tightness bilateral mastectomy scars and subaxillary region left; decreased with manual techniques. Patient compliant to HEP, wearing compression sleeve. Physical Therapy Plan Frequency and Duration Frequency of Treatment 5 visits Duration of treatment (weeks) 10 Plan of Care Start Date 12/02/22 Plan of Care End Date 02/21/23 Therapeutic Interventions Therapeutic Interventions Home Exercise Program, Lymphedema Management,Manual Therapy,Patient/Caregiver Education,Self-Care/Home Management,Soft Tissue Mobilization,Taping, Therapeutic Activities, Therapeutic Exercises Next Visit Focus/Plan Next Note Type Treatment Note Next Visit Plan Continue lymphedema management , soft tissue mobilization including mastectomy scars and axillary cording, ther ex and manual techniques for shoulder ROM. Educate in use of lymphedema pump once receives
--- NOTE | 2023-01-14 11:51 | PT.OTN ---
Current Diagnoses Malignant neoplasm of unspecified site of left female breast (01/14/23) Lymphedema, not elsewhere classified (01/14/23) Soft tissue disorder, unspecified (01/14/23) Physical Therapy Treatment Note PT-OP-A Visit Information Start: 05/15/22 16:36 Freq: Status: Active Protocol: Document 01/14/23 10:33 SAK (Rec: 01/14/23 11:51 [facility] [id number]) Out-Patient Physical Therapy Visit Information Visit Information Visit Type Treatment Note Visit Start Time 10:33 Visit Stop Time 11:48 Total Visit Minutes 75 Visit Number 24 Evaluation Information Evaluation Date 05/20/22 Precautions Precautions bilateral mastectomy, having further testing left side for potential metastasis PT-OP-B Current Condition Start: 05/15/22 16:36 Freq: Status: Active Protocol: Document 05/20/22 09:49 SAK (Rec: 05/20/22 11:15 SAK [id number]) Current Condition History of Current Condition Onset Date 03/12/22 Current Complaints funny bone pain, numb forearm, limited motion History of Current Condition bilateral mastectomy with left axillary node dissection left (4/5 positive), sentinal node biopsy right negative. Going to have more tests 06/05/22 to check for any other spread of cancer prior to starting radiation. No chemo planned. Reports since surgery her funny bone has been painfull with movement and if bump elbow. Didn't know precautions for lymphedema, went on plane trip last week, but didn't notice a change Hasn't obtained compression sleeve; ordered one from [email or web address] that was a one size fits all, and it did not fit. States healing of mastectomy has gone well but the burning pain in her left UE is most limiting. Prior Treatments and Tests as above bilateral mastectomy, further testing to come Treatment Goals Patient/Caregiver Goals Decrease pain, improve flexibility and strength. Prior Functional Status Baseline Function- ADL's Independent Baseline Function- Mobility Independent Baseline Function- Recreation/Hobbies no pain Current Functional Impairments (Reported) Functional Limitations- Recreation/ painful when moving elbow, Hobbies reaching overhead PT-OP-C Subjective Start: 05/15/22 16:36 Freq: Status: Active Protocol: Document 01/14/23 10:33 SAK (Rec: 01/14/23 11:51 [facility] [id number]) OP-PT Subjective Patient Comments Patient Comments Per PT, pump has been sent but not arrived yet at clinic. Patient willing to be instructed how to use pump via video and demonstration with clinic pump. States PT very helpful for numbness and tightness under PT-OP-H Neuro Start: 05/15/22 16:36 Freq: Status: Active Protocol: Document 05/20/22 09:49 SAK (Rec: 05/21/22 16:33 SAK [id number]) Sensation Evaluation Gross Sensation Gross Sensation Left UE Impaired Sensation Description Numbness,Tingling,Pain PT-OP-J Posture/Palpation/Skin Start: 05/15/22 16:36 Freq: Status: Active Protocol: Document 05/20/22 09:49 SAK (Rec: 05/21/22 16:33 SAK [id number]) Palpation Assessment Location axilla Palpation Findings Soft Tissue Tightness Palpation Details no palpable axillary cording incisions Palpation Location decreased soft tissue mobility Skin Assessment Edema Assessment left elbow Edema Type Non-Pitting Edema Appearance Puffy Subjective Edema Description Pain Incisional Assessment Incision Appearance/Comments well healed bilateral mastectomy scars Other Assessments Skin Assessment Comments see lymphedema section for circumferential measurements PT-OP-K Range of Motion Start: 05/15/22 16:36 Freq: Status: Active Protocol: Document 05/20/22 09:49 [facility] (Rec: 05/21/22 16:33 [facility] [id number]) Cervical Spine Range of Motion Cervical Spine Active Testing Position Sitting Comments WNL Shoulder Goniometric Range of Motion Shoulder Left Shoulder ROM WFL No Flexion 155 Extension 15 Abduction 147 Horizontal Abduction 75 Horizontal Adduction 30 External Rotation at 45 degrees 55 Abduction Internal Rotation Behind Back (text) T10 Right Shoulder ROM WFL Yes Shoulder ROM Limitations Shoulder ROM Limitations Soft Tissue Tightness,Pain PT-OP-N Lymphedema Start: 05/15/22 16:36 Freq: Status: Active Protocol: Document 12/30/22 12:32 SAK (Rec: 12/30/22 14:02 SAK [id number]) Lymphedema Measurements Upper Extremity Circumference Measurements Left Affected MCP 18.2 cm Dorsum of Hand 18.4 cm Wrist 15.9 cm 5 cm From Wrist Crease 15.9 cm 10 cm From Wrist Crease 18.8 cm 15 cm From Wrist Crease 22.8 cm 20 cm From Wrist Crease 23.3 cm 25 cm From Wrist Crease 24.3 cm 30 cm From Wrist Crease 27.6 cm 35 cm From Wrist Crease 28.8 cm 40 cm From Wrist Crease 28.6 cm 45 cm From Wrist Crease 29.6 cm Elbow Joint 23.4 cm PT-OP-Q Treatments Start: 05/15/22 16:36 Freq: Status: Active Protocol: Document 01/14/23 10:33 [facility] (Rec: 01/14/23 11:51 [facility] [id number]) Therapeutic Exercises Supine Exercises I, T, Y Reps/Minutes 10x AROM followed by end-range stretch PROM left shoulder Reps/Minutes 14 min Comments pin and stretch Sidelying Exercises lower [place] Reps/Minutes 10x Manual Therapy Treatment Soft Tissue Mobilization scar massage Body Location kristen mastectomy scars, lumpectomy scar , subaxillary region, axillary cordin Mobilization Type Instrument Assisted,Myofascial Release,Rolling,Sustained Pressure Intensity/Depth Moderate Body Position Hooklying Comments small, medium suction tool Manual Techniques pin and stretch Type kristen subaxillary reg Body Position Hooklying Reps/Duration 14 min Comments subaxillary tissue palpably tight with axillary cording kristen noted Self-Care/Home Management Treatment Education Other Education Use of video online for [employer] lymphedema pump use with clinic pump also used for education in use. When pump arrives at clinic patient will be called to filler picker. Lymphedema Treatment Manual Lymphatic Drainage Location left UE Duration 30 Comments Sequential pneumatic pump x 30 min. Patient education and manual treatment during Lymphedema Wrapping Body Location left UE Materials patient self-donned compression sleeve. Recommended patient obtain sleeve for left as well Sequential Lymphedema Exercises Comments Patient compliant to HEP PT-OP-R Modalities Start: 05/15/22 16:36 Freq: Status: Active Protocol: Document 01/14/23 10:33 [facility] (Rec: 01/14/23 11:51 [facility] [id number]) Compression Pump Treatment Treatment Location Left Arm Pressure Amount (mmHg) (mmHG) 30 Inflation Time (Seconds) 30 Deflation Time (Seconds) 10 Treatment Duration (minutes) 30 Treatment Tolerance Good PT-OP-T Assessment and Plan Start: 05/15/22 16:36 Freq: Status: Active Protocol: Document 01/14/23 10:33 [facility] (Rec: 01/14/23 11:51 [facility] [id number]) Physical Therapy Assessment Impairments Impairments Edema,Pain,ROM,Soft Tissue Mobility Goals Three Impairment impaired range of motion left UE, decreased scar mobility Impairment difficulty reaching overhead, behind her back and out to side for purposes of ADL's Short Term Goal (STG) Patient to be independent with HEP as instructed for purposes of ROM and flexibility 06/19/22: goal met STG Duration goal met Post Framer Goal (LTG) Patient to demonstrate ROM WNL left UE and normal scar mobility to allow her to reach overhead, behind her back, and out to side without difficulty for daily activities. 06/19/22: goal progress 08/20/23: decrease in ROM and scar mobility left s/p radiation 10/14/22: goal progress 09/17/22: shoulder ROM close to full, scar and subaxillary soft tissue mobility improving , mild restrictions now 11/13/22: increased axillary cording noted with dec shld ROM/inc stiffness with overhead activities, due at least in part to missed appointments due to being ill then having company 12/02/22: 3 axillary cording persists left subaxillary area , lacking full end-range flexion left shoulder LTG Duration 02/21/23 Two Impairment swelling left UE Short Term Goal (STG) decrease swelling left UE to no greater than 0.5 cm different than right as compared via cirfumferential measurement 06/19/22: goal met STG Duration goal met Post Framer Goal (LTG) Patient to demonstrate good understanding of edema management including wearing compression garment, self- massage, gentle ex 08/21/23: worsening of lymphedema following radiation treatment, needs further treatment. 09/17/22: compliant to HEP, tightens easily s/p radiation requiring ex performance several times per day, pt highly compliant. 10/14/22: good goal progress 11/18/22: circumference variable with patient noting some heaviness right UE as well, PT now noting axillary cording right axilla. Recommended patient obtain compression sleeve for right UE and obtain sequential pneumatic pump for home use; information given. 12/02/22: Circumferential measurements decreased from last session. Patient wearing compression sleeve left and has been encouraged for right as well. Patient pursuing home sequential pneumatic pump through [employer] via info provided by PT. LTG Duration 02/21/23 One Impairment pain left UE worst at elbow Impairment pain as high as 8/10 Short Term Goal (STG) decrease pain to no greater than 4/10 with all usual activities 06/19/22: temporary pain relief with left elbow 08/21/22:Pain 5-6/10 09/17/22: Pain dec to 4-5/10 10/14/22: goal met STG Duration goal met [facility] Goal (LTG) Patient to report ability to do all usual activities with pain no greater than 2/10 11/18/22: pain 3-4/10, improved . \ 12/02/22; pain generally 3-4/10 , occasional increase for unknown reason, overall decreased. LTG Duration 02/21/23 Progress Towards Goals Progress Towards Goals Progressing Toward Goals Assessment Summary Assessment Patient demonstrated good understanding of video for use of [employer] lymphedema compression pump after discussion, questions answered , patient advised to contact company with any further questions when it is delievered. Still some axillary cording left axilla and soft tissue tightness, decreased with manual treatment today. Patient struggles to take the time to do self massage and tends to press too firmly at times; reviewed technique, need to take time and do deep breathing for best results. Patient compliant to wearing compression sleeve. Physical Therapy Plan Frequency and Duration Frequency of Treatment 5 visits Duration of treatment (weeks) 10 Plan of Care Start Date 12/02/22 Plan of Care End Date 02/21/23 Therapeutic Interventions Therapeutic Interventions Home Exercise Program, Lymphedema Management,Manual Therapy,Patient/Caregiver Education,Self-Care/Home Management,Soft Tissue Mobilization,Taping, Therapeutic Activities, Therapeutic Exercises Next Visit Focus/Plan Next Note Type Treatment Note Next Visit Plan When pump arrives at clinic patient to be notified to filler picker. Follow-up regarding use of pump, self-care, take circumferential measurements, assure safety and independence with all aspects of self-care in 1 month when this PT returns from vacation
--- NOTE | 2023-02-17 13:56 | PT.OTRE ---
Current Diagnoses Malignant neoplasm of unspecified site of left female breast (02/17/23) Lymphedema, not elsewhere classified (02/17/23) Soft tissue disorder, unspecified (02/17/23) Past Medical History (Last Reviewed 11/14/22 @ 17:45 by JACKIE Godfrey) Breast cancer Difficulty swallowing Fuchs' corneal dystrophy of both eyes Hypothyroid Pelvic relaxation Postmenopausal RLS (restless legs syndrome) Vaginal vault prolapse Surgical History (Last Reviewed 11/14/22 @ 17:45 by JACKIE Godfrey) History of gynecologic surgery (05/14/18) History of tonsillectomy Hx of eye surgery (~2011) S/P excision of lipoma Status post bunionectomy Status post hysterectomy Visit Care Team Role Provider Type Sheldon Carrizales MD Family Provider Physician Primary Care Provider Specialty: Family Practice Address: [address] [place] [address], [id number] Email: [email or web address] Ella Sung MD Attending Provider Physician Referring Provider Specialty: Oncology Address: [address] [place] [address], [id number] Email: [email or web address] Physical Therapy Re-Evaluation PT-OP-A Visit Information Start: 05/15/22 16:36 Freq: Status: Active Protocol: Document 02/17/23 12:29 SAK (Rec: 02/17/23 13:29 SAK [id number]) Out-Patient Physical Therapy Visit Information Visit Information Visit Type Treatment Note Visit Start Time 12:30 Visit Stop Time 13:45 Total Visit Minutes 75 Visit Number 25 Evaluation Information Evaluation Date 05/20/22 Precautions Precautions bilateral mastectomy, having further testing left side for potential metastasis PT-OP-B Current Condition Start: 05/15/22 16:36 Freq: Status: Active Protocol: Document 05/20/22 09:49 SAK (Rec: 05/20/22 11:15 SAK [id number]) Current Condition History of Current Condition Onset Date 03/12/22 Current Complaints funny bone pain, numb forearm, limited motion History of Current Condition bilateral mastectomy with left axillary node dissection left (4/5 positive), sentinal node biopsy right negative. Going to have more tests 06/05/22 to check for any other spread of cancer prior to starting radiation. No chemo planned. Reports since surgery her funny bone has been painfull with movement and if bump elbow. Didn't know precautions for lymphedema, went on plane trip last week, but didn't notice a change Hasn't obtained compression sleeve; ordered one from [employer] that was a one size fits all, and it did not fit. States healing of mastectomy has gone well but the burning pain in her left UE is most limiting. Prior Treatments and Tests as above bilateral mastectomy, further testing to come Treatment Goals Patient/Caregiver Goals Decrease pain, improve flexibility and strength. Prior Functional Status Baseline Function- ADL's Independent Baseline Function- Mobility Independent Baseline Function- Recreation/Hobbies no pain Current Functional Impairments (Reported) Functional Limitations- Recreation/ painful when moving elbow, Hobbies reaching overhead PT-OP-C Subjective Start: 05/15/22 16:36 Freq: Status: Active Protocol: Document 02/17/23 12:29 [facility] (Rec: 02/17/23 13:29 [facility] [id number]) OP-PT Subjective Patient Comments Patient Comments Reports left anterior chest seems like it is more tender, mentioned it to Dr. Lopez, states he told her it will take time to continue to heal. Received compression pump, thinks set at 43 mm Hg, using for 1 hr but going to try cutting down to 45 min because reports feeling her fingers go numb after about 45 min, agreeable to contact company regarding any issues or to potentially try decreasing compression level. Left elbow pain persists. Wearing compression sleeve consistently PT-OP-H Neuro Start: 05/15/22 16:36 Freq: Status: Active Protocol: Document 05/20/22 09:49 [facility] (Rec: 05/21/22 16:33 [facility] [id number]) Sensation Evaluation Gross Sensation Gross Sensation Left UE Impaired Sensation Description Numbness,Tingling,Pain PT-OP-J Posture/Palpation/Skin Start: 05/15/22 16:36 Freq: Status: Active Protocol: Document 05/20/22 09:49 [facility] (Rec: 05/21/22 16:33 [facility] [id number]) Palpation Assessment Location axilla Palpation Findings Soft Tissue Tightness Palpation Details no palpable axillary cording incisions Palpation Location decreased soft tissue mobility Skin Assessment Edema Assessment left elbow Edema Type Non-Pitting Edema Appearance Puffy Subjective Edema Description Pain Incisional Assessment Incision Appearance/Comments well healed bilateral mastectomy scars Other Assessments Skin Assessment Comments see lymphedema section for circumferential measurements PT-OP-K Range of Motion Start: 05/15/22 16:36 Freq: Status: Active Protocol: Document 05/20/22 09:49 [facility] (Rec: 05/21/22 16:33 [facility] [id number]) Cervical Spine Range of Motion Cervical Spine Active Testing Position Sitting Comments WNL Shoulder Goniometric Range of Motion Shoulder Measured in Degrees Left Shoulder ROM WFL No Flexion 155 Extension 15 Abduction 147 Horizontal Abduction 75 Horizontal Adduction 30 External Rotation at 45 degrees 55 Abduction Internal Rotation Behind Back (text) T10 Right Shoulder ROM WFL Yes Shoulder ROM Limitations Shoulder ROM Limitations Soft Tissue Tightness,Pain PT-OP-N Lymphedema Start: 05/15/22 16:36 Freq: Status: Active Protocol: Document 02/17/23 12:29 [facility] (Rec: 02/17/23 13:29 [facility] [id number]) Lymphedema Measurements Upper Extremity Circumference Measurements Left Affected MCP 18 cm Dorsum of Hand 17.9 cm Wrist 16.5 cm 5 cm From Wrist Crease 15.7 cm 10 cm From Wrist Crease 18.3 cm 15 cm From Wrist Crease 21.5 cm 20 cm From Wrist Crease 23 cm 25 cm From Wrist Crease 24.3 cm 30 cm From Wrist Crease 27.6 cm 35 cm From Wrist Crease 28.5 cm 40 cm From Wrist Crease 28.6 cm 45 cm From Wrist Crease 30 cm Elbow Joint 23.1 cm PT-OP-Q Treatments Start: 05/15/22 16:36 Freq: Status: Active Protocol: Document 02/17/23 12:29 [facility] (Rec: 02/17/23 13:54 [facility] [id number]) Therapeutic Exercises Supine Exercises I, T, Y Reps/Minutes 10x AROM followed by end-range stretch PROM left shoulder Reps/Minutes 14 min Comments pin and stretch Manual Therapy Treatment Soft Tissue Mobilization scar massage Body Location kristen mastectomy scars, lumpectomy scar , subaxillary region, axillary cordin Mobilization Type Instrument Assisted,Myofascial Release,Rolling,Sustained Pressure Intensity/Depth Moderate Body Position Hooklying Comments small, medium suction tool Nerve Glides medial nerve glides Reps/Duration 5x ulnar nerve glide Reps/Duration 5x Manual Techniques pin and stretch Type kristen subaxillary reg Body Position Hooklying Reps/Duration 15 min Comments subaxillary tissue palpably tight with axillary cording kristen noted Self-Care/Home Management Treatment Education Other Education correct fit and use of compression pump; need to keep hand in sleeve, possible need to decrease pressure of pump, contact company due to fingers going numb. Lymphedema Treatment Manual Lymphatic Drainage Location left UE Duration 30 Comments Sequential pneumatic pump x 30 min. Patient education and manual treatment during Lymphedema Wrapping Body Location left UE Materials patient self-donned compression sleeve. Sequential Lymphedema Exercises Comments Patient compliant to HEP PT-OP-R Modalities Start: 05/15/22 16:36 Freq: Status: Active Protocol: Document 01/14/23 10:33 [facility] (Rec: 01/14/23 11:51 [facility] [id number]) Compression Pump Treatment Treatment Location Left Arm Pressure Amount (mmHg) (mmHG) 30 Inflation Time (Seconds) 30 Deflation Time (Seconds) 10 Treatment Duration (minutes) 30 Treatment Tolerance Good PT-OP-T Assessment and Plan Start: 05/15/22 16:36 Freq: Status: Active Protocol: Document 02/17/23 12:29 [facility] (Rec: 02/17/23 13:29 [facility] [id number]) Physical Therapy Assessment Impairments Impairments Edema,Pain,ROM,Soft Tissue Mobility Goals Three Impairment impaired range of motion left UE, decreased scar mobility Impairment difficulty reaching overhead, behind her back and out to side for purposes of ADL's Short Term Goal (STG) Patient to be independent with HEP as instructed for purposes of ROM and flexibility 06/19/22: goal met STG Duration goal met Merchandising Execution Manager Goal (LTG) Patient to demonstrate ROM WNL left UE and normal scar mobility to allow her to reach overhead, behind her back, and out to side without difficulty for daily activities. 06/19/22: goal progress 08/20/23: decrease in ROM and scar mobility left s/p radiation 10/14/22: goal progress 09/17/22: shoulder ROM close to full, scar and subaxillary soft tissue mobility improving , mild restrictions now 11/13/22: increased axillary cording noted with dec shld ROM/inc stiffness with overhead activities, due at least in part to missed appointments due to being ill then having company 12/02/22: 3 axillary cording persists left subaxillary area , lacking full end-range flexion left shoulder LTG Duration 03/03/23 Two Impairment swelling left UE Short Term Goal (STG) decrease swelling left UE to no greater than 0.5 cm different than right as compared via cirfumferential measurement 06/19/22: goal met STG Duration goal met Intermediate Goal (LTG) Patient to demonstrate good understanding of edema management including wearing compression garment, self- massage, gentle ex 08/21/23: worsening of lymphedema following radiation treatment, needs further treatment. 09/17/22: compliant to HEP, tightens easily s/p radiation requiring ex performance several times per day, pt highly compliant. 10/14/22: good goal progress 11/18/22: circumference variable with patient noting some heaviness right UE as well, PT now noting axillary cording right axilla. Recommended patient obtain compression sleeve for right UE and obtain sequential pneumatic pump for home use; information given. 12/02/22: Circumferential measurements decreased from last session. Patient wearing compression sleeve left and has been encouraged for right as well. Patient pursuing home sequential pneumatic pump through [employer] via info provided by PT. LTG Duration 03/03/23 One Impairment pain left UE worst at elbow Impairment pain as high as 8/10 Short Term Goal (STG) decrease pain to no greater than 4/10 with all usual activities 06/19/22: temporary pain relief with left elbow 08/21/22:Pain 5-6/10 09/17/22: Pain dec to 4-5/10 10/14/22: goal met STG Duration goal met Merchandising Execution Manager Goal (LTG) Patient to report ability to do all usual activities with pain no greater than 2/10 11/18/22: pain 3-4/10, improved . \ 12/02/22; pain generally 3-4/10 , occasional increase for unknown reason, overall decreased. LTG Duration 03/03/23 Assessment Summary Assessment Patient circumferential measurements stable, using compression pump at home, advised to contact company with any issues and patient agreed. Scar mobility and subaxillary tissue mobility limited by improving. Reviewed method for pin and stretch with patient for subaxillary mobilization. Should be ready for discharge from PT after 1 further PT visit. Physical Therapy Plan Frequency and Duration Frequency of Treatment 1 visits Duration of treatment (weeks) 10 Plan of Care Start Date 02/17/23 Plan of Care End Date 03/03/23 Therapeutic Interventions Therapeutic Interventions Home Exercise Program, Lymphedema Management,Manual Therapy,Patient/Caregiver Education,Self-Care/Home Management,Soft Tissue Mobilization,Taping, Therapeutic Activities, Therapeutic Exercises Next Visit Focus/Plan Next Note Type Discharge Summary Next Visit Plan Further manual work epecially scar and subaxillary region, review all aspects of lymphedema care. Anticipate discharge after next visit. Extending date for POC due to PT being gone x 1 month, just returned.
--- NOTE | 2023-02-17 13:57 | PT.OPPOC ---
Physical, Occupational & Speech Therapy At [facility] Current Diagnoses Malignant neoplasm of unspecified site of left female breast (02/17/23) Lymphedema, not elsewhere classified (02/17/23) Soft tissue disorder, unspecified (02/17/23) Visit Care Team Role Provider Type Sheldon Carrizales MD Family Provider Physician Primary Care Provider Specialty: Family Practice Address: [facility] [place], [address] Email: [email or web address] Ella Sung MD Attending Provider Physician Referring Provider Specialty: Oncology Address: [address] [place] [address], [id number] Email: [email or web address] Plan Of Care PT-OP-T Assessment and Plan Start: 05/15/22 16:36 Freq: Status: Active Protocol: Document 02/17/23 12:29 [facility] (Rec: 02/17/23 13:29 [facility] [id number]) Physical Therapy Assessment Impairments Impairments Edema,Pain,ROM,Soft Tissue Mobility Goals Three Impairment impaired range of motion left UE, decreased scar mobility Impairment difficulty reaching overhead, behind her back and out to side for purposes of ADL's Short Term Goal (STG) Patient to be independent with HEP as instructed for purposes of ROM and flexibility 06/19/22: goal met STG Duration goal met Printed Circuit Board Drafter Goal (LTG) Patient to demonstrate ROM WNL left UE and normal scar mobility to allow her to reach overhead, behind her back, and out to side without difficulty for daily activities. 06/19/22: goal progress 08/20/23: decrease in ROM and scar mobility left s/p radiation 10/14/22: goal progress 09/17/22: shoulder ROM close to full, scar and subaxillary soft tissue mobility improving , mild restrictions now 11/13/22: increased axillary cording noted with dec shld ROM/inc stiffness with overhead activities, due at least in part to missed appointments due to being ill then having company 12/02/22: 3 axillary cording persists left subaxillary area , lacking full end-range flexion left shoulder LTG Duration 03/03/23 Two Impairment swelling left UE Short Term Goal (STG) decrease swelling left UE to no greater than 0.5 cm different than right as compared via cirfumferential measurement 06/19/22: goal met STG Duration goal met Printed Circuit Board Drafter Goal (LTG) Patient to demonstrate good understanding of edema management including wearing compression garment, self- massage, gentle ex 08/21/23: worsening of lymphedema following radiation treatment, needs further treatment. 09/17/22: compliant to HEP, tightens easily s/p radiation requiring ex performance several times per day, pt highly compliant. 10/14/22: good goal progress 11/18/22: circumference variable with patient noting some heaviness right UE as well, PT now noting axillary cording right axilla. Recommended patient obtain compression sleeve for right UE and obtain sequential pneumatic pump for home use; information given. 12/02/22: Circumferential measurements decreased from last session. Patient wearing compression sleeve left and has been encouraged for right as well. Patient pursuing home sequential pneumatic pump through [employer] via info provided by PT. LTG Duration 03/03/23 One Impairment pain left UE worst at elbow Impairment pain as high as 8/10 Short Term Goal (STG) decrease pain to no greater than 4/10 with all usual activities 06/19/22: temporary pain relief with left elbow 08/21/22:Pain 5-6/10 09/17/22: Pain dec to 4-5/10 10/14/22: goal met STG Duration goal met Assisted Goal (LTG) Patient to report ability to do all usual activities with pain no greater than 2/10 11/18/22: pain 3-4/10, improved . \ 12/02/22; pain generally 3-4/10 , occasional increase for unknown reason, overall decreased. LTG Duration 03/03/23 Assessment Summary Assessment Patient circumferential measurements stable, using compression pump at home, advised to contact company with any issues and patient agreed. Scar mobility and subaxillary tissue mobility limited by improving. Reviewed method for pin and stretch with patient for subaxillary mobilization. Should be ready for discharge from PT after 1 further PT visit. Physical Therapy Plan Frequency and Duration Frequency of Treatment 1 visits Duration of treatment (weeks) 10 Plan of Care Start Date 02/17/23 Plan of Care End Date 03/03/23 Therapeutic Interventions Therapeutic Interventions Home Exercise Program, Lymphedema Management,Manual Therapy,Patient/Caregiver Education,Self-Care/Home Management,Soft Tissue Mobilization,Taping, Therapeutic Activities, Therapeutic Exercises Next Visit Focus/Plan Next Note Type Discharge Summary Next Visit Plan Further manual work epecially scar and subaxillary region, review all aspects of lymphedema care. Anticipate discharge after next visit. Extending date for POC due to PT being gone x 1 month, just returned. Plan of Care Dates Plan of Care Start Date 02/17/23 Plan of Care End Date 03/03/23 Electronically Signed by: Roula Bullard, PT 02/17/23 4023 If you are in agreement with this Plan of Care, please return a signed and dated copy. I have reviewed this Plan of Care and certify that the skilled therapy services above are required to meet the patient?s needs. Physician Signature Date Printed Name and Credentials Clinical Instructor Signature Printed Name and Credentials
--- NOTE | 2023-03-03 12:03 | PT.OTN ---
Current Diagnoses Malignant neoplasm of unspecified site of left female breast (03/03/23) Lymphedema, not elsewhere classified (03/03/23) Soft tissue disorder, unspecified (03/03/23) Physical Therapy Treatment Note PT-OP-A Visit Information Start: 05/15/22 16:36 Freq: Status: Active Protocol: Document 03/03/23 11:55 SAK (Rec: 03/03/23 12:02 SAK [id number]) Out-Patient Physical Therapy Visit Information Visit Information Visit Type Treatment Note Visit Start Time 10:30 Visit Stop Time 11:45 Total Visit Minutes 75 Visit Number 26 Evaluation Information Evaluation Date 05/20/22 Precautions Precautions bilateral mastectomy, having further testing left side for potential metastasis PT-OP-B Current Condition Start: 05/15/22 16:36 Freq: Status: Active Protocol: Document 05/20/22 09:49 SAK (Rec: 05/20/22 11:15 SAK [id number]) Current Condition History of Current Condition Onset Date 03/12/22 Current Complaints funny bone pain, numb forearm, limited motion History of Current Condition bilateral mastectomy with left axillary node dissection left (4/5 positive), sentinal node biopsy right negative. Going to have more tests 06/05/22 to check for any other spread of cancer prior to starting radiation. No chemo planned. Reports since surgery her funny bone has been painfull with movement and if bump elbow. Didn't know precautions for lymphedema, went on plane trip last week, but didn't notice a change Hasn't obtained compression sleeve; ordered one from [employer] that was a one size fits all, and it did not fit. States healing of mastectomy has gone well but the burning pain in her left UE is most limiting. Prior Treatments and Tests as above bilateral mastectomy, further testing to come Treatment Goals Patient/Caregiver Goals Decrease pain, improve flexibility and strength. Prior Functional Status Baseline Function- ADL's Independent Baseline Function- Mobility Independent Baseline Function- Recreation/Hobbies no pain Current Functional Impairments (Reported) Functional Limitations- Recreation/ painful when moving elbow, Hobbies reaching overhead PT-OP-C Subjective Start: 05/15/22 16:36 Freq: Status: Active Protocol: Document 03/03/23 11:55 SAK (Rec: 03/03/23 12:02 [facility] [id number]) OP-PT Subjective Patient Comments Patient Comments Patient agreeable to trial compression bra, foam on chest . Will obtain if helpful. Also agreeable to today being last PT treatment at this time . PT-OP-H Neuro Start: 05/15/22 16:36 Freq: Status: Active Protocol: Document 05/20/22 09:49 SAK (Rec: 05/21/22 16:33 SAK [id number]) Sensation Evaluation Gross Sensation Gross Sensation Left UE Impaired Sensation Description Numbness,Tingling,Pain PT-OP-J Posture/Palpation/Skin Start: 05/15/22 16:36 Freq: Status: Active Protocol: Document 05/20/22 09:49 SAK (Rec: 05/21/22 16:33 SAK [id number]) Palpation Assessment Location axilla Palpation Findings Soft Tissue Tightness Palpation Details no palpable axillary cording incisions Palpation Location decreased soft tissue mobility Skin Assessment Edema Assessment left elbow Edema Type Non-Pitting Edema Appearance Puffy Subjective Edema Description Pain Incisional Assessment Incision Appearance/Comments well healed bilateral mastectomy scars Other Assessments Skin Assessment Comments see lymphedema section for circumferential measurements PT-OP-K Range of Motion Start: 05/15/22 16:36 Freq: Status: Active Protocol: Document 05/20/22 09:49 SAK (Rec: 05/21/22 16:33 SAK [id number]) Cervical Spine Range of Motion Cervical Spine Active Testing Position Sitting Comments WNL Shoulder Goniometric Range of Motion Shoulder Left Shoulder ROM WFL No Flexion 155 Extension 15 Abduction 147 Horizontal Abduction 75 Horizontal Adduction 30 External Rotation at 45 degrees 55 Abduction Internal Rotation Behind Back (text) T10 Right Shoulder ROM WFL Yes Shoulder ROM Limitations Shoulder ROM Limitations Soft Tissue Tightness,Pain PT-OP-N Lymphedema Start: 05/15/22 16:36 Freq: Status: Active Protocol: Document 03/03/23 11:55 SAK (Rec: 03/03/23 12:02 SAK [id number]) Lymphedema Measurements Upper Extremity Circumference Measurements Left Affected MCP 18 cm Dorsum of Hand 17.9 cm Wrist 16.5 cm 5 cm From Wrist Crease 15.7 cm 10 cm From Wrist Crease 18.3 cm 15 cm From Wrist Crease 21.5 cm 20 cm From Wrist Crease 23 cm 25 cm From Wrist Crease 24.3 cm 30 cm From Wrist Crease 27.6 cm 35 cm From Wrist Crease 28.5 cm 40 cm From Wrist Crease 28.6 cm 45 cm From Wrist Crease 30 cm Elbow Joint 23.1 cm PT-OP-Q Treatments Start: 05/15/22 16:36 Freq: Status: Active Protocol: Document 03/03/23 11:55 [facility] (Rec: 03/03/23 12:02 [facility] [id number]) Therapeutic Exercises Supine Exercises I, T, Y Reps/Minutes 10x AROM followed by end-range stretch PROM left shoulder Reps/Minutes 20 min Comments pin and stretch Sidelying Exercises robinson Reps/Minutes 10x shoulder abduction Sidelying Exercise Name with manual pin and stretch open book Reps/Minutes 5x Sitting Exercises ulnar nerve glide Reps/Minutes 10x median nerve glide Reps/Minutes 10x Manual Therapy Treatment Soft Tissue Mobilization scar massage Body Location kristen mastectomy scars, lumpectomy scar , subaxillary region, axillary cordin Mobilization Type Instrument Assisted,Myofascial Release,Rolling,Sustained Pressure Intensity/Depth Moderate Body Position Hooklying Comments small, medium suction tool Manual Techniques pin and stretch Type kristen subaxillary reg Body Position Hooklying Reps/Duration 15 min Comments subaxillary tissue palpably tight with axillary cording kristen noted Self-Care/Home Management Treatment Education Other Education trial use of compression bra with chip bag, patient to return bra after 1 week. Instr in use of tennis ball, raquetball for self massage. Review HEP, pin and stretch. Lymphedema Treatment Sequential Lymphedema Exercises Comments review Compression Garment Assessment Compression Garment Assessment Details reviewed use PT-OP-R Modalities Start: 05/15/22 16:36 Freq: Status: Active Protocol: Document 01/14/23 10:33 [facility] (Rec: 01/14/23 11:51 [facility] [id number]) Compression Pump Treatment Treatment Location Left Arm Pressure Amount (mmHg) (mmHG) 30 Inflation Time (Seconds) 30 Deflation Time (Seconds) 10 Treatment Duration (minutes) 30 Treatment Tolerance Good PT-OP-T Assessment and Plan Start: 05/15/22 16:36 Freq: Status: Active Protocol: Document 03/03/23 11:55 [facility] (Rec: 03/03/23 12:02 [facility] [id number]) Physical Therapy Assessment Impairments Impairments Edema,Pain,ROM,Soft Tissue Mobility Goals Three Impairment impaired range of motion left UE, decreased scar mobility Impairment difficulty reaching overhead, behind her back and out to side for purposes of ADL's Short Term Goal (STG) Patient to be independent with HEP as instructed for purposes of ROM and flexibility 06/19/22: goal met STG Duration goal met Physician Advisor Goal (LTG) Patient to demonstrate ROM WNL left UE and normal scar mobility to allow her to reach overhead, behind her back, and out to side without difficulty for daily activities. 06/19/22: goal progress 03/03/23: goal met 08/20/23: decrease in ROM and scar mobility left s/p radiation 10/14/22: goal progress 09/17/22: shoulder ROM close to full, scar and subaxillary soft tissue mobility improving , mild restrictions now 11/13/22: increased axillary cording noted with dec shld ROM/inc stiffness with overhead activities, due at least in part to missed appointments due to being ill then having company 12/02/22: 3 axillary cording persists left subaxillary area , lacking full end-range flexion left shoulder LTG Duration goal met Two Impairment swelling left UE Short Term Goal (STG) decrease swelling left UE to no greater than 0.5 cm different than right as compared via cirfumferential measurement 06/19/22: goal met STG Duration goal met Shelter Goal (LTG) Patient to demonstrate good understanding of edema management including wearing compression garment, self- massage, gentle ex 08/21/23: worsening of lymphedema following radiation treatment, needs further treatment. 09/17/22: compliant to HEP, tightens easily s/p radiation requiring ex performance several times per day, pt highly compliant. 10/14/22: good goal progress 11/18/22: circumference variable with patient noting some heaviness right UE as well, PT now noting axillary cording right axilla. Recommended patient obtain compression sleeve for right UE and obtain sequential pneumatic pump for home use; information given. 12/02/22: Circumferential measurements decreased from last session. Patient wearing compression sleeve left and has been encouraged for right as well. Patient pursuing home sequential pneumatic pump through [employer] via info provided by PT. 03/03/23: goal met LTG Duration goal met One Impairment pain left UE worst at elbow Impairment pain as high as 8/10 Short Term Goal (STG) decrease pain to no greater than 4/10 with all usual activities 06/19/22: temporary pain relief with left elbow 08/21/22:Pain 5-6/10 09/17/22: Pain dec to 4-5/10 10/14/22: goal met STG Duration goal met Shelter Goal (LTG) Patient to report ability to do all usual activities with pain no greater than 2/10 11/18/22: pain 3-4/10, improved . \ 12/02/22; pain generally 3-4/10 , occasional increase for unknown reason, overall decreased. 03/03/23: pain persists though decreased LTG Duration 03/03/23 Assessment Summary Assessment Patient has met all PT goals except for pain persisting in left elbow without any recent change; pain has decreased but persists. Patient demonstrates good understanding of HEP and self- managment for lymphedema. She may benefit from a re-check in a few months and this was discussed. No further PT need at this time. Physical Therapy Plan Discharge Physical Therapy Discharge Comments Goals mostly met as above
== END 2023-03-19 16:34 | disposition home or self-care (01) ==
LOC: PHYS 10:30
PROVIDERS: Family Provider Family Medicine; PCP Family Medicine; Referring Provider Internal Medicine Hematology & Oncology; Visit Provider Internal Medicine Hematology & Oncology
DX: C50.912 Malignant neoplasm of unspecified site of left female breast (principal); I89.0 Lymphedema, not elsewhere classified; M79.9 Soft tissue disorder, unspecified
CPT/HCPCS: 97016; 97110; 97140; 97162; 97530; 97535

== ENCOUNTER → 2023-07-27 10:19 | Outpatient (CLI) | payer OTHER, SELFPAY ==
[2023-07-21 12:23] VITALS: BMI 26.2
[2023-07-27 11:08] LABS: Estimated Glomerular Filt Rate > 60 mL/min (>60)
--- NOTE | 2023-07-27 13:06 | DI.CT.S_ITS ---
PROCEDURE: CT CHEST W CON INDICATIONS: Malignant neoplasm of unspecified site of left fem TECHNIQUE: After the administration of intravenous contrast, 5 mm thick sections acquired from the pulmonary apices to the posterior costophrenic angles. 1 mm axial lung, 5 mm thick coronal and sagittal reformats and 7 mm axial MIP were acquired. For radiation dose reduction, the following was used: automated exposure control, adjustment of mA and/or kV according to patient size. COMPARISON: [facility], CT, CT CHEST W CON, 01/23/2022, 15:59. FINDINGS: Image quality: Diagnostic. Lungs and pleura: Reticulation of the anterior left lung and posterior right lung, likely postradiation change. A few foci of mucosal impaction within the airways. No suspicious pulmonary nodules. Mediastinum: Heart size is normal. No pericardial effusion. No mediastinal or hilar adenopathy by size criteria. Thoracic aorta and central pulmonary arteries are normal in size. Esophagus is normal in caliber. No hiatal hernia. Bones and chest wall: Mastectomies. Axillary lymph node dissections. No evidence of local recurrence or abraham disease. Upper Abdomen: Visualized upper abdominal solid organs appear normal. Upper abdominal bowel loops are normal in caliber. IMPRESSION: Mastectomies and axillary lymph node dissections, without evidence of local recurrence, abraham disease or metastatic disease within the chest. Dictated by: Delon Crane M.D. on 07/27/2023 at 18:01 Approved by: Delon Crane M.D. on 07/27/2023 at 18:04
== END ==
PROVIDERS: Radiology Diagnostic Radiology; Family Provider Family Medicine; PCP Family Medicine; Referring Provider Internal Medicine Hematology & Oncology; Visit Provider Internal Medicine Hematology & Oncology
DX: C50.912 Malignant neoplasm of unspecified site of left female breast (principal); Z17.0 Estrogen receptor positive status [ER+]; R07.89 Other chest pain; Z90.13 Acquired absence of bilateral breasts and nipples
CPT/HCPCS: 36415; 71260; 82565

== ENCOUNTER 2023-12-03 13:00 | Outpatient (RCR) | payer OTHER, SELFPAY ==
[2023-07-21 12:23] VITALS: BMI 26.2
--- NOTE | 2023-10-05 16:31 | PT.OIE ---
Current Diagnoses Malignant neoplasm of unspecified site of left female breast (10/05/23) Lymphedema, not elsewhere classified (10/05/23) Pain in arm, unspecified (10/05/23) Past Medical History (Last Reviewed 08/08/23 @ 13:26 by JACKIE Middleton) Breast cancer Difficulty swallowing Fuchs' corneal dystrophy of both eyes Hypothyroid Other low back pain Pelvic relaxation Postmenopausal RLS (restless legs syndrome) Vaginal vault prolapse Past Surgical History (Last Reviewed 08/08/23 @ 13:26 by JACKIE Middleton) History of gynecologic surgery (05/14/18) History of tonsillectomy Hx of eye surgery (~2011) S/P excision of lipoma Status post bunionectomy Status post hysterectomy Visit Care Team Role Provider Type Sheldon Carrizales MD Family Provider Physician Primary Care Provider Specialty: Family Practice Address: [address] [place] [address], [id number] Email: [email or web address] Bradley Cabrera MD Attending Provider Physician Referring Provider Specialty: Oncology Address: [address] [place] [address], [place], [address] Email: Physical Therapy Initial Evaluation PT-OP-A Visit Information Start: 10/01/23 14:54 Freq: Status: Active Protocol: Document 10/05/23 13:02 [facility] (Rec: 10/05/23 14:26 [facility] [id number]) Out-Patient Physical Therapy Visit Information Visit Information Visit Type Initial Evaluation Visit Start Time 13:01 Visit Stop Time 14:27 Visit Number 1 Evaluation Information Evaluation Date 10/05/23 Precautions Precautions history CA PT-OP-B Current Condition Start: 10/01/23 14:54 Freq: Status: Active Protocol: Document 10/05/23 13:02 SAK (Rec: 10/05/23 14:26 SAK [id number]) Current Condition History of Current Condition Onset Date 1 year Current Complaints left upper quadrant pain History of Current Condition progressively worsening subaxillary and lateral thoracic pain and pain left chest s/p bilateral mastectomies for breast cancer . Pain increases with reaching, doing ADL's , bending forward . Reports when wakes up arm from shoulder to elbow feels heavy. Pain radiates into left UE. Doesn't wear compression at night, but wears compression sleeve during the day. Was taped with kinesiotape recently by family member, has skin tears right now due to not letting skin rest and taking off too rapidly; states she felt kinesiotape somewhat helpful. On Gabapentin x 4 days, not helping much yet. Just lost oncologist, will be going to new one in [place] soon (but he is temporary, will have burrer operator in April). Prior Treatments and Tests Breast cancer treatment. CT scan negative Treatment Goals Patient/Caregiver Goals decrease pain, be able to return to prior level of function Prior Functional Status Baseline Function- ADL's Independent Baseline Function- Mobility Independent Baseline Function- Recreation/Hobbies no limitations Current Functional Impairments (Reported) Functional Limitations- ADL's painful Functional Limitations- Recreation/ painful Hobbies PT-OP-C Subjective Start: 10/01/23 14:54 Freq: Status: Active Protocol: Document 10/05/23 13:02 [facility] (Rec: 10/05/23 16:52 [facility] [id number]) Patient Questionnaires Lymphedema Life Impact Score Lymphedema Score 47 OP-PT Pain Assessment Pain Assessment Grid Paper Pain Assessment Grid Completed Yes Location Anterior Chest Intensity 9 Description Sharp,Shooting,Tender Frequency Frequent Pain Aggravating Factors ADL's,Activity Other Pain Aggravating Factors reaching, bending Pain Alleviating Factors Inactivity PT-OP-J Posture/Palpation/Skin Start: 10/01/23 14:54 Freq: Status: Active Protocol: Document 10/05/23 13:02 [facility] (Rec: 10/05/23 16:52 [facility] [id number]) Posture Evaluation Position Sitting Head/C-Spine Posture Forward Head T-Spine Posture Increased Kyphosis Shoulder Posture (L) Rounded,(R) Rounded Scapula Posture (L) Protracted,(R) Protracted Palpation Assessment Location UT Palpation Location l Palpation Findings Soft Tissue Tightness periscap Palpation Location L Palpation Findings Soft Tissue Tightness, Tenderness subaxillary Palpation Location L Palpation Findings Soft Tissue Tightness, Tenderness,Trigger Point Palpation Details axillary cording present 1 long in axilla Skin Assessment Other Assessments Skin Assessment Comments skin tears and irritation from KT tape applied by family member left anterior shoulder, posterior shoulder, subax PT-OP-K Range of Motion Start: 10/01/23 14:54 Freq: Status: Active Protocol: Document 10/05/23 13:02 [facility] (Rec: 10/05/23 16:52 [facility] [id number]) Shoulder Goniometric Range of Motion Shoulder Left Shoulder ROM WFL Yes Comments pain end range Right Active Shoulder ROM WFL Yes Shoulder ROM Limitations Shoulder ROM Limitations Soft Tissue Tightness,Pain PT-OP-N Lymphedema Start: 10/01/23 14:54 Freq: Status: Active Protocol: Document 10/05/23 13:02 [facility] (Rec: 10/05/23 14:26 [facility] [id number]) Lymphedema Measurements Upper Extremity Circumference Measurements Right Unaffected MCP 18 cm Dorsum of Hand 19 cm Wrist 15.5 cm 5 cm From Wrist Crease 15.4 cm 10 cm From Wrist Crease 18.8 cm 15 cm From Wrist Crease 22.2 cm 20 cm From Wrist Crease 23.3 cm 25 cm From Wrist Crease 24.4 cm 30 cm From Wrist Crease 28.2 cm 35 cm From Wrist Crease 31.8 cm 40 cm From Wrist Crease 32.3 cm Elbow Joint 23 cm Left Affected MCP 17.8 cm Dorsum of Hand 18.3 cm Wrist 15.4 cm 5 cm From Wrist Crease 15.7 cm 10 cm From Wrist Crease 18.8 cm 15 cm From Wrist Crease 22.3 cm 20 cm From Wrist Crease 23.3 cm 25 cm From Wrist Crease 25.3 cm 30 cm From Wrist Crease 29 cm 35 cm From Wrist Crease 29.9 cm 40 cm From Wrist Crease 31.8 cm Elbow Joint 23.3 cm - subaxillary 86.3 nipple line 87 PT-OP-Q Treatments Start: 10/01/23 14:54 Freq: Status: Active Protocol: Document 10/05/23 13:02 [facility] (Rec: 10/05/23 16:52 [facility] [id number]) Manual Therapy Treatment Soft Tissue Mobilization periscap Mobilization Type Trigger Point Release Body Position Supine subaxillary Mobilization Type Myofascial Release,Trigger Point Release Intensity/Depth Moderate Body Position Supine Comments pin and stretch Self-Care/Home Management Treatment Education Patient Education Home Exercise Program,Pain Management,Posture Other Education deep breathing for decreased sympathetic and nervous system overactivation Activities Self-Care/Home Management Activities self pin and stretch Lymphedema Treatment Lymphedema Wrapping Other patient wearing compression sleeve Sequential Lymphedema Exercises Location reviewed Compression Garment Assessment Compression Garment Assessment Details patient did not bring, consistent compression encouraged Patient Education Lymphedema Precautions reviewesd Compression Garments reviewed Self Manual Lymphatic Drainage reviewed Sequential Lymphedema Exercises reviewed PT-OP-T Assessment and Plan Start: 10/01/23 14:54 Freq: Status: Active Protocol: Document 10/05/23 13:02 [facility] (Rec: 10/05/23 16:52 [facility] [id number]) Physical Therapy Assessment Rehab Potential Rehabilitation Potential Good Evaluation Complexity Number of Personal Factors/Comorbidities 1-2 Number of Body Systems Impaired 3 Clinical Presentation at Evaluation Evolving Impairments Impairments Activity Tolerance,Edema,Pain, Soft Tissue Mobility Goals Five Impairment soft tissue tightness subaxillary region with axillary cording present Stone Breaker Goal (LTG) Decrease soft tissue tightness and eliminate axillary cording for improved lymphatic flow and improved comfort and use of left UE. LTG Duration 01/03/24 Two Impairment Lymphedema life impact scale 47% Three Impairment difficulty reaching overhead, behind her back and out to side for purposes of ADL's without increase in pain [facility]ci Goal (LTG) patient will be able to perform all usual movements of her left arm and trunk without an increase in pain LTG Duration 01/03/24 One Impairment pain as high as 9/10 subaxillary region causing poor sleep Short Term Goal (STG) decrease pain by at least 40% during all usual activities including sleep STG Duration 11/23/23 [facility] Goal (LTG) decrease pain by at least 75% to allow patient to sleep and do all usual activities without difficulty LTG Duration 01/03/24 Assessment Summary Assessment Patient presents to PT with function-limiting pain in subaxillary region and ribcage on left s/p bilateral mastectomies. She has tightness in subaxillary soft tissue and an area of axillary cording related to lymphedema . She is sleeping poorly due to the pain and has difficulty performing usual ADL's including bending and reaching activities without an increase in pain which takes her breath away. Feel she would benefit from PT to decrease the soft tissue tightness, axillary cording, and pain and help her return to her prior level of function . Patient is highly motivated . POC was discussed and she was in agreement. Physical Therapy Plan Frequency and Duration Frequency of Treatment 2x/Week Duration of treatment (weeks) 8 Plan of Care Start Date 10/05/23 Plan of Care End Date 12/04/23 Therapeutic Interventions Therapeutic Interventions Home Exercise Program, Lymphedema Management,Manual Therapy,Patient/Caregiver Education,Self-Care/Home Management,Soft Tissue Mobilization,Taping, Therapeutic Activities, Therapeutic Exercises Next Visit Focus/Plan Next Note Type Treatment Note Next Visit Plan Gentle ther ex for trunk and shoulder mobilization, manual lymphatic drainage and other manual techniques including pin and stretch to improve soft tissue mobility. Discuss compression garment options for subaxillary region.
--- NOTE | 2023-10-05 16:31 | PT.OPPOC ---
Physical, Occupational & Speech Therapy At [facility] Current Diagnoses Malignant neoplasm of unspecified site of left female breast (10/05/23) Lymphedema, not elsewhere classified (10/05/23) Pain in arm, unspecified (10/05/23) Visit Care Team Role Provider Type Sheldon Carrizales MD Family Provider Physician Primary Care Provider Specialty: Family Practice Address: [address] [place] [address], [address], [id number] Email: [email or web address] Bradley Cabrera MD Attending Provider Physician Referring Provider Specialty: Oncology Address: [address] [place] [address], [id number] Email: Plan Of Care PT-OP-T Assessment and Plan Start: 10/01/23 14:54 Freq: Status: Active Protocol: Document 10/05/23 13:02 DAFNE (Rec: 10/05/23 16:52 [facility] [id number]) Physical Therapy Assessment Rehab Potential Rehabilitation Potential Good Evaluation Complexity Number of Personal Factors/Comorbidities 1-2 Number of Body Systems Impaired 3 Clinical Presentation at Evaluation Evolving Impairments Impairments Activity Tolerance,Edema,Pain, Soft Tissue Mobility Goals Five Impairment soft tissue tightness subaxillary region with axillary cording present Group Home Goal (LTG) Decrease soft tissue tightness and eliminate axillary cording for improved lymphatic flow and improved comfort and use of left UE. LTG Duration 01/03/24 Two Impairment Lymphedema life impact scale 47% Three Impairment difficulty reaching overhead, behind her back and out to side for purposes of ADL's without increase in pain Inseam Trimmer Goal (LTG) patient will be able to perform all usual movements of her left arm and trunk without an increase in pain LTG Duration 01/03/24 One Impairment pain as high as 9/10 subaxillary region causing poor sleep Short Term Goal (STG) decrease pain by at least 40% during all usual activities including sleep STG Duration 11/23/23 Group Home Goal (LTG) decrease pain by at least 75% to allow patient to sleep and do all usual activities without difficulty LTG Duration 01/03/24 Assessment Summary Assessment Patient presents to PT with function-limiting pain in subaxillary region and ribcage on left s/p bilateral mastectomies. She has tightness in subaxillary soft tissue and an area of axillary cording related to lymphedema . She is sleeping poorly due to the pain and has difficulty performing usual ADL's including bending and reaching activities without an increase in pain which takes her breath away. Feel she would benefit from PT to decrease the soft tissue tightness, axillary cording, and pain and help her return to her prior level of function . Patient is highly motivated . POC was discussed and she was in agreement. Physical Therapy Plan Frequency and Duration Frequency of Treatment 2x/Week Duration of treatment (weeks) 8 Plan of Care Start Date 10/05/23 Plan of Care End Date 12/04/23 Therapeutic Interventions Therapeutic Interventions Home Exercise Program, Lymphedema Management,Manual Therapy,Patient/Caregiver Education,Self-Care/Home Management,Soft Tissue Mobilization,Taping, Therapeutic Activities, Therapeutic Exercises Next Visit Focus/Plan Next Note Type Treatment Note Next Visit Plan Gentle ther ex for trunk and shoulder mobilization, manual lymphatic drainage and other manual techniques including pin and stretch to improve soft tissue mobility. Discuss compression garment options for subaxillary region. Plan of Care Dates Plan of Care Start Date 10/05/23 Plan of Care End Date 12/04/23 Electronically Signed by: Roula Bullard, PT 10/06/23 [id number] If you are in agreement with this Plan of Care, please return a signed and dated copy. I have reviewed this Plan of Care and certify that the skilled therapy services above are required to meet the patient?s needs. Physician Signature Date Printed Name and Credentials Clinical Instructor Signature Printed Name and Credentials
--- NOTE | 2023-10-08 14:26 | PT.OTN ---
Current Diagnoses Malignant neoplasm of unspecified site of left female breast (10/08/23) Lymphedema, not elsewhere classified (10/08/23) Pain in arm, unspecified (10/08/23) Physical Therapy Treatment Note PT-OP-A Visit Information Start: 10/01/23 14:54 Freq: Status: Active Protocol: Document 10/08/23 13:02 SAK (Rec: 10/08/23 14:14 SAK [id number]) Out-Patient Physical Therapy Visit Information Visit Information Visit Type Treatment Note Visit Start Time 13:02 Visit Stop Time 15:28 Visit Number 2 Evaluation Information Evaluation Date 10/05/23 Precautions Precautions history br CA PT-OP-B Current Condition Start: 10/01/23 14:54 Freq: Status: Active Protocol: Document 10/08/23 13:02 SAK (Rec: 10/08/23 14:14 SAK [id number]) Current Condition History of Current Condition Current Complaints left upper quadrant pain History of Current Condition progressively worsening subaxillary and lateral thoracic pain and pain left chest s/p bilateral mastectomies for breast cancer . Pain increases with reaching, doing ADL's , bending forward . Reports when wakes up arm from shoulder to elbow feels heavy. Pain radiates into left UE. Doesn't wear compression at night, but wears compression sleeve during the day. Was taped with kinesiotape recently by family member, has skin tears right now due to not letting skin rest and taking off too rapidly; states she felt kinesiotape helpful. On Gabapentin x 4 days, not helping much yet. Just lost oncologist, will be going to new one in [place] soon ( but he is temporary, will have flight crew time clerk in April). Treatment Goals Patient/Caregiver Goals decrease pain, be able to return to prior level of function Prior Functional Status Baseline Function- ADL's Independent Baseline Function- Mobility Independent Baseline Function- Recreation/Hobbies no limitations PT-OP-C Subjective Start: 10/01/23 14:54 Freq: Status: Active Protocol: Document 10/08/23 13:02 SAK (Rec: 10/08/23 14:14 SAK [id number]) OP-PT Subjective Patient Comments Patient Comments Manual work was helpful. Hasn't ordered a compression shirt or camisole yet, has had a lot of other bills. Can't tolerate wearing a bra due to pain. PT-OP-J Posture/Palpation/Skin Start: 10/01/23 14:54 Freq: Status: Active Protocol: Document 10/05/23 13:02 [facility] (Rec: 10/05/23 16:52 [facility] [id number]) Posture Evaluation Position Sitting Head/C-Spine Posture Forward Head T-Spine Posture Increased Kyphosis Shoulder Posture (L) Rounded,(R) Rounded Scapula Posture (L) Protracted,(R) Protracted Palpation Assessment Location [place] Palpation Location l Palpation Findings Soft Tissue Tightness periscap Palpation Location L Palpation Findings Soft Tissue Tightness, Tenderness subaxillary Palpation Location L Palpation Findings Soft Tissue Tightness, Tenderness,Trigger Point Palpation Details axillary cording present 1 long in axilla Skin Assessment Other Assessments Skin Assessment Comments skin tears and irritation from KT tape applied by family member left anterior shoulder, posterior shoulder, subax PT-OP-K Range of Motion Start: 10/01/23 14:54 Freq: Status: Active Protocol: Document 10/05/23 13:02 [facility] (Rec: 10/05/23 16:52 [facility] [id number]) Shoulder Goniometric Range of Motion Shoulder Left Shoulder ROM WFL Yes Comments pain end range Right Active Shoulder ROM WFL Yes Shoulder ROM Limitations Shoulder ROM Limitations Soft Tissue Tightness,Pain PT-OP-N Lymphedema Start: 10/01/23 14:54 Freq: Status: Active Protocol: Document 10/05/23 13:02 [facility] (Rec: 10/05/23 14:26 [facility] [id number]) Lymphedema Measurements Upper Extremity Circumference Measurements Right Unaffected MCP 18 cm Dorsum of Hand 19 cm Wrist 15.5 cm 5 cm From Wrist Crease 15.4 cm 10 cm From Wrist Crease 18.8 cm 15 cm From Wrist Crease 22.2 cm 20 cm From Wrist Crease 23.3 cm 25 cm From Wrist Crease 24.4 cm 30 cm From Wrist Crease 28.2 cm 35 cm From Wrist Crease 31.8 cm 40 cm From Wrist Crease 32.3 cm Elbow Joint 23 cm Left Affected MCP 17.8 cm Dorsum of Hand 18.3 cm Wrist 15.4 cm 5 cm From Wrist Crease 15.7 cm 10 cm From Wrist Crease 18.8 cm 15 cm From Wrist Crease 22.3 cm 20 cm From Wrist Crease 23.3 cm 25 cm From Wrist Crease 25.3 cm 30 cm From Wrist Crease 29 cm 35 cm From Wrist Crease 29.9 cm 40 cm From Wrist Crease 31.8 cm Elbow Joint 23.3 cm - subaxillary 86.3 nipple line 87 PT-OP-Q Treatments Start: 10/01/23 14:54 Freq: Status: Active Protocol: Document 10/08/23 13:02 [facility] (Rec: 10/08/23 14:14 [facility] [id number]) Therapeutic Exercises Sidelying Exercises shoulder abduction Reps/Minutes 2x30 open book Reps/Minutes 5x10 Sitting Exercises shoulder rolls Reps/Minutes 5x goalpost stretch Reps/Minutes 2x30 scap retr Reps/Minutes 5x5 Standing Exercises doorway stretch Standing Exercise Name low and high Reps/Minutes 2x30 Manual Therapy Treatment Soft Tissue Mobilization periscap Mobilization Type Trigger Point Release Body Position Supine subaxillary Mobilization Type Myofascial Release,Trigger Point Release Intensity/Depth Moderate Body Position Supine Comments pin and stretch Manual Techniques pin and stretch Body Position Sidelying Comments subax Self-Care/Home Management Treatment Education Patient Education Home Exercise Program,Pain Management,Posture Other Education deep breathing for decreased sympathetic and nervous system overactivation Activities Self-Care/Home Management Activities self pin and stretch Lymphedema Treatment Manual Lymphatic Drainage Location left lateral trunk, subaxillary region PT-OP-T Assessment and Plan Start: 10/01/23 14:54 Freq: Status: Active Protocol: Document 10/08/23 13:02 [facility] (Rec: 10/08/23 14:14 [facility] [id number]) Physical Therapy Assessment Impairments Impairments Activity Tolerance,Edema,Pain, Soft Tissue Mobility Goals Five Impairment soft tissue tightness subaxillary region with axillary cording present Electrotyper Goal (LTG) Decrease soft tissue tightness and eliminate axillary cording for improved lymphatic flow and improved comfort and use of left UE. LTG Duration 01/03/24 Two Impairment Lymphedema life impact scale 47% Three Impairment difficulty reaching overhead, behind her back and out to side for purposes of ADL's without increase in pain Electrotyper Goal (LTG) patient will be able to perform all usual movements of her left arm and trunk without an increase in pain LTG Duration 01/03/24 One Impairment pain as high as 9/10 subaxillary region causing poor sleep Short Term Goal (STG) decrease pain by at least 40% during all usual activities including sleep STG Duration 11/23/23 Electrotyper Goal (LTG) decrease pain by at least 75% to allow patient to sleep and do all usual activities without difficulty LTG Duration 01/03/24 Progress Towards Goals Progress Towards Goals Progressing Toward Goals Assessment Summary Assessment reported some dec in pain after PT. Will be looking at compression or shapewear today as recommended. Started gentle ther ex for postural correction, thoracic mobilization. Cont manual therapy techniques Physical Therapy Plan Frequency and Duration Frequency of Treatment 2x/Week Duration of treatment (weeks) 8 Plan of Care Start Date 10/05/23 Plan of Care End Date 12/04/23 Therapeutic Interventions Therapeutic Interventions Home Exercise Program, Lymphedema Management,Manual Therapy,Patient/Caregiver Education,Self-Care/Home Management,Soft Tissue Mobilization,Taping, Therapeutic Activities, Therapeutic Exercises Next Visit Focus/Plan Next Note Type Treatment Note Next Visit Plan Continue PT for postural correction, thoracic and scapular mob, MLD, pin and stretch. ASsess any compression obtained by patient.
--- NOTE | 2023-10-12 12:04 | PT.OTN ---
Current Diagnoses Malignant neoplasm of unspecified site of left female breast (10/12/23) Lymphedema, not elsewhere classified (10/12/23) Pain in arm, unspecified (10/12/23) Physical Therapy Treatment Note PT-OP-A Visit Information Start: 10/01/23 14:54 Freq: Status: Active Protocol: Document 10/12/23 10:30 SAK (Rec: 10/12/23 10:39 SAK [id number]) Out-Patient Physical Therapy Visit Information Visit Information Visit Type Treatment Note Visit Start Time 10:30 Visit Stop Time 15:28 Visit Number 3 Evaluation Information Evaluation Date 10/05/23 Precautions Precautions history br CA PT-OP-B Current Condition Start: 10/01/23 14:54 Freq: Status: Active Protocol: Document 10/12/23 10:30 SAK (Rec: 10/12/23 10:39 SAK [id number]) Current Condition History of Current Condition Current Complaints left upper quadrant pain History of Current Condition progressively worsening subaxillary and lateral thoracic pain and pain left chest s/p bilateral mastectomies for breast cancer . Pain increases with reaching, doing ADL's , bending forward . Reports when wakes up arm from shoulder to elbow feels heavy. Pain radiates into left UE. Doesn't wear compression at night, but wears compression sleeve during the day. Was taped with kinesiotape recently by family member, has skin tears right now due to not letting skin rest and taking off too rapidly; states she felt kinesiotape helpful. On Gabapentin x 4 days, not helping much yet. Just lost oncologist, will be going to new one in [place] soon ( but he is temporary, will have data support analyst in April). Treatment Goals Patient/Caregiver Goals decrease pain, be able to return to prior level of function Prior Functional Status Baseline Function- ADL's Independent Baseline Function- Mobility Independent Baseline Function- Recreation/Hobbies no limitations PT-OP-C Subjective Start: 10/01/23 14:54 Freq: Status: Active Protocol: Document 10/08/23 13:02 SAK (Rec: 10/08/23 14:14 SAK [id number]) OP-PT Subjective Patient Comments Patient Comments Manual work was helpful. Hasn't ordered a compression shirt or camisole yet, has had a lot of other bills. Can't tolerate wearing a bra due to pain. PT-OP-J Posture/Palpation/Skin Start: 10/01/23 14:54 Freq: Status: Active Protocol: Document 10/05/23 13:02 [facility] (Rec: 10/05/23 16:52 [facility] [id number]) Posture Evaluation Position Sitting Head/C-Spine Posture Forward Head T-Spine Posture Increased Kyphosis Shoulder Posture (L) Rounded,(R) Rounded Scapula Posture (L) Protracted,(R) Protracted Palpation Assessment Location UT Palpation Location l Palpation Findings Soft Tissue Tightness periscap Palpation Location L Palpation Findings Soft Tissue Tightness, Tenderness subaxillary Palpation Location L Palpation Findings Soft Tissue Tightness, Tenderness,Trigger Point Palpation Details axillary cording present 1 long in axilla Skin Assessment Other Assessments Skin Assessment Comments skin tears and irritation from KT tape applied by family member left anterior shoulder, posterior shoulder, subax PT-OP-K Range of Motion Start: 10/01/23 14:54 Freq: Status: Active Protocol: Document 10/05/23 13:02 [facility] (Rec: 10/05/23 16:52 [facility] [id number]) Shoulder Goniometric Range of Motion Shoulder Left Shoulder ROM WFL Yes Comments pain end range Right Active Shoulder ROM WFL Yes Shoulder ROM Limitations Shoulder ROM Limitations Soft Tissue Tightness,Pain PT-OP-N Lymphedema Start: 10/01/23 14:54 Freq: Status: Active Protocol: Document 10/05/23 13:02 [facility] (Rec: 10/05/23 14:26 [facility] [id number]) Lymphedema Measurements Upper Extremity Circumference Measurements Right Unaffected MCP 18 cm Dorsum of Hand 19 cm Wrist 15.5 cm 5 cm From Wrist Crease 15.4 cm 10 cm From Wrist Crease 18.8 cm 15 cm From Wrist Crease 22.2 cm 20 cm From Wrist Crease 23.3 cm 25 cm From Wrist Crease 24.4 cm 30 cm From Wrist Crease 28.2 cm 35 cm From Wrist Crease 31.8 cm 40 cm From Wrist Crease 32.3 cm Elbow Joint 23 cm Left Affected MCP 17.8 cm Dorsum of Hand 18.3 cm Wrist 15.4 cm 5 cm From Wrist Crease 15.7 cm 10 cm From Wrist Crease 18.8 cm 15 cm From Wrist Crease 22.3 cm 20 cm From Wrist Crease 23.3 cm 25 cm From Wrist Crease 25.3 cm 30 cm From Wrist Crease 29 cm 35 cm From Wrist Crease 29.9 cm 40 cm From Wrist Crease 31.8 cm Elbow Joint 23.3 cm - subaxillary 86.3 nipple line 87 PT-OP-Q Treatments Start: 10/01/23 14:54 Freq: Status: Active Protocol: Document 10/12/23 10:30 [facility] (Rec: 10/12/23 12:03 [facility] [id number]) Therapeutic Exercises Sidelying Exercises shoulder abduction Reps/Minutes 2x30 open book Reps/Minutes 5x10 Sitting Exercises shoulder rolls Reps/Minutes 5x goalpost stretch Reps/Minutes 2x30 scap retr Reps/Minutes 5x5 Standing Exercises doorway stretch Standing Exercise Name low and high Reps/Minutes 2x30 Manual Therapy Treatment Soft Tissue Mobilization periscap Mobilization Type Trigger Point Release Body Position Supine subaxillary Mobilization Type Myofascial Release,Trigger Point Release Intensity/Depth Moderate Body Position Supine Comments pin and stretch Manual Techniques pin and stretch Body Position Sidelying Comments subax Self-Care/Home Management Treatment Activities Self-Care/Home Management Activities self massage with tennis ball and cane Lymphedema Treatment Lymphedema Wrapping Other patient wearing compression sleeve and post op compression wrap Compression Garment Assessment Compression Garment Assessment Details wearing sleeve and post op compession wrap trunk PT-OP-T Assessment and Plan Start: 10/01/23 14:54 Freq: Status: Active Protocol: Document 10/12/23 10:30 [facility] (Rec: 10/12/23 10:39 [facility] [id number]) Physical Therapy Assessment Impairments Impairments Activity Tolerance,Edema,Pain, Soft Tissue Mobility Goals Five Impairment soft tissue tightness subaxillary region with axillary cording present Welder Apprentice Combination Goal (LTG) Decrease soft tissue tightness and eliminate axillary cording for improved lymphatic flow and improved comfort and use of left UE. LTG Duration 01/03/24 Two Impairment Lymphedema life impact scale 47% Three Impairment difficulty reaching overhead, behind her back and out to side for purposes of ADL's without increase in pain Penitentiary Goal (LTG) patient will be able to perform all usual movements of her left arm and trunk without an increase in pain LTG Duration 01/03/24 One Impairment pain as high as 9/10 subaxillary region causing poor sleep Short Term Goal (STG) decrease pain by at least 40% during all usual activities including sleep STG Duration 11/23/23 Penitentiary Goal (LTG) decrease pain by at least 75% to allow patient to sleep and do all usual activities without difficulty LTG Duration 01/03/24 Assessment Summary Assessment Dec axillary cording, improved subaxillary soft tissue mobility after treatment. Reviewed thoracic mobility ex. Physical Therapy Plan Frequency and Duration Frequency of Treatment 2x/Week Duration of treatment (weeks) 8 Plan of Care Start Date 10/05/23 Plan of Care End Date 12/04/23 Therapeutic Interventions Therapeutic Interventions Home Exercise Program, Lymphedema Management,Manual Therapy,Patient/Caregiver Education,Self-Care/Home Management,Soft Tissue Mobilization,Taping, Therapeutic Activities, Therapeutic Exercises Next Visit Focus/Plan Next Note Type Treatment Note Next Visit Plan Continue PT for postural correction, thoracic and scapular mob, MLD, pin and stretch.
--- NOTE | 2023-10-15 14:25 | PT.OTN ---
Current Diagnoses Malignant neoplasm of unspecified site of left female breast (10/15/23) Lymphedema, not elsewhere classified (10/15/23) Pain in arm, unspecified (10/15/23) Physical Therapy Treatment Note PT-OP-A Visit Information Start: 10/01/23 14:54 Freq: Status: Active Protocol: Document 10/15/23 13:05 [facility] (Rec: 10/15/23 13:22 [facility] [id number]) Out-Patient Physical Therapy Visit Information Visit Information Visit Type Treatment Note Visit Start Time 10:30 Visit Stop Time 15:28 Visit Number 3 Precautions Precautions history br CA PT-OP-B Current Condition Start: 10/01/23 14:54 Freq: Status: Active Protocol: Document 10/15/23 13:05 [facility]AK (Rec: 10/15/23 13:22 [facility] [id number]) Current Condition History of Current Condition Current Complaints left upper quadrant pain History of Current Condition progressively worsening subaxillary and lateral thoracic pain and pain left chest s/p bilateral mastectomies for breast cancer . Pain increases with reaching, doing ADL's , bending forward . Reports when wakes up arm from shoulder to elbow feels heavy. Pain radiates into left UE. Doesn't wear compression at night, but wears compression sleeve during the day. Was taped with kinesiotape recently by family member, has skin tears right now due to not letting skin rest and taking off too rapidly; states she felt kinesiotape helpful. On Gabapentin x 4 days, not helping much yet. Just lost oncologist, will be going to new one in [place] soon ( but he is temporary, will have timekeeper in April). Treatment Goals Patient/Caregiver Goals decrease pain, be able to return to prior level of function PT-OP-C Subjective Start: 10/01/23 14:54 Freq: Status: Active Protocol: Document 10/15/23 13:05 [facility] (Rec: 10/15/23 13:22 [facility]AK [id number]) OP-PT Subjective Patient Comments Patient Comments Has had a lot of cramping on left lateral trunk last few days. Patient Reported Progress Improving PT-OP-J Posture/Palpation/Skin Start: 10/01/23 14:54 Freq: Status: Active Protocol: Document 10/05/23 13:02 SAK (Rec: 10/05/23 16:52 [facility] [id number]) Posture Evaluation Position Sitting Head/C-Spine Posture Forward Head T-Spine Posture Increased Kyphosis Shoulder Posture (L) Rounded,(R) Rounded Scapula Posture (L) Protracted,(R) Protracted Palpation Assessment Location [place] Palpation Location l Palpation Findings Soft Tissue Tightness periscap Palpation Location L Palpation Findings Soft Tissue Tightness, Tenderness subaxillary Palpation Location L Palpation Findings Soft Tissue Tightness, Tenderness,Trigger Point Palpation Details axillary cording present 1 long in axilla Skin Assessment Other Assessments Skin Assessment Comments skin tears and irritation from KT tape applied by family member left anterior shoulder, posterior shoulder, subax PT-OP-K Range of Motion Start: 10/01/23 14:54 Freq: Status: Active Protocol: Document 10/05/23 13:02 [facility] (Rec: 10/05/23 16:52 [facility] [id number]) Shoulder Goniometric Range of Motion Shoulder Left Shoulder ROM WFL Yes Comments pain end range Right Active Shoulder ROM WFL Yes Shoulder ROM Limitations Shoulder ROM Limitations Soft Tissue Tightness,Pain PT-OP-N Lymphedema Start: 10/01/23 14:54 Freq: Status: Active Protocol: Document 10/05/23 13:02 [facility] (Rec: 10/05/23 14:26 [facility] [id number]) Lymphedema Measurements Upper Extremity Circumference Measurements Right Unaffected MCP 18 cm Dorsum of Hand 19 cm Wrist 15.5 cm 5 cm From Wrist Crease 15.4 cm 10 cm From Wrist Crease 18.8 cm 15 cm From Wrist Crease 22.2 cm 20 cm From Wrist Crease 23.3 cm 25 cm From Wrist Crease 24.4 cm 30 cm From Wrist Crease 28.2 cm 35 cm From Wrist Crease 31.8 cm 40 cm From Wrist Crease 32.3 cm Elbow Joint 23 cm Left Affected MCP 17.8 cm Dorsum of Hand 18.3 cm Wrist 15.4 cm 5 cm From Wrist Crease 15.7 cm 10 cm From Wrist Crease 18.8 cm 15 cm From Wrist Crease 22.3 cm 20 cm From Wrist Crease 23.3 cm 25 cm From Wrist Crease 25.3 cm 30 cm From Wrist Crease 29 cm 35 cm From Wrist Crease 29.9 cm 40 cm From Wrist Crease 31.8 cm Elbow Joint 23.3 cm - subaxillary 86.3 nipple line 87 PT-OP-Q Treatments Start: 10/01/23 14:54 Freq: Status: Active Protocol: Document 10/15/23 13:05 [facility] (Rec: 10/15/23 14:25 [facility] [id number]) Therapeutic Exercises Supine Exercises serratus punch Reps/Minutes 10x lat stretch Reps/Minutes 2x30 Sidelying Exercises shoulder abduction Reps/Minutes 2x30 open book Reps/Minutes 5x10 Sitting Exercises goalpost stretch Reps/Minutes 2x30 Standing Exercises doorway stretch Standing Exercise Name HEP Manual Therapy Treatment Soft Tissue Mobilization periscap Mobilization Type Trigger Point Release Body Position Supine subaxillary Mobilization Type Myofascial Release,Trigger Point Release Intensity/Depth Moderate Body Position Supine Comments pin and stretch Taping lateral chest to spine Body Location horizontal Treatment Focus edema reduction Type of Tape KT Skin Inspection intact Comments 2 fan strips left anterior chest horizontal to base at spine. Manual Techniques pin and stretch Body Position Sidelying, supine Comments subax Self-Care/Home Management Treatment Education Patient Education Home Exercise Program,Pain Management,Posture Other Education deep breathing for decreased sympathetic and nervous system overactivation PT-OP-T Assessment and Plan Start: 10/01/23 14:54 Freq: Status: Active Protocol: Document 10/15/23 13:05 [facility] (Rec: 10/15/23 13:22 [facility] [id number]) Physical Therapy Assessment Impairments Impairments Activity Tolerance,Edema,Pain, Soft Tissue Mobility Goals Five Impairment soft tissue tightness subaxillary region with axillary cording present Termite Inspector Goal (LTG) Decrease soft tissue tightness and eliminate axillary cording for improved lymphatic flow and improved comfort and use of left UE. LTG Duration 01/03/24 Two Impairment Lymphedema life impact scale 47% Three Impairment difficulty reaching overhead, behind her back and out to side for purposes of ADL's without increase in pain Longterm Goal (LTG) patient will be able to perform all usual movements of her left arm and trunk without an increase in pain LTG Duration 01/03/24 One Impairment pain as high as 9/10 subaxillary region causing poor sleep Short Term Goal (STG) decrease pain by at least 40% during all usual activities including sleep STG Duration 11/23/23 Longterm Goal (LTG) decrease pain by at least 75% to allow patient to sleep and do all usual activities without difficulty LTG Duration 01/03/24 Assessment Summary Assessment Improving compliance to MLD, reporting some decrease in pain subaxillary. Compliant to use of sequential pneumatic pump, wearing compression sleeve. Not wearing compression garment on trunk today, willing to try KT tape due to difficulty with getting compression to work well on trunk Physical Therapy Plan Frequency and Duration Frequency of Treatment 2x/Week Duration of treatment (weeks) 8 Plan of Care Start Date 10/05/23 Plan of Care End Date 12/04/23 Therapeutic Interventions Therapeutic Interventions Home Exercise Program, Lymphedema Management,Manual Therapy,Patient/Caregiver Education,Self-Care/Home Management,Soft Tissue Mobilization,Taping, Therapeutic Activities, Therapeutic Exercises Next Visit Focus/Plan Next Note Type Treatment Note Next Visit Plan Continue PT for postural correction, thoracic and scapular mob, MLD, pin and stretch.
--- NOTE | 2023-10-19 16:21 | PT.OTN ---
Current Diagnoses Malignant neoplasm of unspecified site of left female breast (10/19/23) Lymphedema, not elsewhere classified (10/19/23) Pain in arm, unspecified (10/19/23) Physical Therapy Treatment Note PT-OP-A Visit Information Start: 10/01/23 14:54 Freq: Status: Active Protocol: Document 10/19/23 13:03 [facility] (Rec: 10/19/23 13:24 [facility] [id number]) Out-Patient Physical Therapy Visit Information Visit Information Visit Type Treatment Note Visit Start Time 13:03 Visit Stop Time 14:28 Visit Number 4 Evaluation Information Evaluation Date 10/05/23 Precautions Precautions history br CA PT-OP-B Current Condition Start: 10/01/23 14:54 Freq: Status: Active Protocol: Document 10/19/23 13:03 [facility] (Rec: 10/19/23 13:24 [facility] [id number]) Current Condition History of Current Condition Current Complaints left upper quadrant pain History of Current Condition progressively worsening subaxillary and lateral thoracic pain and pain left chest s/p bilateral mastectomies for breast cancer . Pain increases with reaching, doing ADL's , bending forward . Reports when wakes up arm from shoulder to elbow feels heavy. Pain radiates into left UE. Doesn't wear compression at night, but wears compression sleeve during the day. Was taped with kinesiotape recently by family member, has skin tears right now due to not letting skin rest and taking off too rapidly; states she felt kinesiotape helpful. On Gabapentin x 4 days, not helping much yet. Just lost oncologist, will be going to new one in [place] soon ( but he is temporary, will have real time trader in April). Treatment Goals Patient/Caregiver Goals decrease pain, be able to return to prior level of function PT-OP-C Subjective Start: 10/01/23 14:54 Freq: Status: Active Protocol: Document 10/19/23 13:03 [facility] (Rec: 10/19/23 13:24 [facility] [id number]) OP-PT Subjective Patient Comments Patient Comments Reports feeling tape helpful, very good support with dec pain and crampingwith KT tape, hasn't removed yet. Hasn't ordered any other compresssion garment. PT-OP-J Posture/Palpation/Skin Start: 10/01/23 14:54 Freq: Status: Active Protocol: Document 10/05/23 13:02 [facility] (Rec: 10/05/23 16:52 [facility] [id number]) Posture Evaluation Position Sitting Head/C-Spine Posture Forward Head T-Spine Posture Increased Kyphosis Shoulder Posture (L) Rounded,(R) Rounded Scapula Posture (L) Protracted,(R) Protracted Palpation Assessment Location [place] Palpation Location l Palpation Findings Soft Tissue Tightness periscap Palpation Location L Palpation Findings Soft Tissue Tightness, Tenderness subaxillary Palpation Location L Palpation Findings Soft Tissue Tightness, Tenderness,Trigger Point Palpation Details axillary cording present 1 long in axilla Skin Assessment Other Assessments Skin Assessment Comments skin tears and irritation from KT tape applied by family member left anterior shoulder, posterior shoulder, subax PT-OP-K Range of Motion Start: 10/01/23 14:54 Freq: Status: Active Protocol: Document 10/05/23 13:02 [facility] (Rec: 10/05/23 16:52 [facility] [id number]) Shoulder Goniometric Range of Motion Shoulder Left Shoulder ROM WFL Yes Comments pain end range Right Active Shoulder ROM WFL Yes Shoulder ROM Limitations Shoulder ROM Limitations Soft Tissue Tightness,Pain PT-OP-N Lymphedema Start: 10/01/23 14:54 Freq: Status: Active Protocol: Document 10/05/23 13:02 [facility] (Rec: 10/05/23 14:26 [facility] [id number]) Lymphedema Measurements Upper Extremity Circumference Measurements Right Unaffected MCP 18 cm Dorsum of Hand 19 cm Wrist 15.5 cm 5 cm From Wrist Crease 15.4 cm 10 cm From Wrist Crease 18.8 cm 15 cm From Wrist Crease 22.2 cm 20 cm From Wrist Crease 23.3 cm 25 cm From Wrist Crease 24.4 cm 30 cm From Wrist Crease 28.2 cm 35 cm From Wrist Crease 31.8 cm 40 cm From Wrist Crease 32.3 cm Elbow Joint 23 cm Left Affected MCP 17.8 cm Dorsum of Hand 18.3 cm Wrist 15.4 cm 5 cm From Wrist Crease 15.7 cm 10 cm From Wrist Crease 18.8 cm 15 cm From Wrist Crease 22.3 cm 20 cm From Wrist Crease 23.3 cm 25 cm From Wrist Crease 25.3 cm 30 cm From Wrist Crease 29 cm 35 cm From Wrist Crease 29.9 cm 40 cm From Wrist Crease 31.8 cm Elbow Joint 23.3 cm - subaxillary 86.3 nipple line 87 PT-OP-Q Treatments Start: 10/01/23 14:54 Freq: Status: Active Protocol: Document 10/19/23 13:03 [facility] (Rec: 10/19/23 13:24 [facility] [id number]) Therapeutic Exercises Supine Exercises serratus punch Reps/Minutes 10x lat stretch Reps/Minutes 2x30 Sidelying Exercises shoulder abduction Reps/Minutes 2x30 open book Reps/Minutes 5x10 Sitting Exercises shoulder rolls Reps/Minutes 5x goalpost stretch Reps/Minutes 2x30 scap retr Reps/Minutes 5x5 Manual Therapy Treatment Soft Tissue Mobilization periscap Mobilization Type Trigger Point Release Body Position Supine subaxillary Body Location axillary cording Mobilization Type Instrument Assisted,Myofascial Release,Trigger Point Release Intensity/Depth Moderate Body Position Supine Comments pin and stretch cupping Taping lateral chest to spine Body Location horizontal Treatment Focus edema reduction Type of Tape KT Skin Inspection intact Comments 2 fan strips left anterior chest horizontal to base at spine. Manual Techniques pin and stretch Body Position Sidelying, supine Comments subax PT-OP-T Assessment and Plan Start: 10/01/23 14:54 Freq: Status: Active Protocol: Document 10/19/23 13:03 [facility] (Rec: 10/19/23 13:24 [facility] [id number]) Physical Therapy Assessment Impairments Impairments Activity Tolerance,Edema,Pain, Soft Tissue Mobility Goals Five Impairment soft tissue tightness subaxillary region with axillary cording present Bow Maker Gift Wrapping Goal (LTG) Decrease soft tissue tightness and eliminate axillary cording for improved lymphatic flow and improved comfort and use of left UE. LTG Duration 01/03/24 Two Impairment Lymphedema life impact scale 47% Three Impairment difficulty reaching overhead, behind her back and out to side for purposes of ADL's without increase in pain Bow Maker Gift Wrapping Goal (LTG) patient will be able to perform all usual movements of her left arm and trunk without an increase in pain LTG Duration 01/03/24 One Impairment pain as high as 9/10 subaxillary region causing poor sleep Short Term Goal (STG) decrease pain by at least 40% during all usual activities including sleep STG Duration 11/23/23 Bow Maker Gift Wrapping Goal (LTG) decrease pain by at least 75% to allow patient to sleep and do all usual activities without difficulty LTG Duration 01/03/24 Assessment Summary Assessment KT tape helpful in dec pain and edema lateral thorac and subaxillary. Trial cupping for improved soft tissue mobility mastectomy scar and subaxillary region with good tolerance. Physical Therapy Plan Frequency and Duration Frequency of Treatment 2x/Week Duration of treatment (weeks) 8 Plan of Care Start Date 10/05/23 Plan of Care End Date 12/04/23 Therapeutic Interventions Therapeutic Interventions Home Exercise Program, Lymphedema Management,Manual Therapy,Patient/Caregiver Education,Self-Care/Home Management,Soft Tissue Mobilization,Taping, Therapeutic Activities, Therapeutic Exercises Next Visit Focus/Plan Next Note Type Treatment Note Next Visit Plan Continue PT for postural correction, thoracic and scapular mob, MLD, pin and stretch. Cont cupping if elizabeth well. KT tape.
--- NOTE | 2023-10-26 14:21 | PT.OTN ---
Current Diagnoses Malignant neoplasm of unspecified site of left female breast (10/26/23) Lymphedema, not elsewhere classified (10/26/23) Pain in arm, unspecified (10/26/23) Physical Therapy Treatment Note PT-OP-A Visit Information Start: 10/01/23 14:54 Freq: Status: Active Protocol: Document 10/26/23 12:59 [facility] (Rec: 10/26/23 13:15 [facility] [id number]) Out-Patient Physical Therapy Visit Information Visit Information Visit Type Treatment Note Visit Start Time 13:00 Visit Stop Time 14:28 Visit Number 5 Precautions Precautions history br CA PT-OP-B Current Condition Start: 10/01/23 14:54 Freq: Status: Active Protocol: Document 10/26/23 12:59 [facility] (Rec: 10/26/23 13:15 [facility] [id number]) Current Condition History of Current Condition Current Complaints left upper quadrant pain History of Current Condition progressively worsening subaxillary and lateral thoracic pain and pain left chest s/p bilateral mastectomies for breast cancer . Pain increases with reaching, doing ADL's , bending forward . Reports when wakes up arm from shoulder to elbow feels heavy. Pain radiates into left UE. Doesn't wear compression at night, but wears compression sleeve during the day. Was taped with kinesiotape recently by family member, has skin tears right now due to not letting skin rest and taking off too rapidly; states she felt kinesiotape helpful. On Gabapentin x 4 days, not helping much yet. Just lost oncologist, will be going to new one in [place] soon ( but he is temporary, will have recep in April). Treatment Goals Patient/Caregiver Goals decrease pain, be able to return to prior level of function PT-OP-C Subjective Start: 10/01/23 14:54 Freq: Status: Active Protocol: Document 10/26/23 12:59 [facility] (Rec: 10/26/23 13:15 [facility] [id number]) OP-PT Subjective Patient Comments Patient Comments Not quite as painful as it was , helping with cramping though still really gets me sometimes. Took the tape off on Thursday. Can't find info PT issued to her regarding compression for trunk PT-OP-J Posture/Palpation/Skin Start: 10/01/23 14:54 Freq: Status: Active Protocol: Document 10/05/23 13:02 [facility] (Rec: 10/05/23 16:52 [facility] [id number]) Posture Evaluation Position Sitting Head/C-Spine Posture Forward Head T-Spine Posture Increased Kyphosis Shoulder Posture (L) Rounded,(R) Rounded Scapula Posture (L) Protracted,(R) Protracted Palpation Assessment Location [place] Palpation Location l Palpation Findings Soft Tissue Tightness periscap Palpation Location L Palpation Findings Soft Tissue Tightness, Tenderness subaxillary Palpation Location L Palpation Findings Soft Tissue Tightness, Tenderness,Trigger Point Palpation Details axillary cording present 1 long in axilla Skin Assessment Other Assessments Skin Assessment Comments skin tears and irritation from KT tape applied by family member left anterior shoulder, posterior shoulder, subax PT-OP-K Range of Motion Start: 10/01/23 14:54 Freq: Status: Active Protocol: Document 10/05/23 13:02 [facility] (Rec: 10/05/23 16:52 [facility] [id number]) Shoulder Goniometric Range of Motion Shoulder Left Shoulder ROM WFL Yes Comments pain end range Right Active Shoulder ROM WFL Yes Shoulder ROM Limitations Shoulder ROM Limitations Soft Tissue Tightness,Pain PT-OP-N Lymphedema Start: 10/01/23 14:54 Freq: Status: Active Protocol: Document 10/05/23 13:02 [facility] (Rec: 10/05/23 14:26 [facility] [id number]) Lymphedema Measurements Upper Extremity Circumference Measurements Right Unaffected MCP 18 cm Dorsum of Hand 19 cm Wrist 15.5 cm 5 cm From Wrist Crease 15.4 cm 10 cm From Wrist Crease 18.8 cm 15 cm From Wrist Crease 22.2 cm 20 cm From Wrist Crease 23.3 cm 25 cm From Wrist Crease 24.4 cm 30 cm From Wrist Crease 28.2 cm 35 cm From Wrist Crease 31.8 cm 40 cm From Wrist Crease 32.3 cm Elbow Joint 23 cm Left Affected MCP 17.8 cm Dorsum of Hand 18.3 cm Wrist 15.4 cm 5 cm From Wrist Crease 15.7 cm 10 cm From Wrist Crease 18.8 cm 15 cm From Wrist Crease 22.3 cm 20 cm From Wrist Crease 23.3 cm 25 cm From Wrist Crease 25.3 cm 30 cm From Wrist Crease 29 cm 35 cm From Wrist Crease 29.9 cm 40 cm From Wrist Crease 31.8 cm Elbow Joint 23.3 cm - subaxillary 86.3 nipple line 87 PT-OP-Q Treatments Start: 10/01/23 14:54 Freq: Status: Active Protocol: Document 10/26/23 12:59 [facility] (Rec: 10/26/23 13:15 [facility] [id number]) Therapeutic Exercises Supine Exercises serratus punch Reps/Minutes 10x lat stretch Reps/Minutes 2x30 Sidelying Exercises shoulder abduction Reps/Minutes 2x30 open book Reps/Minutes 5x10 Manual Therapy Treatment Soft Tissue Mobilization periscap Mobilization Type Trigger Point Release Body Position Supine subaxillary Body Location axillary cording Mobilization Type Instrument Assisted,Myofascial Release,Trigger Point Release Intensity/Depth Moderate Body Position Supine Comments pin and stretch cupping Taping lateral chest to spine Body Location horizontal Treatment Focus edema reduction Type of Tape KT Skin Inspection intact Comments 2 fan strips left anterior chest horizontal to base at spine. Manual Techniques pin and stretch Body Position Sidelying, supine Comments subax Self-Care/Home Management Treatment Education Patient Education Home Exercise Program,Pain Management,Posture Other Education deep breathing for decreased sympathetic and nervous system overactivation Activities Self-Care/Home Management Activities self massage with tennis ball and cane PT-OP-T Assessment and Plan Start: 10/01/23 14:54 Freq: Status: Active Protocol: Document 10/26/23 12:59 [facility] (Rec: 10/26/23 13:15 [facility] [id number]) Physical Therapy Assessment Impairments Impairments Activity Tolerance,Edema,Pain, Soft Tissue Mobility Goals Five Impairment soft tissue tightness subaxillary region with axillary cording present Retirement Goal (LTG) Decrease soft tissue tightness and eliminate axillary cording for improved lymphatic flow and improved comfort and use of left UE. LTG Duration 01/03/24 Two Impairment Lymphedema life impact scale 47% Three Impairment difficulty reaching overhead, behind her back and out to side for purposes of ADL's without increase in pain Neuro Urologist Goal (LTG) patient will be able to perform all usual movements of her left arm and trunk without an increase in pain LTG Duration 01/03/24 One Impairment pain as high as 9/10 subaxillary region causing poor sleep Short Term Goal (STG) decrease pain by at least 40% during all usual activities including sleep STG Duration 11/23/23 Neuro Urologist Goal (LTG) decrease pain by at least 75% to allow patient to sleep and do all usual activities without difficulty LTG Duration 01/03/24 Progress Towards Goals Progress Towards Goals Progressing Toward Goals Assessment Summary Assessment Reporting decrease in pain including in elbow with cupping as well as inc MLD emphasis at left elbow. Patient to order compression tank or shirt for inc chest and trunk compression. Decreased subaxillary soft tissue tightness. Physical Therapy Plan Frequency and Duration Frequency of Treatment 2x/Week Duration of treatment (weeks) 8 Plan of Care Start Date 10/05/23 Plan of Care End Date 12/04/23 Therapeutic Interventions Therapeutic Interventions Home Exercise Program, Lymphedema Management,Manual Therapy,Patient/Caregiver Education,Self-Care/Home Management,Soft Tissue Mobilization,Taping, Therapeutic Activities, Therapeutic Exercises Next Visit Focus/Plan Next Note Type Treatment Note Next Visit Plan Continue PT for postural correction, thoracic and scapular mob, MLD, pin and stretch. Cont cupping if elizabeth well. KT tape.
--- NOTE | 2023-11-17 15:07 | PT.OTN ---
Current Diagnoses Malignant neoplasm of unspecified site of left female breast (11/17/23) Lymphedema, not elsewhere classified (11/17/23) Pain in arm, unspecified (11/17/23) Physical Therapy Treatment Note PT-OP-A Visit Information Start: 10/01/23 14:54 Freq: Status: Active Protocol: Document 11/17/23 12:59 [facility] (Rec: 11/17/23 13:21 [facility] [id number]) Out-Patient Physical Therapy Visit Information Visit Information Visit Type Treatment Note Visit Start Time 13:00 Visit Stop Time 14:28 Visit Number 6 PT-OP-B Current Condition Start: 10/01/23 14:54 Freq: Status: Active Protocol: Document 11/17/23 12:59 [facility] (Rec: 11/17/23 13:21 [facility] [id number]) Current Condition History of Current Condition Current Complaints left upper quadrant pain History of Current Condition progressively worsening subaxillary and lateral thoracic pain and pain left chest s/p bilateral mastectomies for breast cancer . Pain increases with reaching, doing ADL's , bending forward . Reports when wakes up arm from shoulder to elbow feels heavy. Pain radiates into left UE. Doesn't wear compression at night, but wears compression sleeve during the day. Was taped with kinesiotape recently by family member, has skin tears right now due to not letting skin rest and taking off too rapidly; states she felt kinesiotape helpful. On Gabapentin x 4 days, not helping much yet. Just lost oncologist, will be going to new one in [place] soon ( but he is temporary, will have chargeback analyst in April). Treatment Goals Patient/Caregiver Goals decrease pain, be able to return to prior level of function PT-OP-C Subjective Start: 10/01/23 14:54 Freq: Status: Active Protocol: Document 11/17/23 12:59 [facility]AK (Rec: 11/17/23 13:21 [facility] [id number]) OP-PT Subjective Patient Comments Patient Comments What she could use the most is massaging, taping, and cupping. Feels the cupping helps her elbow. Got a PT-OP-J Posture/Palpation/Skin Start: 10/01/23 14:54 Freq: Status: Active Protocol: Document 10/05/23 13:02 [facility]AK (Rec: 10/05/23 16:52 [facility] [id number]) Posture Evaluation Position Sitting Head/C-Spine Posture Forward Head T-Spine Posture Increased Kyphosis Shoulder Posture (L) Rounded,(R) Rounded Scapula Posture (L) Protracted,(R) Protracted Palpation Assessment Location [place] Palpation Location l Palpation Findings Soft Tissue Tightness periscap Palpation Location L Palpation Findings Soft Tissue Tightness, Tenderness subaxillary Palpation Location L Palpation Findings Soft Tissue Tightness, Tenderness,Trigger Point Palpation Details axillary cording present 1 long in axilla Skin Assessment Other Assessments Skin Assessment Comments skin tears and irritation from KT tape applied by family member left anterior shoulder, posterior shoulder, subax PT-OP-K Range of Motion Start: 10/01/23 14:54 Freq: Status: Active Protocol: Document 10/05/23 13:02 [facility] (Rec: 10/05/23 16:52 [facility] [id number]) Shoulder Goniometric Range of Motion Shoulder Left Shoulder ROM WFL Yes Comments pain end range Right Active Shoulder ROM WFL Yes Shoulder ROM Limitations Shoulder ROM Limitations Soft Tissue Tightness,Pain PT-OP-N Lymphedema Start: 10/01/23 14:54 Freq: Status: Active Protocol: Document 11/17/23 12:59 [facility] (Rec: 11/17/23 13:39 [facility] [id number]) Lymphedema Measurements Upper Extremity Circumference Measurements Left Affected MCP 17.8 cm Dorsum of Hand 18.4 cm Wrist 15.4 cm 5 cm From Wrist Crease 15.6 cm 10 cm From Wrist Crease 18.8 cm 15 cm From Wrist Crease 22.4 cm 20 cm From Wrist Crease 23.5 cm 25 cm From Wrist Crease 24.8 cm 30 cm From Wrist Crease 28.4 cm 35 cm From Wrist Crease 30.1 cm 40 cm From Wrist Crease 31.9 cm Elbow Joint 24 cm PT-OP-Q Treatments Start: 10/01/23 14:54 Freq: Status: Active Protocol: Document 11/17/23 12:59 [facility] (Rec: 11/17/23 13:40 [facility] [id number]) Manual Therapy Treatment Soft Tissue Mobilization periscap Mobilization Type Trigger Point Release Body Position Supine subaxillary Body Location axillary cording Mobilization Type Instrument Assisted,Myofascial Release,Trigger Point Release Intensity/Depth Moderate Body Position Supine Comments pin and stretch cupping Taping lateral chest to spine Body Location horizontal Treatment Focus edema reduction Type of Tape KT Skin Inspection intact Comments 2 fan strips left anterior chest horizontal to base at spine. Manual Techniques pin and stretch Body Position Sidelying, supine Comments subax Self-Care/Home Management Treatment Education Other Education Compression Care company Importance of use of compression bra, shirt, with possible swell spot or consider [employer] [place] massage bra as option. Cost prohibitive but given information about Compression [employer] company that states they will assist with getting insurance approval. Lymphedema Treatment Manual Lymphatic Drainage Location left lateral trunk, subaxillary region Lymphedema Wrapping Other patient wearing compression sleeve and post op compression wrap Sequential Lymphedema Exercises Location reviewed Compression Garment Assessment Compression Garment Assessment Details wearing compression sleeve. Issued loaner Prarie wear compression bra and breast swell spot for trial. Given information about Compression [employer] for possible assistance with getting insurance coverage for her compression garments. PT-OP-T Assessment and Plan Start: 10/01/23 14:54 Freq: Status: Active Protocol: Document 11/17/23 12:59 [facility] (Rec: 11/17/23 13:40 [facility] [id number]) Physical Therapy Assessment Impairments Impairments Activity Tolerance,Edema,Pain, Soft Tissue Mobility Goals Five Impairment soft tissue tightness subaxillary region with axillary cording present Senior Care Goal (LTG) Decrease soft tissue tightness and eliminate axillary cording for improved lymphatic flow and improved comfort and use of left UE. LTG Duration 01/03/24 Two Impairment Lymphedema life impact scale 47% Three Impairment difficulty reaching overhead, behind her back and out to side for purposes of ADL's without increase in pain Senior Care Goal (LTG) patient will be able to perform all usual movements of her left arm and trunk without an increase in pain LTG Duration 01/03/24 One Impairment pain as high as 9/10 subaxillary region causing poor sleep Short Term Goal (STG) decrease pain by at least 40% during all usual activities including sleep STG Duration 11/23/23 [facility] Goal (LTG) decrease pain by at least 75% to allow patient to sleep and do all usual activities without difficulty LTG Duration 01/03/24 Assessment Summary Assessment Patient was shown and provided with information about compression shirt, and was given Prarie wear loaner bra for trial at home Continues to benefit from cupping, kinesiotape, MLD with heavy emphasis on elbow region. She is compliant to wearing compression sleeve. Given information about [employer] company for potential assistance with obtaining compression garments with pre- screening for insurance coverage. Physical Therapy Plan Frequency and Duration Frequency of Treatment 2x/Week Duration of treatment (weeks) 8 Plan of Care Start Date 10/05/23 Plan of Care End Date 12/04/23 Therapeutic Interventions Therapeutic Interventions Home Exercise Program, Lymphedema Management,Manual Therapy,Patient/Caregiver Education,Self-Care/Home Management,Soft Tissue Mobilization,Taping, Therapeutic Activities, Therapeutic Exercises Next Visit Focus/Plan Next Note Type Treatment Note Next Visit Plan Continue PT for postural correction, thoracic and scapular mob, MLD, pin and stretch, cupping, KT tape. Assist with obtaining compression garments.
--- NOTE | 2023-11-24 08:09 | PT-OP ANOTE ---
cancelled due to eye infection
--- NOTE | 2023-11-26 16:21 | PT.OTN ---
Current Diagnoses Malignant neoplasm of unspecified site of left female breast (11/26/23) Lymphedema, not elsewhere classified (11/26/23) Pain in arm, unspecified (11/26/23) Physical Therapy Treatment Note PT-OP-A Visit Information Start: 10/01/23 14:54 Freq: Status: Active Protocol: Document 11/26/23 16:07 [facility] (Rec: 11/26/23 16:20 [facility] [id number]) Out-Patient Physical Therapy Visit Information Visit Information Visit Type Treatment Note Visit Start Time 14:30 Visit Stop Time 13:55 Visit Number 7 PT-OP-B Current Condition Start: 10/01/23 14:54 Freq: Status: Active Protocol: Document 11/26/23 16:07 [facility] (Rec: 11/26/23 16:20 [facility] [id number]) Current Condition History of Current Condition Current Complaints left upper quadrant pain History of Current Condition progressively worsening subaxillary and lateral thoracic pain and pain left chest s/p bilateral mastectomies for breast cancer . Pain increases with reaching, doing ADL's , bending forward . Reports when wakes up arm from shoulder to elbow feels heavy. Pain radiates into left UE. Doesn't wear compression at night, but wears compression sleeve during the day. Was taped with kinesiotape recently by family member, has skin tears right now due to not letting skin rest and taking off too rapidly; states she felt kinesiotape helpful. On Gabapentin x 4 days, not helping much yet. Just lost oncologist, will be going to new one in [place] soon ( but he is temporary, will have full roll inspector in April). PT-OP-C Subjective Start: 10/01/23 14:54 Freq: Status: Active Protocol: Document 11/26/23 16:07 [facility]AK (Rec: 11/26/23 16:20 [facility] [id number]) OP-PT Subjective Patient Comments Patient Comments [place] the cold laser was helpful last session as well. Wearing compression sleeve consistently. Didn't like [employer] Wear Bra, but found prior bra she received and with inserts works better. Didn't like swell spot. Doesn 't think her can do KT tape, but her daughter could. Agreeable to use her phone to video taping technique PT-OP-J Posture/Palpation/Skin Start: 10/01/23 14:54 Freq: Status: Active Protocol: Document 10/05/23 13:02 [facility] (Rec: 10/05/23 16:52 [facility] [id number]) Posture Evaluation Position Sitting Head/C-Spine Posture Forward Head T-Spine Posture Increased Kyphosis Shoulder Posture (L) Rounded,(R) Rounded Scapula Posture (L) Protracted,(R) Protracted Palpation Assessment Location UT Palpation Location l Palpation Findings Soft Tissue Tightness periscap Palpation Location L Palpation Findings Soft Tissue Tightness, Tenderness subaxillary Palpation Location L Palpation Findings Soft Tissue Tightness, Tenderness,Trigger Point Palpation Details axillary cording present 1 long in axilla Skin Assessment Other Assessments Skin Assessment Comments skin tears and irritation from KT tape applied by family member left anterior shoulder, posterior shoulder, subax PT-OP-K Range of Motion Start: 10/01/23 14:54 Freq: Status: Active Protocol: Document 10/05/23 13:02 [facility] (Rec: 10/05/23 16:52 [facility] [id number]) Shoulder Goniometric Range of Motion Shoulder Left Shoulder ROM WFL Yes Comments pain end range Right Active Shoulder ROM WFL Yes Shoulder ROM Limitations Shoulder ROM Limitations Soft Tissue Tightness,Pain PT-OP-N Lymphedema Start: 10/01/23 14:54 Freq: Status: Active Protocol: Document 11/26/23 16:09 [facility] (Rec: 11/26/23 16:21 [facility] [id number]) Lymphedema Measurements Upper Extremity Circumference Measurements Left Affected - measured but info lost due to computer shutting down. Measurements had shown decrease at elbow and proximal arm, otherwise variable. PT-OP-Q Treatments Start: 10/01/23 14:54 Freq: Status: Active Protocol: Document 11/26/23 16:07 [facility] (Rec: 11/26/23 16:20 [facility] [id number]) Therapeutic Activity Therapeutic Activity 1 Name donning and doffing compression, KT tape cutting and aplication instr Reps/Minutes 8 Comments Pt. demonstrated good understanding with min cues today. Manual Therapy Treatment Soft Tissue Mobilization periscap Mobilization Type Trigger Point Release Body Position Supine subaxillary Body Location axillary cording Mobilization Type Instrument Assisted,Myofascial Release,Trigger Point Release Intensity/Depth Moderate Body Position Supine Comments pin and stretch cupping Manual Techniques pin and stretch Body Position Sidelying, supine Comments subax Self-Care/Home Management Treatment Education Other Education video KT tape for daughter. Instructed pt in tape cutting KT; demonstrated good understanding Lymphedema Treatment Compression Garment Assessment Compression Garment Assessment Details Amoena bra good fit with inserts. Wearing compression sleeve with good fit. PT-OP-T Assessment and Plan Start: 10/01/23 14:54 Freq: Status: Active Protocol: Document 11/26/23 16:07 [facility] (Rec: 11/26/23 16:20 [facility] [id number]) Physical Therapy Assessment Goals Five Impairment soft tissue tightness subaxillary region with axillary cording present Air Bag Stripper Goal (LTG) Decrease soft tissue tightness and eliminate axillary cording for improved lymphatic flow and improved comfort and use of left UE. LTG Duration 01/03/24 Two Impairment Lymphedema life impact scale 47% Three Impairment difficulty reaching overhead, behind her back and out to side for purposes of ADL's without increase in pain Group Home Goal (LTG) patient will be able to perform all usual movements of her left arm and trunk without an increase in pain LTG Duration 01/03/24 One Impairment pain as high as 9/10 subaxillary region causing poor sleep Short Term Goal (STG) decrease pain by at least 40% during all usual activities including sleep STG Duration 11/23/23 Group Home Goal (LTG) decrease pain by at least 75% to allow patient to sleep and do all usual activities without difficulty LTG Duration 01/03/24 Assessment Summary Assessment Patient benefits from laser, soft tissue mobility, MLD, cupping, taping. Working toward transition to independend home program. Physical Therapy Plan Frequency and Duration Frequency of Treatment 2x/Week Duration of treatment (weeks) 8 Plan of Care Start Date 10/05/23 Plan of Care End Date 12/04/23 Therapeutic Interventions Therapeutic Interventions Home Exercise Program, Lymphedema Management,Manual Therapy,Patient/Caregiver Education,Self-Care/Home Management,Soft Tissue Mobilization,Taping, Therapeutic Activities, Therapeutic Exercises Next Visit Focus/Plan Next Note Type Treatment Note Next Visit Plan Assess pt and daughter ability to do KT tape, review all self soft tissue, MLD, ther ex for independent home program. Anticipate discharge next visit
--- NOTE | 2023-12-03 16:42 | PT.OTN ---
Current Diagnoses Malignant neoplasm of unspecified site of left female breast (12/03/23) Lymphedema, not elsewhere classified (12/03/23) Pain in arm, unspecified (12/03/23) Physical Therapy Treatment Note PT-OP-A Visit Information Start: 10/01/23 14:54 Freq: Status: Active Protocol: Document 12/03/23 12:59 [facility] (Rec: 12/03/23 14:30 [facility] [id number]) Out-Patient Physical Therapy Visit Information Visit Information Visit Type Treatment Note Visit Start Time 12:59 Visit Stop Time 14:28 Visit Number 8 Evaluation Information Evaluation Date 10/05/23 PT-OP-B Current Condition Start: 10/01/23 14:54 Freq: Status: Active Protocol: Document 12/03/23 12:59 [facility] (Rec: 12/03/23 14:30 [facility] [id number]) Current Condition History of Current Condition Current Complaints left upper quadrant pain History of Current Condition progressively worsening subaxillary and lateral thoracic pain and pain left chest s/p bilateral mastectomies for breast cancer . Pain increases with reaching, doing ADL's , bending forward . Reports when wakes up arm from shoulder to elbow feels heavy. Pain radiates into left UE. Doesn't wear compression at night, but wears compression sleeve during the day. Was taped with kinesiotape recently by family member, has skin tears right now due to not letting skin rest and taking off too rapidly; states she felt kinesiotape helpful. On Gabapentin x 4 days, not helping much yet. Just lost oncologist, will be going to new one in [place] soon ( but he is temporary, will have multimedia authoring specialist in April). PT-OP-C Subjective Start: 10/01/23 14:54 Freq: Status: Active Protocol: Document 12/03/23 12:59 [facility] (Rec: 12/03/23 14:30 [facility] [id number]) OP-PT Subjective Patient Comments Patient Comments REally likes the KT tape, hasn 't had family do yet. Likes for both lateral trunk and upper arm. PT-OP-J Posture/Palpation/Skin Start: 10/01/23 14:54 Freq: Status: Active Protocol: Document 10/05/23 13:02 [facility] (Rec: 10/05/23 16:52 [facility] [id number]) Posture Evaluation Position Sitting Head/C-Spine Posture Forward Head T-Spine Posture Increased Kyphosis Shoulder Posture (L) Rounded,(R) Rounded Scapula Posture (L) Protracted,(R) Protracted Palpation Assessment Location [place] Palpation Location l Palpation Findings Soft Tissue Tightness periscap Palpation Location L Palpation Findings Soft Tissue Tightness, Tenderness subaxillary Palpation Location L Palpation Findings Soft Tissue Tightness, Tenderness,Trigger Point Palpation Details axillary cording present 1 long in axilla Skin Assessment Other Assessments Skin Assessment Comments skin tears and irritation from KT tape applied by family member left anterior shoulder, posterior shoulder, subax PT-OP-K Range of Motion Start: 10/01/23 14:54 Freq: Status: Active Protocol: Document 10/05/23 13:02 [facility] (Rec: 10/05/23 16:52 [facility] [id number]) Shoulder Goniometric Range of Motion Shoulder Left Shoulder ROM WFL Yes Comments pain end range Right Active Shoulder ROM WFL Yes Shoulder ROM Limitations Shoulder ROM Limitations Soft Tissue Tightness,Pain PT-OP-N Lymphedema Start: 10/01/23 14:54 Freq: Status: Active Protocol: Document 12/03/23 12:59 [facility] (Rec: 12/03/23 14:30 [facility] [id number]) Lymphedema Measurements Upper Extremity Circumference Measurements Left Affected MCP 18.2 cm Dorsum of Hand 18.8 cm Wrist 16 cm 5 cm From Wrist Crease 15.5 cm 10 cm From Wrist Crease 18.4 cm 15 cm From Wrist Crease 21.8 cm 20 cm From Wrist Crease 23.3 cm 25 cm From Wrist Crease 23.5 cm 30 cm From Wrist Crease 25.8 cm 35 cm From Wrist Crease 28.2 cm 40 cm From Wrist Crease 31.5 cm - subax 87.5 nippple line 90.4 PT-OP-Q Treatments Start: 10/01/23 14:54 Freq: Status: Active Protocol: Document 12/03/23 12:59 [facility] (Rec: 12/03/23 16:39 [facility] [id number]) Therapeutic Exercises Supine Exercises pec stretch Reps/Minutes 2x30 lat stretch Reps/Minutes 2x30 Sidelying Exercises circles Reps/Minutes 5x shoulder abduction Reps/Minutes 2x30 open book Reps/Minutes 5x10 Sitting Exercises scap retr Reps/Minutes 5x5 Standing Exercises row, shld ext Equipment Used L2 TB Reps/Minutes 10x doorway stretch Reps/Minutes 2x30 Manual Therapy Treatment Soft Tissue Mobilization subaxillary Body Location axillary cording Mobilization Type Instrument Assisted,Manual Lymphatic Drainage,Myofascial Release,Trigger Point Release Intensity/Depth Moderate Body Position Supine Comments pin and stretch cupping Manual Techniques pin and stretch Body Position Sidelying, supine Comments subax Self-Care/Home Management Treatment Education Other Education issued [employer] Ease Bra for trial , information for Compression [employer] company. Lymphedema Treatment Manual Lymphatic Drainage Location left lateral trunk, subaxillary region Lymphedema Wrapping Other patient wearing compression sleeve and compression bra, to consider swell spot and compression shirt as shown today and issued info Compression Garment Assessment Compression Garment Assessment Details Amoena bra good fit with inserts. Wearing compression sleeve with good fit. PT-OP-T Assessment and Plan Start: 10/01/23 14:54 Freq: Status: Active Protocol: Document 12/03/23 12:59 [facility] (Rec: 12/03/23 14:30 [facility] [id number]) Physical Therapy Assessment Goals Five Impairment soft tissue tightness subaxillary region with axillary cording present [facility] Goal (LTG) Decrease soft tissue tightness and eliminate axillary cording for improved lymphatic flow and improved comfort and use of left UE. LTG Duration 01/03/24 Two Impairment Lymphedema life impact scale 47% Three Impairment difficulty reaching overhead, behind her back and out to side for purposes of ADL's without increase in pain [facility] Goal (LTG) patient will be able to perform all usual movements of her left arm and trunk without an increase in pain LTG Duration 01/03/24 One Impairment pain as high as 9/10 subaxillary region causing poor sleep Short Term Goal (STG) decrease pain by at least 40% during all usual activities including sleep STG Duration 11/23/23 Owner Goal (LTG) decrease pain by at least 75% to allow patient to sleep and do all usual activities without difficulty LTG Duration 01/03/24 Assessment Summary Assessment Patient independent with HEP, self massage, has appropriate compression garments, feel she is ready for discharge to independent self care program. Physical Therapy Plan Frequency and Duration Frequency of Treatment 2x/Week Duration of treatment (weeks) 8 Plan of Care Start Date 10/05/23 Plan of Care End Date 12/04/23 Therapeutic Interventions Therapeutic Interventions Home Exercise Program, Lymphedema Management,Manual Therapy,Patient/Caregiver Education,Self-Care/Home Management,Soft Tissue Mobilization,Taping, Therapeutic Activities, Therapeutic Exercises Discharge Physical Therapy Discharge Reasons Plateau in Progress Discharge Comments Patient independent with self care.
== END 2023-12-07 12:25 | disposition home or self-care (01) ==
LOC: PHYS 13:00
PROVIDERS: Family Provider Family Medicine; PCP Family Medicine; Referring Provider Internal Medicine Hematology & Oncology; Visit Provider Internal Medicine Hematology & Oncology
DX: C50.912 Malignant neoplasm of unspecified site of left female breast (principal); M79.603 Pain in arm, unspecified; I89.0 Lymphedema, not elsewhere classified
CPT/HCPCS: 97110; 97140; 97162; 97530; 97535

== ENCOUNTER → 2024-01-12 13:29 | Outpatient (CLI) | payer OTHER, SELFPAY ==
[2023-07-21 12:23] VITALS: BMI 26.2
--- NOTE | 2024-01-12 13:30 | DI.RAD.S_ITS ---
PROCEDURE: XR FOOT RT MIN 3V INDICATIONS: Injured 4th 5th toes about 2 months ago TECHNIQUE: 3 views of the foot were acquired. COMPARISON: Located Within [facility], CR, XR FOOT RT MIN 3V, 01/02/2020, 12:38. FINDINGS: Bones: No fractures or dislocations. Severe 1st CMC joint space narrowing and juxta-articular osteophytosis with subchondral sclerosis and hallux valgus alignment on nonweightbearing view. No suspicious bony lesions. Soft tissues: No tibiotalar joint effusion. Achilles tendon appears normal. IMPRESSION: 1. No acute bony abnormality. If clinical symptoms persist, consider repeat radiograph in 10-14 days versus cross-sectional imaging. 2. 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 Dictated by: Prasanna Paniagua M.D. on 01/12/2024 at 17:38 Approved by: Prasanna Paniagua M.D. on 01/12/2024 at 17:39
[2024-01-12 17:03] LABS: TSH w/ Reflex to FT4 4.36 uIU/mL (0.47-4.68)
== END ==
PROVIDERS: Family Provider Family Medicine; PCP Family Medicine; Referring Provider Physician Assistant; Visit Provider Physician Assistant
DX: S99.921A Unspecified injury of right foot, initial encounter (principal); M19.071 Primary osteoarthritis, right ankle and foot; M20.11 Hallux valgus (acquired), right foot; E03.9 Hypothyroidism, unspecified; M79.674 Pain in right toe(s); R79.89 Other specified abnormal findings of blood chemistry; X58.XXXA Exposure to other specified factors, initial encounter; Z85.3 Personal history of malignant neoplasm of breast
CPT/HCPCS: 36415; 73630; 84443

== ENCOUNTER → 2024-03-14 11:02 | Outpatient (CLI) | payer OTHER, SELFPAY ==
[2023-07-21 12:23] VITALS: BMI 26.2
[2024-03-14 11:40] LABS: Add Manual Diff / Slide Review NO; Basophils Absolute Auto 100 /uL (0-100); Basophils Percent Auto 0.9 % (0-2); Eosinophils Absolute Auto 200 /uL (0-450); Eosinophils Percent Auto 3.2 % (2-4); Hematocrit 38.9 % (36-46); Hemoglobin 13.1 g/dL (12.0-16.0); Lymphocytes Absolute Auto 1000 /uL (1100-4500); Lymphocytes Percent Auto 18.1 % (25-40); Mean Corpuscular HGB Conc 33.7 % (30-36); Mean Corpuscular Hemoglobin 29.6 PG (26-34); Mean Corpuscular Volume 87.7 fL (80-100); Monocytes Absolute Auto 500 /uL (0-900); Monocytes Percent Auto 8.5 % (3-14); Neutrophils Absolute Auto 4000 /uL (1500-7000); Neutrophils Percent Auto 69.3 % (50-75); Platelet Count 212 X10^3/uL (150-400); Red Blood Cell Count 4.43 X10^6/uL (4.0-5.2); Red Cell Distribution Width 13.8 % (11.6-14.8); White Blood Cell Count 5.7 X10^3/uL (4.5-11.0)
[2024-03-14 12:32] LABS: Alanine Aminotransferase 18 IU/L (<35); Albumin 4.2 g/dL (3.5-5.0); Albumin Globulin Ratio 1.6 (1.0-2.8); Alkaline Phosphatase 90 U/L (38-126); Aspartate Aminotransferase 29 IU/L (14-36); BUN Creatinine Ratio 23.7 (6-22); Bilirubin Total 0.6 mg/dL (0.2-1.3); Blood Urea Nitrogen 18 mg/dL (7-17); Calcium 9.3 mg/dL (8.4-10.2); Carbon Dioxide 24 mmol/L (22-32); Chloride 102 mmol/L (98-107); Cholesterol 188 mg/dL (140-199); Estimated Glomerular Filt Rate > 60 mL/min (>60); Globulin 2.6 g/dL (1.7-4.1); Glucose 90 mg/dL (80-110); HDL Cholesterol 62 mg/dL (40-60); HEMOLYSIS < 15 (0-50); LDL Cholesterol Calculated 112 mg/dL (<100); Potassium 4.6 mmol/L (3.4-5.1); Sodium 135 mmol/L (137-145); Total Protein 6.8 g/dL (6.3-8.2); Triglycerides 68 mg/dL (35-150)
[2024-03-14 12:57] LABS: TSH w/ Reflex to FT4 4.37 uIU/mL (0.47-4.68)
== END ==
PROVIDERS: Family Provider Family Medicine; PCP Family Medicine; Referring Provider Family Medicine; Visit Provider Family Medicine
DX: E03.9 Hypothyroidism, unspecified (principal); M85.80 Other specified disorders of bone density and structure, unspecified site
CPT/HCPCS: 36415; 80053; 80061; 84443; 85025

== ENCOUNTER → 2024-04-28 11:29 | Outpatient (CLI) | payer OTHER, SELFPAY ==
[2023-07-21 12:23] VITALS: BMI 26.2
[2024-04-29 10:10] LABS: Fecal Immunochemical Test Negative (Negative)
== END ==
PROVIDERS: Family Provider Family Medicine; PCP Family Medicine; Referring Provider Physician Assistant; Visit Provider Physician Assistant
DX: Z12.11 Encounter for screening for malignant neoplasm of colon (principal)
CPT/HCPCS: 82274

== ENCOUNTER 2024-09-29 14:30 | Outpatient (RCR) | payer MEDICARE, OTHER, SELFPAY ==
[2023-07-21 12:23] VITALS: BMI 26.2
--- NOTE | 2024-08-11 17:51 | PT.OIE ---
Current Diagnoses Unspecified mononeuropathy of left upper limb (08/11/24) Other chronic postprocedural pain (08/11/24) Lymphedema, not elsewhere classified (08/11/24) Pain in left arm (08/11/24) Soft tissue disorder, unspecified (08/11/24) Past Medical History (Last Reviewed 05/11/24 @ 13:58 by Enio Vann MD) Bilateral breast cancer Breast cancer Difficulty swallowing Fuchs' corneal dystrophy of both eyes Hypothyroid Other low back pain Pelvic relaxation Postmenopausal Primary invasive malignant neoplasm of left female breast RLS (restless legs syndrome) Vaginal vault prolapse Past Surgical History (Last Reviewed 05/11/24 @ 13:58 by Enio Vann MD) History of gynecologic surgery (05/14/18) History of tonsillectomy Hx of eye surgery (~2011) S/P excision of lipoma Status post bunionectomy Status post hysterectomy Visit Care Team Role Provider Type Sheldon Carrizales MD Attending Provider Physician Family Provider Primary Care Provider Referring Provider Specialty: [facility] Practice Address: [address] [place] [address], [address], [facility] Email: [email or web address] Physical Therapy Initial Evaluation PT-OP-A Visit Information Start: 08/11/24 08:43 Freq: Status: Active Protocol: Document 08/11/24 13:00 [facility] (Rec: 08/11/24 14:33 [facility] [id number]) Out-Patient Physical Therapy Visit Information Visit Information Visit Type Initial Evaluation Visit Start Time 13:01 Visit Stop Time 14:21 Visit Number 1 Precautions Precautions history of breast CA PT-OP-B Current Condition Start: 08/11/24 08:43 Freq: Status: Active Protocol: Document 08/11/24 13:00 [facility] (Rec: 08/11/24 14:33 [facility] [id number]) Current Condition History of Current Condition Onset Date 2 months Current Complaints pain left chest and lateral thorax History of Current Condition Prior PT after lumpectomy, was doing well. Has had onset of left chest pain, lateral thorax pain worsen over past 2 months. Tender to the touch. Painful to bend over and tie shoes, reach. Has been doing exercises. Using Tylenol or Ibuprofen occasionally when realy. Min pain when not moving, though at times wakes her due to pain. Using a special pillow she sewed to support her arm elevated at night. Can't lay on left side without moving tissue out of the way. Hasn't seen an oncologist for 1 year due to lack of availability; will be seeing first week of August. Has seen GP (Dr. Carrizales), no recent blood test. Not currently on Letrozole due to joint aching, chose to go off of it. Reports KT tape previously helpful. Not able to wear bra comfortably. Does wear snug stretchy tank top. Reports tissue left breast feels more firm. Has difficulty lifting. Future Testing and Treatments Planned Sees oncologist first week of August Current Functional Impairments (Reported) Functional Limitations- ADL's painful to reach, bend over Functional Limitations- Recreation/ painful Hobbies PT-OP-C Subjective Start: 08/11/24 08:43 Freq: Status: Active Protocol: Document 08/11/24 13:00 [facility] (Rec: 08/11/24 17:49 [facility] [id number]) Patient Questionnaires Lymphedema Life Impact Score Lymphedema Score 39 OP-PT Pain Assessment Pain Assessment Grid Paper Pain Assessment Grid Completed Yes Location Lateral thorax Intensity 9 Scale Used Numeric (0 - 10) Description Aching,Burning,Pulling, Tightness Frequency Frequent Anterior Chest Intensity 9 Home Pain Medication Use Pain Medications Used Yes Home Pain Medication Frequency occasional Patient Goal none Pain Behaviors Pain Behaviors Calling Out,Facial Grimacing, Guarding,Wincing PT-OP-F Manual Assessment Start: 08/11/24 08:43 Freq: Status: Active Protocol: Document 08/11/24 13:00 [facility] (Rec: 08/11/24 17:49 [facility] [id number]) Manual Assessments Soft Tissue Assessment Soft Tissue Mobility Assessment subaxillary tightness left UE PT-OP-H Neuro Start: 08/11/24 08:43 Freq: Status: Active Protocol: Document 08/11/24 13:00 [facility] (Rec: 08/11/24 17:49 [facility] [id number]) Sensation Evaluation Gross Sensation Gross Sensation WNL PT-OP-J Posture/Palpation/Skin Start: 08/11/24 08:43 Freq: Status: Active Protocol: Document 08/11/24 13:00 [facility] (Rec: 08/11/24 17:49 [facility] [id number]) Posture Evaluation Position Sitting Head/C-Spine Posture Forward Head T-Spine Posture Increased Kyphosis Shoulder Posture (L) Rounded,(R) Rounded Scapula Posture (L) Protracted,(R) Protracted Arm Posture (L) Internally Rotated,(R) Internally Rotated Palpation Assessment Location left suaxillary Palpation Findings Edema,Soft Tissue Tightness PT-OP-K Range of Motion Start: 08/11/24 08:43 Freq: Status: Active Protocol: Document 08/11/24 13:00 [facility] (Rec: 08/11/24 17:49 [facility] [id number]) Cervical Spine Range of Motion Cervical Spine Active Comments WFL Shoulder Goniometric Range of Motion Shoulder kristen Shoulder ROM WFL Yes Comments painful end ranges Shoulder ROM Limitations Shoulder ROM Limitations Pain PT-OP-N Lymphedema Start: 08/11/24 08:43 Freq: Status: Active Protocol: Document 08/11/24 13:00 [facility] (Rec: 08/11/24 14:33 [facility] [id number]) Lymphedema Measurements Upper Extremity Circumference Measurements Right Affected MCP 18.4 cm Dorsum of Hand 18 cm Wrist 15.8 cm 5 cm From Wrist Crease 15 cm 10 cm From Wrist Crease 18.5 cm 15 cm From Wrist Crease 21.5 cm 20 cm From Wrist Crease 22.2 cm 25 cm From Wrist Crease 24 cm 30 cm From Wrist Crease 28.3 cm 35 cm From Wrist Crease 30.3 cm 40 cm From Wrist Crease 31.3 cm Elbow Joint 22.7 cm Left Affected MCP 17.8 cm Dorsum of Hand 17.9 cm Wrist 15.2 cm 5 cm From Wrist Crease 15.7 cm 10 cm From Wrist Crease 19.4 cm 15 cm From Wrist Crease 21.9 cm 20 cm From Wrist Crease 22.4 cm 25 cm From Wrist Crease 23.2 cm 30 cm From Wrist Crease 26.3 cm 35 cm From Wrist Crease 28.3 cm 40 cm From Wrist Crease 29.8 cm 45 cm From Wrist Crease 30.2 cm Elbow Joint 22.8 cm PT-OP-Q Treatments Start: 08/11/24 08:43 Freq: Status: Active Protocol: Document 08/11/24 13:00 [facility] (Rec: 08/11/24 17:49 [facility] [id number]) Manual Therapy Treatment Consent Patient gave verbal consent for manual Yes treatment Soft Tissue Mobilization 1 Body Location subaxillary and lateral thorax Mobilization Type Instrument Assisted,Myofascial Release Intensity/Depth Superficial Comments use of Dycem for STM Joint Mobilizations rib Direction PA, comp Grade II Body Position Sidelying Reps/Duration 3 min Taping lateral thorax and chest Treatment Focus soft tissue mobilization, support, lymphatic flow Type of Tape Kinesio Tape Comments 2 fan stsrips Self-Care/Home Management Treatment Education Patient Education Posture Other Education deep breathing; abdominal, lateral thorax, chest with verbal and manual cues PT-OP-T Assessment and Plan Start: 08/11/24 08:43 Freq: Status: Active Protocol: Document 08/11/24 13:00 [facility] (Rec: 08/11/24 14:33 [facility] [id number]) Physical Therapy Assessment Rehab Potential Rehabilitation Potential Good Evaluation Complexity Number of Personal Factors/Comorbidities 1-2 Number of Body Systems Impaired 3 Clinical Presentation at Evaluation Evolving Impairments Impairments Edema,Pain,ROM,Soft Tissue Mobility Goals Two Impairment decreased scar tissue mobility , left rib mobility Assisted Goal (LTG) Improve scar mobility and rib mobility to WNL to promote improved left upper quadrant pain. LTG Duration 11/09/24 Three Impairment difficulty reaching overhead, behind her back and bending over without pain Top Loader Goal (LTG) Patient will be able to return to prior level of function with minimal to no pain in any usual activities LTG Duration 11/09/24 One Impairment pain as high as 9/10 left subaxillary and posterolateral rib region Short Term Goal (STG) decrease pain by at least 50% with all usual activities STG Duration 09/22/24 Assisted Goal (LTG) decrease pain by at least 75% with all usual activities LTG Duration 11/09/24 Assessment Summary Assessment Patient presents to PT with function-limiting pain lateral thorax and chest especially with reaching and bending over . She presents with mild tightness left shoulder with all motions. Decreased general rib mobility left including with deep breathing, decreased scar mobility, and decreased mobility subaxillary soft tissue. Feel patient will benefit from PT to address the above impairments and allow patient to return to prior level of function. POC was discussed and patient was in agreement. Physical Therapy Plan Frequency and Duration Frequency of Treatment 2x/Week Duration of treatment (weeks) 12 Plan of Care Start Date 08/11/24 Plan of Care End Date 11/10/23 Therapeutic Interventions Therapeutic Interventions Lymphedema Management,Manual Therapy,Patient/Caregiver Education,Self-Care/Home Management,Soft Tissue Mobilization,Taping, Therapeutic Exercises Next Visit Focus/Plan Next Note Type Treatment Note Next Visit Plan Review breathing exercises, perform soft tissue mobilization and rib mobilization. Instruct in cat /cow exercise, review open book, sidelying shoulder abd and circles. Continue kinesiotape to chest and lateral thorax
--- NOTE | 2024-08-11 17:51 | PT.OPPOC ---
Physical, Occupational & Speech Therapy At [facility] Current Diagnoses Unspecified mononeuropathy of left upper limb (08/11/24) Other chronic postprocedural pain (08/11/24) Lymphedema, not elsewhere classified (08/11/24) Pain in left arm (08/11/24) Soft tissue disorder, unspecified (08/11/24) Visit Care Team Role Provider Type Sheldon Carrizales MD Attending Provider Physician Family Provider Primary Care Provider Referring Provider Specialty: Family Practice Address: [address] [place] [address], [address], [address] Email: [email or web address] Plan Of Care PT-OP-B Current Condition Start: 08/11/24 08:43 Freq: Status: Active Protocol: Document 08/11/24 13:00 [facility] (Rec: 08/11/24 14:33 [facility] [id number]) Current Condition History of Current Condition Onset Date 2 months Current Complaints pain left chest and lateral thorax History of Current Condition Prior PT after lumpectomy, was doing well. Has had onset of left chest pain, lateral thorax pain worsen over past 2 months. Tender to the touch. Painful to bend over and tie shoes, reach. Has been doing exercises. Using Tylenol or Ibuprofen occasionally when realy. Min pain when not moving, though at times wakes her due to pain. Using a special pillow she sewed to support her arm elevated at night. Can't lay on left side without moving tissue out of the way. Hasn't seen an oncologist for 1 year due to lack of availability; will be seeing first week of August. Has seen GP (Dr. Carrizales), no recent blood test. Not currently on Letrozole due to joint aching, chose to go off of it. Reports KT tape previously helpful. Not able to wear bra comfortably. Does wear snug stretchy tank top. Reports tissue left breast feels more firm. Has difficulty lifting. Future Testing and Treatments Planned Sees oncologist first week of August Current Functional Impairments (Reported) Functional Limitations- ADL's painful to reach, bend over Functional Limitations- Recreation/ painful Hobbies PT-OP-T Assessment and Plan Start: 08/11/24 08:43 Freq: Status: Active Protocol: Document 08/11/24 13:00 [facility] (Rec: 08/11/24 14:33 [facility] [id number]) Physical Therapy Assessment Rehab Potential Rehabilitation Potential Good Evaluation Complexity Number of Personal Factors/Comorbidities 1-2 Number of Body Systems Impaired 3 Clinical Presentation at Evaluation Evolving Impairments Impairments Edema,Pain,ROM,Soft Tissue Mobility Goals Two Impairment decreased scar tissue mobility , left rib mobility Residential Goal (LTG) Improve scar mobility and rib mobility to WNL to promote improved left upper quadrant pain. LTG Duration 11/09/24 Three Impairment difficulty reaching overhead, behind her back and bending over without pain Residential Goal (LTG) Patient will be able to return to prior level of function with minimal to no pain in any usual activities LTG Duration 11/09/24 One Impairment pain as high as 9/10 left subaxillary and posterolateral rib region Short Term Goal (STG) decrease pain by at least 50% with all usual activities STG Duration 09/22/24 Grease Maker Goal (LTG) decrease pain by at least 75% with all usual activities LTG Duration 11/09/24 Assessment Summary Assessment Patient presents to PT with function-limiting pain lateral thorax and chest especially with reaching and bending over . She presents with mild tightness left shoulder with all motions. Decreased general rib mobility left including with deep breathing, decreased scar mobility, and decreased mobility subaxillary soft tissue. Feel patient will benefit from PT to address the above impairments and allow patient to return to prior level of function. POC was discussed and patient was in agreement. Physical Therapy Plan Frequency and Duration Frequency of Treatment 2x/Week Duration of treatment (weeks) 12 Plan of Care Start Date 08/11/24 Plan of Care End Date 11/10/23 Therapeutic Interventions Therapeutic Interventions Lymphedema Management,Manual Therapy,Patient/Caregiver Education,Self-Care/Home Management,Soft Tissue Mobilization,Taping, Therapeutic Exercises Next Visit Focus/Plan Next Note Type Treatment Note Next Visit Plan Review breathing exercises, perform soft tissue mobilization and rib mobilization. Instruct in cat /cow exercise, review open book, sidelying shoulder abd and circles. Continue kinesiotape to chest and lateral thorax Plan of Care Dates Plan of Care Start Date 08/11/24 Plan of Care End Date 11/10/23 Electronically Signed by: Roula Bullard, PT 08/11/24 [id number] If you are in agreement with this Plan of Care, please return a signed and dated copy. I have reviewed this Plan of Care and certify that the skilled therapy services above are required to meet the patient?s needs. Physician Signature Date Printed Name and Credentials Clinical Instructor Signature Printed Name and Credentials
--- NOTE | 2024-08-15 10:25 | PT.OTN ---
Current Diagnoses Unspecified mononeuropathy of left upper limb (08/15/24) Other chronic postprocedural pain (08/15/24) Lymphedema, not elsewhere classified (08/15/24) Pain in left arm (08/15/24) Soft tissue disorder, unspecified (08/15/24) Physical Therapy Treatment Note PT-OP-A Visit Information Start: 08/11/24 08:43 Freq: Status: Active Protocol: Document 08/15/24 09:00 [facility] (Rec: 08/15/24 10:25 [facility] [id number]) Out-Patient Physical Therapy Visit Information Visit Information Visit Type Treatment Note Visit Start Time 09:01 Visit Number 2 Evaluation Information Evaluation Date 08/11/24 Precautions Precautions history of breast CA PT-OP-B Current Condition Start: 08/11/24 08:43 Freq: Status: Active Protocol: Document 08/15/24 09:00 [facility] (Rec: 08/15/24 10:25 [facility] [id number]) Current Condition History of Current Condition Onset Date 2 months Current Complaints pain left chest and lateral thorax History of Current Condition Prior PT after lumpectomy, was doing well. Has had onset of left chest pain, lateral thorax pain worsen over past 2 months. Tender to the touch. Painful to bend over and tie shoes, reach. Has been doing exercises. Using Tylenol or Ibuprofen occasionally when realy. Min pain when not moving, though at times wakes her due to pain. Using a special pillow she sewed to support her arm elevated at night. Can't lay on left side without moving tissue out of the way. Hasn't seen an oncologist for 1 year due to lack of availability; will be seeing first week of August. Has seen GP (Dr. Carrizales), no recent blood test. Not currently on Letrozole due to joint aching, chose to go off of it. Reports KT tape previously helpful. Not able to wear bra comfortably. Does wear snug stretchy tank top. Reports tissue left breast feels more firm. Has difficulty lifting. Future Testing and Treatments Planned Sees oncologist first week of August PT-OP-C Subjective Start: 08/11/24 08:43 Freq: Status: Active Protocol: Document 08/11/24 13:00 [facility] (Rec: 08/11/24 17:49 [facility] [id number]) Patient Questionnaires Lymphedema Life Impact Score Lymphedema Score 39 OP-PT Pain Assessment Pain Assessment Grid Paper Pain Assessment Grid Completed Yes Location Lateral thorax Intensity 9 Scale Used Numeric (0 - 10) Description Aching,Burning,Pulling, Tightness Frequency Frequent Anterior Chest Intensity 9 Home Pain Medication Use Pain Medications Used Yes Home Pain Medication Frequency occasional Patient Goal none Pain Behaviors Pain Behaviors Calling Out,Facial Grimacing, Guarding,Wincing PT-OP-F Manual Assessment Start: 08/11/24 08:43 Freq: Status: Active Protocol: Document 08/11/24 13:00 [facility] (Rec: 08/11/24 17:49 [facility] [id number]) Manual Assessments Soft Tissue Assessment Soft Tissue Mobility Assessment subaxillary tightness left UE PT-OP-H Neuro Start: 08/11/24 08:43 Freq: Status: Active Protocol: Document 08/11/24 13:00 [facility] (Rec: 08/11/24 17:49 [facility] [id number]) Sensation Evaluation Gross Sensation Gross Sensation WNL PT-OP-J Posture/Palpation/Skin Start: 08/11/24 08:43 Freq: Status: Active Protocol: Document 08/11/24 13:00 [facility] (Rec: 08/11/24 17:49 [facility] [id number]) Posture Evaluation Position Sitting Head/C-Spine Posture Forward Head T-Spine Posture Increased Kyphosis Shoulder Posture (L) Rounded,(R) Rounded Scapula Posture (L) Protracted,(R) Protracted Arm Posture (L) Internally Rotated,(R) Internally Rotated Palpation Assessment Location left suaxillary Palpation Findings Edema,Soft Tissue Tightness PT-OP-K Range of Motion Start: 08/11/24 08:43 Freq: Status: Active Protocol: Document 08/11/24 13:00 [facility] (Rec: 08/11/24 17:49 [facility] [id number]) Cervical Spine Range of Motion Cervical Spine Active Comments WFL Shoulder Goniometric Range of Motion Shoulder kristen Shoulder ROM WFL Yes Comments painful end ranges Shoulder ROM Limitations Shoulder ROM Limitations Pain PT-OP-N Lymphedema Start: 08/11/24 08:43 Freq: Status: Active Protocol: Document 08/11/24 13:00 [facility] (Rec: 08/11/24 14:33 [facility] [id number]) Lymphedema Measurements Upper Extremity Circumference Measurements Right Affected MCP 18.4 cm Dorsum of Hand 18 cm Wrist 15.8 cm 5 cm From Wrist Crease 15 cm 10 cm From Wrist Crease 18.5 cm 15 cm From Wrist Crease 21.5 cm 20 cm From Wrist Crease 22.2 cm 25 cm From Wrist Crease 24 cm 30 cm From Wrist Crease 28.3 cm 35 cm From Wrist Crease 30.3 cm 40 cm From Wrist Crease 31.3 cm Elbow Joint 22.7 cm Left Affected MCP 17.8 cm Dorsum of Hand 17.9 cm Wrist 15.2 cm 5 cm From Wrist Crease 15.7 cm 10 cm From Wrist Crease 19.4 cm 15 cm From Wrist Crease 21.9 cm 20 cm From Wrist Crease 22.4 cm 25 cm From Wrist Crease 23.2 cm 30 cm From Wrist Crease 26.3 cm 35 cm From Wrist Crease 28.3 cm 40 cm From Wrist Crease 29.8 cm 45 cm From Wrist Crease 30.2 cm Elbow Joint 22.8 cm PT-OP-Q Treatments Start: 08/11/24 08:43 Freq: Status: Active Protocol: Document 08/15/24 09:00 [facility] (Rec: 08/15/24 10:25 [facility] [id number]) Therapeutic Exercises Supine Exercises chest and shoulder stretches Supine Exercise Name T, I, Y Reps/Minutes 5x active 1x passive 30 sec stretch Sidelying Exercises deep breathing Sidelying Exercise Name ant, lat, posterior chest Reps/Minutes 4 min Comments with tactile cues circles Reps/Minutes 5x, slow open book Reps/Minutes 5x with endrange deep breathing Manual Therapy Treatment Soft Tissue Mobilization 2 Body Location chest, incision and axilla Mobilization Type Instrument Assisted Comments small suction 1 Body Location subaxillary and lateral thorax Mobilization Type Instrument Assisted,Myofascial Release Intensity/Depth Superficial Comments use of Dycem for STM Joint Mobilizations rib Direction PA, comp Grade II Body Position Sidelying Reps/Duration 3 min Taping lateral thorax and chest Treatment Focus soft tissue mobilization, support, lymphatic flow Type of Tape Kinesio Tape Comments 2 fan stsrips Self-Care/Home Management Treatment Education Patient Education Home Exercise Program,Pain Management,Posture Other Education remove KT tape night before coming to PT PT-OP-T Assessment and Plan Start: 08/11/24 08:43 Freq: Status: Active Protocol: Document 08/15/24 09:00 [facility] (Rec: 08/15/24 10:25 [facility] [id number]) Physical Therapy Assessment Impairments Impairments Edema,Pain,ROM,Soft Tissue Mobility Goals Two Impairment decreased scar tissue mobility , left rib mobility Physical Medicine Physician Goal (LTG) Improve scar mobility and rib mobility to WNL to promote improved left upper quadrant pain. LTG Duration 11/09/24 Three Impairment difficulty reaching overhead, behind her back and bending over without pain Impairment difficulty reaching overhead, behind her back and out to side for purposes of ADL's without increase in pain Physical Medicine Physician Goal (LTG) Patient will be able to return to prior level of function with minimal to no pain in any usual activities LTG Duration 11/09/24 One Impairment pain as high as 9/10 left subaxillary and posterolateral rib region Impairment pain as high as 9/10 subaxillary region causing poor sleep Short Term Goal (STG) decrease pain by at least 50% with all usual activities STG Duration 09/22/24 Physical Medicine Physician Goal (LTG) decrease pain by at least 75% with all usual activities LTG Duration 11/09/24 Assessment Summary Assessment Good tolerance for ther ex and manual treatment today with reported decrease in pain, improved movement of ribs with manual and deep breathing techniques. Physical Therapy Plan Frequency and Duration Frequency of Treatment 2x/Week Duration of treatment (weeks) 12 Plan of Care Start Date 08/11/24 Plan of Care End Date 11/10/23 Therapeutic Interventions Therapeutic Interventions Lymphedema Management,Manual Therapy,Patient/Caregiver Education,Self-Care/Home Management,Soft Tissue Mobilization,Taping, Therapeutic Exercises Next Visit Focus/Plan Next Note Type Treatment Note Next Visit Plan Review breathing exercises, perform soft tissue mobilization and rib mobilization. Instruct in cat /cow exercise Continue kinesiotape to chest and lateral thorax
--- NOTE | 2024-08-31 14:30 | PT.OTN ---
Current Diagnoses Unspecified mononeuropathy of left upper limb (08/31/24) Other chronic postprocedural pain (08/31/24) Lymphedema, not elsewhere classified (08/31/24) Pain in left arm (08/31/24) Soft tissue disorder, unspecified (08/31/24) Physical Therapy Treatment Note PT-OP-A Visit Information Start: 08/11/24 08:43 Freq: Status: Active Protocol: Document 08/31/24 12:59 [facility]AK (Rec: 08/31/24 13:48 [facility] [id number]) Out-Patient Physical Therapy Visit Information Visit Information Visit Type Treatment Note Visit Start Time 13:00 Visit Stop Time 14:24 Visit Number 3 Evaluation Information Evaluation Date 08/11/24 Precautions Precautions history of breast CA PT-OP-B Current Condition Start: 08/11/24 08:43 Freq: Status: Active Protocol: Document 08/31/24 12:59 SAK (Rec: 08/31/24 13:48 [facility] [id number]) Current Condition History of Current Condition Onset Date 2 months Current Complaints pain left chest and lateral thorax History of Current Condition Prior PT after lumpectomy, was doing well. Has had onset of left chest pain, lateral thorax pain worsen over past 2 months. Tender to the touch. Painful to bend over and tie shoes, reach. Has been doing exercises. Using Tylenol or Ibuprofen occasionally when realy. Min pain when not moving, though at times wakes her due to pain. Using a special pillow she sewed to support her arm elevated at night. Can't lay on left side without moving tissue out of the way. Hasn't seen an oncologist for 1 year due to lack of availability; will be seeing first week of August. Has seen GP (Dr. Carrizales), no recent blood test. Not currently on Letrozole due to joint aching, chose to go off of it. Reports KT tape previously helpful. Not able to wear bra comfortably. Does wear snug stretchy tank top. Reports tissue left breast feels more firm. Has difficulty lifting. Future Testing and Treatments Planned Sees oncologist first week of August PT-OP-C Subjective Start: 08/11/24 08:43 Freq: Status: Active Protocol: Document 08/31/24 12:59 SAK (Rec: 08/31/24 13:48 [facility] [id number]) OP-PT Subjective Patient Comments Patient Comments Has had a rough week, long time since last PT. States KT tape not as long last session , needs longer for more benefit. Past month has been having horrific leg cramps. Has appointment with doctor end of the month. Arm has been miserabe despite wearing compression sleeve. PT-OP-F Manual Assessment Start: 08/11/24 08:43 Freq: Status: Active Protocol: Document 08/11/24 13:00 [facility] (Rec: 08/11/24 17:49 [facility] [id number]) Manual Assessments Soft Tissue Assessment Soft Tissue Mobility Assessment subaxillary tightness left UE PT-OP-H Neuro Start: 08/11/24 08:43 Freq: Status: Active Protocol: Document 08/11/24 13:00 [facility] (Rec: 08/11/24 17:49 [facility] [id number]) Sensation Evaluation Gross Sensation Gross Sensation WNL PT-OP-J Posture/Palpation/Skin Start: 08/11/24 08:43 Freq: Status: Active Protocol: Document 08/11/24 13:00 [facility] (Rec: 08/11/24 17:49 [facility] [id number]) Posture Evaluation Position Sitting Head/C-Spine Posture Forward Head T-Spine Posture Increased Kyphosis Shoulder Posture (L) Rounded,(R) Rounded Scapula Posture (L) Protracted,(R) Protracted Arm Posture (L) Internally Rotated,(R) Internally Rotated Palpation Assessment Location left suaxillary Palpation Findings Edema,Soft Tissue Tightness PT-OP-K Range of Motion Start: 08/11/24 08:43 Freq: Status: Active Protocol: Document 08/11/24 13:00 [facility] (Rec: 08/11/24 17:49 [facility] [id number]) Cervical Spine Range of Motion Cervical Spine Active Comments WFL Shoulder Goniometric Range of Motion Shoulder kristen Shoulder ROM WFL Yes Comments painful end ranges Shoulder ROM Limitations Shoulder ROM Limitations Pain PT-OP-N Lymphedema Start: 08/11/24 08:43 Freq: Status: Active Protocol: Document 08/11/24 13:00 [facility] (Rec: 08/11/24 14:33 [facility] [id number]) Lymphedema Measurements Upper Extremity Circumference Measurements Right Affected MCP 18.4 cm Dorsum of Hand 18 cm Wrist 15.8 cm 5 cm From Wrist Crease 15 cm 10 cm From Wrist Crease 18.5 cm 15 cm From Wrist Crease 21.5 cm 20 cm From Wrist Crease 22.2 cm 25 cm From Wrist Crease 24 cm 30 cm From Wrist Crease 28.3 cm 35 cm From Wrist Crease 30.3 cm 40 cm From Wrist Crease 31.3 cm Elbow Joint 22.7 cm Left Affected MCP 17.8 cm Dorsum of Hand 17.9 cm Wrist 15.2 cm 5 cm From Wrist Crease 15.7 cm 10 cm From Wrist Crease 19.4 cm 15 cm From Wrist Crease 21.9 cm 20 cm From Wrist Crease 22.4 cm 25 cm From Wrist Crease 23.2 cm 30 cm From Wrist Crease 26.3 cm 35 cm From Wrist Crease 28.3 cm 40 cm From Wrist Crease 29.8 cm 45 cm From Wrist Crease 30.2 cm Elbow Joint 22.8 cm PT-OP-Q Treatments Start: 08/11/24 08:43 Freq: Status: Active Protocol: Document 08/31/24 12:59 [facility] (Rec: 08/31/24 13:48 [facility] [id number]) Therapeutic Exercises Supine Exercises chest and shoulder stretches Supine Exercise Name T, I, Y Reps/Minutes 5x active 1x passive 30 sec stretch Sidelying Exercises deep breathing Sidelying Exercise Name ant, lat, posterior chest Reps/Minutes 4 min Comments with tactile cues circles Reps/Minutes 5x, slow open book Reps/Minutes 5x with endrange deep breathing Comments long holds 1 min Manual Therapy Treatment Soft Tissue Mobilization 2 Body Location chest, incision and axilla Mobilization Type Instrument Assisted Comments small suction 1 Body Location subaxillary and lateral thorax Mobilization Type Instrument Assisted,Myofascial Release Intensity/Depth Superficial Comments use of Dycem for MFR Joint Mobilizations rib Direction PA, comp Grade II Body Position Sidelying Reps/Duration 4 min Taping lateral thorax and chest Treatment Focus soft tissue mobilization, support, lymphatic flow Type of Tape Kinesio Tape Comments 2 fan stsrips Self-Care/Home Management Treatment Education Patient Education Home Exercise Program,Pain Management,Posture Other Education purchase KT tape and do at home with assist of Lymphedema Treatment Manual Lymphatic Drainage Location left upper quadrant, subaxillary, left UE PT-OP-T Assessment and Plan Start: 08/11/24 08:43 Freq: Status: Active Protocol: Document 08/31/24 12:59 [facility] (Rec: 08/31/24 13:48 [facility] [id number]) Physical Therapy Assessment Impairments Impairments Edema,Pain,ROM,Soft Tissue Mobility Goals Two Impairment decreased scar tissue mobility , left rib mobility Alf Goal (LTG) Improve scar mobility and rib mobility to WNL to promote improved left upper quadrant pain. LTG Duration 11/09/24 Three Impairment difficulty reaching overhead, behind her back and bending over without pain Impairment difficulty reaching overhead, behind her back and out to side for purposes of ADL's without increase in pain Stator Connector Goal (LTG) Patient will be able to return to prior level of function with minimal to no pain in any usual activities LTG Duration 11/09/24 One Impairment pain as high as 9/10 left subaxillary and posterolateral rib region Impairment pain as high as 9/10 subaxillary region causing poor sleep Short Term Goal (STG) decrease pain by at least 50% with all usual activities STG Duration 09/22/24 Alf Goal (LTG) decrease pain by at least 75% with all usual activities LTG Duration 11/09/24 Assessment Summary Assessment Patient reporting increased pain without PT, also struggling with arm pain and leg cramping. Has appointment with doctor end of the month. Initially axillary cording palpable, eliminated after PT session. Dycem helpful for MFR. Improved rib mobility after manual treatment. After session patient reporting minimal pain: so much better. Physical Therapy Plan Frequency and Duration Frequency of Treatment 2x/Week Duration of treatment (weeks) 12 Plan of Care Start Date 08/11/24 Plan of Care End Date 11/10/23 Therapeutic Interventions Therapeutic Interventions Lymphedema Management,Manual Therapy,Patient/Caregiver Education,Self-Care/Home Management,Soft Tissue Mobilization,Taping, Therapeutic Exercises Next Visit Focus/Plan Next Note Type Treatment Note Next Visit Plan Assess response to last session, presence of axillary cording, continue to progress ther ex and manual treatment to ribs and soft tissue. KT tape.
--- NOTE | 2024-09-05 16:06 | PT.OTN ---
Current Diagnoses Unspecified mononeuropathy of left upper limb (09/05/24) Other chronic postprocedural pain (09/05/24) Lymphedema, not elsewhere classified (09/05/24) Pain in left arm (09/05/24) Soft tissue disorder, unspecified (09/05/24) Physical Therapy Treatment Note PT-OP-A Visit Information Start: 08/11/24 08:43 Freq: Status: Active Protocol: Document 09/05/24 14:31 SAK (Rec: 09/05/24 16:06 [facility] [id number]) Out-Patient Physical Therapy Visit Information Visit Information Visit Type Treatment Note Visit Start Time 13:01 Visit Stop Time 14:24 Visit Number 3 Evaluation Information Evaluation Date 08/11/24 Precautions Precautions history of breast CA PT-OP-B Current Condition Start: 08/11/24 08:43 Freq: Status: Active Protocol: Document 09/05/24 14:31 SAK (Rec: 09/05/24 16:06 [facility] [id number]) Current Condition History of Current Condition Onset Date 2 months Current Complaints pain left chest and lateral thorax History of Current Condition Prior PT after lumpectomy, was doing well. Has had onset of left chest pain, lateral thorax pain worsen over past 2 months. Tender to the touch. Painful to bend over and tie shoes, reach. Has been doing exercises. Using Tylenol or Ibuprofen occasionally when realy. Min pain when not moving, though at times wakes her due to pain. Using a special pillow she sewed to support her arm elevated at night. Can't lay on left side without moving tissue out of the way. Hasn't seen an oncologist for 1 year due to lack of availability; will be seeing first week of August. Has seen GP (Dr. Carrizales), no recent blood test. Not currently on Letrozole due to joint aching, chose to go off of it. Reports KT tape previously helpful. Not able to wear bra comfortably. Does wear snug stretchy tank top. Reports tissue left breast feels more firm. Has difficulty lifting. Future Testing and Treatments Planned Sees oncologist first week of August PT-OP-C Subjective Start: 08/11/24 08:43 Freq: Status: Active Protocol: Document 09/05/24 14:31 [facility]AK (Rec: 09/05/24 16:06 [facility] [id number]) OP-PT Subjective Patient Comments Patient Comments Reports Thursday night she had horrible pain in left UE especially forearm PT-OP-F Manual Assessment Start: 08/11/24 08:43 Freq: Status: Active Protocol: Document 08/11/24 13:00 [facility]AK (Rec: 08/11/24 17:49 [facility] [id number]) Manual Assessments Soft Tissue Assessment Soft Tissue Mobility Assessment subaxillary tightness left UE PT-OP-H Neuro Start: 08/11/24 08:43 Freq: Status: Active Protocol: Document 08/11/24 13:00 [facility]AK (Rec: 08/11/24 17:49 [facility] [id number]) Sensation Evaluation Gross Sensation Gross Sensation WNL PT-OP-J Posture/Palpation/Skin Start: 08/11/24 08:43 Freq: Status: Active Protocol: Document 08/11/24 13:00 [facility] (Rec: 08/11/24 17:49 [facility] [id number]) Posture Evaluation Position Sitting Head/C-Spine Posture Forward Head T-Spine Posture Increased Kyphosis Shoulder Posture (L) Rounded,(R) Rounded Scapula Posture (L) Protracted,(R) Protracted Arm Posture (L) Internally Rotated,(R) Internally Rotated Palpation Assessment Location left suaxillary Palpation Findings Edema,Soft Tissue Tightness PT-OP-K Range of Motion Start: 08/11/24 08:43 Freq: Status: Active Protocol: Document 08/11/24 13:00 [facility] (Rec: 08/11/24 17:49 [facility] [id number]) Cervical Spine Range of Motion Cervical Spine Active Comments WFL Shoulder Goniometric Range of Motion Shoulder kristen Shoulder ROM WFL Yes Comments painful end ranges Shoulder ROM Limitations Shoulder ROM Limitations Pain PT-OP-N Lymphedema Start: 08/11/24 08:43 Freq: Status: Active Protocol: Document 08/11/24 13:00 [facility] (Rec: 08/11/24 14:33 [facility] [id number]) Lymphedema Measurements Upper Extremity Circumference Measurements Right Affected MCP 18.4 cm Dorsum of Hand 18 cm Wrist 15.8 cm 5 cm From Wrist Crease 15 cm 10 cm From Wrist Crease 18.5 cm 15 cm From Wrist Crease 21.5 cm 20 cm From Wrist Crease 22.2 cm 25 cm From Wrist Crease 24 cm 30 cm From Wrist Crease 28.3 cm 35 cm From Wrist Crease 30.3 cm 40 cm From Wrist Crease 31.3 cm Elbow Joint 22.7 cm Left Affected MCP 17.8 cm Dorsum of Hand 17.9 cm Wrist 15.2 cm 5 cm From Wrist Crease 15.7 cm 10 cm From Wrist Crease 19.4 cm 15 cm From Wrist Crease 21.9 cm 20 cm From Wrist Crease 22.4 cm 25 cm From Wrist Crease 23.2 cm 30 cm From Wrist Crease 26.3 cm 35 cm From Wrist Crease 28.3 cm 40 cm From Wrist Crease 29.8 cm 45 cm From Wrist Crease 30.2 cm Elbow Joint 22.8 cm PT-OP-Q Treatments Start: 08/11/24 08:43 Freq: Status: Active Protocol: Document 09/05/24 14:31 [facility] (Rec: 09/05/24 16:06 [facility] [id number]) Manual Therapy Treatment Soft Tissue Mobilization 2 Body Location chest, incision and axilla Mobilization Type Instrument Assisted Comments small suction Joint Mobilizations rib Direction PA, comp Grade II Body Position Sidelying Reps/Duration 4 min Taping lateral thorax and chest Treatment Focus soft tissue mobilization, support, lymphatic flow Type of Tape Kinesio Tape Comments 2 fan strips spine through lateral thorax to anterior chest paper off tension 2 fan strips upper arm across elbow to mid forearm paper off tension Self-Care/Home Management Treatment Education Patient Education Home Exercise Program,Pain Management,Posture Lymphedema Treatment Manual Lymphatic Drainage Location left upper quadrant, subaxillary, left UE PT-OP-T Assessment and Plan Start: 08/11/24 08:43 Freq: Status: Active Protocol: Document 09/05/24 14:31 [facility] (Rec: 09/05/24 16:06 [facility] [id number]) Physical Therapy Assessment Impairments Impairments Edema,Pain,ROM,Soft Tissue Mobility Goals Two Impairment decreased scar tissue mobility , left rib mobility Senior Care Goal (LTG) Improve scar mobility and rib mobility to WNL to promote improved left upper quadrant pain. LTG Duration 11/09/24 Three Impairment difficulty reaching overhead, behind her back and bending over without pain Impairment difficulty reaching overhead, behind her back and out to side for purposes of ADL's without increase in pain Exploration Driller Goal (LTG) Patient will be able to return to prior level of function with minimal to no pain in any usual activities LTG Duration 11/09/24 One Impairment pain as high as 9/10 left subaxillary and posterolateral rib region Impairment pain as high as 9/10 subaxillary region causing poor sleep Short Term Goal (STG) decrease pain by at least 50% with all usual activities STG Duration 09/22/24 Exploration Driller Goal (LTG) decrease pain by at least 75% with all usual activities LTG Duration 11/09/24 Assessment Summary Assessment Patient reports she felt very good after PT last session. Uncertain what she may have done that resulted in pain more than 2 days later into left UE. PT trial KT tape added to left UE, discussed nerve pain possibility. Good tolerance for manual techniques. Physical Therapy Plan Frequency and Duration Frequency of Treatment 2x/Week Duration of treatment (weeks) 12 Plan of Care Start Date 08/11/24 Plan of Care End Date 11/10/23 Therapeutic Interventions Therapeutic Interventions Lymphedema Management,Manual Therapy,Patient/Caregiver Education,Self-Care/Home Management,Soft Tissue Mobilization,Taping, Therapeutic Exercises Next Visit Focus/Plan Next Note Type Treatment Note Next Visit Plan Assess response to last session, presence of axillary cording, continue to progress ther ex and manual treatment to ribs and soft tissue. KT tape to left UE.
--- NOTE | 2024-09-15 15:58 | PT.OTN ---
Current Diagnoses Unspecified mononeuropathy of left upper limb (09/15/24) Other chronic postprocedural pain (09/15/24) Lymphedema, not elsewhere classified (09/15/24) Pain in left arm (09/15/24) Soft tissue disorder, unspecified (09/15/24) Physical Therapy Treatment Note PT-OP-A Visit Information Start: 08/11/24 08:43 Freq: Status: Active Protocol: Document 09/15/24 14:31 SAK (Rec: 09/15/24 14:55 [facility] [id number]) Out-Patient Physical Therapy Visit Information Visit Information Visit Type Treatment Note Visit Start Time 14:31 Visit Stop Time 15:50 Visit Number 5 Evaluation Information Evaluation Date 08/11/24 Precautions Precautions history of breast CA PT-OP-B Current Condition Start: 08/11/24 08:43 Freq: Status: Active Protocol: Document 09/15/24 14:31 SAK (Rec: 09/15/24 14:55 [facility] [id number]) Current Condition History of Current Condition Onset Date 2 months Current Complaints pain left chest and lateral thorax History of Current Condition Prior PT after lumpectomy, was doing well. Has had onset of left chest pain, lateral thorax pain worsen over past 2 months. Tender to the touch. Painful to bend over and tie shoes, reach. Has been doing exercises. Using Tylenol or Ibuprofen occasionally when realy. Min pain when not moving, though at times wakes her due to pain. Using a special pillow she sewed to support her arm elevated at night. Can't lay on left side without moving tissue out of the way. Hasn't seen an oncologist for 1 year due to lack of availability; will be seeing first week of August. Has seen GP (Dr. Carrizales), no recent blood test. Not currently on Letrozole due to joint aching, chose to go off of it. Reports KT tape previously helpful. Not able to wear bra comfortably. Does wear snug stretchy tank top. Reports tissue left breast feels more firm. Has difficulty lifting. Future Testing and Treatments Planned Sees oncologist first week of August PT-OP-C Subjective Start: 08/11/24 08:43 Freq: Status: Active Protocol: Document 09/15/24 14:31 SAK (Rec: 09/15/24 14:55 [facility] [id number]) OP-PT Subjective Patient Comments Patient Comments Busy life, tired. Arm has been some better this week 40- 50%. Has only had 1-2 severe pains in it this week. Saw doctor last week, reviewed labs. Has appointment for removal of mole on forehead, biopsy. Good lab values otherwise. PT-OP-F Manual Assessment Start: 08/11/24 08:43 Freq: Status: Active Protocol: Document 08/11/24 13:00 [facility] (Rec: 08/11/24 17:49 [facility] [id number]) Manual Assessments Soft Tissue Assessment Soft Tissue Mobility Assessment subaxillary tightness left UE PT-OP-H Neuro Start: 08/11/24 08:43 Freq: Status: Active Protocol: Document 08/11/24 13:00 [facility] (Rec: 08/11/24 17:49 [facility] [id number]) Sensation Evaluation Gross Sensation Gross Sensation WNL PT-OP-J Posture/Palpation/Skin Start: 08/11/24 08:43 Freq: Status: Active Protocol: Document 08/11/24 13:00 [facility] (Rec: 08/11/24 17:49 [facility] [id number]) Posture Evaluation Position Sitting Head/C-Spine Posture Forward Head T-Spine Posture Increased Kyphosis Shoulder Posture (L) Rounded,(R) Rounded Scapula Posture (L) Protracted,(R) Protracted Arm Posture (L) Internally Rotated,(R) Internally Rotated Palpation Assessment Location left suaxillary Palpation Findings Edema,Soft Tissue Tightness PT-OP-K Range of Motion Start: 08/11/24 08:43 Freq: Status: Active Protocol: Document 08/11/24 13:00 [facility] (Rec: 08/11/24 17:49 [facility] [id number]) Cervical Spine Range of Motion Cervical Spine Active Comments WFL Shoulder Goniometric Range of Motion Shoulder kristen Shoulder ROM WFL Yes Comments painful end ranges Shoulder ROM Limitations Shoulder ROM Limitations Pain PT-OP-N Lymphedema Start: 08/11/24 08:43 Freq: Status: Active Protocol: Document 08/11/24 13:00 [facility] (Rec: 08/11/24 14:33 [facility] [id number]) Lymphedema Measurements Upper Extremity Circumference Measurements Right Affected MCP 18.4 cm Dorsum of Hand 18 cm Wrist 15.8 cm 5 cm From Wrist Crease 15 cm 10 cm From Wrist Crease 18.5 cm 15 cm From Wrist Crease 21.5 cm 20 cm From Wrist Crease 22.2 cm 25 cm From Wrist Crease 24 cm 30 cm From Wrist Crease 28.3 cm 35 cm From Wrist Crease 30.3 cm 40 cm From Wrist Crease 31.3 cm Elbow Joint 22.7 cm Left Affected MCP 17.8 cm Dorsum of Hand 17.9 cm Wrist 15.2 cm 5 cm From Wrist Crease 15.7 cm 10 cm From Wrist Crease 19.4 cm 15 cm From Wrist Crease 21.9 cm 20 cm From Wrist Crease 22.4 cm 25 cm From Wrist Crease 23.2 cm 30 cm From Wrist Crease 26.3 cm 35 cm From Wrist Crease 28.3 cm 40 cm From Wrist Crease 29.8 cm 45 cm From Wrist Crease 30.2 cm Elbow Joint 22.8 cm PT-OP-Q Treatments Start: 08/11/24 08:43 Freq: Status: Active Protocol: Document 09/15/24 14:31 DAFNE (Rec: 09/15/24 14:55 [facility] [id number]) Therapeutic Exercises Sidelying Exercises deep breathing Sidelying Exercise Name ant, lat, posterior chest Reps/Minutes 4 min Comments with tactile cues circles Reps/Minutes 5x, slow open book Reps/Minutes 5x with endrange deep breathing Comments long holds 1 min Manual Therapy Treatment Soft Tissue Mobilization 2 Body Location chest, incision and axilla Mobilization Type Instrument Assisted,Manual Lymphatic Drainage,Myofascial Release Comments small suction 1 Body Location subaxillary and lateral thorax Mobilization Type Instrument Assisted,Manual Lymphatic Drainage,Myofascial Release Intensity/Depth Superficial Comments use of Dycem for MFR Joint Mobilizations rib Direction PA, comp Grade II Body Position Sidelying Reps/Duration 4 min Taping lateral thorax and chest Treatment Focus soft tissue mobilization, support, lymphatic flow Type of Tape Kinesio Tape Comments 2 fan strips spine through lateral thorax to anterior chest paper off tension 2 fan strips upper arm across elbow to mid forearm paper off tension Self-Care/Home Management Treatment Education Patient Education Home Exercise Program,Pain Management,Posture Other Education self MLD review Lymphedema Treatment Manual Lymphatic Drainage Location left upper quadrant, subaxillary, left UE PT-OP-T Assessment and Plan Start: 08/11/24 08:43 Freq: Status: Active Protocol: Document 09/15/24 14:31 [facility] (Rec: 09/15/24 14:55 [facility] [id number]) Physical Therapy Assessment Impairments Impairments Edema,Pain,ROM,Soft Tissue Mobility Goals Two Impairment decreased scar tissue mobility , left rib mobility Fpc Goal (LTG) Improve scar mobility and rib mobility to WNL to promote improved left upper quadrant pain. LTG Duration 11/09/24 Three Impairment difficulty reaching overhead, behind her back and bending over without pain Impairment difficulty reaching overhead, behind her back and out to side for purposes of ADL's without increase in pain Produce Associate Goal (LTG) Patient will be able to return to prior level of function with minimal to no pain in any usual activities LTG Duration 11/09/24 One Impairment pain as high as 9/10 left subaxillary and posterolateral rib region Impairment pain as high as 9/10 subaxillary region causing poor sleep Short Term Goal (STG) decrease pain by at least 50% with all usual activities STG Duration 09/22/24 Fpc Goal (LTG) decrease pain by at least 75% with all usual activities LTG Duration 11/09/24 Assessment Summary Assessment Patient reports decreased pain , tightness, and fullness after MLD, MFR, pin and stretch manual techniques. Due to increased cost of copay states she will need to be discharged after next session. Will have KT tape UE and thorax and try to do self massage, continue with HEP as instructed. Physical Therapy Plan Frequency and Duration Frequency of Treatment 2x/Week Duration of treatment (weeks) 12 Plan of Care Start Date 08/11/24 Plan of Care End Date 11/10/23 Therapeutic Interventions Therapeutic Interventions Lymphedema Management,Manual Therapy,Patient/Caregiver Education,Self-Care/Home Management,Soft Tissue Mobilization,Taping, Therapeutic Exercises Next Visit Focus/Plan Next Note Type Treatment Note Next Visit Plan Anticipate discharge after next PT visit. Patient taking medication for nerve pain, just started, received education in need to take it consistently
--- NOTE | 2024-09-29 15:53 | PT.OTN ---
Current Diagnoses Unspecified mononeuropathy of left upper limb (09/29/24) Other chronic postprocedural pain (09/29/24) Lymphedema, not elsewhere classified (09/29/24) Pain in left arm (09/29/24) Soft tissue disorder, unspecified (09/29/24) Physical Therapy Treatment Note PT-OP-A Visit Information Start: 08/11/24 08:43 Freq: Status: Active Protocol: Document 09/29/24 15:47 SAK (Rec: 09/29/24 15:50 [facility]AK [id number]) Out-Patient Physical Therapy Visit Information Visit Information Visit Type Treatment Note Visit Start Time 14:32 Visit Stop Time 15:45 Visit Number 6 Evaluation Information Evaluation Date 08/11/24 Precautions Precautions history of breast CA PT-OP-B Current Condition Start: 08/11/24 08:43 Freq: Status: Active Protocol: Document 09/29/24 15:47 SAK (Rec: 09/29/24 15:50 [facility]AK [id number]) Current Condition History of Current Condition Onset Date 2 months Current Complaints pain left chest and lateral thorax History of Current Condition Prior PT after lumpectomy, was doing well. Has had onset of left chest pain, lateral thorax pain worsen over past 2 months. Tender to the touch. Painful to bend over and tie shoes, reach. Has been doing exercises. Using Tylenol or Ibuprofen occasionally when realy. Min pain when not moving, though at times wakes her due to pain. Using a special pillow she sewed to support her arm elevated at night. Can't lay on left side without moving tissue out of the way. Hasn't seen an oncologist for 1 year due to lack of availability; will be seeing first week of August. Has seen GP (Dr. Carrizales), no recent blood test. Not currently on Letrozole due to joint aching, chose to go off of it. Reports KT tape previously helpful. Not able to wear bra comfortably. Does wear snug stretchy tank top. Reports tissue left breast feels more firm. Has difficulty lifting. Future Testing and Treatments Planned Sees oncologist first week of August PT-OP-C Subjective Start: 08/11/24 08:43 Freq: Status: Active Protocol: Document 09/15/24 14:31 SAK (Rec: 09/15/24 14:55 SAK [id number]) OP-PT Subjective Patient Comments Patient Comments Busy life, tired. Arm has been some better this week 40- 50%. Has only had 1-2 severe pains in it this week. Saw doctor last week, reviewed labs. Has appointment for removal of mole on forehead, biopsy. Good lab values otherwise. PT-OP-F Manual Assessment Start: 08/11/24 08:43 Freq: Status: Active Protocol: Document 08/11/24 13:00 [facility] (Rec: 08/11/24 17:49 [facility] [id number]) Manual Assessments Soft Tissue Assessment Soft Tissue Mobility Assessment subaxillary tightness left UE PT-OP-H Neuro Start: 08/11/24 08:43 Freq: Status: Active Protocol: Document 08/11/24 13:00 [facility] (Rec: 08/11/24 17:49 [facility] [id number]) Sensation Evaluation Gross Sensation Gross Sensation WNL PT-OP-J Posture/Palpation/Skin Start: 08/11/24 08:43 Freq: Status: Active Protocol: Document 08/11/24 13:00 [facility] (Rec: 08/11/24 17:49 [facility] [id number]) Posture Evaluation Position Sitting Head/C-Spine Posture Forward Head T-Spine Posture Increased Kyphosis Shoulder Posture (L) Rounded,(R) Rounded Scapula Posture (L) Protracted,(R) Protracted Arm Posture (L) Internally Rotated,(R) Internally Rotated Palpation Assessment Location left suaxillary Palpation Findings Edema,Soft Tissue Tightness PT-OP-K Range of Motion Start: 08/11/24 08:43 Freq: Status: Active Protocol: Document 08/11/24 13:00 [facility] (Rec: 08/11/24 17:49 [facility] [id number]) Cervical Spine Range of Motion Cervical Spine Active Comments WFL Shoulder Goniometric Range of Motion Shoulder kristen Shoulder ROM WFL Yes Comments painful end ranges Shoulder ROM Limitations Shoulder ROM Limitations Pain PT-OP-N Lymphedema Start: 08/11/24 08:43 Freq: Status: Active Protocol: Document 08/11/24 13:00 [facility] (Rec: 08/11/24 14:33 [facility] [id number]) Lymphedema Measurements Upper Extremity Circumference Measurements Right Affected MCP 18.4 cm Dorsum of Hand 18 cm Wrist 15.8 cm 5 cm From Wrist Crease 15 cm 10 cm From Wrist Crease 18.5 cm 15 cm From Wrist Crease 21.5 cm 20 cm From Wrist Crease 22.2 cm 25 cm From Wrist Crease 24 cm 30 cm From Wrist Crease 28.3 cm 35 cm From Wrist Crease 30.3 cm 40 cm From Wrist Crease 31.3 cm Elbow Joint 22.7 cm Left Affected MCP 17.8 cm Dorsum of Hand 17.9 cm Wrist 15.2 cm 5 cm From Wrist Crease 15.7 cm 10 cm From Wrist Crease 19.4 cm 15 cm From Wrist Crease 21.9 cm 20 cm From Wrist Crease 22.4 cm 25 cm From Wrist Crease 23.2 cm 30 cm From Wrist Crease 26.3 cm 35 cm From Wrist Crease 28.3 cm 40 cm From Wrist Crease 29.8 cm 45 cm From Wrist Crease 30.2 cm Elbow Joint 22.8 cm PT-OP-Q Treatments Start: 08/11/24 08:43 Freq: Status: Active Protocol: Document 09/29/24 15:51 [facility] (Rec: 09/29/24 15:53 [facility] [id number]) Therapeutic Exercises Supine Exercises chest and shoulder stretches Supine Exercise Name T, I, Y Reps/Minutes 5x active 1x passive 30 sec stretch Sidelying Exercises deep breathing Sidelying Exercise Name ant, lat, posterior chest Reps/Minutes 4 min Comments with tactile cues circles Reps/Minutes 5x, slow open book Reps/Minutes 5x with endrange deep breathing Comments long holds 1 min Manual Therapy Treatment Soft Tissue Mobilization 2 Body Location chest, incision and axilla Mobilization Type Instrument Assisted,Manual Lymphatic Drainage,Myofascial Release Comments small suction 1 Body Location subaxillary and lateral thorax Mobilization Type Instrument Assisted,Manual Lymphatic Drainage,Myofascial Release Intensity/Depth Superficial Comments use of Dycem for MFR Taping lateral thorax and chest Treatment Focus soft tissue mobilization, support, lymphatic flow Type of Tape Kinesio Tape Comments 2 fan strips spine through lateral thorax to anterior chest paper off tension 1 fan strips upper arm across elbow to mid forearm paper off tension 1 fan strip base at spine left over shoulder to left chest paper off tension Self-Care/Home Management Treatment Education Patient Education Home Exercise Program,Pain Management,Posture Lymphedema Treatment Manual Lymphatic Drainage Location left upper quadrant, subaxillary, left UE PT-OP-T Assessment and Plan Start: 08/11/24 08:43 Freq: Status: Active Protocol: Document 09/29/24 15:47 [facility] (Rec: 09/29/24 15:50 [facility] [id number]) Physical Therapy Assessment Goals Two Impairment decreased scar tissue mobility , left rib mobility Fdc Goal (LTG) Improve scar mobility and rib mobility to WNL to promote improved left upper quadrant pain. 09/29/24: some improvement noted LTG Duration 11/09/24 Three Impairment difficulty reaching overhead, behind her back and bending over without pain Impairment difficulty reaching overhead, behind her back and out to side for purposes of ADL's without increase in pain Aerospace Physiological Technician Goal (LTG) Patient will be able to return to prior level of function with minimal to no pain in any usual activities 09/28/24: some goal progress LTG Duration 11/09/24 One Impairment pain as high as 9/10 left subaxillary and posterolateral rib region Impairment pain as high as 9/10 subaxillary region causing poor sleep Short Term Goal (STG) decrease pain by at least 50% with all usual activities 09/28/24: decreased by approx 25 % STG Duration 09/22/24 Aerospace Physiological Technician Goal (LTG) decrease pain by at least 75% with all usual activities LTG Duration 11/09/24 Assessment Summary Assessment Patient responds well to PT manual techniques including soft tissue mob and KT tape as well as ther ex. She is independent with her HEP, states her can tape at this time and she is unable to afford copay for further manual therapy. May return in the future. Physical Therapy Plan Discharge Physical Therapy Discharge Reasons Patient Request Discharge Comments unable to afford, indep with HEP, able to tape
--- NOTE | 2024-09-29 15:54 | PT.OTN ---
Current Diagnoses Unspecified mononeuropathy of left upper limb (09/29/24) Other chronic postprocedural pain (09/29/24) Lymphedema, not elsewhere classified (09/29/24) Pain in left arm (09/29/24) Soft tissue disorder, unspecified (09/29/24) Physical Therapy Treatment Note PT-OP-A Visit Information Start: 08/11/24 08:43 Freq: Status: Active Protocol: Document 09/29/24 15:47 SAK (Rec: 09/29/24 15:50 SAK [id number]) Out-Patient Physical Therapy Visit Information Visit Information Visit Type Treatment Note Visit Start Time 14:32 Visit Stop Time 15:45 Visit Number 6 Evaluation Information Evaluation Date 08/11/24 Precautions Precautions history of breast CA PT-OP-B Current Condition Start: 08/11/24 08:43 Freq: Status: Active Protocol: Document 09/29/24 15:47 SAK (Rec: 09/29/24 15:50 SAK [id number]) Current Condition History of Current Condition Onset Date 2 months Current Complaints pain left chest and lateral thorax History of Current Condition Prior PT after lumpectomy, was doing well. Has had onset of left chest pain, lateral thorax pain worsen over past 2 months. Tender to the touch. Painful to bend over and tie shoes, reach. Has been doing exercises. Using Tylenol or Ibuprofen occasionally when realy. Min pain when not moving, though at times wakes her due to pain. Using a special pillow she sewed to support her arm elevated at night. Can't lay on left side without moving tissue out of the way. Hasn't seen an oncologist for 1 year due to lack of availability; will be seeing first week of August. Has seen GP (Dr. Carrizales), no recent blood test. Not currently on Letrozole due to joint aching, chose to go off of it. Reports KT tape previously helpful. Not able to wear bra comfortably. Does wear snug stretchy tank top. Reports tissue left breast feels more firm. Has difficulty lifting. Future Testing and Treatments Planned Sees oncologist first week of August PT-OP-C Subjective Start: 08/11/24 08:43 Freq: Status: Active Protocol: Document 09/15/24 14:31 SAK (Rec: 09/15/24 14:55 SAK [id number]) OP-PT Subjective Patient Comments Patient Comments Busy life, tired. Arm has been some better this week 40- 50%. Has only had 1-2 severe pains in it this week. Saw doctor last week, reviewed labs. Has appointment for removal of mole on forehead, biopsy. Good lab values otherwise. PT-OP-F Manual Assessment Start: 08/11/24 08:43 Freq: Status: Active Protocol: Document 08/11/24 13:00 [facility] (Rec: 08/11/24 17:49 [facility] [id number]) Manual Assessments Soft Tissue Assessment Soft Tissue Mobility Assessment subaxillary tightness left UE PT-OP-H Neuro Start: 08/11/24 08:43 Freq: Status: Active Protocol: Document 08/11/24 13:00 [facility] (Rec: 08/11/24 17:49 [facility] [id number]) Sensation Evaluation Gross Sensation Gross Sensation WNL PT-OP-J Posture/Palpation/Skin Start: 08/11/24 08:43 Freq: Status: Active Protocol: Document 08/11/24 13:00 [facility] (Rec: 08/11/24 17:49 [facility] [id number]) Posture Evaluation Position Sitting Head/C-Spine Posture Forward Head T-Spine Posture Increased Kyphosis Shoulder Posture (L) Rounded,(R) Rounded Scapula Posture (L) Protracted,(R) Protracted Arm Posture (L) Internally Rotated,(R) Internally Rotated Palpation Assessment Location left suaxillary Palpation Findings Edema,Soft Tissue Tightness PT-OP-K Range of Motion Start: 08/11/24 08:43 Freq: Status: Active Protocol: Document 08/11/24 13:00 [facility] (Rec: 08/11/24 17:49 [facility] [id number]) Cervical Spine Range of Motion Cervical Spine Active Comments WFL Shoulder Goniometric Range of Motion Shoulder kristen Shoulder ROM WFL Yes Comments painful end ranges Shoulder ROM Limitations Shoulder ROM Limitations Pain PT-OP-N Lymphedema Start: 08/11/24 08:43 Freq: Status: Active Protocol: Document 08/11/24 13:00 [facility] (Rec: 08/11/24 14:33 [facility] [id number]) Lymphedema Measurements Upper Extremity Circumference Measurements Right Affected MCP 18.4 cm Dorsum of Hand 18 cm Wrist 15.8 cm 5 cm From Wrist Crease 15 cm 10 cm From Wrist Crease 18.5 cm 15 cm From Wrist Crease 21.5 cm 20 cm From Wrist Crease 22.2 cm 25 cm From Wrist Crease 24 cm 30 cm From Wrist Crease 28.3 cm 35 cm From Wrist Crease 30.3 cm 40 cm From Wrist Crease 31.3 cm Elbow Joint 22.7 cm Left Affected MCP 17.8 cm Dorsum of Hand 17.9 cm Wrist 15.2 cm 5 cm From Wrist Crease 15.7 cm 10 cm From Wrist Crease 19.4 cm 15 cm From Wrist Crease 21.9 cm 20 cm From Wrist Crease 22.4 cm 25 cm From Wrist Crease 23.2 cm 30 cm From Wrist Crease 26.3 cm 35 cm From Wrist Crease 28.3 cm 40 cm From Wrist Crease 29.8 cm 45 cm From Wrist Crease 30.2 cm Elbow Joint 22.8 cm PT-OP-Q Treatments Start: 08/11/24 08:43 Freq: Status: Active Protocol: Document 09/29/24 15:51 [facility] (Rec: 09/29/24 15:53 [facility] [id number]) Therapeutic Exercises Supine Exercises chest and shoulder stretches Supine Exercise Name T, I, Y Reps/Minutes 5x active 1x passive 30 sec stretch Sidelying Exercises deep breathing Sidelying Exercise Name ant, lat, posterior chest Reps/Minutes 4 min Comments with tactile cues circles Reps/Minutes 5x, slow open book Reps/Minutes 5x with endrange deep breathing Comments long holds 1 min Manual Therapy Treatment Soft Tissue Mobilization 2 Body Location chest, incision and axilla Mobilization Type Instrument Assisted,Manual Lymphatic Drainage,Myofascial Release Comments small suction 1 Body Location subaxillary and lateral thorax Mobilization Type Instrument Assisted,Manual Lymphatic Drainage,Myofascial Release Intensity/Depth Superficial Comments use of Dycem for MFR Taping lateral thorax and chest Treatment Focus soft tissue mobilization, support, lymphatic flow Type of Tape Kinesio Tape Comments 2 fan strips spine through lateral thorax to anterior chest paper off tension 1 fan strips upper arm across elbow to mid forearm paper off tension 1 fan strip base at spine left over shoulder to left chest paper off tension Self-Care/Home Management Treatment Education Patient Education Home Exercise Program,Pain Management,Posture Lymphedema Treatment Manual Lymphatic Drainage Location left upper quadrant, subaxillary, left UE PT-OP-T Assessment and Plan Start: 08/11/24 08:43 Freq: Status: Active Protocol: Document 09/29/24 15:47 [facility] (Rec: 09/29/24 15:50 [facility] [id number]) Physical Therapy Assessment Goals Two Impairment decreased scar tissue mobility , left rib mobility Group Home Goal (LTG) Improve scar mobility and rib mobility to WNL to promote improved left upper quadrant pain. 09/29/24: some improvement noted LTG Duration 11/09/24 Three Impairment difficulty reaching overhead, behind her back and bending over without pain Impairment difficulty reaching overhead, behind her back and out to side for purposes of ADL's without increase in pain Power [employer] Goal (LTG) Patient will be able to return to prior level of function with minimal to no pain in any usual activities 09/28/24: some goal progress LTG Duration 11/09/24 One Impairment pain as high as 9/10 left subaxillary and posterolateral rib region Impairment pain as high as 9/10 subaxillary region causing poor sleep Short Term Goal (STG) decrease pain by at least 50% with all usual activities 09/28/24: decreased by approx 25 % STG Duration 09/22/24 Power Truck Driver Goal (LTG) decrease pain by at least 75% with all usual activities LTG Duration 11/09/24 Assessment Summary Assessment Patient responds well to PT manual techniques including soft tissue mob and KT tape as well as ther ex. She is independent with her HEP, states her can tape at this time and she is unable to afford copay for further manual therapy. May return in the future. Physical Therapy Plan Discharge Physical Therapy Discharge Reasons Patient Request Discharge Comments unable to afford, indep with HEP, able to tape
== END 2024-09-30 09:07 | disposition home or self-care (01) ==
LOC: PHYS 14:30
PROVIDERS: Family Provider Family Medicine; PCP Family Medicine; Referring Provider Family Medicine; Visit Provider Family Medicine
DX: G56.92 Unspecified mononeuropathy of left upper limb (principal); G89.28 Other chronic postprocedural pain; M79.602 Pain in left arm; I89.0 Lymphedema, not elsewhere classified; M79.9 Soft tissue disorder, unspecified
CPT/HCPCS: 97110; 97140; 97162; 97535

== ENCOUNTER → 2024-11-11 09:55 | Outpatient (CLI) | payer MEDICARE, SELFPAY ==
[2023-07-21 12:23] VITALS: BMI 26.2
--- NOTE | 2024-11-11 09:58 | DI.RAD.S_ITS ---
PROCEDURE: XR DEXA AXIAL SKELETON INDICATIONS: menopausal, osteopenia COMPARISON: [facility], CR, XR DEXA AXIAL SKELETON, 09/24/2022, 15:01. FINDINGS: Lumbar Spine: Bone mineral density 0.776 (previously 0.799) g/cm2, T score -2.5 (previously-2.3). Left Femoral Neck: Bone mineral density 0.669 (previously 0.750) g/cm2, T score -1.6 (previously-0.9). Left Hip: Bone mineral density 0.796 (previously 0.828) g/cm2, T score -1.2 (previously-0.9). Fracture Risk Calculation (when applicable): 10-year fracture risk of a major osteoporotic fracture 14 percent and of a hip fracture 3.9 percent. (T score greater or equal to -1.0 to: NORMAL) (T score from -1.1 to -2.4: OSTEOPENIA) (T score less than or equal to -2.5: OSTEOPOROSIS) IMPRESSION: Osteoporosis---recommend repeat DEXA in 2 years or less for reassessment of response to treatment. Follow-up guidelines as follows: Osteoporosis: Consider a repeat DEXA and Vertebral Fracture Assessment (VFA) exam in 2 years or sooner if medically necessary, to reassess this patient's status. Osteopenia: Consider a repeat DEXA in 2-3 years to reassess this patient's status, or if there is a new clinical indication. Normal: Consider a repeat DEXA in 5 years or sooner, or if there is a new clinical indication. All treatment decisions require clinical judgment and consideration of individual patient factors, including patient preferences, comorbidities, previous drug use, risk factors not captured in the FRAX model (e.g., frailty, falls, vitamin D deficiency, increased bone turnover, interval significant decline in bone density ) and possible under- or over-estimation of fracture risk by FRAX. In addition, the NOF Guide recommends that FDA-approved medical therapies be considered in postmenopausal women and men age >= 50 years with a: * Hip or vertebral (clinical or morphometric) fracture * T-score of <=-2.5 at the spine or hip * Ten-year fracture probability by FRAX of >= 3% for hip fracture or >=20% for major osteoporotic fracture. Dictated by: Flakito Bay M.D. on 11/12/2024 at 6:19 Approved by: Flakito Bay M.D. on 11/12/2024 at 6:21
== END ==
PROVIDERS: Family Provider Family Medicine; PCP Family Medicine; Referring Provider Physician Assistant; Visit Provider Physician Assistant
DX: M81.0 Age-related osteoporosis without current pathological fracture (principal); M85.80 Other specified disorders of bone density and structure, unspecified site; Z78.0 Asymptomatic menopausal state
CPT/HCPCS: 77080

== ENCOUNTER → 2025-05-11 11:50 | Outpatient (CLI) | payer MEDICARE, SELFPAY ==
[2023-07-21 12:23] VITALS: BMI 26.2
[2025-05-11 12:19] LABS: Add Manual Diff / Slide Review NO; Hematocrit 40.2 % (36-46); Hemoglobin 13.6 g/dL (12.0-16.0); Lymphocytes Absolute Auto 1000 /uL (1100-4500); Mean Corpuscular HGB Conc 33.8 % (30-36); Mean Corpuscular Hemoglobin 29.4 PG (26-34); Mean Corpuscular Volume 86.8 fL (80-100); Platelet Count 207 X10^3/uL (150-400)
[2025-05-11 12:38] LABS: Alanine Aminotransferase 18 IU/L (<35); Albumin 4.6 g/dL (3.5-5.0); Albumin Globulin Ratio 1.6 (1.0-2.8); Alkaline Phosphatase 90 U/L (38-126); Blood Urea Nitrogen 21 mg/dL (7-17); Calcium 9.6 mg/dL (8.4-10.2); Carbon Dioxide 26 mmol/L (22-32); Chloride 98 mmol/L (98-107); Cholesterol 199 mg/dL (140-199); Estimated Glomerular Filt Rate > 60 mL/min (>60); Globulin 2.9 g/dL (1.7-4.1); Glucose 89 mg/dL (70-99); HDL Cholesterol 75 mg/dL (40-60); HEMOLYSIS < 15 (0-50); Potassium 4.4 mmol/L (3.4-5.1); Sodium 133 mmol/L (137-145); Total Protein 7.5 g/dL (6.3-8.2); Triglycerides 77 mg/dL (35-150)
[2025-05-11 13:10] LABS: TSH w/ Reflex to FT4 4.93 uIU/mL (0.47-4.68)
[2025-05-11 14:33] LABS: Free T4, Direct Thyroxine 1.70 ng/dL (0.78-2.19)
== END ==
PROVIDERS: PCP Family Medicine; Referring Provider Family Medicine; Visit Provider Family Medicine
DX: C50.919 Malignant neoplasm of unspecified site of unspecified female breast (principal); E03.9 Hypothyroidism, unspecified; G89.28 Other chronic postprocedural pain
CPT/HCPCS: 36415; 80053; 80061; 84439; 84443; 85025